=== PATIENT | male | born 1950 | race Caucasian/White ===

== ENCOUNTER → 2016-08-20 | Outpatient (CLI) | payer MEDICARE, OTHER ==
--- NOTE | 2016-08-20 14:57 | MRI ---
EXAM DESCRIPTION: MR LUMBAR SPINE WITHOUT IV CONTRAST CLINICAL HISTORY: 66 y/o M, LUMBAR RADICULITIS COMPARISON: April 09, 2016. TECHNIQUE: Multi planar, multi sequence imaging of the lumbar spine was acquired without IV contrast. FINDINGS: Vertebral body height, alignment and marrow signal are unremarkable. Intervertebral disc spaces are maintained. There has been posterior and interbody fusion of L4 through S1. Endplate edema noted anteriorly at L1-L2 and L2-3. The conus is unremarkable in once again terminates at L1. T12-L1: Unremarkable. L1-L2: Anterior disc osteophyte complex. No posterior disk pathology. No spinal canal or neural foraminal narrowing. No facet degeneration. L2-L3: Mild facet degeneration. Anterior disc osteophyte complex noted. There is no posterior disk pathology. No spinal canal or neural foraminal narrowing. L3-L4: Mild circumferential disk bulge with large bulky anterior osteophytes. Thecal sac is widely patent. Severe facet degeneration noted along with ligamentum flavum thickening. The bilateral neural foramina are likely adequate. L4-5: Laminectomy noted. Thecal sac is widely patent. Bilateral neural foramina are also likely adequate. L5-S1: Laminectomy noted. Thecal sac is widely patent. Bilateral neural foramina are likely adequate. IMPRESSION: There is been no change on today's MRI of lumbar spine when compared to the prior from April 09, 2016. There is no spinal canal narrowing at any level. There continues to be mild endplate edema noted anteriorly at L1-2 and L2-3. Electronically signed by: Robin Wu MD 08/20/2016 14:55
== END ==
LOC: RAD 12:10
PROVIDERS: ATTEND Nurse Practitioner Family
DX: M54.16 Radiculopathy, lumbar region (principal); R41.82 Altered mental status, unspecified; R60.9 Edema, unspecified; N39.0 Urinary tract infection, site not specified

== ENCOUNTER 2016-08-23 11:17 | Inpatient (IN) | payer MEDICARE, OTHER ==
--- NOTE | 2016-08-23 11:37 | CT ---
EXAM DESCRIPTION: CT HEAD WITHOUT INTRAVENOUS CONTRAST CLINICAL HISTORY: Right facial numbness and tingling. COMPARISON: 05/05/2016. TECHNIQUE: CT of the head was performed without intravenous contrast. FINDINGS: There is no intra or extra-axial hemorrhage,fluid collection, midline shift, mass effect or acute focal infarct. Note is again made of old lacunar infarcts in the right basal ganglia in the bilateral centrum semiovale region There is prominence of the sylvian fissures and the cortical sulci reflecting age related volume loss. There is periventricular and deep white matter low attenuation, most likely related to small vessel white matter ischemic disease. Acute on chronic ischemic changes are better assessed on an MRI, if such a suspicion exists clinically. The ventricular system is normal for patient's age, position and configuration. Benign intracranial vascular calcifications are seen. Visualized mastoid air cells are unremarkable. The paranasal sinuses show underlying changes of mild chronic sinusitis. There is no visualization of calvarial or skull base fractures. IMPRESSION: There are no acute intracranial findings. Chronic and age related involutional changes are seen. Electronically signed by: Norris Underwood MD 08/23/2016 11:36
--- NOTE | 2016-08-23 12:05 | ED.PDOC ---
History of Present Illness - General Chief Complaint: Neuro Symptoms/Deficits Stated Complaint: right facial numbness/tingling Time Seen by Provider: 08/23/16 11:39 Source: patient, RN notes reviewed, Vital Signs reviewed, family, EMS Exam Limitations: no limitations - History of Present Illness Initial Comments: This 66 y/o male with a history of CVA was brought in by EMS with symptoms of stroke. [place] the [place], and they reported that he was unable to get up and he had urinary and bowel incontinence. His speech was "different." He reports that he is unable to "move his tongue," however his mouth is very dry. He denies any symptoms other than his neck hurts when he lifts his head. Timing/Duration: 1-3 hours - 1.5 hours--last seen normal Severity: moderate Improving Factors: nothing Worsening Factors: nothing Associated Symptoms: slurred speech, trouble walking Allergies/Adverse Reactions: Allergies Iodine Allergy (Severe, Verified 08/23/16 11:21) Other makes him feel like he is having "a heart attack" Home Medications: Ambulatory Orders Omeprazole [Prilosec] 40 mg PO DAILY 07/05/14 Amitriptyline HCl 150 mg PO BEDTIME 10/24/15 Amlodipine Besylate 5 mg PO DAILY 08/23/16 Divalproex Sodium ER [Depakote ER] 500 mg PO BID 08/23/16 Donepezil HCl [Aricept] 5 mg PO BEDTIME 08/23/16 HYDROcodone 10MG/APAP 325MG [[place] 10/325] 1 tab PO Q4HR PRN 08/23/16 Lisinopril 20 mg PO DAILY 08/23/16 Tamsulosin [Flomax] 0.4 mg PO DAILY 08/23/16 Review of Systems - Review of Systems Constitutional: States: weakness. Denies: see HPI, fever EENTM: States: blurred vision - chronic. Denies: ear pain, throat pain Respiratory: States: no symptoms reported Cardiology: States: no symptoms reported Gastrointestinal/Abdominal: States: no symptoms reported Genitourinary: States: no symptoms reported Musculoskeletal: States: no symptoms reported Skin: States: no symptoms reported Neurological: States: weakness Endocrine: States: no symptoms reported Hematologic/Lymphatic: States: no symptoms reported All other Systems: Reviewed and Negative Past Medical History (General) - Patient Medical History Hx Seizures: No Hx Stroke: Yes - TIA and CVA Hx Dementia: Yes Hx Asthma: No Hx of COPD: Yes Hx Cardiac Disorders: Yes Hx Congestive Heart Failure: No Hx Pacemaker: No Hx Hypertension: Yes Hx Thyroid Disease: No Hx Diabetes: No Hx Gastroesophageal Reflux: Yes Hx Renal Disease: No Hx Cancer: No Hx of HIV: No Hx Hepatitis C: No Hx MRSA: No - Vaccination History Hx Tetanus, Diphtheria Vaccination: No Hx Influenza Vaccination: Yes - 2016 Hx Pneumococcal Vaccination: No - Social History Hx Tobacco Use: Yes Hx Chewing Tobacco Use: No Hx Alcohol Use: Yes Hx Substance Use: No Hx Substance Use Treatment: No Hx Depression: Yes Hx Physical Abuse: No Hx Emotional Abuse: No Hx Suspected Abuse: No - Female History Patient : No Family Medical History - Family History Mother Living Status: Hx Cardiac Disease: Yes Physical Exam - Physical Exam General Appearance: Alert, Comfortable, No apparent distress, Unkempt Eye Exam: right abnormal pupil - pinpoint ENT Exam: hearing grossly normal, TMs normal, other - dry mucous membranes Neck: non-tender, normal inspection Respiratory: no respiratory distress, no accessory muscle use, rales - left lower lobe Cardiovascular/Chest: regular rate, rhythm, no edema, no gallop, no murmur Peripheral Pulses: radial,right: 2+, radial,left: 2+, dorsalis pedis,right: 1+, dorsalis pedis,left: 1+ Gastrointestinal/Abdominal: normal bowel sounds, non tender, soft, no organomegaly, no pulsatile mass Extremities Exam: non-tender, no evidence of injury Mental Status: alert, oriented x 3 registered 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 Exam: normal hearing, tongue deviation to R - initially--improved after Patient got some water Coordination/Gait: ABN nose to finger (R), ABN nose to finger (L) Motor/Sensory: no motor deficit, no sensory deficit Skin Exam: normal color, warm/dry Progress - Results/Orders Results/Orders: 08/23/16 08/23/16 08/23/16 11:31 12:05 13:00 Temperature 98.3 F Pulse Rate [ 80 78 86 Right Radial] Respiratory 20 20 20 Rate Blood Pressure 94/64 92/57 107/46 [Right Arm] O2 Sat by Pulse 96 95 97 Oximetry 08/23/16 13:54 Temperature Pulse Rate [ 84 Right Radial] Respiratory 20 Rate Blood Pressure 98/62 [Right Arm] O2 Sat by Pulse 96 Oximetry 08/23/16 12:15 Head [CT] Stat 08/23/16 12:30 EKG STAT 08/23/16 13:00 Sodium Chloride 0.9% 1000ML [Ns 1000 ml] 1,000 ml IVS ONCE 08/23/16 14:58 VALPROIC ACID (DEPAKENE) Stat Laboratory Results WBC 13.4 K/mm3 (4.8-10.8) H D 08/23/16 12:16 RBC 3.78 M/mm3 (4.70-6.10) L 08/23/16 12:16 Hgb 10.9 gm/dL (14.0-18.0) L 08/23/16 12:16 Hct 33.4 % (42.0-52.0) L 08/23/16 12:16 MCV 88.4 fl (80.0-94.0) 08/23/16 12:16 MCH 28.8 pg (27.0-31.0) 08/23/16 12:16 MCHC 32.7 g/dL (33.0-37.0) L 08/23/16 12:16 RDW 15.0 % (11.5-14.5) H 08/23/16 12:16 Plt Count 266 K/mm3 (130-400) 08/23/16 12:16 MPV 7.4 fl (7.40-10.4) 08/23/16 12:16 Absolute Neuts (auto) 11.40 K/uL (1.8-6.8) H 08/23/16 12:16 Absolute Lymphs (auto) 1.00 K/uL (1.0-3.4) 08/23/16 12:16 Absolute Monos (auto) 0.90 K/uL (0.2-0.8) H 08/23/16 12:16 Absolute Eos (auto) 0.00 K/uL (0.0-0.4) 08/23/16 12:16 Absolute Basos (auto) 0.00 K/uL (0.0-0.1) 08/23/16 12:16 Neutrophils % 85.2 % (42.0-78.0) H 08/23/16 12:16 Lymphocytes % 7.6 % (20.0-50.0) L 08/23/16 12:16 Monocytes % 6.9 % (2.0-9.0) 08/23/16 12:16 Eosinophils % 0.1 % (1.0-5.0) L 08/23/16 12:16 Basophils % 0.2 % (0.0-2.0) 08/23/16 12:16 PT 11.3 SECONDS (9.4-12.5) 08/23/16 12:16 INR 1.000 08/23/16 12:16 PTT (SP) 30.6 SECONDS (25.1-36.5) 08/23/16 12:16 Sodium 132 mmol/L (135-145) L 08/23/16 12:16 Potassium 4.1 mmol/L (3.6-5.0) 08/23/16 12:16 Chloride 100 mmol/L (101-111) L 08/23/16 12:16 Carbon Dioxide 23 mmol/L (21-31) 08/23/16 12:16 Anion Gap 13.1 (12-18) 08/23/16 12:16 BUN 34 mg/dL (7-18) H D 08/23/16 12:16 Creatinine 1.16 mg/dL (0.6-1.3) 08/23/16 12:16 BUN/Creatinine Ratio 29.3 (10-20) H 08/23/16 12:16 Random Glucose 91 mg/dL (70-105) 08/23/16 12:16 Serum Osmolality 271.7 mOsm/L (275-295) L 08/23/16 12:16 Calcium 9.3 mg/dL (8.4-10.2) 08/23/16 12:16 Total Bilirubin 0.6 mg/dL (0.2-1.0) 08/23/16 12:16 AST 22 IU/L (10-42) 08/23/16 12:16 ALT < 8 IU/L (10-60) L 08/23/16 12:16 Alkaline Phosphatase 49 IU/L (42-121) 08/23/16 12:16 Creatine Kinase 914 IU/L (38-174) H* 08/23/16 12:16 CK-MB (CK-2) 39.1 ng/mL (0.0-4.4) H* 08/23/16 12:16 CK-MB (CK-2) % 4.28 % (0.0-3.5) H 08/23/16 12:16 Troponin I < 0.02 ng/mL (0.01-0.05) 08/23/16 12:16 B-Natriuretic Peptide 39.3 pg/ml (0-100) 08/23/16 12:16 Serum Total Protein 7.1 gm/dL (6.4-8.2) 08/23/16 12:16 Albumin 3.5 g/dl (3.2-5.5) 08/23/16 12:16 Globulin 3.6 gm/dL (2.3-3.5) H 08/23/16 12:16 Albumin/Globulin Ratio 1.0 (1.1-1.9) L 08/23/16 12:16 Urine Color Yellow (Yellow) 08/23/16 13:49 Urine Appearance Clear (Clear) 08/23/16 13:49 Urine pH 6.0 (4.5-7.8) 08/23/16 13:49 Ur Specific [place] 1.015 (1.005-1.030) 08/23/16 13:49 Urine Protein Negative mg/dL 08/23/16 13:49 Urine Glucose (UA) Negative mg/dL (Negative) 08/23/16 13:49 Urine Ketones Negative mg/dL (NEGATIVE) 08/23/16 13:49 Urine Blood Negative (Negative) 08/23/16 13:49 Urine Nitrite Negative 08/23/16 13:49 Urine Bilirubin Negative (NEGATIVE) 08/23/16 13:49 Urine Urobilinogen 0.2 mg/dL (0.2-1.0) 08/23/16 13:49 Ur Leukocyte Esterase Negative (Negative) 08/23/16 13:49 Urine RBC 0-1 /hpf 08/23/16 13:49 Urine WBC 1-3 /hpf 08/23/16 13:49 Ur Epithelial Cells 0-1 /hpf 08/23/16 13:49 Urine Bacteria 0 08/23/16 13:49 - EKG/XRAY/CT EKG: Sinus, no ST T wave changes Comments: Nonspecific A/V block, LAD, 78bpm, NML Int., No comp, ABN EGK XRAY: chest Xray Comments: Diffuse interstitial infiltrates CT: Head-old infarcts, no acute process CT Ordered: Yes CT Interpretation Call Back: No - Report sent CT Interpretation Call Back Date: 08/23/16 CT Interpretation Call Back Time: 11:40 Stroke Information - Onset of Symptoms Symptoms of Stroke: Aphasia, Difficulty balancing Stroke Onset of Symptoms Date: 08/23/16 Stroke Onset of Symptoms Time: 10:00 - Contraindications Antithrombotic Contraindication: Treatment not indicated - Patient's symptoms are mild and he is back to baseline at this time per his son Departure - Departure Clinical Impression: Seizure disorder, Hyponatremia TIA (transient ischemic attack) Qualifiers: Transient cerebral ischemia type: unspecified Qualifier Code: (G45.9) Transient cerebral ischemic attack, unspecified Time of Disposition: 15:03 Disposition: Admit Patient Condition: Poor Home Medications: Ambulatory Orders Omeprazole [Prilosec] 40 mg PO DAILY 07/05/14 Amitriptyline HCl 150 mg PO BEDTIME 10/24/15 Amlodipine Besylate 5 mg PO DAILY 08/23/16 Divalproex Sodium ER [Depakote ER] 500 mg PO BID 08/23/16 Donepezil HCl [Aricept] 5 mg PO BEDTIME 08/23/16 HYDROcodone 10MG/APAP 325MG [[place] 10/325] 1 tab PO Q4HR PRN 08/23/16 Lisinopril 20 mg PO DAILY 08/23/16 Tamsulosin [Flomax] 0.4 mg PO DAILY 08/23/16 Decision To Admit - Decistion To Admit Decision to Admit Reason: Admit from ER Decision to Admit Date: 08/23/16 Decision to Admit Time: 14:50
[2016-08-23] MEDS ORDERED: SODIUM CHLORIDE 0.9% 1000ML 1,000 ML IVS ONE (13:00)
[2016-08-23] MEDS ORDERED: SODIUM CHLORIDE 0.9% 1000ML 1,000 ML ONE (13:04)
--- NOTE | 2016-08-23 14:04 | RAD ---
EXAM DESCRIPTION: X-RAY CHEST- ONE VIEW CLINICAL HISTORY: Stroke symptoms. COMPARISON: 01/22/2016 TECHNIQUE: Single view of the chest. FINDINGS: There are diffuse interstitial infiltrates in the right hemithorax There are no pneumothoraces or pleural effusions. The cardiomediastinal silhouette is stable and unremarkable. IMPRESSION: There are diffuse interstitial infiltrates in the right hemithorax Electronically signed by: Norris Underwood MD 08/23/2016 14:02
--- NOTE | 2016-08-23 15:36 | HP ---
SUPERVISING PHYSICIAN: Nathan Rey M.D. HISTORY OF PRESENT ILLNESS: Mr. Hammonds is a 66 year-old male patient , a resident of [facility]. He was brought to the Emergency Room with what they described as possible stroke-like symptoms. He does have a significant history of previous cerebrovascular accidents, one in 2014 and again October of last year. He was reported as being unable to get up and had become incontinent of urine and bowel with a speech that was different and he was unable to move his tongue. On admission to the Emergency Department, he was found to be without any neurological deficits other than slurred speech which is normal for him with the previous CVAs. The patient has just been recently admitted to the care facility at [facility] on 08/19 from [place]. He was started on Depakote on admission to the care facility by Dr. Gomez as the patient has a history of epilepsy without mention of status epilepticus. Per longterm staff, the patient was admitted on 08/19/15, however left due to insurance difficulty and returned home. He was found at home on 08/21/15 on the floor by his family and had been on the floor for an unknown amount of time and unknown reason as to why he had fallen or was on the floor. Again he was found to be incontinent of urine and stool. He was then readmitted after insurance issues were cleared back to [facility] on 08/21 and had apparently not been taking his Depakote. A Depakote level today in the Emergency Room showed to be subtherapeutic at 34.0. He does take Depakote 500 mg twice daily. Laboratory studies showed that he also had an elevated white count but was afebrile, and also of note was a low sodium at 132 as well as elevated CK of 914. Radiographic studies included a single chest view x-ray that was interpreted per radiology as having diffuse interstitial infiltrates in the right hemithorax. Dr. Sarah, E. R. physician, requested the patient be admitted for continued treatment and evaluation for possibly either having an additional stroke or transient ischemic attack versus a seizure given that his Depakote level was subtherapeutic. The patient was admitted to the Medical/Surgical floor in stable condition. PAST MEDICAL HISTORY: 1. Hypertension. 2. Major depressive disorder. 3. Epilepsy without status epilepticus. 4. Sciatica. 5. Dementia. 6. History of alcohol abuse. 7. History of multiple falls. 8. Benign prostatic hypertrophy. 9. History of cerebrovascular disease with cerebrovascular accidents in the last 2 years. 10. Gout. 11. Osteoarthritis. PAST SURGICAL HISTORY: 1. Arthroscopic procedures in the past. No other major surgeries listed. CURRENT MEDICATIONS: 1. Flomax 0.4 mg daily. 2. Amlodipine 5 mg daily. 3. Lisinopril 20 mg daily. 4. [place] 10/325 one tablet every 4 hours p.r.n. for pain. 5. Aricept 5 mg at bedtime. 6. Depakote Extended Release 500 mg twice daily. 7. Prilosec 40 mg daily. 8. Amitriptyline 150 mg at bedtime. HEALTHCARE PROVIDERS: Primary care physician - Dr. Justin Gomez ALLERGIES: IODINE AND CEPHALOSPORINS. FAMILY HISTORY: Positive for cancer. 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 He currently lives at [facility] having recently moved there on 08/20/15. He still smokes about a pack of cigarette a day and prior to admission to [facility] he was drinking about 1/2 pint of whiskey a day. Unsure as to when he stopped drinking. He has done so since a teenager. REVIEW OF SYSTEMS: CONSTITUTIONAL: Denies any fever or chills. HEENT: Denies any visual disturbances, ear pain or throat pain. RESPIRATORY: Notes a cough with some mild shortness of breath at times. CARDIOVASCULAR: Denies any chest pains palpitations or syncopal episodes other than noted in the History of Present Illness with possible syncopal episode felt likely secondary to a seizure. ABDOMEN: Denies any nausea or vomiting, diarrhea or constipation. GENITOURINARY: Denies any dysuria or gross hematuria. NEUROLOGIC: He notes generalized weakness as per history of present illness with the patient being incontinent of stool and urine with some difficulty speaking initially prior to admission. Denies any headaches but has had multiple falls in the last week. He does have a history of difficulty speaking which according to his family members is now back to his normal baseline secondary to previous strokes. PHYSICAL EXAMINATION: VITAL SIGNS: Temperature 98.3, pulse 87, blood pressure 134/89, respirations 20 , O2 sat 96% on room air. Admission weight is 77.8 kg. GENERAL: The patient is resting in bed. Appears to be in no acute distress. He does speak, however it is very difficult to understand his speech secondary to dysarthric speech pattern. He notes that is his normal speech pattern and at times is understandable. His son also notes that that is his baseline. HEENT: Tympanic membranes are clear bilaterally. Oropharynx is pink. Mucosal membranes are dry with cracked lips. There are no lesions. NECK: There is no jugular venous distention. CHEST: Lungs are notable for decreased breath sounds towards the bases with some notable crackles to the posterior right lung gee. No wheezing or rhonchi heard. CARDIOVASCULAR: Regular rate and rhythm without appreciable murmurs, gallops, or rubs. ABDOMEN: Obese but soft, non-tender. Positive bowel sounds. EXTREMITIES: No clubbing, cyanosis or edema. NEUROLOGIC: Cranial nerves II-XII are grossly intact. Facial features are symmetrical. Extraocular movements show to be within normal limits. There is no nystagmus. He does have some ataxia noted on the left. Nose to finger and heel to miller, but no obvious lateralizing or localizing weaknesses. He is alert and oriented times three. LABORATORY: White count is elevated at 13.4, hemoglobin 10.9, hematocrit 33.4, platelet count 266,000. Differential does show a left shift. Coagulation studies show to be within normal limits. Chemistries show a low sodium at 132 with a normal potassium at 4.1, BUN 34, creatinine 1.16, anion gap was normal, carbon dioxide 23, glucose 91, calcium 9.3, magnesium 1.9. TSH is pending. Liver functions show to be within normal limits with CPK elevated at 914 and troponin less than 0.02 with BNP of 39.3. Urine showed to be within normal limits. Valproic acid level was non-therapeutic at 34. MICROBIOLOGY: Blood cultures are pending. Sputum culture is pending. RADIOLOGY: Head CT performed in the Emergency Department prior to admission per radiology interpretation showed no acute intracranial findings, chronic and age-related involutional changes noted. Single view chest x-ray per radiology interpretation showed diffuse interstitial infiltrates in the right hemithorax. ASSESSMENT: 1. History of epilepsy with the patient having a non-therapeutic Depakote level and the patient being noncompliant with medications with concerns for a possible seizure that was unwitnessed with the patient presenting with postictal symptoms having resolved at time of admission in a patient with multiple cerebrovascular accidents within the last 2 years versus transient ischemic attack. 2. Electrolyte imbalance with hyponatremia. 3. Leukocytosis with radiographic studies showing an infiltrative process in the right lung with concerns for early pneumonia possibly secondary to aspiration given the patient has a history of seizures and multiple falls within the last week. 4. Elevated creatinine phosphokinase likely secondary to seizure activity and multiple falls within the last week. 5. Major depressive disorder. 6. Dementia. 7. History of alcohol abuse. 8. Benign prostatic hyperplasia. 9. History of gout. 10. Hypertension. 11. Mild renal insufficiency likely secondary to prerenal azotemia and moderate dehydration. 12. Anemia with a normocytic normochromic presentation. PLAN: The patient will be admitted to the Medical/Surgical floor for concerns for possible seizure activity secondary to failure to comply with medication regimen and having a non-therapeutic Depakote level. I will plan to increase his Depakote regimen with a loading dose of 1,000 mg on admission and to continue with 500 twice daily with a repeat valproic level in the morning. He will be on DVT prophylaxis as per protocol. Given the concerns for the infiltrative process in the right lung and the possibility of community acquired pneumonia with concerns for possible aspiration with leukocytosis, he will be started on Levaquin after blood cultures are drawn and closely monitored. Should he show any worsening of symptoms, certainly will treat him with some Clindamycin for again possible aspiration pneumonia. Will await sputum cultures to further target antibiotic therapy. Will provide him with IV fluids to assist in rehydration. He had a liter of normal saline in the Emergency Department. This will be followed-up with normal saline with 40 of potassium to run at 80 mL per hour. Will start him on aggressive pulmonary hygiene with q.i.d. DuoNeb treatments, Mucinex and bronchial hygiene. He will be in seizure precautions as well as have every 4 hours neuro checks, and closely observed and placed on telemetry. Will anticipate length of stay to be 2 to 3 days with plans to reevaluate in the morning with repeat laboratory studies and again a chest x-ray. Until discharge, will continue to follow the patient closely and treat appropriately. Once ultimately discharged, the patient will need to followup closely with his primary care physician, Dr. Gomez at [facility]. #[id number] [facility] HOSPITALMelchor
[2016-08-23] MEDS ORDERED: SODIUM CHLORIDE 0.9% (FLUSH) 10 ML SYG IV PRN (15:42)
[2016-08-23] MEDS ORDERED: IV SET AND CAP CHANGE INJ INJ SCH (16:00)
[2016-08-23] MEDS: KCL 40MEQ/NS 1,000 ML IVS PRN (16:09)
[2016-08-23] MEDS ORDERED: DIVALPROEX SODIUM 250 MG TAB PO ONE (17:12)
[2016-08-23] MEDS ORDERED: ALBUTEROL SULFATE 2.5 MG/3 ML VIAL NEB PRN (17:35)
[2016-08-23] MEDS ORDERED: levoFLOXacin 500MG IV 100 ML IVPB ONE (17:50)
[2016-08-23] MEDS: levoFLOXacin 500MG IV 500 MG in PREMIX BAG 1 BAG IVPB SCH (17:52)
[2016-08-23] MEDS: NICOTINE PATCH 21 MG TD SCH (18:44)
[2016-08-23] MEDS ORDERED: AMITRIPTYLINE HCL 25 MG TAB ONE (19:24)
[2016-08-23] MEDS: IPRATROPIUM/ALBUTEROL 3 ML VIAL NEB SCH (20:01)
[2016-08-23] MEDS: HYDROcodone 10MG/APAP 325MG 1 EA TAB PO PRN (20:08)
[2016-08-23] MEDS: guaiFENesin ER TAB 600 MG TAB PO SCH (20:32)
[2016-08-23] MEDS: LORazepam 0.5 MG TAB PO SCH (20:32)
[2016-08-23] MEDS: DONEPEZIL HCL 5 MG TAB PO SCH (20:32)
[2016-08-23] MEDS ORDERED: DIVALPROEX SODIUM ER 500 MG TAB PO SCH (21:00)
[2016-08-23] MEDS ORDERED: NON-FORMULARY MEDICATION 1 EA MIS (Amitriptyline Hcl [Amitriptyline Hcl] 150 MG) PO SCH (21:00)
[2016-08-24] MEDS: KCL 40MEQ/NS 1,000 ML IVS PRN (05:50)
[2016-08-24] MEDS ORDERED: LISINOPRIL 10 MG TAB ONE (07:29)
[2016-08-24] MEDS ORDERED: OMEPRAZOLE CAP 20 MG CAP ONE (07:29)
[2016-08-24] MEDS: IPRATROPIUM/ALBUTEROL 3 ML VIAL NEB SCH ×5 (08:01→20:22)
[2016-08-24] MEDS: guaiFENesin ER TAB 600 MG TAB PO SCH ×2 (08:38→20:40)
[2016-08-24] MEDS: amLODIPine BESYLATE 5 MG TAB PO SCH (08:38)
[2016-08-24] MEDS: LISINOPRIL 10 MG TAB PO SCH (08:38)
[2016-08-24] MEDS: TAMSULOSIN 0.4 MG CAP PO SCH (08:38)
[2016-08-24] MEDS: OMEPRAZOLE CAP 20 MG CAP PO SCH (08:38)
[2016-08-24] MEDS: DIVALPROEX SODIUM 250 MG TAB PO SCH ×2 (08:40→20:40)
--- NOTE | 2016-08-24 08:42 | RAD ---
EXAM DESCRIPTION: X-RAY CHEST- ONE VIEW CLINICAL HISTORY: Followup of pneumonia COMPARISON: 08/23/2016 TECHNIQUE: Single view of the chest. FINDINGS: There are improving, still diffuse right-sided infiltrates. There is no pleural effusion There are no pneumothoraces. The cardiomediastinal silhouette is stable. IMPRESSION: There are improving, still diffuse right-sided infiltrates. Electronically signed by: Norris Underwood MD 08/24/2016 08:39
[2016-08-24] MEDS: SODIUM CHLORIDE 0.9% (FLUSH) 10 ML SYG IV SCH ×2 (10:33→20:41)
[2016-08-24] MEDS: HYDROcodone 10MG/APAP 325MG 1 EA TAB PO PRN ×2 (11:37→17:41)
--- NOTE | 2016-08-24 11:53 | PN ---
DATE: 08/24/16 SUPERVISING PHYSICIAN: Alexander Harris M.D. SUBJECTIVE: The patient this morning has much clearer speech. He did not have any seizure activity through the night. He remains afebrile. He is tolerating his diet well. OBJECTIVE: VITAL SIGNS: T max 98.7, pulse 74, blood pressure 115/77, respirations 18, O2 sat showing 97% on room air. I's and O's show a negative balance of 49 with 1751 in, 1800 out. Weight is 78.6 kg. GENERAL: The patient is resting in bed in no distress. Speech is much clearer today. HEENT: Mucosal membranes appear pink and moist now. There are no notable lesions. CHEST: Lungs have diminished breath sounds in the right with some faint rhonchi in the posterior aspect. No wheezing or rales are heard. Lungs sound to the left are clear but diminished towards the bases. HEART: Regular rate and rhythm. ABDOMEN: Obese but soft, non-tender. Positive bowel sounds. EXTREMITIES: There is no clubbing, cyanosis or edema. NEUROLOGIC: He is alert and oriented times three. No significant changes in his neurologic status from admission other than speech is much clearer. LABORATORY: White count is now normalized to 9.0, hemoglobin 9.8, hematocrit 29.3, platelet count 212,000. Differential shows to be without a left shift. Chemistries show normal electrolytes today with potassium 4.9. Sodium has improved to 135, BUN 18, creatinine 0.76, glucose 71, CPK is down to 365. All other liver functions are within normal limits. A repeat valproic acid is therapeutic at 69.8. MICROBIOLOGY: Sputum culture shows normal talya at 24 hours. Blood cultures remain negative. RADIOLOGY: Single view chest x-ray this morning per radiology interpretation shows improving but still diffuse right sided infiltrates. ASSESSMENT: 1. History of epilepsy with the patient presenting with possible seizure activity as he was nontherapeutic on his Depakote level, however seizure unwitnessed with the patient presenting in a postictal state on admission and showing improvement in his valproic levels now being therapeutic after additional loading dose administered. No additional seizure activity reported. 2. Electrolyte imbalance with hyponatremia, improved after IV fluids. 3. Leukocytosis showing improvement after IV fluids likely secondary to developing pneumonia on the right side as noted on radiographic studies with the patient being started on parenteral antibiotics to include Levaquin. 4. Elevated CPK likely secondary to seizure activity previously prior to admission and multiple falls in the last week showing improvement after IV fluids. 5. Moderate dehydration showing improvement after IV fluids. 6. Renal insufficiency secondary to prerenal azotemia and moderate dehydration improving after IV fluid therapy. 7. Major depressive disorder. 8. Dementia. 9. History of alcohol abuse with the patient having stopped 3 months previously. 10. Benign prostatic hyperplasia without mention of complications. 11. History of gout. 12. Hypertension. 13. Anemia with a normocytic normochromic presentation likely chronic. PLAN: The patient will continue with antibiotic therapy for an additional 24 hours as his radiographic studies continue to show infiltrate on the right side , although stable and showing some improvement after starting antibiotics. He will remain in seizure precautions. As his Depakote has been therapeutic today , will continue with his previous dosing prior to admission. He is now showing good improvements in regards to his volume status, therefore will saline-lock him as he is taking adequate p.o. fluids. He will continue with aggressive pulmonary hygiene including DuoNeb treatments, Mucinex and bronchial hygiene. Anticipate possible discharge tomorrow or Thursday. Plan to reevaluate with laboratory studies in the morning. Until then, will continue to monitor the patient closely and treat appropriately. #[id number] [facility]
[2016-08-24] MEDS ORDERED: levoFLOXacin 500MG IV 100 ML IVPB ONE (16:50)
[2016-08-24] MEDS: levoFLOXacin 500MG IV 500 MG in PREMIX BAG 1 BAG IVPB SCH (17:40)
[2016-08-24] MEDS: NICOTINE PATCH 21 MG TD SCH (17:40)
[2016-08-24] MEDS: AMITRIPTYLINE HCL 25 MG TAB PO SCH (20:39)
[2016-08-24] MEDS: LORazepam 0.5 MG TAB PO SCH (20:40)
[2016-08-24] MEDS: DONEPEZIL HCL 5 MG TAB PO SCH (20:40)
[2016-08-25] MEDS: HYDROcodone 10MG/APAP 325MG 1 EA TAB PO PRN (05:04)
--- NOTE | 2016-08-25 06:00 | RAD ---
EXAM DESCRIPTION: XR CHEST 1 VIEW 08/25/2016 5:44 AM CLINICAL HISTORY: 66 y/o , M, chest pain COMPARISON: Portable AP view of the chest August 24, 2016 FINDINGS: There is stable patchy confluent airspace opacity in the right hilum and right upper lobe. The left lung remains largely clear. The heart is stable in size. The mediastinal contours are normal in appearance. There are degenerative changes throughout the thoracic spine. The ribs and shoulders are normal in appearance. Limited evaluation of the upper abdomen demonstrates no gross abnormalities. IMPRESSION: Stable patchy confluent right perihilar and upper lobe airspace disease. Electronically signed by: Kayla Mccormick MD 08/25/2016 05:58
[2016-08-25] MEDS: OMEPRAZOLE CAP 20 MG CAP PO SCH (06:20)
[2016-08-25] MEDS ORDERED: levoFLOXacin 500MG IV 100 ML IVPB ONE (07:14)
[2016-08-25] MEDS: DIVALPROEX SODIUM 250 MG TAB PO SCH ×2 (08:29→21:07)
[2016-08-25] MEDS: LISINOPRIL 10 MG TAB PO SCH (08:29)
[2016-08-25] MEDS: guaiFENesin ER TAB 600 MG TAB PO SCH ×2 (08:29→21:07)
[2016-08-25] MEDS: SODIUM CHLORIDE 0.9% (FLUSH) 10 ML SYG IV SCH ×2 (08:30→21:07)
[2016-08-25] MEDS: TAMSULOSIN 0.4 MG CAP PO SCH (08:30)
[2016-08-25] MEDS: amLODIPine BESYLATE 5 MG TAB PO SCH (08:30)
[2016-08-25] MEDS: IPRATROPIUM/ALBUTEROL 3 ML VIAL NEB SCH ×4 (08:51→20:04)
[2016-08-25] MEDS: levoFLOXacin 500MG IV 500 MG in PREMIX BAG 1 BAG IVPB SCH (17:35)
[2016-08-25] MEDS: NICOTINE PATCH 21 MG TD SCH (18:09)
--- NOTE | 2016-08-25 19:28 | PN ---
DATE: 08/25/16 SUPERVISING PHYSICIAN: Alexander Harris M.D. SUBJECTIVE: The patient is sitting in the bedside chair eating breakfast. Says he feels good. He had a good night's sleep. He did have some chest pains on the right side this morning with deep inspiration which is reproducible. He says he has had no further chest pains since this morning. He remains afebrile. OBJECTIVE: VITAL SIGNS: T max 98.7, pulse 75, blood pressure 122/83, respirations 18, satting 96% on room air at rest. I's and O's show a negative balance of 1220 with 2480 in, 3700 out. Weight 76.7 kg. GENERAL: The patient is in no distress. Speech is still fairly clear today. CHEST: Lung sounds still diminished towards the right base but no rhonchi today or wheezing. Lung sounds on the left side remain clear but continue to also be towards the bases diminished. HEART: Regular rate and rhythm. ABDOMEN: Obese but soft. Positive bowel sounds. EXTREMITIES: No clubbing, cyanosis or edema NEUROLOGIC : He is alert and oriented times three. LABORATORY: White count 9.4, hemoglobin 9, hematocrit 26.4, platelet count 218, 000. Differential shows to be within normal limits. Chemistries show a mildly low sodium of 132 with potassium 4.2, BUN 13, creatinine 0.8, glucose 72, troponin was less than 0.02. Valproic acid is 63.3. MICROBIOLOGY: Sputum culture preliminary shows gram-negative rods with final identification and sensitivity report pending. Blood cultures remain negative after 24 hours. RADIOLOGY: Chest x-ray single view today per radiology interpretation shows stable patchy confluent right perihilar and upper lobe airspace disease. ASSESSMENT: 1. History of epilepsy with possible seizure activity prior to admission secondary to a non-therapeutic Depakote level with the seizure being unwitnessed and the patient presenting in a postictal state on admission now showing improvement with no seizure activity with valproic levels being therapeutic now for 2 days. 2. Electrolyte imbalance with persistent hyponatremia. 3. Leukocytosis, improved after IV fluids felt to be secondary to developing pneumonia on the right side but showing improvement after starting on antibiotics parenterally and radiographic studies showing to be stable. 4. Elevated CPK with now normalized likely secondary to fall and seizure activity. 5. Moderate dehydration on admission improved after IV fluids. 6. Renal insufficiency secondary to prerenal azotemia and dehydration showing improvement after IV fluids. 7. Major depressive disorder. 8. Dementia. 9. History of alcohol abuse with the patient having stopped 3 months previously. 10. Benign prostatic hyperplasia without mention of complications. 11. History of gout. 12. Hypertension. 13. Anemia normochromic normocytic presentation likely chronic needing further workup. 14. Chest pains with cardiac enzymes being negative likely secondary to right sided pneumonia and being a pleuritic type pain with pain being reproducible on palpation. PLAN: The patient will continue antibiotics to include Levaquin as he does show a positive sputum culture with gram-negative rods with final identification pending. Will continue to monitor this closely and target antibiotic therapy accordingly as results are available. The patient does continue to show improvement. His Depakote levels remain therapeutic. Will continue with aggressive pulmonary hygiene and antibiotics, and plan to reevaluate in the morning with laboratory studies. Anticipate possible discharge tomorrow or Thursday pending final culture results and need for targeting antibiotic therapy accordingly based off final results. Until then, will continue to monitor the patient closely and treat appropriately. #[id number] [facility]
[2016-08-25] MEDS: DONEPEZIL HCL 5 MG TAB PO SCH (21:07)
[2016-08-25] MEDS: LORazepam 0.5 MG TAB PO SCH (21:07)
[2016-08-25] MEDS: AMITRIPTYLINE HCL 25 MG TAB PO SCH (21:07)
--- NOTE | 2016-08-26 01:27 | PCM.CORE ---
Physician DVT/VTE - Nurse DVT Assessment & Total Each Risk Factor Represents 2 Points: Age 60-74 Each Risk Factor Represents 1 Point: Hx of smoking past year Each Risk Factor is 1 Point: Obesity (BMI >25) DVT Assessment Score: 4 - 5 or more Very High Risk Treatments: Early Ambulation *, Sequential Compression Device Pharmacological: Enoxaparin 40mg SQ Daily
[2016-08-26] MEDS: OMEPRAZOLE CAP 20 MG CAP PO SCH (06:12)
--- NOTE | 2016-08-26 06:51 | RAD ---
EXAM DESCRIPTION: XR CHEST 1 VIEW CLINICAL HISTORY: 66 y/o M, pneumonia COMPARISON: 08/25/2016. TECHNIQUE: Frontal radiograph of the chest. FINDINGS: There are interstitial and airspace opacities within the right lung. The left lung is clear. The heart size is stable. There is a small right pleural effusion. There is no pneumothorax. IMPRESSION: Grossly stable diffuse interstitial and airspace opacities within the right lung, likely representing pneumonia Electronically signed by: Richmond Kaiser MD 08/26/2016 06:49
[2016-08-26] MEDS: IPRATROPIUM/ALBUTEROL 3 ML VIAL NEB SCH ×2 (08:22→13:10)
[2016-08-26] MEDS ORDERED: ENOXAPARIN SODIUM 40 MG/0.4 ML SYG SUBCU SCH (09:00)
--- NOTE | 2016-08-26 09:19 | CT ---
EXAM DESCRIPTION: Chest CT. CLINICAL HISTORY: Right-sided pneumonia, hyponatremia, SIADH COMPARISON: None. TECHNIQUE: A volumetric CT without IV contrast was acquired and displayed in multiplanar reconstructions. FINDINGS: Mediastinum: Coronary artery disease noted. No pericardial thickening or effusion. No lymphadenopathy noted. The trachea is midline and unremarkable. The thoracic esophagus is unremarkable. Mild atherosclerotic disease seen within the aortic arch and origins of the great vessels. Upper Abdomen: Visualized segments of the abdominal organs are unremarkable. Lungs: Emphysema noted. Interlobular septal thickening seen within the base of the right upper lobe, right middle lobe and right lower lobe. Nodular opacities intermixed between the areas of interlobular septal thickening and ground-glass. Minimal ground-glass seen lateral to the left hilum and within the left upper lobe. Minimal ground-glass seen within the superior segment of left lower lobe. Bones: Several areas of sclerosis seen on today's exam within the thoracic vertebral bodies. . These may be secondary to degenerative endplate changes and the large bulky anterior osteophytes. These will be followed on patient subsequently ordered CT of chest. IMPRESSION: The findings within bilateral lungs likely represent pneumonia superimposed on emphysema. After treatment I would recommend a repeat CT of chest to document resolution as there are nodular opacities seen throughout the areas of ground-glass and interlobular septal thickening. At this time a malignancy cannot be excluded. No lymphadenopathy noted on today's exam. Coronary artery disease is noted. Electronically signed by: Robin Wu MD 08/26/2016 09:17
[2016-08-26] MEDS: amLODIPine BESYLATE 5 MG TAB PO SCH (09:28)
[2016-08-26] MEDS: TAMSULOSIN 0.4 MG CAP PO SCH (09:28)
[2016-08-26] MEDS: DIVALPROEX SODIUM 250 MG TAB PO SCH (09:28)
[2016-08-26] MEDS: guaiFENesin ER TAB 600 MG TAB PO SCH (09:28)
[2016-08-26] MEDS: SODIUM CHLORIDE 0.9% (FLUSH) 10 ML SYG IV SCH (09:28)
[2016-08-26] MEDS: LISINOPRIL 10 MG TAB PO SCH (09:28)
[2016-08-26 10:20] VITALS: BP 128/87; TEMP 98.5
[2016-08-26 14:01] VITALS: O2SAT 96
--- NOTE | 2016-09-01 11:09 | DS ---
SUPERVISING PHYSICIAN: Nathan Rey MD DISCHARGE DIAGNOSIS: 1. History of epilepsy with possible seizure prior to admission secondary to a non-therapeutic Depakote level with seizure being unwitnessed and the patient presenting in a post ictal state on admission, showing improvement with no seizure activity with Depakote levels now therapeutic for two days prior to discharge. 2. Electrolyte imbalance with persistent hyponatremia. 3. Leukocytosis, improved after IV fluids, felt to be secondary to developing pneumonia on the right side with sputum culture showing Klebsiella pneumoniae, pansensitive, likely community acquired, showing improvement after staring on parenteral antibiotics and radiographic studies being stable. 4. Elevated creatinine phosphokinase, normalized, likely secondary to falls and seizure activity. 5. Moderate dehydration on admission, improved after intravenous fluids. 6. Renal insufficiency, secondary to prerenal azotemia and dehydration, showing improvement after intravenous fluids. 7. Major depressive disorder. 8. Dementia. 9. History of alcohol abuse with the patient having stopped three months previously. 10. Benign prostatic hyperplasia without mention of complications. 11. History of gout. 12. Hypertension. 13. Anemia with a normocytic normochromic presentation, likely chronic, needing further workup. 14. Chest pains with cardiac enzymes being negative, likely secondary to right sided pneumonia and being a pleuritic type pain with the pain being reproducible on palpation. HISTORY OF PRESENT ILLNESS: Mr. Hammonds is a 66 year-old male patient , a resident of [facility]. He was brought to the Emergency Room with what they described as possible stroke-like symptoms. He does have a significant history of previous cerebrovascular accidents, one in 2014 and again October of last year. He was reported as being unable to get up and had become incontinent of urine and bowel with a speech that was different and he was unable to move his tongue. On admission to the Emergency Department, he was found to be without any neurological deficits other than slurred speech which is normal for him with the previous CVAs. The patient has just been recently admitted to the care facility at [facility] on 08/19 from [place]. He was started on Depakote on admission to the care facility by Dr. Gomez as the patient has a history of epilepsy without mention of status epilepticus. Per intermediate staff, the patient was admitted on 08/19/16, however left due to insurance difficulty and returned home. He was found at home on 08/21/16 on the floor by his family and had been on the floor for an unknown amount of time and unknown reason as to why he had fallen or was on the floor. Again he was found to be incontinent of urine and stool. He was then readmitted after insurance issues were cleared back to [facility] on 08/21 and had apparently not been taking his Depakote. A Depakote level today in the Emergency Room showed to be subtherapeutic at 34.0. He does take Depakote 500 mg twice daily. Laboratory studies showed that he also had an elevated white count, but was afebrile, and also of note was a low sodium at 132 as well as elevated CK of 914. Radiographic studies included a single view chest x-ray that was interpreted per radiology as having diffuse interstitial infiltrates in the right hemithorax. Dr. Sarah, Emergency Room physician, requested the patient be admitted for continued treatment and evaluation for possibly either having an additional stroke or transient ischemic attack versus a seizure given that his Depakote level was subtherapeutic. The patient was admitted to the Medical/Surgical floor in stable condition. LABORATORY: White count on admission was 13.4. After treatment and through hospitalization, it normalized to 6.2. Hemoglobin and hematocrit remained stable at time of discharge were 10 and 29.8. Platelet count was within normal limits at 239,000. Differential did significantly show a left shift, however, this resolved after treatment and was within normal limits at time of discharge. Retic count was 1.2. Coagulation studies were within normal limits. Chemistries showed low sodium initially of 132 which did remain persistent and at time of discharge was 129, however, this is felt to be chronic for the patient. Potassium was normal at 4.2. Other electrolytes were all within normal limits. Initial BUN on admission was 34. At time of discharge, it had normalized at 15 as well as creatinine was normal at 1.16, but at discharge had decreased to 0.82. Glucoses remained stable at was 98 at discharge. Calcium 9.4. Magnesium on admission was 1.9. CPK was elevated on admission at 914, however, after repeating decreased to 265, then decreased to 172 at discharge. Iron levels were normal at 52. TIBC was 257, iron saturation low normal at 20%, ferritin level elevated at 339. Urine on admission was within normal limits. Toxicology showed valproic acid initially of 34 at time of admission. After reloading on valproic acid, the morning after admission it was normalized to 69 and at time of discharge was stable at 63.3. MICROBIOLOGY: Final sputum culture result showed of Klebsiella pneumoniae sensitive to all but ampicillin. Two blood cultures remained negative. RADIOLOGY: Head CT performed prior to admission per radiology interpretation showed no acute intracranial findings. Chest x-ray on admission showed diffuse interstitial infiltrates in the right hemithorax. EKG showed first degree AV block and no significant ST changes. Repeat chest x-rays were completed throughout his hospitalization and at time of discharge final chest x-ray per radiology interpretation showed grossly stable diffuse interstitial air space opacity within the right lung, likely representing right sided pneumonia. He also had a chest CT prior to discharge with findings per radiology interpretation with findings in the lung base lungs likely representing pneumonia superimposed on emphysema. Recommendation for repeat CT of chest to document resolution of small nodules seen throughout the areas with ground- glass interlobular structural thickening to rule out further malignancy. No lymphadenopathy noted on current exam. HOSPITAL COURSE: Mr. Hammonds is a 66-year-old, male patient that was admitted to the hospital from the Emergency Department for concerns initially of a stroke. However, it was found that his Depakote levels were subtherapeutic and was felt he most likely had had a seizure. Upon admission to the Medical/Surgical Floor, there was no neurologic deficits noted. He did have a little bit of garbled speech, however, this was apparently his baseline. He was re-started on Depakote and loaded with an additional 500 mg on admission and repeat Depakote level was therapeutic. He was started on parenteral antibiotics for right sided pneumonia on admission that included Levaquin as well as treat aggressively with pulmonary hygiene to include breathing treatments with DuoNeb. He did show good improvement. He remained stable. No further seizure activity was noted through admission. His vital signs remained stable and at time of discharge blood pressure was 128/87, saturation 95% on room air. He remained afebrile through his entire hospitalization. On date of discharge, it was felt he had shown clinical improvement and could be discharged to continue with antibiotic therapy as well as continued Depakote management at the intermediate. PLAN: The patient was discharged on 08/26/16 to have close clinical followup with Dr. Gomez as scheduled. The intermediate was instructed to call Dr. Gomez at time of discharge to update the patient's status and to schedule a followup appointment. It was noted that Mr. Hammonds did need followup with Dr. Gomez to have a repeat CT scan of the chest once the pneumonia cleared to further rule out any possible malignancy on the right side. He was to resume all his medications as previous to admission and to start antibiotics at time of discharge to include 10 day course of Levaquin and return to the hospital should he not have any improvement in his x-ray. At time of discharge, new medications included: 1. Align 4 mg daily, #10. 2. Levaquin 500 mg, #10. 3. Guaifenesin 600 mg twice daily, #28. The patient was discharged in stable condition. Once again, the intermediate staff was notified to call Dr. Gomez in regards to his current hospitalization and CT findings as well as followup on his Depakote levels. #[id number] [facility]
== END 2016-08-26 13:30 | DRG 100 ==
LOC: ER 11:17 → OBSVTOIN 15:34 → MS 15:34
PROVIDERS: ADMIT Nurse Practitioner Family; ATTEND Nurse Practitioner Family
DX: G40.909 Epilepsy, unspecified, not intractable, without status epilepticus (principal); J15.0 Pneumonia due to Klebsiella pneumoniae; E87.0 Hyperosmolality and hypernatremia; J44.0 Chronic obstructive pulmonary disease with (acute) lower respiratory infection; R29.6 Repeated falls; K21.9 Gastro-esophageal reflux disease without esophagitis; F32.9 Major depressive disorder, single episode, unspecified; F03.90 Unspecified dementia, unspecified severity, without behavioral disturbance, psychotic disturbance, mood disturbance, and anxiety; N40.0 Benign prostatic hyperplasia without lower urinary tract symptoms; M10.9 Gout, unspecified; I10 Essential (primary) hypertension; E86.0 Dehydration; N28.9 Disorder of kidney and ureter, unspecified; D64.9 Anemia, unspecified; T42.6X6A Underdosing of other antiepileptic and sedative-hypnotic drugs, initial encounter; M19.90 Unspecified osteoarthritis, unspecified site; F17.210 Nicotine dependence, cigarettes, uncomplicated; Y92.129 Unspecified place in nursing home as the place of occurrence of the external cause; Z79.899 Other long term (current) drug therapy; Z88.3 Allergy status to other anti-infective agents; Z91.041 Radiographic dye allergy status; Z86.73 Personal history of transient ischemic attack (TIA), and cerebral infarction without residual deficits

== ENCOUNTER 2016-11-04 18:03 | Inpatient (IN) | payer MEDICARE, OTHER ==
--- NOTE | 2016-11-04 19:24 | ED.PDOC ---
History of Present Illness - General Chief Complaint: General Stated Complaint: Low Sodium Level/Home Health Time Seen by Provider: 11/04/16 18:56 Source: patient, family Exam Limitations: other - H/O DEMENTIA, H/O STROKE. - History of Present Illness Initial Comments: HYPONATREMIA OF 119 FROM LABS PER NH OR HH TODAY. POS FATIGUE. NO NVD. BASELINE NA PER CHART REVIEW IS 129 - LOW 130'S. TAKES DEPAKOTE (POSSIBLE HYPONA) Severity: moderate Allergies/Adverse Reactions: Allergies Iodine Allergy (Severe, Verified 08/23/16 11:21) Other makes him feel like he is having "a heart attack" Cephalexin [From Keflex] Allergy (Verified 08/23/16 17:06) Home Medications: Ambulatory Orders Omeprazole [Prilosec] 40 mg PO DAILY 07/05/14 Amitriptyline HCl 150 mg PO BEDTIME 10/24/15 Amlodipine Besylate 5 mg PO DAILY 08/23/16 Donepezil HCl [Aricept] 5 mg PO BEDTIME 08/23/16 HYDROcodone 10MG/APAP 325MG [Blue Eye 10/325] 1 tab PO Q4HR PRN 08/23/16 Lisinopril 20 mg PO DAILY 08/23/16 Tamsulosin [Flomax] 0.4 mg PO DAILY 08/23/16 Divalproex Sodium [Divalproex Sodium Dr] 500 mg PO BID 08/24/16 Bifidobacterium Infantis [Align] 4 mg PO DAILY #10 cap 08/26/16 Guaifenesin [Mucinex] 600 mg PO BID #28 tab 08/26/16 Levofloxacin [Levaquin] 500 mg PO DAILY #10 tab 08/26/16 Review of Systems - Review of Systems Constitutional: Denies: chills, fever, weakness EENTM: States: no symptoms reported Respiratory: States: no symptoms reported Cardiology: States: no symptoms reported Gastrointestinal/Abdominal: States: no symptoms reported Genitourinary: States: no symptoms reported Musculoskeletal: States: no symptoms reported Skin: States: no symptoms reported Neurological: States: weakness. Denies: numbness, paresthesia Endocrine: States: no symptoms reported Hematologic/Lymphatic: States: no symptoms reported All other Systems: Reviewed and Negative Past Medical History (General) - Patient Medical History Hx Seizures: Yes Hx Stroke: Yes Hx Dementia: Yes Hx Asthma: No Hx of COPD: Yes Hx Cardiac Disorders: Yes Hx Congestive Heart Failure: No Hx Pacemaker: No Hx Hypertension: Yes Hx Thyroid Disease: No Hx Diabetes: No Hx Gastroesophageal Reflux: Yes Hx Renal Disease: No Hx Cancer: No Hx of HIV: No Hx Hepatitis C: No Hx MRSA: No - Vaccination History Hx Tetanus, Diphtheria Vaccination: No Hx Influenza Vaccination: Yes Hx Pneumococcal Vaccination: Yes Immunizations Up to Date: No - Social History Hx Tobacco Use: Yes Hx Chewing Tobacco Use: No Hx Alcohol Use: No Hx Substance Use: No Hx Substance Use Treatment: No Hx Depression: No Feels Threatened In Home Enviroment: No Feels Threatened In a Relationship: No Hx Physical Abuse: No Hx Emotional Abuse: No Hx Suspected Abuse: No - Female History Patient : No Family Medical History - Family History Mother Living Status: Hx Cardiac Disease: Yes Physical Exam - Physical Exam General Appearance: Alert, Comfortable Ears, Nose, Throat: hearing grossly normal, normal ENT inspection Neck: non-tender, full range of motion, normal inspection Respiratory: chest non-tender, no respiratory distress, no accessory muscle use , respiratory distress Cardiovascular/Chest: normal peripheral pulses, regular rate, rhythm, no JVD Peripheral Pulses: radial,right: 2+, radial,left: 2+ Gastrointestinal/Abdominal: normal bowel sounds, non tender Back Exam: normal inspection, no CVA tenderness Extremity: normal range of motion, non-tender Neurologic: hydraulic spinner II-XII nml as tested, no motor/sensory deficits, alert, normal mood/affect, oriented x 3 Skin Exam: normal color, warm/dry Lymphatic: no adenopathy Progress - Results/Orders Results/Orders: HYPO-OSMOLAR HYPONATREMIA (REPEAT NA 119). I SPOKE WITH DR. ALFONSO, WHO IS ACCEPTING ADMISSION FOR FURTHER CARE. Departure - Departure Clinical Impression: Acute hyponatremia, Hyposmolality, Anemia Disposition: Admit Patient Condition: Fair Departure Forms: Patient Portal Self Enrollment Home Medications: Ambulatory Orders Omeprazole [Prilosec] 40 mg PO DAILY 07/05/14 Amitriptyline HCl 150 mg PO BEDTIME 10/24/15 Amlodipine Besylate 5 mg PO DAILY 08/23/16 Donepezil HCl [Aricept] 5 mg PO BEDTIME 08/23/16 HYDROcodone 10MG/APAP 325MG [Blue Eye 10/325] 1 tab PO Q4HR PRN 08/23/16 Lisinopril 20 mg PO DAILY 08/23/16 Tamsulosin [Flomax] 0.4 mg PO DAILY 08/23/16 Divalproex Sodium [Divalproex Sodium Dr] 500 mg PO BID 08/24/16 Bifidobacterium Infantis [Align] 4 mg PO DAILY #10 cap 08/26/16 Guaifenesin [Mucinex] 600 mg PO BID #28 tab 08/26/16 Levofloxacin [Levaquin] 500 mg PO DAILY #10 tab 08/26/16 Decision To Admit - Decistion To Admit Decision to Admit Reason: Admit from ER Decision to Admit Date: 11/04/16 Decision to Admit Time: 20:11
--- NOTE | 2016-11-04 20:00 | RAD ---
EXAM DESCRIPTION: Chest,1 View CLINICAL HISTORY: 66 years, Male, HYPONATREMIA, RECENT PNEUMONIA COMPARISON: Chest x-ray dated 08/26/2016. FINDINGS: A single frontal chest radiograph was performed. The lungs are well expanded and clear with splaying of the pulmonary vasculature. The costophrenic sulci are sharp. The cardiac silhouette, hilar regions, trachea, soft tissues and bony structures are unremarkable aside from osteopenia and degenerative changes. In the interval since the prior study, the airspace opacity in the RIGHT lung has resolved. IMPRESSION: No acute cardiopulmonary disease. Emphysema. Resolved pneumonia. Electronically signed by: Ewa Huertas MD 11/04/2016 7:59 PM CDT
--- NOTE | 2016-11-04 20:15 | HP ---
HISTORY OF PRESENT ILLNESS: This 66 year-old white male is admitted to the hospital from the Emergency Room after being told to go to the Emergency Room because of severely abnormal electrolyte results from a home health blood study earlier today. The patient is followed by Anjum Ch in a local clinic and his sodium was noted to be 119 from this morning. He has been a little weaker than usual, no nausea or vomiting, mild shortness of breath continues. He has been out of the long term for the last 2 weeks and very much wants to stay out. His son apparently is a chemical research technician and lives with him at his house. The last time he fell was 2 to 3 months ago according to the patient. Yesterday, he admitted to almost tripping on his walker but did not fall. There has been some concern by home health and his clinic that cares for him that he is losing his ability to care for himself where he lives at home by himself most of the time. For this reason, he is also placed in the hospital to assist with eventual discharge planning. Specific treatment for the low sodium is necessary to prevent further worsening of some of his neuro symptoms. PAST MEDICAL HISTORY: 1. Hypertension. 2. Major depressive disorder. 3. Seizures on Depakene. . 4. Sciatica pain. 5. Dementia. 6. History of chronic alcohol abuse, now stopped. 7. History of falls in the past. 8. Benign prostatic hypertrophy. 9. History of cerebrovascular accidents on several occasions in the last 2 years. 10. Gout. 11. Osteoarthritis. 12. History of back pain with spinal stenosis. PAST SURGICAL HISTORY: 1. Arthroscopic procedures to the knees.. CURRENT MEDICATIONS: Please refer to nurses notes for a list of verified medications taken by the patient. ALLERGIES: IODINE AND CEPHALOSPORINS. FAMILY HISTORY: Positive for cancer. SOCIAL HISTORY: The patient has worked in the [employer] field most of his adult life. He still smokes about a pack a day and has done so for over 45 to 50 years. Encouraged to stop. He is currently cared for by [facility]. REVIEW OF SYSTEMS: GENERAL: The patient describes no significant weight change, fever or chills. HEENT: Hearing and vision appears to be fairly good. LUNGS: Diminished breath sounds and occasional shortness of breath upon exertion. CARDIOVASCULAR : No dysrhythmias or significant chest pains recently. ABDOMEN: No nausea or vomiting or diarrhea. NEUROLOGICAL: The patient is weak and having some instability in his walking. He has not fallen but he has come close. No pedal edema. PHYSICAL EXAMINATION: VITAL SIGNS: Afebrile. Pulse 70, blood pressure 115/74, pulse ox 99% on room air. Weight is 79.4 kilos. GENERAL: The patient is quite awake, alert and oriented and communicative. He admits to drinking 2 or 3 quarts of ice plus fluids per day. He especially spends most of his day chewing on ice. HEENT: Unremarkable. NECK: Supple, no carotid bruits. CHEST: Diminished breath sounds with a few rhonchi laterally. CARDIOVASCULAR: Heart tones are somewhat distant but otherwise regular. ABDOMEN: Soft, no organomegaly, masses or tenderness. Bowel tones are present. EXTREMITIES: No significant pedal edema. Muscle tones are fairly good. NEUROLOGIC: No focal neurological deficits. The patient is awake, alert, and oriented and communicative. He states that he does not wish to go back to the long term. Further discussion to be had. LABORATORY: White count is 5,900 with hemoglobin 10.3 with a normocytic normochromic presentation. Chemistries showed sodium very low at 119, chloride 89, potassium 4, BUN 11, creatinine 0.97, osmolality very low at 238. [id number]. TSH 1.09, normal. Urine is generally pretty clean. No cultures obtained yet. Chest x-ray shows clearing of the previously noted infiltrates in the right lung field with emphysema present. ASSESSMENT: 1. Significant hyponatremia, borderline symptomatic requiring specialized treatment to slowly revert towards a more normal level. 2. Chronic ethanol abuse, now stopped. 3. Chronic pain state with spinal stenosis, on chronic opioids. 4. History of falls in the past and mild dystaxia presently. 5. History of recent pneumonia 2 months ago, now showing resolution. 6. History of seizure disorder on Depakote, question verification of the seizures. 7. Chronic renal insufficiency, now showing improvement. 8. Chronic dementia. 9. Chronic depression state. 10. History of benign prostatic hypertrophy. 11. History of hypertension. 12. Chronic anemia with a normocytic normochromic presentation. 13. History of recurring cerebrovascular accidents with some dysarthria and speech defects. 14. Significant polydipsia with ice and water no doubt contributing to the hyposmolar state and significant hyponatremia. PLAN: The patient is admitted to the hospital for initiation of therapy to include significant fluid restrictions, normal saline infusion with hypertonic bolus 300 mL, to be reevaluated in the morning. Loop diuretic to assist with helping to mobilize and get rid of some extra free water. Continue with pain relief. Continue with increased sale in the diet. Social Service evaluation and support in decisions. #[id number] [facility]
[2016-11-04] MEDS ORDERED: SODIUM CHLORIDE 0.9% (FLUSH) 10 ML SYG IV PRN (21:15)
[2016-11-04] MEDS ORDERED: LEVALBUTEROL NEBS 1.25 MG/3 ML VIAL INH PRN (21:15)
[2016-11-04] MEDS ORDERED: ACETAMINOPHEN 325 MG TAB PO PRN (21:15)
[2016-11-04] MEDS ORDERED: ONDANSETRON INJ 4 MG/2 ML VIAL IV PRN (21:15)
[2016-11-04] MEDS ORDERED: MAGNESIUM HYDROXIDE 30 ML UD PO PRN (21:15)
[2016-11-04] MEDS ORDERED: SOD CHL 3% *HYPERTONIC* 500ML 300 ML IVS ONE (21:25)
[2016-11-04] MEDS ORDERED: IV SET AND CAP CHANGE INJ INJ SCH (21:30)
[2016-11-04] MEDS: IPRATROPIUM/ALBUTEROL 3 ML VIAL INH SCH (21:50)
[2016-11-04] MEDS ORDERED: TEMAZEPAM 15 MG CAP PO PRN (22:05)
[2016-11-04] MEDS: FUROSEMIDE INJ 20 MG/2 ML VIAL IV SCH (22:39)
[2016-11-05] MEDS: KCL 20 MEQ/NS 1,000 ML IVS PRN ×2 (04:29→20:40)
[2016-11-05] MEDS: OMEPRAZOLE CAP 20 MG CAP PO SCH (06:11)
[2016-11-05] MEDS ORDERED: LISINOPRIL 10 MG TAB ONE (07:27)
[2016-11-05] MEDS ORDERED: DIVALPROEX SODIUM 250 MG TAB ONE (07:27)
[2016-11-05] MEDS: IPRATROPIUM/ALBUTEROL 3 ML VIAL INH SCH ×4 (08:17→19:45)
[2016-11-05] MEDS: HYDROcodone 10MG/APAP 325MG 1 EA TAB PO PRN ×2 (08:25→16:43)
[2016-11-05] MEDS: TAMSULOSIN 0.4 MG CAP PO SCH (08:31)
[2016-11-05] MEDS: BIFIDOBACTERIUM INFANTIS 4 MG CAP PO SCH (08:31)
[2016-11-05] MEDS: LISINOPRIL 10 MG TAB PO SCH (08:31)
[2016-11-05] MEDS: FUROSEMIDE INJ 20 MG/2 ML VIAL IV SCH ×3 (08:31→17:45)
[2016-11-05] MEDS: amLODIPine BESYLATE 5 MG TAB PO SCH (08:31)
[2016-11-05] MEDS ORDERED: SODIUM CHLORIDE 0.9% 10 ML VIAL IV PRN (08:39)
[2016-11-05] MEDS ORDERED: DIVALPROEX SODIUM 250 MG TAB PO SCH (09:00)
[2016-11-05] MEDS ORDERED: AMITRIPTYLINE HCL 25 MG TAB PO SCH (21:00)
[2016-11-05] MEDS ORDERED: DONEPEZIL HCL 5 MG TAB PO SCH (21:00)
--- NOTE | 2016-11-05 21:29 | PN ---
DATE: 11/05/16 SUPERVISING PHYSICIAN: Alexander Harris M.D. SUBJECTIVE: The patient is resting in bed. He is in no acute distress. He does note that he still continues to feel weak, but has had no dizziness or any reported other seizure type activities. He is denying any anxiety. OBJECTIVE: VITAL SIGNS: Temperature 98.2, pulse 90, blood pressure 99/58, respirations 18, O2 sat 96% on room air. I's and O's show a negative balance of 710 with 640 in, 1350 out with 2 bowel movements. Weight 75.8 kg. GENERAL: The patient is resting in bed, appears to be in no acute distress. CHEST: Lungs are clear to auscultation, just slightly diminished towards the bases. HEART: Regular rate and rhythm. ABDOMEN: Soft, non-tender. Positive bowel sounds. EXTREMITIES: No clubbing, cyanosis or edema. NEUROLOGIC: He is alert and oriented times three. LABORATORY: White count today is 5.7, hemoglobin 11.6, hematocrit 34.9, platelet count 275,000. Differential does show a left shift. Chemistries today show an improving sodium of 128 compared to admission of 119, BUN was 12, creatinine 0.86. Serum osmolality has improved to 255 compared to 238 at admission. Liver function shows to be within normal limits. TSH was 1.09. Valproic acid was 46.4. RADIOLOGY: There are no additional radiographic studies. ASSESSMENT: 1. Significant hyponatremia borderline symptomatic requiring specialized treatment to include hypertonic saline and aggressive fluid restrictions along with mild diuresis. 2. Chronic ethanol abuse having stopped previously. 3. Chronic pain state with spinal stenosis on chronic opioids. 4. History of falls in the past with mild dystaxia on admission. 5. History of recent pneumonia within the last 2 months showing resolution radiographically. 6. History of seizure disorder on Depakote with question of any seizure activity having been started on admission to the long term, possibly related to depressive state. 7. Chronic renal insufficiency showing improvement after therapy. 8. Chronic dementia. 9. Chronic depression state on Depakote. 10. History of benign prostatic hypertrophy. 11. History of hypertension. 12. Chronic anemia, normocytic normochromic presentation. 13. History of recurring cerebrovascular accidents with some dysarthria and speech defects although showing improvement from previous admissions. 14. Significant polydipsia with ice water and no doubt contributing to his hyperosmolar state with significant hyponatremia. PLAN: The patient will continue with current therapy with Lasix diuresis as well as fluid restrictions. Will continue to monitor closely and anticipate possibly discharge tomorrow. Discussed with the patient on discharge planning. He has no desire to go back to the long term and refuses to do so. Until discharge, continue to monitor the patient closely and treat appropriately. #[id number] [facility]
[2016-11-06] MEDS: OMEPRAZOLE CAP 20 MG CAP PO SCH (06:04)
[2016-11-06] MEDS: IPRATROPIUM/ALBUTEROL 3 ML VIAL INH SCH (08:20)
[2016-11-06] MEDS: BIFIDOBACTERIUM INFANTIS 4 MG CAP PO SCH (09:30)
[2016-11-06] MEDS: TAMSULOSIN 0.4 MG CAP PO SCH (09:30)
[2016-11-06] MEDS: amLODIPine BESYLATE 5 MG TAB PO SCH ×2 (09:30→10:26)
[2016-11-06] MEDS: LISINOPRIL 10 MG TAB PO SCH ×2 (09:30→10:26)
[2016-11-06] MEDS: FUROSEMIDE INJ 20 MG/2 ML VIAL IV SCH ×2 (09:30→10:27)
[2016-11-06] MEDS: HYDROcodone 10MG/APAP 325MG 1 EA TAB PO PRN (09:44)
[2016-11-06 10:10] VITALS: BP 98/66; TEMP 97.5
[2016-11-06 14:35] VITALS: O2SAT 97
[2016-11-06] MEDS ORDERED: SODIUM CHLORIDE 0.9% (FLUSH) 10 ML SYG IV SCH (21:00)
--- NOTE | 2016-11-07 10:27 | DS ---
SUPERVISING PHYSICIAN: Ranjith Harris MD DISCHARGE DIAGNOSIS: 1. Significant hyponatremia, borderline symptomatic, requiring specialized treatment that included hypotonic saline and aggressive fluid restrictions along with some mild diuresis, showing good improvement and resolution of symptoms prior to discharge. 2. Chronic ethanol abuse, previous stopped. 3. Chronic pain state with spinal stenosis, on chronic opioids. 4. History of falls in the past with mild dystaxia on admission. 5. History of recent pneumonia within the 2 months,showing resolution radiographically. 6. History of possible seizure disorder on Depakote with questionable seizure activity, having been started on admission to the [facility], possibly related to depressive state. 7. Chronic renal insufficiency, showing improvement after therapy. 8. Chronic dementia. 9. Chronic depression state on Depakote. 10. History of benign prostatic hypertrophy. 11. History of hypertension. 12. Chronic anemia with a normocytic/normochromic presentation, requiring close clinical followup. 13. History of recurring cerebrovascular accidents with some dysarthria and speech defects, although showing improvement from previous admissions. 14. Significant polydipsia with ice water no doubt contributing to the hyposmolar state with significant hyponatremia. HISTORY OF PRESENT ILLNESS: Mr. Hammonds is a 66-year-old, male patient who was admitted to the hospital from the Emergency Room after being told to go to the Emergency Room because of severely abnormal electrolyte results from a home health blood study earlier the date of admission. The patient is followed by Anjum Ch in a local clinic and his sodium was noted to be 119. He had been a little weaker than usual, no nausea or vomiting, mild shortness of breath continues chronically. He has been out of the [facility] for the last 2 weeks and very much wants to stay out. His son apparently is a ditch inspector and lives with him at his house. The last time he fell was 2 to 3 months previously. On the day prior to admission, he admitted to almost tripping on his walker, but did not fall. There has been some concern by home health and his clinic that cares for him that he is losing his ability to care for himself where he lives at home by himself most of the time. For this reason , he is also placed in the hospital to assist with eventual discharge planning. Specific treatment for the low sodium is necessary to prevent further worsening of some of his neurological symptoms. LABORATORY: White count on admission was normal as well as discharge was 9.8. Hemoglobin and hematocrit were fairly stable and at time of discharge were 9.3 and 28.0, which was down from initial admission of 10.3 and 30.2. Platelet count 211,000 and did show a left shift. Chemistries showed initial sodium on admission of 119. After initiation of treatment and prior to discharge, his sodium was 130. Other electrolytes were within normal limits. BUN 12, creatinine 0.56. Serum osmolality was 260 compared to admission of 238. Liver functions were all within normal limits. Urine on admission showed urine sodium 34, urinalysis was within normal limits. Valproic acid 46.4. MICROBIOLOGY: No specimens submitted. RADIOLOGY: Chest x-ray in the Emergency Department prior to admission per radiology interpretation showed resolved pneumonia and no acute cardiopulmonary processes noted. HOSPITAL COURSE: Mr. Hammonds was admitted to the Medical/Surgical Floor as noted in history of present illness due to significant symptoms secondary to hyponatremia. He was placed on fluid restrictions, given gentle diuresis as well as a 300 mL bolus of 3% normal saline and additional normal saline infusion. He did show clinical improvement and had physical therapy evaluation who recommended the patient would benefit from outpatient therapy and wheelchair to assist with the patient's safety as the patient is unable to control a rolling walker adequately. On the morning of discharge, it was felt the patient had clinically improved and was ready to be discharged to have close clinical followup. PLAN: The patient was discharged on 11/06/16 to have close clinical followup with his primary care provider, Anjum Ch in one to two weeks. Appointment was scheduled on 11/12/16 at 1400. He was to resume all his home medications and use wheelchair as instructed for safety and to prevent falls. He was encouraged to limit his fluids in 24 hours to less than 1900 mL. He was also encouraged to continue stop smoking and drinking and to return to the hospital should he have no improvement of his symptoms or any change in condition. He will need an outpatient followup and workup in regards to the underlying anemia which could be contributing to his weakness as well. No workup was initiated on his current admission. No new medications were added to his medication regimen. He was discharged in good and stable condition. He was to resume his usual diet with limitation of fluid intake of 1800 mL per day and to increase his activity as tolerated and continue on outpatient care through home health with [facility]. #[id number] [facility]
== END 2016-11-06 14:20 | disposition home health service (06) | DRG 641 ==
LOC: ER 18:03 → OBSVTOIN 20:14 → MS 20:14
PROVIDERS: ADMIT Emergency Medicine; ATTEND Nurse Practitioner Family
DX: E87.1 Hypo-osmolality and hyponatremia (principal); F32.9 Major depressive disorder, single episode, unspecified; J44.9 Chronic obstructive pulmonary disease, unspecified; F03.90 Unspecified dementia, unspecified severity, without behavioral disturbance, psychotic disturbance, mood disturbance, and anxiety; N40.0 Benign prostatic hyperplasia without lower urinary tract symptoms; M10.9 Gout, unspecified; M19.90 Unspecified osteoarthritis, unspecified site; M54.30 Sciatica, unspecified side; K21.9 Gastro-esophageal reflux disease without esophagitis; I69.322 Dysarthria following cerebral infarction; I69.321 Dysphasia following cerebral infarction; G89.29 Other chronic pain; R27.0 Ataxia, unspecified; G40.909 Epilepsy, unspecified, not intractable, without status epilepticus; I12.9 Hypertensive chronic kidney disease with stage 1 through stage 4 chronic kidney disease, or unspecified chronic kidney disease; D64.9 Anemia, unspecified; R63.1 Polydipsia; M48.00 Spinal stenosis, site unspecified; F17.210 Nicotine dependence, cigarettes, uncomplicated; Z66 Do not resuscitate; Z91.81 History of falling; Z88.1 Allergy status to other antibiotic agents; Z91.048 Other nonmedicinal substance allergy status; Z79.899 Other long term (current) drug therapy; Z79.891 Long term (current) use of opiate analgesic

== ENCOUNTER 2016-11-22 18:31 | Emergency (ER) | payer MEDICARE, OTHER ==
[2016-11-22] MEDS ORDERED: SODIUM CHLORIDE 0.9% 1000ML 1,000 ML ONE ×2 (18:38→18:40)
[2016-11-22] MEDS ORDERED: OCTREOTIDE ACETATE 50 MCG in SODIUM CHLORIDE 0.9% 100ML 100 ML IVPB ONE (18:39)
[2016-11-22] MEDS ORDERED: SODIUM CHLORIDE 0.9% 100ML 0 ML IVPB ONE (18:42)
[2016-11-22] MEDS ORDERED: OCTREOTIDE ACETATE 100 MCG/ML VIAL ONE ×2 (18:43→18:50)
[2016-11-22] MEDS ORDERED: SODIUM CHLORIDE 0.9% 250ML 250 ML ONE (18:44)
[2016-11-22] MEDS ORDERED: NOREPINEPHRINE BITARTRATE 4 MG/4 ML VIAL IVPB ONE (18:44)
[2016-11-22] MEDS ORDERED: SODIUM CHLORIDE 0.9% 100ML 100 ML IVPB ONE ×2 (18:50→19:19)
[2016-11-22] MEDS ORDERED: OCTREOTIDE ACETATE 50 MCG in SODIUM CHLORIDE 0.9% 100ML 100 ML IVPB SCH (19:00)
[2016-11-22] MEDS ORDERED: NOREPINEPHRINE BITARTRATE 4 MG in DEXTROSE 5% 250ML 250 ML IVPB SCH (19:00)
[2016-11-22] MEDS ORDERED: SODIUM CHLORIDE 0.9% 1000ML 2,000 ML IVS ONE ×2 (19:13→20:29)
[2016-11-22] MEDS ORDERED: levoFLOXacin 500 MG TAB PO ONE (19:14)
[2016-11-22 19:15] VITALS: O2SAT 98
[2016-11-22] MEDS ORDERED: DEXTROSE 5% 250ML 250 ML IVPB ONE (19:20)
[2016-11-22] MEDS ORDERED: levoFLOXacin 750MG IV 750 MG in PREMIX BAG 1 BAG IVPB ONE (19:31)
[2016-11-22] MEDS ORDERED: VANCOMYCIN HCL INJ 1,000 MG VIAL IVPB ONE (19:31)
[2016-11-22] MEDS: VANCOMYCIN HCL INJ 1,000 MG in SODIUM CHLORIDE 0.9% 250ML 250 ML IVPB ONE ×2 (19:35→20:35)
--- NOTE | 2016-11-22 19:38 | ED.PDOC ---
History of Present Illness - General Chief Complaint: GI Problem Stated Complaint: AMS Time Seen by Provider: 11/22/16 18:36 Source: family, EMS Exam Limitations: clinical condition - History of Present Illness Initial Comments: Patient presents by EMS after he was found face down on the floor at his home by one of his sons. It is unclear how long he has been down but one of the sons said that they checked on him this morning and that he was laying in a chair. No other history is available. Timing/Duration: 4-6 hours Severity: severe Improving Factors: nothing Worsening Factors: nothing Associated Symptoms: nausea/vomiting Allergies/Adverse Reactions: Allergies Iodine Allergy (Severe, Verified 08/23/16 11:21) Other makes him feel like he is having "a heart attack" Cephalexin [From Keflex] Allergy (Verified 08/23/16 17:06) Home Medications: Ambulatory Orders Omeprazole [Prilosec] 40 mg PO ACBK 07/05/14 Amitriptyline HCl 150 mg PO BEDTIME 10/24/15 Amlodipine Besylate 5 mg PO DAILY 08/23/16 Donepezil HCl [Aricept] 5 mg PO BEDTIME 08/23/16 HYDROcodone 10MG/APAP 325MG [[place] 10/325] 1 tab PO Q4HR PRN 08/23/16 Lisinopril 20 mg PO DAILY 08/23/16 Tamsulosin [Flomax] 0.4 mg PO BEDTIME 08/23/16 Divalproex Sodium [Divalproex Sodium Dr] 500 mg PO BID 08/24/16 HYDROcodone 5MG/APAP 325MG [[place] 5/325] 1 - 2 ea PO Q4HR 11/05/16 Naproxen [Naprosyn] 500 mg PO BID 11/05/16 Review of Systems - Review of Systems Unable to Obtain Due To: condition, clinical condition - The patient was able to briefly report vomiting. Past Medical History (General) - Patient Medical History Hx Seizures: Yes Hx Stroke: Yes Hx Dementia: Yes Hx Asthma: No Hx of COPD: Yes Hx Cardiac Disorders: Yes Hx Congestive Heart Failure: No Hx Pacemaker: No Hx Hypertension: Yes Hx Thyroid Disease: No Hx Diabetes: No Hx Gastroesophageal Reflux: Yes Hx Renal Disease: No Hx Cancer: No Hx of HIV: No Hx Hepatitis C: No Hx MRSA: No - Vaccination History Hx Tetanus, Diphtheria Vaccination: No Hx Influenza Vaccination: Yes Hx Pneumococcal Vaccination: Yes - Social History Hx Tobacco Use: No Hx Chewing Tobacco Use: No Hx Alcohol Use: Yes Hx Substance Use: No Hx Substance Use Treatment: No Hx Depression: No Hx Physical Abuse: No Hx Emotional Abuse: No Hx Suspected Abuse: No - Female History Patient is a Female of Child Bearing Age (10 -59 yrs old): No Patient : No Family Medical History - Family History Mother Living Status: Hx Cardiac Disease: Yes Physical Exam - Physical Exam General Appearance: Lethargic, Ill Appearing Eye Exam: bilateral normal Ears, Nose, Throat: other - blood in nose and around mouth Neck: non-tender, full range of motion, supple, other - no crepitus Respiratory: lungs clear Cardiovascular/Chest: tachycardia Gastrointestinal/Abdominal: normal bowel sounds, non tender, soft Extremity: no pedal edema Neurologic: other - lethargic, periodic lucidness, withdraws from pain, responds intermittently to questions then becomes unresponsive again, opens eyes spontaneously, GCS 12 Skin Exam: pallor Lymphatic: no adenopathy Progress - Progress Progress: 11/22/16 19:43 Pt had SBP of 65/40. Was started on two liters of NS bolus. His sons presented a DNR so he was not intubated. Levaphed started and titrated up to 20 mcg/min. SBP went to the 110s. Patient became lucid. His wbc was 16.7 and lactic acid 7.4. Blood cultures taken. He was given vancomycin 1 gram IV and Levaquin 1 gram IV ( patient is allergic to cephalosporins). Was started on non- rebreather shortly after presentation. Due to hx of alcohol abuse and the blood around his mouth and nose, patient was started on octreotide 50 mcg IV x one then 50 mcg per hour. It was unclear if the patient had upper GI bleed or sepsis, possible both. Cannot rule out meningitis as well. Patient accepted to [facility] and transferred by helicopter. GCS varied between 10-12 upon presentation but was at 14 upon leaving. Laboratory Tests 11/22/16 11/22/16 11/22/16 18:46 18:50 19:26 WBC 16.7 H RBC 3.26 L Hgb 9.4 L Hct 28.4 L MCV 87.1 MCH 28.8 MCHC 33.0 RDW 14.3 Plt Count 356 MPV 7.4 Absolute Neuts (auto) 15.00 H Absolute Lymphs (auto) 0.60 L Absolute Monos (auto) 1.00 H Absolute Eos (auto) 0.00 Absolute Basos (auto) 0.10 Neutrophils % 90.0 H Lymphocytes % 3.4 L Monocytes % 6.2 Eosinophils % 0.0 L Basophils % 0.4 PT 14.0 H INR 1.240 Sodium 122 L Potassium 4.4 Chloride 92 L Carbon Dioxide 12 L* Anion Gap 22.4 H BUN 36 H Creatinine 2.12 H BUN/Creatinine Ratio 17.0 Random Glucose 78 Serum Osmolality 253.1 L* Lactic Acid 7.5 H* Calcium 8.7 Total Bilirubin 0.4 AST 32 ALT 11 Alkaline Phosphatase 46 Creatine Kinase 276 H* CK-MB (CK-2) 3.7 CK-MB (CK-2) % Not Reportable Troponin I < 0.02 B-Natriuretic Peptide 130.0 H Serum Total Protein 6.4 Albumin 3.1 L Globulin 3.3 Albumin/Globulin Ratio 0.9 L Thyroxine (T4) 6.73 Salicylates Cancelled Urine Opiates Screen Positive H Acetaminophen < 10.0 L Urine Barbiturates Negative Ur Phencyclidine Scrn Negative U Amphetamin/Meth Scrn Negative U Benzodiazepines Scrn Negative U Cocaine Metab Screen Negative U Cannabinoids Screen Negative Ethyl Alcohol < 5.40 11/22/16 19:50 Departure - Departure Clinical Impression: Septic shock, Hematemesis Disposition: Transfer to Hospital Condition: Serious Departure Forms: ED Discharge - Pt. 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
--- NOTE | 2016-11-22 19:56 | RAD ---
EXAM DESCRIPTION: Chest,1 View CLINICAL HISTORY: 66 years Male AMS COMPARISON: 11/04/2016. FINDINGS: The cardiomediastinal silhouette appears unremarkable. Atherosclerotic changes in the thoracic aorta. There are patchy airspace and interstitial opacities in the right mid and lower lung concerning for pneumonia. Mild atelectatic changes at the left lung base. No large pleural effusion.. No pneumothorax. Degenerative changes in the spine. IMPRESSION: Patchy airspace and interstitial opacities in the right mid and lower lung concerning for pneumonia. Electronically signed by: Huber Moses MD 11/22/2016 7:55 PM CDT
[2016-11-22 20:46] VITALS: TEMP 98.2
[2016-11-22 20:47] VITALS: BP 99/51
== END 2016-11-22 20:15 | disposition short-term general hospital (02) ==
LOC: ER 18:31
DX: A41.9 Sepsis, unspecified organism (principal); R65.21 Severe sepsis with septic shock; K92.0 Hematemesis; R91.8 Other nonspecific abnormal finding of lung field; J44.9 Chronic obstructive pulmonary disease, unspecified; F03.90 Unspecified dementia, unspecified severity, without behavioral disturbance, psychotic disturbance, mood disturbance, and anxiety; I10 Essential (primary) hypertension; K21.9 Gastro-esophageal reflux disease without esophagitis; Z86.73 Personal history of transient ischemic attack (TIA), and cerebral infarction without residual deficits; Z88.8 Allergy status to other drugs, medicaments and biological substances; Z79.899 Other long term (current) drug therapy; Z66 Do not resuscitate
CPT/HCPCS: 36415; 71010; 80053; 80301; 80320; 80329; 82550; 82553; 83605; 83880; 84436; 84443; 84484; 85025; 85610; 87040; 93005; J1956; J2354; J7030; J7050; J7060

== ENCOUNTER 2016-12-09 07:41 | Inpatient (IN) | payer MEDICARE, OTHER ==
[2016-12-09] MEDS ORDERED: PANTOPRAZOLE INJECTION 80 MG in SODIUM CHLORIDE 0.9% 100ML 80 ML IVPB ONE (08:11)
--- NOTE | 2016-12-09 08:13 | ED.PDOC ---
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 Timing/Duration: unsure Severity: moderate Improving Factors: nothing Worsening Factors: nothing Associated Symptoms: denies symptoms Allergies/Adverse Reactions: Allergies Iodine Allergy (Severe, Verified 08/23/16 11:21) Other makes him feel like he is having "a heart attack" Cephalexin [From Keflex] Allergy (Verified 08/23/16 17:06) Home Medications: Ambulatory Orders Omeprazole [Prilosec] 40 mg PO ACBK 07/05/14 Amitriptyline HCl 150 mg PO BEDTIME 10/24/15 Amlodipine Besylate 5 mg PO DAILY 08/23/16 Donepezil HCl [Aricept] 5 mg PO BEDTIME 08/23/16 HYDROcodone 10MG/APAP 325MG [[place] 10/325] 1 tab PO Q4HR PRN 08/23/16 Lisinopril 20 mg PO DAILY 08/23/16 Tamsulosin [Flomax] 0.4 mg PO BEDTIME 08/23/16 Divalproex Sodium [Divalproex Sodium Dr] 500 mg PO BID 08/24/16 HYDROcodone 5MG/APAP 325MG [[place] 5/325] 1 - 2 ea PO Q4HR 11/05/16 Naproxen [Naprosyn] 500 mg PO BID 11/05/16 Review of Systems - Review of Systems Constitutional: States: no symptoms reported EENTM: States: no symptoms reported Respiratory: States: no symptoms reported Cardiology: States: see HPI Gastrointestinal/Abdominal: States: no symptoms reported Genitourinary: States: no symptoms reported Musculoskeletal: States: no symptoms reported Skin: States: no symptoms reported Neurological: States: no symptoms reported Endocrine: States: no symptoms reported Hematologic/Lymphatic: States: no symptoms reported Past Medical History (General) - Patient Medical History Hx Seizures: Yes Hx Stroke: Yes Hx Dementia: Yes Hx Asthma: No Hx of COPD: Yes Hx Cardiac Disorders: Yes Hx Congestive Heart Failure: No Hx Pacemaker: No Hx Hypertension: Yes Hx Thyroid Disease: No Hx Diabetes: No Hx Gastroesophageal Reflux: Yes Hx Renal Disease: No Hx Cancer: No Hx of HIV: No Hx Hepatitis C: No Hx MRSA: No Hx Other PMH: Yes - hiatal hernia,esophagitis Hx Other - free text: colonoscopy-colonic polyp,diverticulosis Surgical History: other - egd - Vaccination History Hx Tetanus, Diphtheria Vaccination: No Hx Influenza Vaccination: Yes Hx Pneumococcal Vaccination: Yes - Social History Hx Tobacco Use: No Hx Chewing Tobacco Use: No Hx Alcohol Use: Yes Hx Substance Use: No Hx Substance Use Treatment: No Hx Depression: No Hx Physical Abuse: No Hx Emotional Abuse: No Hx Suspected Abuse: No - Activities of Daily Living Patient Lives Alone: No - lives with son Grooming Ability: Minimum Assistance Eating (Feeding) Ability: Minimum Assistance Toileting Ability: Minimum Assistance - Female History Patient : No Family Medical History - Family History Mother Living Status: Hx Cardiac Disease: Yes - mom Physical Exam - Physical Exam General Appearance: No apparent distress, Other - somnolent Ears, Nose, Throat: hearing grossly normal, normal ENT inspection, normal pharynx, other - dried coofee ground material inside mouth Neck: non-tender, full range of motion, supple Respiratory: chest non-tender, lungs clear, normal breath sounds, no respiratory distress, no accessory muscle use Cardiovascular/Chest: normal peripheral pulses, regular rate, rhythm, no edema, no gallop, no JVD, no murmur Peripheral Pulses: radial,right: 2+, radial,left: 2+ Gastrointestinal/Abdominal: normal bowel sounds, non tender, soft, no organomegaly, no pulsatile mass Back Exam: normal inspection, no CVA tenderness, no vertebral tenderness Extremity: normal range of motion, non-tender, normal inspection, no pedal edema , no calf tenderness Skin Exam: normal color, warm/dry Lymphatic: no adenopathy Progress - Results/Orders Results/Orders: 12/09/16 08:11 URINALYSIS Stat 12/09/16 09:33 Chest,1 View [RAD] Stat 12/09/16 09:46 EKG Assessment DAILY Laboratory Results WBC 11.0 K/mm3 (4.8-10.8) H 12/09/16 08:11 RBC 3.23 M/mm3 (4.70-6.10) L 12/09/16 08:11 Hgb 9.2 gm/dL (14.0-18.0) L 12/09/16 08:11 Hct 27.3 % (42.0-52.0) L 12/09/16 08:11 MCV 84.7 fl (80.0-94.0) 12/09/16 08:11 MCH 28.4 pg (27.0-31.0) 12/09/16 08:11 MCHC 33.5 g/dL (33.0-37.0) 12/09/16 08:11 RDW 14.5 % (11.5-14.5) 12/09/16 08:11 Plt Count 297 K/mm3 (130-400) 12/09/16 08:11 MPV 6.9 fl (7.40-10.4) L 12/09/16 08:11 Absolute Neuts (auto) 9.90 K/uL (1.8-6.8) H 12/09/16 08:11 Absolute Lymphs (auto) 0.30 K/uL (1.0-3.4) L 12/09/16 08:11 Absolute Monos (auto) 0.70 K/uL (0.2-0.8) 12/09/16 08:11 Absolute Eos (auto) 0.00 K/uL (0.0-0.4) 12/09/16 08:11 Absolute Basos (auto) 0.00 K/uL (0.0-0.1) 12/09/16 08:11 Neutrophils % 90.3 % (42.0-78.0) H 12/09/16 08:11 Lymphocytes % 2.9 % (20.0-50.0) L 12/09/16 08:11 Monocytes % 6.7 % (2.0-9.0) 12/09/16 08:11 Eosinophils % 0.1 % (1.0-5.0) L 12/09/16 08:11 Basophils % 0.0 % (0.0-2.0) 12/09/16 08:11 PT 11.8 SECONDS (9.4-12.5) 12/09/16 08:12 INR 1.040 12/09/16 08:12 Sodium 134 mmol/L (135-145) L 12/09/16 08:56 Potassium 3.5 mmol/L (3.6-5.0) L 12/09/16 08:56 Chloride 101 mmol/L (101-111) 12/09/16 08:56 Carbon Dioxide 23 mmol/L (21-31) 12/09/16 08:56 Anion Gap 13.5 (12-18) 12/09/16 08:56 BUN 30 mg/dL (7-18) H 12/09/16 08:56 Creatinine 1.26 mg/dL (0.6-1.3) 12/09/16 08:56 BUN/Creatinine Ratio 23.8 (10-20) H 12/09/16 08:56 Random Glucose 99 mg/dL (70-105) 12/09/16 08:56 Serum Osmolality 274.5 mOsm/L (275-295) L 12/09/16 08:56 Calcium 8.8 mg/dL (8.4-10.2) 12/09/16 08:56 Total Bilirubin 0.5 mg/dL (0.2-1.0) 12/09/16 08:56 AST 20 IU/L (10-42) 12/09/16 08:56 ALT 13 IU/L (10-60) 12/09/16 08:56 Alkaline Phosphatase 59 IU/L (42-121) 12/09/16 08:56 Creatine Kinase 318 IU/L (38-174) H* 12/09/16 08:56 CK-MB (CK-2) 5.7 ng/mL (0.0-4.4) H* 12/09/16 08:56 CK-MB (CK-2) % 1.79 % (0.0-3.5) 12/09/16 08:56 Troponin I < 0.02 ng/mL (0.01-0.05) 12/09/16 08:56 Serum Total Protein 6.7 gm/dL (6.4-8.2) 12/09/16 08:56 Albumin 3.2 g/dl (3.2-5.5) 12/09/16 08:56 Globulin 3.5 gm/dL (2.3-3.5) 12/09/16 08:56 Albumin/Globulin Ratio 0.9 (1.1-1.9) L 12/09/16 08:56 Stool Occult Blood Negative 12/09/16 08:45 - EKG/XRAY/CT EKG: Sinus, Tachy Comments: heart rate 101,,LAD ,non specific ivcd Departure - Departure Clinical Impression: Altered awareness, transient, Dehydration, mild, History of CVA with residual deficit Hematemesis Qualifiers: Nausea presence: unspecified Qualified Code(s): K92.0 - Hematemesis Pneumonia, organism unspecified Qualifiers: Laterality: right Lung location: upper lobe of lung Qualified Code(s): J18.9 - Pneumonia, unspecified organism Time of Disposition: 13:43 - D/W Zbigniew Landon-ANP Hospitalist for admit Disposition: Admit Patient Departure Forms: Patient Portal Self Enrollment Referrals: [facility], TRAVEL MED SURG RN [Primary Care Provider] - 1-2 Weeks Home Medications: Ambulatory Orders Omeprazole [Prilosec] 40 mg PO ACBK 07/05/14 Amitriptyline HCl 150 mg PO BEDTIME 10/24/15 Amlodipine Besylate 5 mg PO DAILY 08/23/16 Donepezil HCl [Aricept] 5 mg PO BEDTIME 08/23/16 HYDROcodone 10MG/APAP 325MG [[place]ee 10/325] 1 tab PO Q4HR PRN 08/23/16 Lisinopril 20 mg PO DAILY 08/23/16 Tamsulosin [Flomax] 0.4 mg PO BEDTIME 08/23/16 Divalproex Sodium [Divalproex Sodium Dr] 500 mg PO BID 08/24/16 HYDROcodone 5MG/APAP 325MG [[place] 5/325] 1 - 2 ea PO Q4HR 11/05/16 Naproxen [Naprosyn] 500 mg PO BID 11/05/16
[2016-12-09] MEDS ORDERED: SODIUM CHLORIDE 0.9% 100ML 100 ML IVPB ONE (08:18)
[2016-12-09] MEDS ORDERED: PANTOPRAZOLE SODIUM IV 40 MG VIAL ONE (08:18)
--- NOTE | 2016-12-09 08:32 | RAD ---
EXAM DESCRIPTION: Chest,1 View CLINICAL HISTORY: 66 years Male, cough COMPARISON: 11/22/2016 IMPRESSION: The heart remains at the upper limits of normal in size. The thoracic aorta is tortuous. Patchy airspace consolidation in the right lung base has improved compared to the prior exam, with minimal residual consolidation. Follow-up to confirm resolution recommended. The left lung is essentially clear. No pleural effusion or pneumothorax. No acute osseous abnormality. Electronically signed by: Steve Fritz MD 12/09/2016 8:31 AM CDT
--- NOTE | 2016-12-09 09:31 | CT ---
EXAM DESCRIPTION: Head CLINICAL HISTORY: ams COMPARISON: August 23, 2015 TECHNIQUE: Multiple axial images of the head without contrast FINDINGS: Involutional changes noted within the brain resulting in prominence of the sulci and ventricles. Periventricular white matter disease noted. Right caudate head lacunar infarct. Left insular cortex lacunar infarct. Right insular cortex lacunar infarct. Vascular calcifications noted on today's study. No abnormal extra-axial fluid. No intracranial hemorrhage at this time. The orbits and globes are unremarkable. Paranasal sinuses demonstrate minimal left maxillary sinus mucosal thickening. IMPRESSION: 1. Extensive periventricular white matter disease and multiple bilateral lacunar infarcts. No acute intracranial hemorrhage. Electronically signed by: Robin Wu MD 12/09/2016 9:30 AM CDT
[2016-12-09] MEDS ORDERED: SODIUM CHLORIDE 0.9% 1000ML 1,000 ML IVS ONE (13:09)
--- NOTE | 2016-12-09 14:41 | HP ---
SUPERVISING PHYSICIAN: Alexander Harris M.D. CHIEF COMPLAINT: Vomiting blood. Acute mental status change. HISTORY OF PRESENT ILLNESS: Mr. Hammonds is a 66 year-old male patient with a longstanding history of previous cerebrovascular accidents and multiple hospitalizations. He was brought to the Emergency Department by EMS after his son called the EMS and it was noted upon arrival that the patient was lying face down in his bed with some coffee-ground emesis and was somewhat lethargic. He does have a significant history of recently being at [facility] for concerns for gastrointestinal bleed and discharged on 12/09/16. He had a gastrointestinal workup, including esophagogastroduodenoscopy and colonoscopy without any findings of significant GI bleed. Only noted were severe esophagitis and a hiatal hernia. The patient was started on a proton pump inhibitor and discharged from GI services. He was discharged from [facility] also with a diagnosis of altered mental status with pneumonia showing improvement. Today in the Emergency Room, the patient had laboratory studies completed that showed he had an H&H of 9.2 and 27.3 with a platelet count 297,000. Differential did show a left shift with mild leukocytosis. Coagulation studies showed a normal PT. Chemistries show low sodium at 135 and low potassium at 3.8, BUN 30, creatinine 1.26, lactic acid 1.6. Liver functions all showed to be within normal limits. He had a slightly elevated CPK of 318 with CK-MB of 5.7. Troponin was less than 0.02. He also had an occult blood that was negative. Also of note was a urine drug screen that was positive for opiates, however the patient does take chronic pain medication to include [place]. Radiographic studies in the Emergency Department included a CT of the head and chest x-ray. Noted on his x-ray single view chest was patchy airspace consolidation in the right lung but compared to previous images on 11/22/[address] of the head per radiology interpretation showed extensive periventricular white matter disease with multiple bilateral lacunar infarcts but no acute intracranial hemorrhage. Vital signs: The patient showed to be mildly hypotensive with blood pressure of 103/60 and tachycardic at 111. He was given IV fluids in the Emergency Department and Dr. Whiteside requested the patient be admitted for close observation for concerns for a GI bleed and his acute mental status change. On admission, he was shown to be hemodynamically stable with blood pressure 116/76 and he was showing a heart rate of 88. PAST MEDICAL HISTORY: 1. Hypertension. 2. Major depressive disorder. 3. Seizures on Depakene. 4. Sciatica pain. 5. Dementia. 6. History of chronic alcohol abuse but stopped with recent GI consultation and esophagogastroduodenoscopy and colonoscopy only significant for severe esophagitis. 7. History of falls in the past. 8. Benign prostatic hypertrophy. 9. History of cerebral accidents on several occasions within the last 2 years. 10. Gout. 11. Osteoarthritis. 12. History of back pain with spinal stenosis. PAST SURGICAL HISTORY: 1. Arthroscopic procedures to the knees. CURRENT MEDICATIONS: Please refer to the nurses' notes for an updated list of medications. Those medications listed at time of admission included: 1. Flomax 0.4 mg at bedtime. 2. Prilosec 40 mg at breakfast. 3. Naprosyn 500 mg b.i.d. 4. Lisinopril 20 mg daily. 5. Hydrocodone 10/325 one tablet every 4 hours p.r.n. 6. Hydrocodone 5/325 one to two p.r.n. every 4 hours. 7. Aricept 5 mg at bedtime. 8. Divalproex 500 mg twice daily. 9. Amlodipine 5 mg daily. 10. Amitriptyline 150 mg at bedtime. ALLERGIES: IODINE AND CEPHALOSPORINS. FAMILY HISTORY: Positive for cancer. SOCIAL HISTORY: The patient has worked in the [employer] most of his adult life. He still smokes about a pack a day and has done so well over 45 to 50 years. He is again encouraged to stop smoking, but he denies any recent alcohol or drug abuse. REVIEW OF SYSTEMS: CONSTITUTIONAL: Denies any malaise or generalized weakness. HEENT: Denies any nasal congestion or sore throat. RESPIRATORY: Denies any shortness of breath or cough. CARDIOVASCULAR: Denies any chest pain, palpitations or syncopal episodes. GASTROINTESTINAL: As noted in the History of Present Illness, questionable GI bleed. Denies any vomiting, diarrhea or change in bowel habits. GENITOURINARY: Denies any dysuria but does have history of benign prostatic hypertrophy. NEUROLOGIC: As noted in the history of present illness, concerns for mental status change but the patient denies any changes in his mental status as far as dizziness, syncopal episodes or focal weaknesses, or any seizures. PHYSICAL EXAMINATION: VITAL SIGNS: In the Emergency Department, temperature 99, pulse 111, blood pressure 103/60, respirations 20, O2 sat 98% on room air. Admission weight was 72.1 kg. GENERAL: The patient on exam in the Emergency Department showed to be alert, somewhat disheveled but not in any acute distress. He appeared very comfortable. HEENT: Tympanic membranes are clear bilaterally. Oropharynx was pink with some notable dried blood inside of his mouth. Poor dentition but no lesions. NECK: Supple, non-tender without any notable jugular venous distention. CHEST: Clear to auscultation bilaterally without any rhonchi, wheezing or rales. CARDIOVASCULAR: Regular rate and rhythm without appreciable murmurs, gallops, or rubs. ABDOMEN: Soft, non-tender. Positive bowel sounds. EXTREMITIES: No clubbing, cyanosis or edema. NEUROLOGIC: He was alert and oriented times three. Facial features were symmetrical. Extraocular movements are within normal limits. Cranial nerves II -XII are grossly intact. There was no notable sensory or focalizing neuromotor deficits. LABORATORY: CBC showed slight leukocytosis at 11.0 with hemoglobin 9.2, hematocrit 27.3, platelet count 297,000. Differential showed a left shift. Coagulation studies showed a normal PT. Chemistries showed slightly low sodium at 134 with low potassium 3.5, BUN 30, creatinine 1.26, lactic acid 1.6. Liver functions showed to be within normal limits. He had a slightly elevated CPK at 318, troponin was less than 0.02. Urinalysis showed just 15 ketones, but otherwise within normal limits. Stool occult blood in the E. R. that was negative. Toxicology screen was positive for opioids, otherwise negative for other substances tested. RADIOLOGY: Chest x-ray in the Emergency Department per radiology interpretation shows patchy airspace consolidation in the right lung that has improved compared to previous exams on 11/22/16. Head CT without contrast per radiology interpretation showed extensive periventricular white matter disease with multiple bilateral lacunar infarcts but no acute intracranial hemorrhage. ASSESSMENT: 1. Normocytic normochromic anemia with concerns for upper gastrointestinal bleed with the patient having a recent esophagogastroduodenoscopy showing severe esophagitis but with a colonoscopy showing no acute gastrointestinal bleeds, just some polyps with the patient being mildly hypotensive on admission felt to be probably related to underlying dehydration. 2. Leukocytosis with the patient having been recently treated for underlying pneumonia showing radiographically to be improved from previous exams. 3. Acute mental status change as noted per EMS report and E. R. physician with the patient having a history of taking pain medication to include [place] with a positive drug screen for opioids with the patient showing to be near baseline mental status at time of exam in the Emergency Department. Unknown etiology as far as relation to reported acute mental status change , probably related to previous cerebrovascular accidents and some residual side effects from [place]. 4. Prerenal azotemia felt to be secondary to underlying dehydration. 5. Mild electrolyte imbalance to include hypokalemia and hyponatremia likely secondary to poor nutritional intake and underlying dehydration. 6. History of previous right upper lobe pneumonia having been treated at [facility] showing radiographic studies to be improving from previous exams with the patient having mild leukocytosis but remaining afebrile. 7. Mild hyponatremia, borderline symptomatic possibly resulting in acute mental status change requiring initiation of IV fluids to help normalize levels. 8. History of chronic ethanol abuse with the patient having stopped in the past year. 9. History of chronic back pain with spinal stenosis with the patient on chronic opioids possibly resulting in his acute mental status change. 10. History of seizure disorders with the patient being on Depakote. 11. Chronic renal insufficiency with some prerenal azotemia secondary to dehydration. 12. Chronic dementia. 13. Chronic depressive state. 14. History of benign prostatic hypertrophy. 15. History of hypertension, although hypotensive on admission possibly secondary to underlying dehydration. 16. Chronic anemia as noted with normocytic normochromic presentation although review of records show he is a little more anemic than previous admissions. 17. 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 18. History of chronic esophagitis as noted on previous EGD in November at previous admission at [facility]. PLAN: The patient will be placed in Observation tonight for close observation. He will be started on some IV fluids to help with his dehydration and correction of his potassium, this to include normal saline with 20 of potassium at 80 an hour. Will have every 4 hour neurologic checks and plan to reevaluate the CBC and CMP in the morning to further monitor his H&H. At this point, he remains stable and again was just recently seen and cleared by GI Specialty in regards to possible underlying GI bleeds. Will plan to make sure he is not on any NSAIDs and provide him with continued Protonix that was started in the Emergency Department along with Carafate for gastric protection. Will anticipate length of stay to be 1 to 2 days, possible discharge tomorrow as the patient has shown to be back to his baseline mental status and as long as he remains hemodynamically stable and his H&H remains stable and he does not require any further interventions or transfusions or show any signs of GI bleeding, the patient can be followed-up in the outpatient setting with his primary care provider, Anjum Ch. Until then, will continue to monitor the patient closely and treat appropriately. #[id number] MTDD
[2016-12-09] MEDS ORDERED: SODIUM CHLORIDE 0.9% (FLUSH) 10 ML SYG IV PRN ×3 (15:17→15:25)
[2016-12-09] MEDS ORDERED: IV SET AND CAP CHANGE INJ INJ SCH ×3 (15:30)
[2016-12-09] MEDS ORDERED: KCL 20 MEQ/NS 1,000 ML IVS PRN (21:04)
[2016-12-09] MEDS: PANTOPRAZOLE SODIUM IV 40 MG VIAL IV SCH (21:36)
[2016-12-09] MEDS: SODIUM CHLORIDE 0.9% (FLUSH) 10 ML SYG IV SCH (21:37)
--- NOTE | 2016-12-09 22:08 | PCM.CORE ---
Physician DVT/VTE - Contraindications Medication Contraindication: Medical Contraindication - questionable GI bleed - Nurse DVT Assessment & Total Each Risk Factor Represents 3 Points: Hx of DVT/PE Each Risk Factor Represents 2 Points: Age 60-74 Each Risk Factor Represents 1 Point: Medical PT at Bed Rest, Hx of smoking past year Each Risk Factor is 1 Point: Serious Lung disease (pnemonia <1month, COPD, emphysema,etc) DVT Assessment Score: 8 - 5 or more Very High Risk Treatments: Early Ambulation *, Sequential Compression Device
[2016-12-10] MEDS: SUCRALFATE 1 GM TAB PO SCH ×4 (06:47→20:54)
[2016-12-10] MEDS: SODIUM CHLORIDE 0.9% (FLUSH) 10 ML SYG IV SCH ×2 (08:43→21:22)
--- NOTE | 2016-12-10 11:54 | CT ---
EXAM DESCRIPTION: Abdomen/Pelvis w/Contrast CLINICAL HISTORY: 66 years,Male,abdominal pain COMPARISON: None TECHNIQUE: Multiple axial tomographic images were obtained of the abdomen and pelvis with IV contrast without oral contrast. Then reconstructed in sagittal and coronal planes. FINDINGS: The kidneys are unremarkable The adrenal glands are unremarkable . The spleen is unremarkable. The liver is unremarkable. The pancreas is unremarkable. The gallbladder is unremarkable. The included bowel is demonstrates some mild gaseous small bowel but otherwise unremarkable. The appendix is unremarkable. There is no free air, free fluid, masses, or significant adenopathy. Surrounding soft tissues and bony elements unremarkable. Except for posterior lumbar instrumentation and fusion of L4-S1 with disc spacers. Lung bases demonstrate some mild interstitial changes in the posterior right base. IMPRESSION: Probable infiltrate versus scarring in the posterior right lung base Electronically signed by: Miller Israel MD 12/10/2016 11:54 AM CDT
[2016-12-10] MEDS ORDERED: SODIUM CHLORIDE 0.9% 500ML 500 ML ONE (13:22)
--- NOTE | 2016-12-10 18:59 | PN ---
DATE: 12/10/16 SUPERVISING PHYSICIAN: Nathan Rey M.D. SUBJECTIVE: The patient has a little epigastric discomfort but has had no diarrhea. He has been afebrile. He has had no emesis since admission. He remains hemodynamically stable. OBJECTIVE: VITAL SIGNS: Temperature 97.6, pulse 133, respirations 19, O2 sat 97 % on room air. Weight 69.2 kg. CHEST: Lungs are clear to auscultation, just slightly diminished towards the bases. HEART: Regular rate and rhythm. ABDOMEN : Soft with some mild tenderness in the epigastric region but no rebound tenderness. Bowel sounds are present. EXTREMITIES: No clubbing, cyanosis or edema. NEUROLOGIC: He is alert and oriented times three. LABORATORY: This morning his hemoglobin showed to be 8.0 and 23.9. His leukocytosis did resolve and is 8.0. Differential shows left shift continues. Repeat H&H at 1:30 showed he had dropped to 7.5 and 22.3. Chemistries showed normal electrolytes with potassium 3.6, BUN 29, creatinine 0.67, calcium 8.8. RADIOLOGY: CT of the abdomen is pending. ASSESSMENT: 1. History of recent fall and acute mental status change felt to be secondary to ongoing anemia with the patient having a recent esophagogastroduodenoscopy that showed severe esophagitis but with a colonoscopy showing no acute gastrointestinal bleeds. 2. Leukocytosis, resolved after IV fluids felt to be probably secondary to some underlying dehydration. 3. History of acute severe esophagitis with H&H showing normocytic normochromic anemia that continues to decrease within the last 12 hours since admission with no obvious signs of bleeding. Last occult blood was negative. The patient has had no emesis. 4. Acute mental status change as noted per EMS and the E. R. physician probably secondary to some underlying pain medication to include [place] and ongoing anemia as well as previous cerebrovascular event with some residual effects now showing improvement after IV fluids. 5. Prerenal azotemia likely secondary to underlying dehydration. 6. Mild electrolyte imbalance to include hypokalemia and hyponatremia, resolved after initiation of IV therapy. 7. History of previous right upper lobe pneumonia having been treated at [facility] showing radiographic studies improved from previous exam with the patient having mild leukocytosis but now showing normalization and remaining afebrile. 8. Mild hyponatremia, borderline symptomatic possibly resulting in acute mental status change requiring initiation of IV fluids to help normalize levels showing to be normal with the patient returning to baseline status 9. History of chronic ethanol abuse with the patient having stopped in the past year. 10. History of chronic back pain with spinal stenosis with the patient on chronic opioids possibly resulting in his acute mental status change. 11. History of seizure disorders with the patient being on Depakote previously. 12. Chronic renal insufficiency with some prerenal azotemia felt to be secondary to dehydration. 13. Chronic dementia. 14. Chronic depressive state. 15. History of benign prostatic hypertrophy. 16. History of hypertension, although the patient was hypotensive on admission possibly secondary to underlying dehydration and anemia. 17. Chronic anemia as noted with normocytic normochromic presentation with a review of past medical records showing the patient to be a little more anemic than previous admissions. 18. 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 19. History of chronic esophagitis as noted on previous EGD in November at previous admission at [facility]. PLAN: The patient will receive 2 units of packed red blood cells today. He has been made NPO. Will plan to repeat an H&H 2 hours post transfusion of second unit and repeat laboratory studies in the morning. He will continue on Protonix and Carafate for gastric protection. Given that he has shown a decrease in H&H now requiring initiation of transfusions, will make him a full admission. Anticipate length of stay to be 2 to 3 days until he shows to be stable in regards to his H&H. Will continue to monitor the patient closely and treat appropriately. Once discharged, he will need close followup with his primary care provider, Anjum Ch, Nurse Practitioner. #[id number] [facility]
[2016-12-10] MEDS: ACETAMINOPHEN 325 MG TAB PO PRN (20:54)
[2016-12-10] MEDS: PANTOPRAZOLE SODIUM IV 40 MG VIAL IV SCH (20:54)
[2016-12-11] MEDS: SUCRALFATE 1 GM TAB PO SCH ×4 (06:38→20:48)
[2016-12-11] MEDS: SODIUM CHLORIDE 0.9% (FLUSH) 10 ML SYG IV SCH ×2 (08:43→21:19)
[2016-12-11] MEDS ORDERED: POTASSIUM CHLORIDE 20 MEQ TAB PO ONE (17:33)
--- NOTE | 2016-12-11 17:50 | PN ---
DATE: 12/11/16 SUPERVISING PHYSICIAN: Nathan Rey M.D. SUBJECTIVE: The patient is sitting up in his bed. He has no complaints of chest pain, shortness of breath or nausea or vomiting. His only complaint is that he is extremely hungry. I explained to him that we were trying to rule out any bleeding from his esophagitis and that I would be in touch with his GI doctor, Dr. Gonzalez. OBJECTIVE: Temperature 99.1, heart rate 82, blood pressure 141/82, respiratory rate 18, O2 sat is 96%. RESPIRATORY: Clear to auscultation bilaterally. CARDIAC: Regular rate and rhythm. ABDOMEN: Soft, nondistended, non-tender. Bowel sounds are positive. EXTREMITIES: No cyanosis, clubbing or edema. NEUROLOGIC: He is awake, alert and oriented times three. LABORATORY: Hemoglobin 9.1, hematocrit 26.7. Sodium 132, potassium 3.2. He has had 1 negative stool occult blood and 1 positive stool occult blood. All other labs and films have been reviewed via the EMR. ASSESSMENT: 1. History of recent fall and acute mental status change felt to be secondary to ongoing anemia with the patient having a recent esophagogastroduodenoscopy that showed severe esophagitis but with a colonoscopy showing no acute gastrointestinal bleeds. 2. Leukocytosis, resolved after IV fluids felt to be probably secondary to some underlying dehydration. 3. History of acute severe esophagitis with H&H. He received 2 units of PRBCs and his H and H is now 9.1 and 26.7. 4. Acute mental status change as noted per EMS and the E. R. physician probably secondary to some underlying pain medication to include [place]. 5. Prerenal azotemia likely secondary to underlying dehydration. 6. Mild electrolyte imbalance to include hypokalemia and hyponatremia, resolved after initiation of IV therapy. 7. History of previous right upper lobe pneumonia having been treated at [facility] showing radiographic studies improved from previous exam. 8. Mild hyponatremia, borderline symptomatic possibly resulting in acute mental status change requiring initiation of IV fluids to help normalize levels showing to be normal with the patient returning to baseline status 9. History of chronic ethanol abuse with the patient having stopped in the past year. 10. History of chronic back pain with spinal stenosis with the patient on chronic opioids possibly resulting in his acute mental status change. 11. History of seizure disorders with the patient being on Depakote previously. 12. Chronic renal insufficiency with some prerenal azotemia felt to be secondary to dehydration. 13. Chronic dementia. 14. Chronic depressive state. 15. History of benign prostatic hypertrophy. 16. History of hypertension, although the patient was hypotensive on admission possibly secondary to underlying dehydration and anemia. 17. Chronic anemia. 18. 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 19. History of chronic esophagitis as noted on previous EGD in November at previous admission at [facility]. PLAN: We will monitor the patient's H&H closely. At this point, Holley Tong, our Sql Server Developer, is trying to get him placed in a jail due to his multiple falls as well as his inability to care for himself. I will advance the patient's diet slowly due to the esophagitis. I also have a call in to Dr. Gonzalez. His nurse said that he would return my call because we have minimal information on his EGD and colonoscopy from earlier this month. I would like to discuss with him possible sources of the bleeding and to get a followup with GI services. I have ordered some K-Dur to replace his potassium. We will continue to monitor the patient closely and followup as needed. Dr. Rey is the collaborating physician and available for consultation. #[id number] [facility]
[2016-12-11] MEDS: PANTOPRAZOLE SODIUM IV 40 MG VIAL IV SCH (21:18)
[2016-12-11] MEDS ORDERED: NON-FORMULARY MEDICATION 1 EA MIS (Amitriptyline Hcl [Amitriptyline Hcl] 150 MG) PO SCH (22:55)
[2016-12-11] MEDS ORDERED: NON-FORMULARY MEDICATION 1 EA MIS (Divalproex Sodium [Divalproex Sodium Dr] 500 MG) PO SCH (23:00)
[2016-12-11] MEDS ORDERED: AMITRIPTYLINE HCL 25 MG TAB ONE (23:20)
[2016-12-11] MEDS ORDERED: OMEPRAZOLE CAP 20 MG CAP ONE (23:20)
[2016-12-11] MEDS ORDERED: DIVALPROEX SODIUM 250 MG TAB ONE (23:20)
[2016-12-12] MEDS: SUCRALFATE 1 GM TAB PO SCH ×2 (06:09→12:54)
[2016-12-12] MEDS: ACETAMINOPHEN 325 MG TAB PO PRN ×2 (06:09→13:40)
[2016-12-12] MEDS ORDERED: OMEPRAZOLE 40 MG PO SCH (07:00)
[2016-12-12] MEDS: SODIUM CHLORIDE 0.9% (FLUSH) 10 ML SYG IV SCH (08:33)
[2016-12-12] MEDS ORDERED: DIVALPROEX SODIUM 250 MG TAB PO SCH (09:00)
[2016-12-12] MEDS ORDERED: LISINOPRIL 10 MG TAB PO SCH (09:00)
[2016-12-12] MEDS ORDERED: amLODIPine BESYLATE 5 MG TAB PO SCH (09:00)
[2016-12-12 14:47] VITALS: BP 131/88; TEMP 97.9; O2SAT 100
[2016-12-12] MEDS ORDERED: TAMSULOSIN 0.4 MG CAP PO SCH (21:00)
[2016-12-12] MEDS ORDERED: DONEPEZIL HCL 5 MG TAB PO SCH (21:00)
[2016-12-12] MEDS ORDERED: AMITRIPTYLINE HCL 25 MG TAB PO SCH (21:00)
[2016-12-13] MEDS ORDERED: OMEPRAZOLE CAP 20 MG CAP PO SCH (06:30)
--- NOTE | 2016-12-18 08:32 | DS ---
SUPERVISING PHYSICIAN: Nathan Rey MD DISCHARGE DIAGNOSIS: 1. History of recent fall and acute mental status change felt to be secondary to ongoing anemia with the patient having a recent esophagogastroduodenoscopy that showed severe esophagitis but with a colonoscopy showing no acute gastrointestinal bleeds. 2. Leukocytosis, resolved after IV fluids felt to be probably secondary to some underlying dehydration. 3. History of acute severe esophagitis with hemoglobin that had decreased during hospital stay. He received 2 units of packed red blood cells. Today, his hemoglobin is 9.5 and hematocrit 28.0. 4. Acute mental status change as noted per EMS and the E. R. physician probably secondary to some underlying pain medication to include [place]. 5. Prerenal azotemia likely secondary to underlying dehydration. 6. Mild electrolyte imbalance to include hypokalemia and hyponatremia, resolved after initiation of IV therapy. 7. History of previous right upper lobe pneumonia having been treated at [facility] showing radiographic studies improved from previous exam. 8. Mild hyponatremia, borderline symptomatic possibly resulting in acute mental status change requiring initiation of IV fluids to help normalize levels showing to be normal with the patient returning to baseline status 9. History of chronic ethanol abuse with the patient having stopped in the past year. 10. History of chronic back pain with spinal stenosis with the patient on chronic opioids possibly resulting in his acute mental status change. 11. History of seizure disorders with the patient being on Depakote previously. 12. Chronic renal insufficiency with some prerenal azotemia felt to be secondary to dehydration. 13. Chronic dementia. 14. Chronic depressive state. 15. History of benign prostatic hypertrophy. 16. History of hypertension, although the patient was hypotensive on admission possibly secondary to underlying dehydration and anemia. 17. Chronic anemia. 18. 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 19. History of chronic esophagitis as noted on previous EGD in November at previous admission at [facility]. HISTORY OF PRESENT ILLNESS: This is a 66-year-old male patient with a longstanding history of previous cerebrovascular accidents and multiple hospitalizations as well as poor compliance. He was brought to the Emergency Room by EMS after his son called EMS and it was noted on arrival that the patient was lying face down in bed with some coffee ground emesis and was lethargic. He has a history of recently being at [facility] for concerns for gastrointestinal bleed and was discharged on 12/09/16. He had a GI workup including EGD and colonoscopy without any findings of significant GI bleed. Only noted was severe esophagitis and a hiatal hernia. The patient was started on proton pump inhibitors and discharged from GI services. He also showed altered mental status with pneumonia that showed improvement. On the date of admission in the Emergency Room, lab studies showed he had hemoglobin 9.2 and hematocrit 27.3 with platelet count 297,000. Differential showed a left shift with a mild leukocytosis. Chemistries had a sodium 135, potassium 3.8, BUN 30, creatinine 1.26, lactic acid 1.6. He had a slightly elevated CPK of 318, CK-MB 5.7, troponin within normal limits. Occult blood was negative. Radiographic studies in the Emergency Room included CT of the head and single view chest x-ray. Chest x-ray showed patchy airspace consolidation in the right lung, but was improved from the previous image of 04/02. CT of the head per radiology interpretation showed extensive periventricular white matter disease with multiple bilateral lacunar infarcts, but no acute intracranial hemorrhage. The patient was mildly hypotensive at 103 /60 and tachycardic at 111. He was given IV fluids in the Emergency Room and was admitted for close observation for concerns of a GI bleed and acute mental status change. HOSPITAL COURSE: The patient's mental status improved over the next several days , but his hemoglobin dropped to 7.5 and hematocrit dropped to 22.3. He was given 2 units of packed red blood cells. He was also made NPO and in addition to his proton pump inhibitor, he was given Carafate. He was changed from observation to full inpatient. During this time, his family requested that [employer] initiate possible admission to a intermediate due to previous multiple falls as well as poor compliance and declining health. Hemoglobin improved to 9.1 and 26.7 after his blood infusion. I also spoke with his GI physician, Dr. Gonzalez, who reviewed his EGD and colonoscopy with me and they found that there was no evidence of any acute bleed on either scope. He recommended that his diet be advanced and to have followup with his office after discharge. He was accepted at [facility]. PLAN: The patient will be discharged to [facility] in stable condition. He will be discharged on his previous medications as well as his Protonix and his Carafate. He is to have activity per physical therapy. He is to followup with his primary care provider, Anjum Ch, within the next 1 to weeks. He is also to have a followup with his GI doctor, Dr. Gonzalez, at Anjum Ch's discretion. DISCHARGE MEDICATIONS: 1. Omeprazole. 2. Amitriptyline. 3. Amlodipine. 4. Lisinopril. 5. Hydrocodone. 6. Benazepril. 7. Tamsulosin. 8. Divalproex. 9. Naprosyn. 10. Acetaminophen. 11. Carafate. 12. Acetaminophen with codeine. Dr. Rey is the collaborating physician and available for consultation. #[id number] [facility]
== END 2016-12-12 16:10 | DRG 378 ==
LOC: ER 07:41 → INTOOBSV 14:25 → MS 14:25 → OBSVTOIN 12-10 10:54
PROVIDERS: ADMIT Nurse Practitioner Family; ATTEND Nurse Practitioner Acute Care
PROC: BW21YZZ Computerized Tomography (CT Scan) of Abdomen and Pelvis using Other Contrast (ICD-10-PCS; principal; 2016-12-10)
PROC: 30233N1 Transfusion of Nonautologous Red Blood Cells into Peripheral Vein, Percutaneous Approach (ICD-10-PCS; 2016-12-10)
DX: K92.0 Hematemesis (principal); E87.1 Hypo-osmolality and hyponatremia; D64.9 Anemia, unspecified; E86.0 Dehydration; E87.6 Hypokalemia; G89.29 Other chronic pain; F32.9 Major depressive disorder, single episode, unspecified; G40.909 Epilepsy, unspecified, not intractable, without status epilepticus; M54.30 Sciatica, unspecified side; F03.90 Unspecified dementia, unspecified severity, without behavioral disturbance, psychotic disturbance, mood disturbance, and anxiety; N40.0 Benign prostatic hyperplasia without lower urinary tract symptoms; M10.9 Gout, unspecified; M19.90 Unspecified osteoarthritis, unspecified site; N28.9 Disorder of kidney and ureter, unspecified; I12.9 Hypertensive chronic kidney disease with stage 1 through stage 4 chronic kidney disease, or unspecified chronic kidney disease; R29.6 Repeated falls; K20.9 Esophagitis, unspecified; I69.322 Dysarthria following cerebral infarction; J44.9 Chronic obstructive pulmonary disease, unspecified; F17.210 Nicotine dependence, cigarettes, uncomplicated; M48.00 Spinal stenosis, site unspecified; Z79.1 Long term (current) use of non-steroidal anti-inflammatories (NSAID); Z79.899 Other long term (current) drug therapy; Z87.01 Personal history of pneumonia (recurrent); Z88.1 Allergy status to other antibiotic agents; Z91.048 Other nonmedicinal substance allergy status; Z79.891 Long term (current) use of opiate analgesic; Z66 Do not resuscitate

== ENCOUNTER → 2017-02-04 | Outpatient (CLI) | payer MEDICARE, OTHER | END | disposition home or self-care (01) | LOC: BFHH 14:53 | PROVIDERS: ATTEND Nurse Practitioner Family | DX: I10 Essential (primary) hypertension (principal); I95.1 Orthostatic hypotension; N40.0 Benign prostatic hyperplasia without lower urinary tract symptoms ==

== ENCOUNTER 2017-02-09 17:52 | Observation (INO) | payer MEDICARE, OTHER ==
[2017-02-09] MEDS ORDERED: LIDOCAINE VIS-MYLANTA 30 ML UD PO ONE (18:13)
--- NOTE | 2017-02-09 18:35 | RAD ---
EXAM: Acute abdominal series. INDICATION: Abdominal pain, acute. COMPARISON: None. FINDINGS: Cardiac silhouette: Unremarkable. Hedy: Unremarkable. Lobar consolidation: None. Pleural effusion: None. Pneumothorax: None. Other: None. Intraperitoneal free air: Negative. Bowel: There is mild, nonspecific gaseous distention of the intestines. Bones: There are postsurgical changes along the lower lumbar spine Other: None. IMPRESSION: Nonspecific bowel gas pattern. Electronically signed by: Richmond Kaiser MD 02/09/2017 6:34 PM CDT Workstation: [id number]
[2017-02-09] MEDS ORDERED: MAGNESIUM SULFATE PREMIX 2GM 2 GM in PREMIX BAG 1 BAG IVPB ONE (19:03)
[2017-02-09] MEDS ORDERED: HYDROcodone 10MG/APAP 325MG 1 EA TAB PO ONE (19:07)
[2017-02-09] MEDS ORDERED: MAGNESIUM SULFATE PREMIX 2GM 50 ML IVPB ONE (19:08)
--- NOTE | 2017-02-09 19:44 | CT ---
EXAM: CT abdomen and pelvis without contrast. INDICATION: Abdominal pain, acute. TECHNIQUE: Contiguous axial CT images of the abdomen and pelvis. Intravenous contrast: Absent. Oral contrast: Absent. DLP 687 mGy-cm. This exam was performed according to our departmental dose-optimization program, which includes automated exposure control, adjustment of the mA and/or kV according to patient size and/or use of iterative reconstruction technique. COMPARISON: 12/10/2016. FINDINGS: Lower chest: Partially imaged. Lung bases: There is a tiny left pleural effusion Cardiac apex: There is a pericardial effusion measuring up to 8 mm Solid abdominal viscera: Limited by lack of intravenous contrast. Liver: Unremarkable. Gallbladder: Unremarkable. Pancreas: Unremarkable. Spleen: Unremarkable. Adrenal glands: Unremarkable. Right kidney: No urolithiasis or hydronephrosis. Left kidney: No urolithiasis or hydronephrosis. Urinary bladder: Unremarkable. Abdominal aorta: Unremarkable. Peritoneal: Free fluid: None. Free air: None. Other: No pathologic sized lymph nodes in the upper abdomen. Bowel: Stomach: Unremarkable. Small bowel: There is mild distention of the fluid-filled small bowel. Appendix: Unremarkable. Colon: Unremarkable. Rectum: Unremarkable. Prostate: Unremarkable. Bones: There are postsurgical changes at L4-S1 IMPRESSION: Small pericardial effusion. Tiny left pleural effusion Mild distention of the fluid-filled small bowel, which is nonspecific but likely related to an enteritis. Normal appendix. No evidence of diverticulitis. Electronically signed by: Richmond Kaiser MD 02/09/2017 7:43 PM CDT Workstation: [id number]
[2017-02-09] MEDS ORDERED: IBUPROFEN 200 MG TAB PO ONE (20:13)
[2017-02-09] MEDS ORDERED: SUCRALFATE 1 GM/10 ML 1 GM UD PO ONE (20:13)
[2017-02-09] MEDS ORDERED: ALUMINUM & MAGNESIUM HYDROXIDE 30 ML UD PO ONE (20:13)
--- NOTE | 2017-02-09 20:54 | ED.PDOC ---
History of Present Illness - General Chief Complaint: Chest Pain/TX Time Seen by Provider: 02/09/17 18:11 Source: patient Exam Limitations: no limitations - History of Present Illness Initial Comments: the patient is a 66-year-old male presenting from a long-term care facility due to a confusing constellation of symptoms. The patient was taken off of his hydrocodone 10 days ago and has since had a progression of symptoms culminating in chest pain today. pain restarted with a flare of his back pain Several days later he started having abdominal pain. He has had some mild nausea. He does have a history of significant esophagitis. Today he started having some substernal pain with taking a deep breath and with twisting and turning. No cough. No fever. No palpitations. No shortness of breath. No rash. No other changes in medications according to him. Chest pain sharp. It is intermittent. He has been having a worsening of his reflux is well. He does take naproxen twice daily. Timing/Duration: unsure Severity: moderate Improving Factors: nothing Worsening Factors: movement Associated Symptoms: chest pain, loss of appetite, malaise Allergies/Adverse Reactions: Allergies Iodine Allergy (Severe, Verified 08/23/16 11:21) Other makes him feel like he is having "a heart attack" Cephalexin [From Keflex] Allergy (Verified 08/23/16 17:06) Home Medications: Ambulatory Orders Omeprazole [Prilosec] 40 mg PO ACBK 07/05/14 Amitriptyline HCl 150 mg PO BEDTIME 10/24/15 Amlodipine Besylate 5 mg PO DAILY 08/23/16 Donepezil HCl [Aricept] 5 mg PO BEDTIME 08/23/16 HYDROcodone 10MG/APAP 325MG [[place] 10/325] 1 tab PO Q4HR PRN 08/23/16 Lisinopril 20 mg PO DAILY 08/23/16 Tamsulosin [Flomax] 0.4 mg PO BEDTIME 08/23/16 Divalproex Sodium [Divalproex Sodium Dr] 500 mg PO BID 08/24/16 HYDROcodone 5MG/APAP 325MG [[place] 5/325] 1 - 2 ea PO Q4HR 11/05/16 Naproxen [Naprosyn] 500 mg PO BID 11/05/16 Acetaminophen W/ Codeine [Tylenol W/ CODEINE #3] 1 - 2 ea PO Q6H PRN #30 Acetaminophen [Tylenol] 650 mg PO Q6H PRN 12/12/16 Sucralfate Tab [Carafate Tab] 1 gm PO ACHS #0 12/12/16 Review of Systems - Review of Systems Constitutional: States: malaise EENTM: States: no symptoms reported Respiratory: States: no symptoms reported Cardiology: States: chest pain Gastrointestinal/Abdominal: States: abdominal pain - diffuse, nausea - mild Musculoskeletal: States: back pain - iffuse and chronic Skin: States: no symptoms reported Neurological: States: no symptoms reported Endocrine: States: increased thirst Hematologic/Lymphatic: States: no symptoms reported All other Systems: No Change from Baseline Past Medical History (General) - Patient Medical History Hx Seizures: Yes Hx Stroke: Yes Hx Dementia: Yes Hx Asthma: No Hx of COPD: No Hx Cardiac Disorders: Yes Hx Congestive Heart Failure: No Hx Pacemaker: No Hx Hypertension: Yes Hx Thyroid Disease: No Hx Diabetes: No Hx Gastroesophageal Reflux: Yes Hx Renal Disease: No Hx Cancer: No Hx of HIV: No Hx Hepatitis C: No Hx MRSA: No - Vaccination History Hx Tetanus, Diphtheria Vaccination: No Hx Influenza Vaccination: Yes Hx Pneumococcal Vaccination: Yes - Social History Hx Tobacco Use: No Hx Chewing Tobacco Use: No Hx Alcohol Use: No Hx Substance Use: No Hx Substance Use Treatment: No Hx Depression: No Hx Physical Abuse: No Hx Emotional Abuse: No Hx Suspected Abuse: No - Activities of Daily Living Jail/Assisted Living (if applicable):: [facility] - Female History Patient : No Family Medical History - Family History Mother Living Status: Hx Cardiac Disease: Yes - mom Physical Exam - Physical Exam General Appearance: Alert, Comfortable, No apparent distress Eye Exam: bilateral normal Ears, Nose, Throat: hearing grossly normal, normal ENT inspection, normal pharynx - chronic speech changes from his previous strokes Neck: full range of motion, supple Respiratory: chest non-tender, lungs clear, normal breath sounds, no respiratory distress, no accessory muscle use Cardiovascular/Chest: normal peripheral pulses, regular rate, rhythm, no edema Peripheral Pulses: radial,right: 2+, radial,left: 2+, dorsalis pedis,right: 2+, dorsalis pedis,left: 2+, posterior tibialis,right: 2+, posterior tibialis,left: 2+ Gastrointestinal/Abdominal: soft, other - diffuse discomfort to palpation throughout the abdomen. No definite rebound or peritoneal signs. No definite palpable masses. Rectal Exam: deferred Back Exam: other - iffuse discomfort to palpation with some muscle spasm Extremity: normal range of motion, non-tender, normal inspection, no pedal edema Neurologic: alert, normal mood/affect, oriented x 3 Skin Exam: normal color Comments: Vital Signs - 24 hr 02/09/17 02/09/17 17:55 19:25 Pulse Rate [ 72 70 apical] Respiratory 16 20 Rate Blood Pressure 132/76 143/81 [left brachial] O2 Sat by Pulse 100 100 Oximetry Progress - Progress Progress: 02/09/17 20:58 the patient is a 66-year-old male presenting to the emergency room due to progressive back and abdominal pain that progressed into substernal chest pain today. Cardiac enzymes are negative. ESR and CRP are pending. He does appear to have at least a small pericardial effusion. Cardiology is present tomorrow and can hopefully give their opinion. No evidence of myocardial infarction. No evidence of cardiac tamponade. Vital signs have remained stable. Hydrocodone has helped all pain significantly. He has received a dose of ibuprofen along with GI protective medications. The patient will be admitted for monitoring overnight. No significant new arrhythmia noted. no evidence of pneumonia. - Results/Orders Results/Orders: 02/09/17 20:20 C-REACTIVE PROTEIN Stat ERYTHROCYTE SEDIMENTATION RATE Stat BLOOD CULTURE Stat Laboratory Results - last 24 hr 02/09/17 02/09/17 02/09/17 18:30 18:30 18:30 WBC 11.4 H RBC 3.24 L Hgb 9.1 L Hct 27.7 L MCV 85.6 MCH 28.0 MCHC 32.8 L RDW 15.2 H Plt Count 337 MPV 7.4 Absolute Neuts (auto) 8.70 H Absolute Lymphs (auto) 1.30 Absolute Monos (auto) 1.20 H Absolute Eos (auto) 0.10 Absolute Basos (auto) 0.00 Neutrophils % 76.6 Lymphocytes % 11.8 L Monocytes % 10.7 H Eosinophils % 0.5 L Basophils % 0.4 PT 12.3 INR 1.090 PTT (SP) 35.3 D-Dimer, Quantitative Sodium 135 Potassium 3.9 Chloride 98 L Carbon Dioxide 24 Anion Gap 16.9 BUN 10 Creatinine 0.65 BUN/Creatinine Ratio 15.4 Random Glucose 89 Serum Osmolality 268.6 L Calcium 9.1 Magnesium 1.5 L Total Bilirubin 0.2 AST 13 ALT < 8 L Alkaline Phosphatase 62 Creatine Kinase 52 CK-MB (CK-2) 1.3 CK-MB (CK-2) % Not Reportable Troponin I < 0.02 Serum Total Protein 7.4 Albumin 3.3 Globulin 4.1 H Albumin/Globulin Ratio 0.8 L Amylase 43 Lipase 27 Urine Color Urine Appearance Urine pH Ur Specific Moodus Urine Protein Urine Glucose (UA) Urine Ketones Urine Blood Urine Nitrite Urine Bilirubin Urine Urobilinogen Ur Leukocyte Esterase Urine RBC Urine WBC Ur Epithelial Cells Urine Bacteria Valproic Acid 46.6 L 02/09/17 02/09/17 18:30 19:10 WBC RBC Hgb Hct MCV MCH MCHC RDW Plt Count MPV Absolute Neuts (auto) Absolute Lymphs (auto) Absolute Monos (auto) Absolute Eos (auto) Absolute Basos (auto) Neutrophils % Lymphocytes % Monocytes % Eosinophils % Basophils % PT INR PTT (SP) D-Dimer, Quantitative 924 H* Sodium Potassium Chloride Carbon Dioxide Anion Gap BUN Creatinine BUN/Creatinine Ratio Random Glucose Serum Osmolality Calcium Magnesium Total Bilirubin AST ALT Alkaline Phosphatase Creatine Kinase CK-MB (CK-2) CK-MB (CK-2) % Troponin I Serum Total Protein Albumin Globulin Albumin/Globulin Ratio Amylase Lipase Urine Color Yellow Urine Appearance Clear Urine pH 7.0 Ur Specific Moodus 1.015 Urine Protein Negative Urine Glucose (UA) Negative Urine Ketones Negative Urine Blood Negative Urine Nitrite Negative Urine Bilirubin Negative Urine Urobilinogen 1.0 Ur Leukocyte Esterase Negative Urine RBC 0-1 Urine WBC 0-1 Ur Epithelial Cells 0-1 Urine Bacteria 0 Valproic Acid ESR and CRP are pending at this time. Abdominal series appears largely benign. CT scan of the abdomen shows an 8 mm pericardial effusion. No definitive acute abdominal pathology. Possible changes consistent with a very mild viral gastroenteritis. eKG shows normal voltage. Normal sinus rhythm. No diffuse ST segment changes consistent with classic pericarditis/myocarditis. No QT prolongation. Departure - Departure Clinical Impression: Pericardial effusion Chest pain Qualifiers: Chest pain type: unspecified Qualified Code(s): R07.9 - Chest pain, unspecified Opiate dependence Qualifiers: Substance use status: with unspecified opioid-induced disorder Qualified Code(s ): F11.29 - Opioid dependence with unspecified opioid-induced disorder Disposition: Admit Patient Referrals: [facility] [Primary Care Provider] - 1-2 Weeks Home Medications: Ambulatory Orders Omeprazole [Prilosec] 40 mg PO ACBK 07/05/14 Amitriptyline HCl 150 mg PO BEDTIME 10/24/15 Amlodipine Besylate 5 mg PO DAILY 08/23/16 Donepezil HCl [Aricept] 5 mg PO BEDTIME 08/23/16 HYDROcodone 10MG/APAP 325MG [[place] 10/325] 1 tab PO Q4HR PRN 08/23/16 Lisinopril 20 mg PO DAILY 08/23/16 Tamsulosin [Flomax] 0.4 mg PO BEDTIME 08/23/16 Divalproex Sodium [Divalproex Sodium Dr] 500 mg PO BID 08/24/16 HYDROcodone 5MG/APAP 325MG [[place] 5/325] 1 - 2 ea PO Q4HR 11/05/16 Naproxen [Naprosyn] 500 mg PO BID 11/05/16 Acetaminophen W/ Codeine [Tylenol W/ CODEINE #3] 1 - 2 ea PO Q6H PRN #30 Acetaminophen [Tylenol] 650 mg PO Q6H PRN 12/12/16 Sucralfate Tab [Carafate Tab] 1 gm PO ACHS #0 12/12/16 Decision To Admit - Decistion To Admit Decision to Admit Reason: Medical Nature Decision to Admit Date: 02/09/17 Decision to Admit Time: 21:01
[2017-02-09] MEDS ORDERED: NON-FORMULARY MEDICATION 1 EA MIS (Amitriptyline Hcl [Amitriptyline Hcl] 150 MG) PO SCH (21:00)
--- NOTE | 2017-02-09 21:06 | HP ---
SUPERVISING PHYSICIAN: JOVANA MEMBRENO MD CHIEF COMPLAINT: Chest pain. HISTORY OF PRESENT ILLNESS: Mr. Hammonds is a 66 year-old male patient who resides [facility] that presented to the Emergency Department complaining of chest and back pain. He has a significant history of esophagitis and a hiatal hernia. Today, he noted that he was having some substernal chest pain with deep inspiratory effort exacerbated by any twisting or turning. He denies any cough, fevers, palpitations, but does have some exertional dyspnea. He also notes that he has had some flare-ups of chronic back pain and several days prior to admission started having some abdominal pain with some mild nausea. He also has a history of gastroesophageal reflux disease which he says has been worsening as he does take naproxen twice daily. In the Emergency Department, initial laboratory studies indicate a leukocytosis with a white count of 11.4 without any left shift. His hemoglobin was 9.1 and hematocrit 27.7 with a normal platelet count at 337,000. Coagulation studies showed a normal PTT but elevated D dimer of 924. Chemistries showed normal electrolytes with intact renal function. It was also noted that he had a significant hypomagnesemia with a magnesium of 1.5. His initial cardiac enzymes showed a troponin of less than 0.02 with a normal CPK. Radiographic studies initially completed included a abdominal x-ray and per radiology interpretation there was note of nonspecific bowel gas pattern. Given that he had some mild abdominal pain on examination, a CT of the abdomen was completed without contrast as the patient is allergic to iodine. Per radiology interpretation, the CT of the abdomen had note of a small pericardial infusion measuring upto 8 mm as well as a tiny left pleural effusion. There was also note of mild distention of fluid filled small bowel which was nonspecific but felt likely related to enteritis. Appendix was seen as normal and there was no evidence of diverticulitis. Given the findings of small pericardial effusion and reported chest pain, inflammatory markers were obtained - C-reactive protein that was elevated at 10.8 and ESR that was also elevated at 122. He was given multiple treatments in the ED that included a GI slider along with some [place] and ibuprofen which all resulted in some decrease in his chest pain level. An EKG was also completed that showed normal sinus rhythm with no significant ST or T-wave changes. Hemodynamically, the patient was showing stable vital signs with a blood pressure of 143/88. saturation on room air 100% with respirations at 20 and pulse rate of 70 and afebrile at 96.8. Given the clinical findings of chest pain that was reproducible with elevated inflammatory markers and a small pericardial effusion noted on CT, Dr. Harris requested the patient be placed in observation for further treatment and evaluation for concerns of developing acute pericarditis along with possible viral enteritis as noted with the CT findings of the abdomen. Blood cultures were completed and the patient was placed in observation on the medical/ surgical floor for further continuation of treatment and evaluation of chest pain with concerns for acute pericarditis and and to rule out myocardial infarction with anticipation of cardiology consultation in the morning. The patient was placed in observation in stable condition. PAST MEDICAL HISTORY: 1. Hypertension. 2. Major depressive disorder. 3. Seizure disorder on Depakene. 4. Chronic sciatica pain with chronic back pain. 5. Dementia. 6. History of past alcohol abuse with recent GI consultation with an esophagogastroduodenoscopy and colonoscopy with findings of severe esophagitis. 7. Benign prostatic hypertrophy on Flomax. 8. Past history of cerebral accidents on multiple occasions within the last 2- 1/2 years. 9. Gout. 10. Osteoarthritis. 11. History of back pain with spinal stenosis. PAST SURGICAL HISTORY: 1. Arthroscopic procedures to the knees. CURRENT MEDICATIONS: 1. Amlodipine 5 mg daily. 2. Amitriptyline 150 mg at bedtime. 3. Tylenol No. 3, 1 or 2 every 6 hours for pain. 4. Tylenol 650 every 6 hours p.r.n. as needed.: 5. Flomax 0.4 mg at bedtime. 6. Carafate 1 gram tablet a.c. and h.s. 7. Prilosec 40 mg at breakfast. 8. Naprosyn 500 mg b.i.d. 9. Lisinopril 20 mg daily. 10. Scotia 10/325 and 5/325 as needed based on pain every 4 hours p.r.n. 11. Aricept 5 mg at bedtime. 12. Divalproex sodium 500 mg twice daily. ALLERGIES: IODINE AND CEPHALOSPORINS. FAMILY HISTORY: Positive for cancer. SOCIAL HISTORY: The patient currently lives at [facility]. He previously worked in the [employer] most of his adult live. He does known to to smoke approximately a pack a day and has done so for 40 to 50 years. He denies any recent alcohol or drug abuse, although he does have a remote history of alcohol abuse. REVIEW OF SYSTEMS: CONSTITUTIONAL: Denies any malaise or generalized weakness, fevers or chills. He does note that he has had a recent weight loss of around 10 pounds within the last 2 to 3 months, although he says his weight Is returning, he felt was secondary to a decreased appetite. HEENT: Denies any nasal congestion or sore throat. RESPIRATORY: Denies any shortness of breath or cough at rest. He does have some mild dyspnea on exertion. CARDIOVASCULAR: As per history of present illness. Chest pains that seem to be positional exacerbated y deep inspiratory efforts and coughing. He denies any palpitations or syncopal episodes. GASTROINTESTINAL: Previous history of GI bleed requiring transfusion with a recent EGD and colonoscopy within the last year with findings of esophagitis. He denies any constipation or diarrhea but has had some nausea in the last week with some mild abdominal pains on and off. GENITOURINARY: Denies any dysuria but does have history of benign prostatic hypertrophy, currently on Flomax. NEUROLOGIC: Denies any headaches, dizziness, syncopal episodes or focal weaknesses or any seizures activity, although he does have a remote history of seizures and is on Depakote. PHYSICAL EXAMINATION: VITAL SIGNS: Initially i the Emergency Department, blood pressure was 143/81. On admission to the medical/surgical floor, blood pressure was 112/72. Respirations 18, saturation 100% on room air. Temperature 96.8, heart rate 69. Weight 71.2 kg which is about 1 kg below his last admission on 12/10/16 GENERAL: The patient appears to be in no acute distress. He is very comfortable and alert and very communicative. . HEENT: Tympanic membranes are clear bilaterally. Oropharynx was pink and moist with no notable lesions. . NECK: Full range of motion, supple, non-tender with no jugular venous distention noted. CHEST: Clear wall is non-tender with lungs clear bilaterally. Breath sounds clear and equal with no obvious rhonchi, wheezing or rales. CARDIOVASCULAR: Regular rate and rhythm without appreciable murmurs, gallops, or rubs. ABDOMEN: Soft with some mild diffuse difficulty on palpitations. No rebound tenderness. Bowel sounds are present. EXTREMITIES: No clubbing, cyanosis or edema. NEUROLOGIC: He was alert and oriented times three. Speech pattern is notable, incomprehensible at times but is chronic as from previous strokes with no notable changes. Cranial nerves II-XII are grossly intact as noted with facial features symmetrical,. Extraocular movements within normal limits. There was no notable nystagmus. He is alert and oriented x 3. LABORATORY: CBC shows a leukocytosis of 11.4 with hemoglobin 9.1 and hematocrit 27.7. Platelet count 337,000. Differential does show the start of an early left shift. Coagulation studies show a normal PT/PTT with a D-dimer of 924. Chemistries show normal electrolytes with a potassium of 3.9, BUN 10, creatinine 0.65. Glucose 89, calcium 9.1, magnesium low at 1.5, liver functions all sowed to be within normal limits as well as CPK at 52. Troponin initially was less than 0.02. C-reactive protein was elevated at 10.8. ESR was elevated as well at 122. Lipase and amylase were both within normal limits. Urinalysis showed to be within normal limits.. Valproic acid level showed to be low at 46.6, just below low therapeutic levels. MICROBIOLOGY: Two sets of blood cultures are pending. RADIOLOGY: Initially in the Emergency Department he had an abdominal x-ray and per radiology interpretation 2-view abdominal series, there was a noncontributory bowel gas pattern noted. This was followed up with a abdominal and pelvis CT without contrast and per radiology interpretation there was noted a small pericardial effusion that measured up to 8 mm with a tiny left pleural effusion. There was also mention of mild distention of fluid filled small bowel which is nonspecific but likely related to enteritis. Appendix was noted to be normal. There was no evidence of diverticulitis. ASSESSMENT: 1. Acute chest pain with concerns for developing acute pericarditis as noted on initial cardiac enzymes being negative but elevated ESR and C-reactive protein with the patient's chest pains being reproducible with deep inspiratory effort and position changes. Patient is being admitted to rule out acute myocardial infarction and awaiting cardiology consultation for further evaluation of pleural effusion and concerns of acute pericarditis. 2. Elevated D-dimer with elevated inflammatory markers to include a sed rate and C-reactive protein with patient having low probability of a DVT or pulmonary embolism with concerns for developing acute pericarditis with a mild leukocytosis. 3. Hypertension. 4. Acute abdominal pain with CT findings concerning for enteritis in the presence of inflammatory markers with patient denying any significant nausea or vomiting or diarrhea. 5. Normocytic normochromic anemia likely secondary to chronic illness with patient having recently having esophagogastroduodenoscopy and colonoscopy with findings of esophagitis. 6. Gastroesophageal reflux disease with patient being on chronic NSAIDS possibly resulting in an exacerbation of symptoms with patient having a history of esophagitis and remote history of alcohol abuse possibly contributing to some of his symptomatology relating to the abdominal pain. 7. Major depressive disorder. 8. History of seizures on Depakote. 9. History of past cerebral accident on multiple occasions within the last 2 years. 10. Gout without mention of acute flare-up. 11. Osteoarthritis on long-term NSAIDS. 12. Longstanding history of back pain with spinal stenosis with past opioid dependency. 13. Benign prostatic hypertrophy on Flomax without any mention of complications. PLAN: The patient will be placed in observation tonight for initiation of treatment with concerns of developing acute pericarditis and to rule out underlying acute myocardial infarction. We will plan to continue with ibuprofen 800 mg 3 times a day along with Colchicine 0.6 mg twice a day. Given his past history of esophagitis and alcoholism, we will start patient on continued GI prophylaxis with Carafate and Protonix. Will plan to repeat cardiac enzymes every 6 hours times along with repeat EKGs. I have ordered a consultation with Dr. Gallego in the morning to assist with further evaluation of possible development of acute pericarditis and concerns for acute myocardial infarction. The patient will be on telemetry as per chest pain protocol. He will be started on Lovenox for DVT prophylaxis. Once his home medications have been updated and verified, those will be resumed. Will anticipate length of stay to be 1 to 2 days pending reevaluation in the morning and cardiology consultation. Once the patient is discharged, he will need close clinical followup with his primary care physician, Deb Ch, nurse practitioner. Until clinically stable enough to be discharge, we will continue to monitor the patient closely and treat appropriately. #[id number] [facility]
[2017-02-09] MEDS ORDERED: SODIUM CHLORIDE 0.9% (FLUSH) 10 ML SYG IV PRN (22:35)
[2017-02-09] MEDS ORDERED: ASPIRIN (CHEWABLE) 81 MG TAB PO ONE (22:35)
[2017-02-09] MEDS ORDERED: NITROGLYCERIN 0.4 MG 25 EA TAB SL PRN (22:35)
[2017-02-09] MEDS ORDERED: ACETAMINOPHEN 325 MG TAB PO PRN (22:35)
[2017-02-09] MEDS ORDERED: MORPHINE SULFATE INJ 10 MG/ML VIAL IV PRN (22:35)
[2017-02-09] MEDS ORDERED: IV SET AND CAP CHANGE INJ INJ SCH (23:00)
[2017-02-09] MEDS ORDERED: ENOXAPARIN SODIUM 40 MG/0.4 ML SYG SUBCU SCH (23:00)
[2017-02-09] MEDS ORDERED: PANTOPRAZOLE SODIUM IV 40 MG VIAL IV SCH (23:00)
[2017-02-09] MEDS ORDERED: NON-FORMULARY MEDICATION 1 EA MIS (Divalproex Sodium [Divalproex Sodium Dr] 500 MG) PO SCH (23:00)
[2017-02-09] MEDS ORDERED: AMITRIPTYLINE HCL 25 MG TAB ONE (23:01)
[2017-02-09] MEDS ORDERED: DIVALPROEX SODIUM ER 500 MG TAB PO ONE (23:02)
[2017-02-09] MEDS: DONEPEZIL HCL 5 MG TAB PO SCH (23:08)
[2017-02-09] MEDS: COLCHICINE 0.6 MG TAB PO SCH (23:08)
[2017-02-09] MEDS: TAMSULOSIN 0.4 MG CAP PO SCH (23:08)
[2017-02-09] MEDS ORDERED: DIVALPROEX SODIUM 250 MG TAB ONE (23:12)
[2017-02-10] MEDS: HYDROcodone 5MG/APAP 325MG 1 EA TAB PO SCH ×3 (01:10→08:40)
[2017-02-10] MEDS: SUCRALFATE 1 GM TAB PO SCH ×4 (06:49→20:49)
[2017-02-10] MEDS ORDERED: COLCHICINE 0.6 MG TAB ONE (08:38)
[2017-02-10] MEDS ORDERED: DIVALPROEX SODIUM ER 500 MG TAB PO ONE (08:39)
[2017-02-10] MEDS: ASPIRIN TABLET 325 MG TAB PO SCH (09:44)
[2017-02-10] MEDS: amLODIPine BESYLATE 5 MG TAB PO SCH (09:44)
[2017-02-10] MEDS: LISINOPRIL 10 MG TAB PO SCH (09:44)
[2017-02-10] MEDS: COLCHICINE 0.6 MG TAB PO SCH (09:44)
[2017-02-10] MEDS: DIVALPROEX SODIUM 250 MG TAB PO SCH ×2 (09:50→20:49)
--- NOTE | 2017-02-10 10:08 | US ---
EXAM DESCRIPTION: Venous Doppler sonogram left lower extremity CLINICAL HISTORY: elevated D-Dimer Chest pain COMPARISON: [None Available.] TECHNIQUE: Venous Doppler left lower extremity deep venous system from the common femoral vein to the calf veins FINDINGS: Normal venous flow with color Doppler. Normal compressibility. Normal augmentation of flow with compression maneuvers IMPRESSION: No deep vein thrombosis left lower extremity Electronically signed by: Alexander Fraga MD 02/10/2017 10:07 AM CDT
--- NOTE | 2017-02-10 10:36 | US ---
EXAM DESCRIPTION: Bilateral venous Doppler sonogram CLINICAL HISTORY: elevated D-Dimer Chest pain concern for DVT COMPARISON: None Available. TECHNIQUE: Jade scale color flow and spectral Doppler venous sonography bilateral legs FINDINGS: Deep veins of the bilateral legs are patent and compressible. No intraluminal thrombus. Normal spontaneous and augmented flow. IMPRESSION: No evidence of deep venous thrombosis bilateral legs Electronically signed by: Dannie Miller MD 02/10/2017 10:35 AM CDT
--- NOTE | 2017-02-10 12:58 | RAD ---
EXAM DESCRIPTION: Abdomen Flat Upright CLINICAL HISTORY: 66 years, Male, abdomen pain RUQ and LUq COMPARISON: Yesterday FINDINGS: No free air in the right hemidiaphragm. Nonspecific bowel gas again noted without definite distention. A mildly prominent loop over the lower central abdomen is probably sigmoid colon, borderline distended. This may be mild ileus. Lower lumbar spine surgery. IMPRESSION: Nonspecific bowel gas pattern suggesting mild ileus. A minimally prominent bowel loop over the lower central abdomen is probably minimally distended sigmoid colon, perhaps representing an ileus. This can be evaluate follow-up studies if indicated Electronically signed by: Bradford Brandt MD 02/10/2017 12:57 PM CDT
--- NOTE | 2017-02-10 13:00 | RAD ---
EXAM DESCRIPTION: Chest,2 Views CLINICAL HISTORY: 66 years, Male, chest pain COMPARISON: Yesterday FINDINGS: Adequate inspiration. Borderline vascularity and cardiomegaly. Small right effusion. IMPRESSION: Mild volume overload suspected with borderline vascularity, cardiomegaly and small right effusion Electronically signed by: Bradford Brandt MD 02/10/2017 12:59 PM CDT
[2017-02-10] MEDS: HYDROcodone 5MG/APAP 325MG 1 EA TAB PO PRN (14:50)
[2017-02-10] MEDS: PANTOPRAZOLE SODIUM TAB 40 MG PO SCH (18:21)
[2017-02-10] MEDS ORDERED: AMITRIPTYLINE HCL 25 MG TAB ONE (19:37)
[2017-02-10] MEDS ORDERED: ENOXAPARIN SODIUM 40 MG/0.4 ML SYG SUBCU ONE (19:38)
[2017-02-10] MEDS: SODIUM CHLORIDE 0.9% (FLUSH) 10 ML SYG IV SCH ×2 (20:48→20:57)
[2017-02-10] MEDS: DONEPEZIL HCL 5 MG TAB PO SCH (20:49)
[2017-02-10] MEDS: TAMSULOSIN 0.4 MG CAP PO SCH (20:49)
[2017-02-10] MEDS ORDERED: ENOXAPARIN SODIUM 40 MG/0.4 ML SYG SUBCU SCH (21:00)
[2017-02-10] MEDS ORDERED: AMITRIPTYLINE HCL 25 MG TAB PO SCH (21:00)
[2017-02-10] MEDS ORDERED: IBUPROFEN 400 MG TAB PO SCH (23:55)
[2017-02-11] MEDS: HYDROcodone 5MG/APAP 325MG 1 EA TAB PO PRN ×2 (01:05→11:35)
[2017-02-11] MEDS: SUCRALFATE 1 GM TAB PO SCH ×2 (06:02→11:35)
[2017-02-11] MEDS: PANTOPRAZOLE SODIUM TAB 40 MG PO SCH (06:02)
[2017-02-11 06:37] VITALS: O2SAT 99
--- NOTE | 2017-02-11 07:00 | RAD ---
Procedure: XR ABDOMEN 2 VIEWS SUPINE ERECT Exam Date: 02/11/2017 Ordering Provider: Zbigniew Landon NP Clinical Indication: RUG and LUQ pain Comparison: 02/10/2017 Findings: Postsurgical changes in the lumbar spine. Gaseous prominence of the small bowel and colon without definitive evidence of bowel obstruction. There is no pneumoperitoneum. There are no suspicious calcifications. There is no acute skeletal abnormality. Impression: 1. Gaseous prominence of the small bowel and colon, possibly ileus. No pneumoperitoneum. Electronically signed by: Jarad Huang MD 02/11/2017 6:59 AM CDT
[2017-02-11] MEDS: ASPIRIN TABLET 325 MG TAB PO SCH (09:06)
[2017-02-11] MEDS: DIVALPROEX SODIUM 250 MG TAB PO SCH (09:06)
[2017-02-11] MEDS: LISINOPRIL 10 MG TAB PO SCH (09:06)
[2017-02-11] MEDS: amLODIPine BESYLATE 5 MG TAB PO SCH (09:07)
--- NOTE | 2017-02-11 09:34 | PN ---
SUPERVISING PHYSICIAN: Nathan Rey MD DATE: 02/10/17 SUBJECTIVE: The patient has been without any significant chest pains through the night. He says he is feeling much better since he has been on some [place] pain medicine. He saw Dr. Gallego this morning who felt that his chest pain was not cardiac in nature and there was no significant evidence of pericarditis or myocardial ischemia. The patient remains afebrile. He has had no nausea or vomiting. He has not yet had a bowel movement, but he is passing gas. OBJECTIVE: VITAL SIGNS: Temperature 95.6. Pulse 64. Blood pressure 108/78. Respirations 16. Saturation 98% on room air. I&Os show positive balance of 420 with 1020 in, 600 out. Weight 71.2 kg. CHEST: Lungs clear to auscultation, just slightly diminished towards the bases. HEART: Regular rate and rhythm without appreciable rub. ABDOMEN: Soft, with some mild tenderness to the right and left upper quadrants , but no rebound tenderness. Positive bowel sounds. EXTREMITIES: No cyanosis, clubbing or edema. NEUROLOGIC: Alert and oriented times three. LABORATORY: White count is now normalized to 9.2, hemoglobin dropped to 8.3 as well as hematocrit dropped to 24.8. Platelet count 375,000. Differential without left shift. Chemistries show low sodium this morning of 131, potassium 4.2, BUN 13, creatinine 0.6. Calcium 8.4, magnesium normalized to 1.8. Three sets of troponins were all less than 0.02. MICROBIOLOGY: Two sets of blood cultures remain negative after 24 hours. RADIOLOGY: Chest x-ray this morning, two view, per radiologic interpretation showed just mild volume overload suspected with borderline vascularity as well as abdominal x-ray, two view, per radiologic interpretation showing nonspecific bowel gas pattern suggesting a mild ileus with minimally prominent bowel loop over the lower central abdomen, probably minimally distended sigmoid colon, perhaps representing ileus. He also had bilateral lower extremity Dopplers completed and per radiologic interpretation there was no evidence of deep venous thrombosis either in right or left leg. ASSESSMENT: 1. Acute chest pain, atypical in nature, having been seen by Dr. Gallego, cardiology, ruling out acute pericarditis with his current cardiac enzymes having remained negative as well as EKG unchanged with continued pleuritic type chest pains , probably related to possible viral infection with the patient now showing normalized white count. 2. Elevated D-dimer on admission inflammatory markers including a sed rate and C-reactive protein elevated with cardiology noting low likelihood of probable deep venous thrombosis and pulmonary embolism, now any evidence of acute pericarditis, felt to be likely secondary to underlying enteritis of small bowel. 3. Hypertension. 4. Acute abdominal pain with CT findings concerning for enteritis with elevated inflammatory markers with patient having no significant nausea or vomiting now since admission with radiographic studies concerning for possible early ileus. 5. Normocytic/normochromic anemia, likely secondary to chronic illness with patient having recently having esophagogastroduodenoscopy and colonoscopy with findings of esophagitis. 6. Gastroesophageal reflux disease with patient being on chronic NSAIDs in the form of Naprosyn, probably resulting in an exacerbation of symptoms with patient having a history of esophagitis and remote history of alcohol abuse. 7. Major depressive disorder. 8. History of seizures on Depakote. 9. History of past cerebral accident on multiple occasions within the last 2 years. 10. Gout without mention of acute flare-up. 11. Osteoarthritis on long-term NSAIDs, possibly resulting in exacerbation of gastritis and current right and left upper quadrant abdominal pain. 12. Longstanding history of back pain with spinal stenosis with past opioid dependency. 13. Benign prostatic hypertrophy on Flomax without any mention of complications. PLAN: After the patient was seen on consultation by Dr. Gallego, we will stop his colchicine and ibuprofen as Dr. Gallego felt there was no good evidence to support pericarditis. Given that he does have continued abdominal pain, we will continue with prophylaxis for GI coverage that he has been on multiple NSAIDs in the past and a history of esophagitis as well as gastroesophageal reflux disease along with past alcohol abuse. We will advance his diet today as tolerated as he is showing some improvement clinically. We will plan to repeat laboratory studies in the morning with anticipation of possible discharge back to [facility]. Until then, we will continue to monitor the patient closely and treat appropriately. #[id number] [facility]
[2017-02-11 10:06] VITALS: BP 96/67; TEMP 97.5
--- NOTE | 2017-02-17 11:45 | DS ---
SUPERVISING PHYSICIAN: Nathan Rey MD DISCHARGE DIAGNOSIS: 1. Chest pain, atypical in nature, having been seen by Dr. Gallego, cardiology, ruling out acute pericarditis with his current cardiac enzymes having remained negative as well as EKG unchanged with patient with continued pleuritic type chest pains, probably related to possible viral infection with the patient showing normalization of white count prior to discharge and stabilization. 2. Elevated D-dimer on admission inflammatory markers including a sed rate and C-reactive protein elevated with cardiology noting low likelihood of probable deep venous thrombosis and pulmonary embolism, with no evidence of pericarditis, felt to be secondary to underlying viral enteritis of small bowel. 3. Hypertension. 4. Acute abdominal pain with CT findings concerning for enteritis with elevated inflammatory markers with patient having no significant nausea or vomiting since admission with radiographic studies showing concern for possible early ileus with patient having good bowel movements and no complications. 5. Normocytic/normochromic anemia secondary to chronic illness with patient having recent esophagogastroduodenoscopy and colonoscopy with findings of esophagitis. 6. Gastroesophageal reflux disease with patient being on chronic NSAIDs in the form of Naprosyn resulting in an exacerbation of symptoms with patient having a history of esophagitis and remote history of alcohol abuse. 7. Major depressive disorder. 8. History of seizures on Depakote. 9. History of past cerebral accident on multiple occasions within the last 2 years. 10. Gout without mention of acute flare-up. 11. Osteoarthritis on long-term NSAIDs, possibly resulting in exacerbation of gastritis and right and left upper quadrant abdominal pain resolved prior to discharge. 12. Longstanding history of back pain with spinal stenosis with past opioid dependency. 13. Benign prostatic hypertrophy on Flomax without any mention of complications. 14. Hypomagnesemia with a magnesium of 1.5, normalized after IV replacement prior to discharge. 15. Mild hyponatremia likely secondary to excessive free water intake with the patient likely having a mild hyponatremia chronically, was somewhat dehydrated on admission. HISTORY OF PRESENT ILLNESS: Mr. Hammonds is a 66 year-old male patient who resides [facility] who presented to the Emergency Department complaining of chest and back pain. He does have a significant history of esophagitis and hiatal hernia. On date of admission, 01/30/17, he noted that he was having some substernal chest pain with deep inspiratory effort that was exacerbated by any twisting or turning or deep breathing. He denies any significant cough, fevers, palpitations, but does have some exertional dyspnea which is chronic. He also notes that he has had some flare-ups of chronic back pain and several days prior to admission started having some abdominal pain with some mild nausea. He also has a history of gastroesophageal reflux disease which he says has been worsening as he does take naproxen twice daily. In the Emergency Department, initial laboratory studies indicated a leukocytosis with a white count of 11.4 without any left shift. His hemoglobin was 9.1 and hematocrit 27.7 with a platelet count at 337,000. Coagulation studies showed a normal PTT with elevated D dimer of 924. Chemistries showed normal electrolytes with intact renal function. It was also noted that he had a significant hypomagnesemia with a magnesium of 1.5. His initial cardiac enzymes showed a troponin of less than 0.02 with a normal CPK. Radiographic studies initially completed included a abdominal x-ray and per radiology interpretation there was note of nonspecific bowel gas pattern. Given that he had some mild abdominal pain on examination, a CT of the abdomen was completed without contrast as the patient is allergic to iodine. Per radiology interpretation, the CT of the abdomen had note of a small pericardial infusion measuring up to 8 mm as well as a tiny left pleural effusion. There was also note of mild distention of fluid filled small bowel which was nonspecific but felt likely related to enteritis. Appendix was seen as normal and there was no evidence of diverticulitis. Given the findings of small pericardial effusion and reported chest pain, inflammatory markers were obtained - C-reactive protein that was elevated at 10.8 and ESR that was also elevated at 122. He was given multiple treatments in the Emergency Department that included a GI slider along with some [place] and ibuprofen which all resulted in some decrease in his chest pain level. An EKG was also completed that showed normal sinus rhythm with no significant ST or T-wave changes. Hemodynamically, the patient was showing stable vital signs with a blood pressure of 143/88. saturation on room air 100% with respirations at 20 and pulse rate of 70 and afebrile at 96.8. Given the clinical findings of chest pain that was reproducible with elevated inflammatory markers and a small pericardial effusion noted on CT, Dr. Harris requested the patient be placed in observation for further treatment and evaluation for concerns of developing acute pericarditis along with possible viral enteritis as noted with the CT findings of the abdomen. Blood cultures were completed and the patient was placed in observation on the medical/surgical floor for further continuation of treatment and evaluation of chest pain with concerns for acute pericarditis and and to rule out myocardial infarction with anticipation of cardiology consultation on the morning after admission. The patient was placed in observation in stable condition. LABORATORY STUDIES: Initial white count on admission showed a leukocytosis of 11.4, hemoglobin 9.1, hematocrit 27.7, platelet count 337,000, differential was without a left shift. After initiation of treatment and prior to discharge, his hemoglobin and hematocrit stabilized at 9.1 and 27.3 hematocrit. White count now normalized at 9.4. Platelet count remained within normal limits as well as differential never showed a left shift. Coagulation studies showed a normal PT/ PTT with elevated D-dimer of 924 which was felt to be possibly related to inflammatory process of viral enteritis. Chemistries on admission showed normal electrolytes with potassium of 3.9. Glucose was 89, calcium 9.1, magnesium was low at 1.5, after replacement it normalized at 1.8 prior to discharge. Liver functions all showed to be within normal limits and remained through admission, troponin was less than 0.2 and at two separate times every 6 hours apart again remained in the normal limits of less than 0.2. He had a C-reactive protein that was elevated at 10.8 as well as amylase and lipase which was shown to be normal on admission. Liver panel showed triglycerides were 54, cholesterol 97, LDL 32, HDL 39. Prior to discharge and after treatment with fluids, it was noted that he had shown some mild hyponatremia with a sodium of 127, potassium 4.7. Serum osmolality had dropped to 254. Discharge potassium was 4.7, BUN 14, creatinine 0.73, calcium 8.5. Urinalysis showed to be within normal limits. He had a valproic acid level of 46.6. MICROBIOLOGY: Two sets of blood cultures no growth after 5 days. RADIOLOGY: Initial abdominal x-ray in the Emergency Department prior to admission per radiology interpretation showed a nonspecific bowel gas pattern. This was followed up with an abdominal pelvic CT without contrast and per radiology interpretation was noted a small pericardial effusion and tiny left pleural effusion, mild distention of fluid-filled small bowel which was nonspecific and likely related to enteritis with normal appendix and no evidence of diverticulitis. Chest x-ray after admission per radiology interpretation showed a mild volume overload suspected to be borderline vascularity, cardiomegaly and small right effusion. The bilateral lower extremity Doppler study was completed and per radiology interpretation there was no evidence of deep venous thrombosis bilateral legs. He had an additional abdominal x-ray on 02/10 and at discharge per radiology interpretation showed nonspecific bowel gas pattern suggestive of mild ileus with prominent bowel loop over the lower central abdomen is probably minimally distended sigmoid colon perhaps representing ileus. Last x-ray, abdominal series prior to discharge the morning of per radiology interpretation indicated gaseous prominence of the small bowel and colon possibly an ileus, no pneumoperitoneum. HOSPITAL COURSE: Mr. Hammonds was admitted as noted in the history of present illness for right upper and lower abdominal pain in conjunction with pleuritic reproducible chest pain. He did have a CT of the abdomen that initially showed possibly a developing pleural effusion and a possible pericardial effusion in the presence of inflammatory markers and chest pain possibly could be related to developing acute pericarditis. He started treatment with ibuprofen, colchicine and steroids initially. He then had a consultation the morning after admission with cardiology, Dr. Gallego. It was felt that the ongoing chest pain was pleuritic in nature and was not related to any pericarditis or any cardiac issues. Mr. Hammonds clinically showed good improvement. He was having several bowel movements daily, having no nausea with his abdominal pains resolving prior to discharge on the morning of it was felt at that point, clinically he could be discharged and continue with treatment back to [facility]. It was noted that he had significant resolution of his pain and he was given hydrocodone as well as started on Carafate and Protonix. He was also started on DVT prophylaxis per protocol with no complications. He stayed stable with his vital signs on discharge showing he was afebrile with 97.5 temperature, blood pressure 96/67, respirations 22 with saturation 99%, heart rate 80. PLAN: Mr. Hammonds was discharged on 02/11/17 to have close followup with his primary care physician, nurse practitioner, Anjum Ch as scheduled. He was to resume his home medications as instructed. He was to advance his diet as tolerated and increase activity as tolerated. He was told to return to the hospital should he have any concerning symptoms or failure to improve in his symptoms. He was also encouraged to monitor his total oral intake and keep it below 1800 cc to prevent further hyponatremia. He has a followup appointment with Anjum Ch on 02/20/17 at 10:00 o'clock in the morning. No new prescriptions were provided at discharge. He was to continue with all his previous medications to include: 1. Prilosec 40 mg daily at breakfast. 2. Amitriptyline 150 mg at bedtime. 3. Amlodipine daily. 4. Lisinopril 20 mg daily. 5. Aricept 5 mg daily at bedtime. 6. Flomax 0.4 mg daily. 7. Divalproex sodium 500 mg twice a day. 8. Hydrocodone 1 to 2 every 4 hours as needed for pain. 9. Carafate 1 gram with meals and at bedtime. 10. Tylenol 650 mg every 6 hours p.r.n. Stop taking Hydrocodone 10/325, Naprosyn and Tylenol No. 3. DISCHARGE DIET: As tolerated. ACTIVITY: Increase as tolerated. CONDITION AT DISCHARGE: Stable and improved. #[id number] MTDD
== END 2017-02-11 15:15 ==
LOC: ER 17:52 → MS 21:05
PROVIDERS: ADMIT Nurse Practitioner Family; ATTEND Nurse Practitioner Family
DX: R07.89 Other chest pain (principal); R79.89 Other specified abnormal findings of blood chemistry; I10 Essential (primary) hypertension; R10.11 Right upper quadrant pain; R10.12 Left upper quadrant pain; D63.8 Anemia in other chronic diseases classified elsewhere; E83.42 Hypomagnesemia; E87.1 Hypo-osmolality and hyponatremia; E86.0 Dehydration; K21.9 Gastro-esophageal reflux disease without esophagitis; F32.9 Major depressive disorder, single episode, unspecified; G40.909 Epilepsy, unspecified, not intractable, without status epilepticus; M10.9 Gout, unspecified; M19.90 Unspecified osteoarthritis, unspecified site; K29.70 Gastritis, unspecified, without bleeding; G89.29 Other chronic pain; M48.00 Spinal stenosis, site unspecified; N40.0 Benign prostatic hyperplasia without lower urinary tract symptoms; I31.3 Pericardial effusion (noninflammatory); J90 Pleural effusion, not elsewhere classified; F10.21 Alcohol dependence, in remission; Z66 Do not resuscitate; Z79.1 Long term (current) use of non-steroidal anti-inflammatories (NSAID); Z79.899 Other long term (current) drug therapy; Z88.3 Allergy status to other anti-infective agents; Z91.048 Other nonmedicinal substance allergy status; Z86.73 Personal history of transient ischemic attack (TIA), and cerebral infarction without residual deficits
CPT/HCPCS: 36415 ×8; 71020; 74010 ×2; 74020; 74176; 80048; 80053 ×2; 80061; 80164; 81001; 82150; 82550 ×3; 82553 ×3; 83690; 83735 ×2; 84484 ×3; 85025 ×3; 85379; 85610; 85651; 85730; 86140; 87040 ×2; 93005 ×3; 93971 ×2; 94760 ×4; 96365; 96372 ×2; 96375; 99284; G0378; J1650 ×2; J3475

== ENCOUNTER 2017-08-01 14:50 | Emergency (ER) | payer MEDICARE, OTHER ==
[2017-08-01 15:18] VITALS: BP 125/90; TEMP 98.2; O2SAT 96
--- NOTE | 2017-08-01 15:25 | ED.PDOC ---
History of Present Illness - General Chief Complaint: Skin/Abrasion/Tear Stated Complaint: RASH Time Seen by Provider: 08/01/17 15:24 Source: patient, RN notes reviewed, Vital Signs reviewed, EMS notes reviewed Exam Limitations: no limitations Additional Information: Pt reports rash on dorsal aspect of hands and lower extremities for the past 4 to 5 months that itch. The rash appears to be hyperkeratotic and dry with some cracks. There is no current evidence of infection on exam. Pt lives in [place]. He has an appointment coming up with Dermatology according to nursing and EMS report. - History of Present Illness Timing/Duration: getting worse - per report Severity: moderate Location: hands, extremities Improving Factors: nothing Worsening Factors: nothing Associated Symptoms: change in skin texture, itching Allergies/Adverse Reactions: Allergies Iodine Allergy (Severe, Verified 08/23/16 11:21) Other makes him feel like he is having "a heart attack" Cephalexin [From Keflex] Allergy (Verified 08/23/16 17:06) Home Medications: Ambulatory Orders Omeprazole [Prilosec] 40 mg PO ACBK 07/05/14 Amitriptyline HCl 150 mg PO BEDTIME 10/24/15 Amlodipine Besylate 5 mg PO DAILY 08/23/16 Donepezil HCl [Aricept] 5 mg PO BEDTIME 08/23/16 Lisinopril 20 mg PO DAILY 08/23/16 Tamsulosin [Flomax] 0.4 mg PO BEDTIME 08/23/16 Divalproex Sodium [Divalproex Sodium Dr] 500 mg PO BID 08/24/16 Acetaminophen [Tylenol] 650 mg PO Q6H PRN 12/12/16 Furosemide [Lasix] 20 mg PO DAILY 08/01/17 Gabapentin 300 mg PO TID 08/01/17 HYDROcodone 10MG/APAP 325MG [[place] 10/325] 1 tab PO BID 08/01/17 Hydrocortisone 20 mg PO DAILY 08/01/17 Lactobacillus [Acidophilus] 1 cap PO TID 08/01/17 Loratadine [Claritin] 10 mg PO DAILY 08/01/17 Loratadine [Claritin] 10 mg PO DAILY #30 tab 08/01/17 Melatonin 5 mg PO BEDTIME 08/01/17 Nystatin (Topical) [Nystatin] 100,000 unit EX DAILY 08/01/17 Urea 1 applic TOP BID #1 bottle 08/01/17 hydrOXYzine HCl [Atarax] 25 mg PO Q6HR PRN #20 tab 08/01/17 predniSONE 40 mg PO DAILY 5 Days #10 tab 08/01/17 Review of Systems - Review of Systems Constitutional: States: no symptoms reported EENTM: States: no symptoms reported Respiratory: States: no symptoms reported Cardiology: States: no symptoms reported Gastrointestinal/Abdominal: States: no symptoms reported Genitourinary: States: no symptoms reported Musculoskeletal: States: no symptoms reported Skin: States: see HPI, dryness Neurological: States: no symptoms reported Endocrine: States: no symptoms reported Hematologic/Lymphatic: States: no symptoms reported Past Medical History (General) - Patient Medical History Hx Seizures: Yes Hx Stroke: Yes Hx Dementia: Yes Hx Asthma: No Hx of COPD: Yes Hx Cardiac Disorders: Yes Hx Congestive Heart Failure: No Hx Pacemaker: No Hx Hypertension: Yes Hx Thyroid Disease: No Hx Diabetes: No Hx Gastroesophageal Reflux: Yes Hx Renal Disease: No Hx Cancer: No Hx of HIV: No Hx Hepatitis C: No Hx MRSA: No - Vaccination History Hx Tetanus, Diphtheria Vaccination: No Hx Influenza Vaccination: Yes Hx Pneumococcal Vaccination: Yes - Social History Hx Tobacco Use: Yes Hx Chewing Tobacco Use: No Hx Alcohol Use: No Hx Substance Use: No Hx Substance Use Treatment: No Hx Depression: No Hx Physical Abuse: No Hx Emotional Abuse: No Hx Suspected Abuse: No - Activities of Daily Living [place] Living (if applicable):: [facility] - Female History Patient : No Family Medical History - Family History Mother Living Status: Hx Cardiac Disease: Yes - mom Physical Exam - Physical Exam General Appearance: Alert, Frail, No apparent distress Eyes, Ears, Nose, Throat Exam: PERRL/EOMI, normal ENT inspection, pharynx normal Neck: non-tender, full range of motion, supple, normal inspection Cardiovascular/Chest: regular rate, rhythm Respiratory: no respiratory distress, no accessory muscle use Extremity: normal range of motion Neurologic: cut off [employer] II-XII nml as tested, no motor/sensory deficits, alert Skin Problem Location: upper extremities, lower extremities Skin Character: scales - with occasional fissuring, thickening Lymphatic: no adenopathy Progress - Progress Progress: 08/01/17 16:37 Hyperkeratotic dermatitis on dorsal aspect of hands and bilateral lower extremities. Unclear etiology at this time. Will treat pruritic symptoms and inflammatory appearing rash with Prednisone 40 mg daily for 5 days, Claritin daily, Atarax as needed, and topical Urea as a keratolytic. Patient advised to see Instructor Of Nursing given chronic nature of rash. Departure - Departure Clinical Impression: Dermatitis Time of Disposition: 15:58 Disposition: Discharge to Home or Self Care Condition: Fair Departure Forms: ED Discharge - Pt. Copy, Patient Portal Self Enrollment Referrals: [facility] CHILDRESS IV, RN CARDIAC [Primary Care Provider] - 1-5 Days Prescriptions: hydrOXYzine HCl [Atarax] 25 mg PO Q6HR PRN #20 tab PRN Reason: For Itching Loratadine [Claritin] 10 mg PO DAILY #30 tab predniSONE 40 mg PO DAILY 5 Days #10 tab Urea 1 applic TOP BID #1 bottle Home Medications: Ambulatory Orders Omeprazole [Prilosec] 40 mg PO ACBK 07/05/14 Amitriptyline HCl 150 mg PO BEDTIME 10/24/15 Amlodipine Besylate 5 mg PO DAILY 08/23/16 Donepezil HCl [Aricept] 5 mg PO BEDTIME 08/23/16 Lisinopril 20 mg PO DAILY 08/23/16 Tamsulosin [Flomax] 0.4 mg PO BEDTIME 08/23/16 Divalproex Sodium [Divalproex Sodium Dr] 500 mg PO BID 08/24/16 Acetaminophen [Tylenol] 650 mg PO Q6H PRN 12/12/16 Furosemide [Lasix] 20 mg PO DAILY 08/01/17 Gabapentin 300 mg PO TID 08/01/17 HYDROcodone 10MG/APAP 325MG [[place] 10/325] 1 tab PO BID 08/01/17 Hydrocortisone 20 mg PO DAILY 08/01/17 Lactobacillus [Acidophilus] 1 cap PO TID 08/01/17 Loratadine [Claritin] 10 mg PO DAILY 08/01/17 Loratadine [Claritin] 10 mg PO DAILY #30 tab 08/01/17 Melatonin 5 mg PO BEDTIME 08/01/17 Nystatin (Topical) [Nystatin] 100,000 unit EX DAILY 08/01/17 Urea 1 applic TOP BID #1 bottle 08/01/17 hydrOXYzine HCl [Atarax] 25 mg PO Q6HR PRN #20 tab 08/01/17 predniSONE 40 mg PO DAILY 5 Days #10 tab 08/01/17 Additional Instructions: Use medicine as prescribed. Keep appointment with Instructor Of Nursing.
[2017-08-01] MEDS ORDERED: hydrOXYzine HCl 25 MG TAB PO ONE (15:41)
== END 2017-08-01 16:09 | disposition home or self-care (01) ==
LOC: ER 14:50
DX: L30.9 Dermatitis, unspecified (principal); J44.9 Chronic obstructive pulmonary disease, unspecified; I10 Essential (primary) hypertension; K21.9 Gastro-esophageal reflux disease without esophagitis

== ENCOUNTER 2017-08-18 16:26 | Emergency (ER) | payer MEDICARE, OTHER ==
[2017-08-18 17:12] VITALS: TEMP 98
--- NOTE | 2017-08-18 18:12 | ED.PDOC ---
History of Present Illness - General Chief Complaint: Skin/Abrasion/Tear Stated Complaint: rash x 4 months Time Seen by Provider: 08/18/17 17:51 Source: RN notes reviewed Exam Limitations: no limitations - History of Present Illness Initial Comments: Jaspal Hammonds 67 y/o male brought by nurse from [facility] with generalized skin rash for 4 months had seen cereal miller in the past and was prescribed clobetasol ointment for the rash but he is being given clobetasol cream instead which cause his rash to sting after using it. Timing/Duration: other - see hpi Severity: moderate Location: generalized Improving Factors: nothing Worsening Factors: nothing Associated Symptoms: other - itching Allergies/Adverse Reactions: Allergies Iodine Allergy (Severe, Verified 08/18/17 17:12) Other makes him feel like he is having "a heart attack" Cephalexin [From Keflex] Allergy (Verified 08/18/17 17:12) Home Medications: Ambulatory Orders Omeprazole [Prilosec] 40 mg PO ACBK 07/05/14 Amitriptyline HCl 150 mg PO BEDTIME 10/24/15 Amlodipine Besylate 5 mg PO DAILY 08/23/16 Donepezil HCl [Aricept] 5 mg PO BEDTIME 08/23/16 Lisinopril 20 mg PO DAILY 08/23/16 Tamsulosin [Flomax] 0.4 mg PO BEDTIME 08/23/16 Divalproex Sodium [Divalproex Sodium Dr] 500 mg PO BID 08/24/16 Acetaminophen [Tylenol] 650 mg PO Q6H PRN 12/12/16 Furosemide [Lasix] 20 mg PO DAILY 08/01/17 Gabapentin 300 mg PO TID 08/01/17 HYDROcodone 10MG/APAP 325MG [[place] 10/325] 1 tab PO BID 08/01/17 Hydrocortisone 20 mg PO DAILY 08/01/17 Lactobacillus [Acidophilus] 1 cap PO TID 08/01/17 Loratadine [Claritin] 10 mg PO DAILY 08/01/17 Loratadine [Claritin] 10 mg PO DAILY #30 tab 08/01/17 Melatonin 5 mg PO BEDTIME 08/01/17 Nystatin (Topical) [Nystatin] 100,000 unit EX DAILY 08/01/17 Urea 1 applic TOP BID #1 bottle 08/01/17 hydrOXYzine HCl [Atarax] 25 mg PO Q6HR PRN #20 tab 08/01/17 predniSONE 40 mg PO DAILY 5 Days #10 tab 08/01/17 Doxepin HCl 25 mg PO BEDTIME #30 cap 08/18/17 predniSONE 20 mg PO DAILY #10 tab 08/18/17 Review of Systems - Review of Systems Constitutional: States: no symptoms reported EENTM: States: no symptoms reported Respiratory: States: no symptoms reported Cardiology: States: no symptoms reported Gastrointestinal/Abdominal: States: no symptoms reported Skin: States: see HPI All other Systems: Reviewed and Negative, No Change from Baseline Past Medical History (General) - Patient Medical History Hx Seizures: Yes Hx Stroke: Yes Hx Dementia: Yes Hx Asthma: No Hx of COPD: Yes Hx Cardiac Disorders: Yes Hx Congestive Heart Failure: No Hx Pacemaker: No Hx Hypertension: Yes Hx Thyroid Disease: No Hx Diabetes: No Hx Gastroesophageal Reflux: Yes Hx Renal Disease: No Hx Cancer: No Hx of HIV: No Hx Hepatitis C: No Hx MRSA: No Surgical History: other - Vaccination History Hx Tetanus, Diphtheria Vaccination: No Hx Influenza Vaccination: Yes Hx Pneumococcal Vaccination: Yes - Social History Hx Tobacco Use: Yes Hx Chewing Tobacco Use: No Hx Alcohol Use: No Hx Substance Use: No Hx Substance Use Treatment: No Hx Depression: No Hx Physical Abuse: No Hx Emotional Abuse: No Hx Suspected Abuse: No - Activities of Daily Living Longterm/Assisted Living (if applicable):: [facility] Grooming Ability: Standby Assistance Eating (Feeding) Ability: Standby Assistance Toileting Ability: Standby Assistance - Female History Patient : No Family Medical History - Family History Mother Family History: Unknown Living Status: Hx Cardiac Disease: Yes - mom Physical Exam - Physical Exam General Appearance: Alert, No apparent distress Eyes, Ears, Nose, Throat Exam: PERRL/EOMI, normal ENT inspection, pharynx normal Neck: non-tender, full range of motion, supple Cardiovascular/Chest: regular rate, rhythm, no murmur Respiratory: lungs clear, normal breath sounds Gastrointestinal/Abdominal: non tender, soft, no organomegaly Back Exam: no CVA tenderness Extremity: no pedal edema, no calf tenderness Neurologic: alert, oriented x 3 Skin Exam: warm/dry, normal color Skin Problem Location: generalized Skin Character: scales, thickening Lymphatic: no adenopathy Progress - Progress Progress: 08/18/17 18:14 Last Vital Signs Temp 98.0 F 08/18/17 17:00 Pulse 93 H 08/18/17 17:00 Resp 20 08/18/17 17:00 BP 138/80 08/18/17 17:00 Pulse Ox 98 08/18/17 17:00 Departure - Departure Clinical Impression: Dermatitis, unspecified Time of Disposition: 18:17 Disposition: Discharge to Home or Self Care Departure Forms: ED Discharge - Pt. Copy, Patient Portal Self Enrollment Referrals: PINKY TERRY [Primary Care Provider] - 1-2 Weeks Prescriptions: Doxepin HCl 25 mg PO BEDTIME #30 cap predniSONE 20 mg PO DAILY #10 tab Home Medications: Ambulatory Orders Omeprazole [Prilosec] 40 mg PO ACBK 07/05/14 Amitriptyline HCl 150 mg PO BEDTIME 10/24/15 Amlodipine Besylate 5 mg PO DAILY 08/23/16 Donepezil HCl [Aricept] 5 mg PO BEDTIME 08/23/16 Lisinopril 20 mg PO DAILY 08/23/16 Tamsulosin [Flomax] 0.4 mg PO BEDTIME 08/23/16 Divalproex Sodium [Divalproex Sodium Dr] 500 mg PO BID 08/24/16 Acetaminophen [Tylenol] 650 mg PO Q6H PRN 12/12/16 Furosemide [Lasix] 20 mg PO DAILY 08/01/17 Gabapentin 300 mg PO TID 08/01/17 HYDROcodone 10MG/APAP 325MG [[place] 10/325] 1 tab PO BID 08/01/17 Hydrocortisone 20 mg PO DAILY 08/01/17 Lactobacillus [Acidophilus] 1 cap PO TID 08/01/17 Loratadine [Claritin] 10 mg PO DAILY 08/01/17 Loratadine [Claritin] 10 mg PO DAILY #30 tab 08/01/17 Melatonin 5 mg PO BEDTIME 08/01/17 Nystatin (Topical) [Nystatin] 100,000 unit EX DAILY 08/01/17 Urea 1 applic TOP BID #1 bottle 08/01/17 hydrOXYzine HCl [Atarax] 25 mg PO Q6HR PRN #20 tab 08/01/17 predniSONE 40 mg PO DAILY 5 Days #10 tab 08/01/17 Doxepin HCl 25 mg PO BEDTIME #30 cap 08/18/17 predniSONE 20 mg PO DAILY #10 tab 08/18/17 Additional Instructions: NEED TO DISCONTINUE CLOBETASOL CREAM;CHANGE TO Clobetasol OINTMENT instead as directed by cereal miller NEED TO FOLLOW UP WITH MECHANICAL INSULATOR Dr. Funes
[2017-08-18] MEDS ORDERED: methylPREDNISolone SODIUM SUC 125 MG/2 ML VIAL IM ONE (18:15)
[2017-08-18] MEDS ORDERED: DOXEPIN HCL 25 MG CAP PO ONE (18:25)
[2017-08-18] MEDS ORDERED: HYDROcodone 7.5MG/APAP 325MG 1 EA TAB PO ONE (18:26)
[2017-08-18 18:36] VITALS: BP 142/73; O2SAT 99
[2017-08-18] MEDS ORDERED: DOXEPIN HCL 25 MG CAP PO SCH (21:00)
== END 2017-08-18 18:36 | disposition home or self-care (01) ==
LOC: ER 16:26
DX: L30.9 Dermatitis, unspecified (principal); J44.9 Chronic obstructive pulmonary disease, unspecified; I10 Essential (primary) hypertension; F03.90 Unspecified dementia, unspecified severity, without behavioral disturbance, psychotic disturbance, mood disturbance, and anxiety; Z86.73 Personal history of transient ischemic attack (TIA), and cerebral infarction without residual deficits; Z87.891 Personal history of nicotine dependence; Z79.899 Other long term (current) drug therapy

== ENCOUNTER 2017-09-26 13:51 | Emergency (ER) | payer MEDICARE, OTHER ==
--- NOTE | 2017-09-26 14:10 | ED.PDOC ---
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 Timing/Duration: 1-3 hours Severity: mild Improving Factors: nothing Worsening Factors: nothing Associated Symptoms: denies symptoms, other - see hpi Allergies/Adverse Reactions: Allergies Iodine Allergy (Severe, Verified 08/18/17 17:12) Other makes him feel like he is having "a heart attack" Cephalexin [From Keflex] Allergy (Verified 08/18/17 17:12) Home Medications: Ambulatory Orders Omeprazole [Prilosec] 40 mg PO ACBK 07/05/14 Amitriptyline HCl 150 mg PO BEDTIME 10/24/15 Amlodipine Besylate 5 mg PO DAILY 08/23/16 Donepezil HCl [Aricept] 5 mg PO BEDTIME 08/23/16 Lisinopril 20 mg PO DAILY 08/23/16 Tamsulosin [Flomax] 0.4 mg PO BEDTIME 08/23/16 Divalproex Sodium [Divalproex Sodium Dr] 500 mg PO BID 08/24/16 Acetaminophen [Tylenol] 650 mg PO Q6H PRN 12/12/16 Furosemide [Lasix] 20 mg PO DAILY 08/01/17 Gabapentin 300 mg PO TID 08/01/17 HYDROcodone 10MG/APAP 325MG [[place] 10/325] 1 tab PO BID 08/01/17 Hydrocortisone 20 mg PO DAILY 08/01/17 Lactobacillus [Acidophilus] 1 cap PO TID 08/01/17 Loratadine [Claritin] 10 mg PO DAILY 08/01/17 Loratadine [Claritin] 10 mg PO DAILY #30 tab 08/01/17 Melatonin 5 mg PO BEDTIME 08/01/17 Nystatin (Topical) [Nystatin] 100,000 unit EX DAILY 08/01/17 Urea 1 applic TOP BID #1 bottle 08/01/17 hydrOXYzine HCl [Atarax] 25 mg PO Q6HR PRN #20 tab 08/01/17 predniSONE 40 mg PO DAILY 5 Days #10 tab 08/01/17 Doxepin HCl 25 mg PO BEDTIME #30 cap 08/18/17 predniSONE 20 mg PO DAILY #10 tab 08/18/17 Review of Systems - Review of Systems Constitutional: States: no symptoms reported EENTM: States: other - lip swelling Respiratory: States: no symptoms reported Cardiology: States: no symptoms reported Gastrointestinal/Abdominal: States: no symptoms reported Genitourinary: States: no symptoms reported Musculoskeletal: States: no symptoms reported Skin: States: see HPI All other Systems: Reviewed and Negative, No Change from Baseline Past Medical History (General) - Patient Medical History Hx Seizures: Yes Hx Stroke: Yes Hx Dementia: Yes Hx Asthma: No Hx of COPD: Yes Hx Cardiac Disorders: Yes Hx Congestive Heart Failure: No Hx Pacemaker: No Hx Hypertension: Yes Hx Thyroid Disease: No Hx Diabetes: No Hx Gastroesophageal Reflux: Yes Hx Renal Disease: No Hx Cancer: No Hx of HIV: No Hx Hepatitis C: No Hx MRSA: No Hx Other PMH: Yes - dermatitis chronic - Vaccination History Hx Tetanus, Diphtheria Vaccination: No Hx Influenza Vaccination: Yes Hx Pneumococcal Vaccination: Yes - Social History Hx Tobacco Use: Yes Hx Chewing Tobacco Use: No Hx Alcohol Use: No Hx Substance Use: No Hx Substance Use Treatment: No Hx Depression: No Hx Physical Abuse: No Hx Emotional Abuse: No Hx Suspected Abuse: No - Activities of Daily Living Grooming Ability: Independent Eating (Feeding) Ability: Independent Toileting Ability: Independent - Female History Patient : No Family Medical History - Family History Mother Family History: Unknown Living Status: Hx Cardiac Disease: Yes - mom Physical Exam - Physical Exam General Appearance: Alert, Comfortable, No apparent distress Eye Exam: bilateral normal Ears, Nose, Throat: hearing grossly normal, normal ENT inspection, normal pharynx, other - upper lip moderately swollen ,tongue no swelling noted Neck: non-tender, supple Respiratory: chest non-tender, lungs clear, normal breath sounds Cardiovascular/Chest: normal peripheral pulses, regular rate, rhythm, no murmur Peripheral Pulses: radial,right: 2+, radial,left: 2+ Gastrointestinal/Abdominal: non tender, soft, no organomegaly Back Exam: no CVA tenderness, no vertebral tenderness Extremity: non-tender, no pedal edema 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 nml as tested, alert Skin Exam: normal color, rash - dry scaly rash generalized from chronic dermatitis Progress - Progress Progress: 09/26/17 15:09 Last Vital Signs Temp 98.2 F 09/26/17 13:55 Pulse 80 09/26/17 13:55 Resp 20 09/26/17 14:00 BP 150/94 09/26/17 13:55 Pulse Ox 97 09/26/17 13:55 - Results/Orders Results/Orders: feels better;less upper lip swelling no tongue swelling noted Departure - Departure Clinical Impression: Allergic reaction Qualifiers: Encounter type: initial encounter Qualified Code(s): T78.40XA - Allergy, unspecified, initial encounter Time of Disposition: 15:11 Disposition: Discharge to SNF Condition: Good Departure Forms: ED Discharge - Pt. Copy, Patient Portal Self Enrollment Instructions: DI for General Allergic Reactions Referrals: PINKY TERRY [Primary Care Provider] - 1-2 Weeks Home Medications: Ambulatory Orders Omeprazole [Prilosec] 40 mg PO ACBK 07/05/14 Amitriptyline HCl 150 mg PO BEDTIME 10/24/15 Amlodipine Besylate 5 mg PO DAILY 08/23/16 Donepezil HCl [Aricept] 5 mg PO BEDTIME 08/23/16 Lisinopril 20 mg PO DAILY 08/23/16 Tamsulosin [Flomax] 0.4 mg PO BEDTIME 08/23/16 Divalproex Sodium [Divalproex Sodium Dr] 500 mg PO BID 08/24/16 Acetaminophen [Tylenol] 650 mg PO Q6H PRN 12/12/16 Furosemide [Lasix] 20 mg PO DAILY 08/01/17 Gabapentin 300 mg PO TID 08/01/17 HYDROcodone 10MG/APAP 325MG [[place] 10/325] 1 tab PO BID 08/01/17 Hydrocortisone 20 mg PO DAILY 08/01/17 Lactobacillus [Acidophilus] 1 cap PO TID 08/01/17 Loratadine [Claritin] 10 mg PO DAILY 08/01/17 Loratadine [Claritin] 10 mg PO DAILY #30 tab 08/01/17 Melatonin 5 mg PO BEDTIME 08/01/17 Nystatin (Topical) [Nystatin] 100,000 unit EX DAILY 08/01/17 Urea 1 applic TOP BID #1 bottle 08/01/17 hydrOXYzine HCl [Atarax] 25 mg PO Q6HR PRN #20 tab 08/01/17 predniSONE 40 mg PO DAILY 5 Days #10 tab 08/01/17 Doxepin HCl 25 mg PO BEDTIME #30 cap 08/18/17 predniSONE 20 mg PO DAILY #10 tab 08/18/17 Additional Instructions: RETURN TO EMERGENCY ROOM NEEDED
[2017-09-26] MEDS ORDERED: diphenhydrAMINE HCL 50 MG/ML VIAL IM ONE (14:15)
[2017-09-26] MEDS ORDERED: DEXAMETHASONE INJ 4 MG/ML VIAL IM ONE (14:15)
[2017-09-26 14:40] VITALS: BP 150/94; TEMP 98.2; O2SAT 97
== END 2017-09-26 15:20 ==
LOC: ER 13:51
DX: T78.40XA Allergy, unspecified, initial encounter (principal); I10 Essential (primary) hypertension; L30.8 Other specified dermatitis; J44.9 Chronic obstructive pulmonary disease, unspecified; F03.90 Unspecified dementia, unspecified severity, without behavioral disturbance, psychotic disturbance, mood disturbance, and anxiety; Z86.73 Personal history of transient ischemic attack (TIA), and cerebral infarction without residual deficits; Z79.899 Other long term (current) drug therapy; X58.XXXA Exposure to other specified factors, initial encounter
CPT/HCPCS: J1100; J1200

== ENCOUNTER 2017-11-12 09:17 | Emergency (ER) | payer MEDICARE, OTHER ==
--- NOTE | 2017-11-12 09:42 | ED.PDOC ---
History of Present Illness - General Chief Complaint: ENT Problem Stated Complaint: swelling in throat,cannot talk Time Seen by Provider: 11/12/17 09:29 Source: patient Exam Limitations: no limitations - History of Present Illness Initial Comments: Jaspal Hammonds 67 y/o male stated that feels like throat had swelled up since yesterday but which he felt this morning got worse.No fever ,no chills denies difficulty breathig ,no drooling.Had previous symptoms in the past. Timing/Duration: this morning Severity: moderate EENT Location: other - tongue Prearrival Treatment: no prearrival treatment Presenting Symptoms: difficulty talking Improving Factors: nothing Worsening Factors: nothing Associated Symptoms: other - see hpi Allergies/Adverse Reactions: Allergies Iodine Allergy (Severe, Verified 08/18/17 17:12) Other makes him feel like he is having "a heart attack" Cephalexin [From Keflex] Allergy (Verified 08/18/17 17:12) Home Medications: Ambulatory Orders Omeprazole [Prilosec] 40 mg PO ACBK 07/05/14 Amitriptyline HCl 150 mg PO BEDTIME 10/24/15 Amlodipine Besylate 5 mg PO DAILY 08/23/16 Donepezil HCl [Aricept] 5 mg PO BEDTIME 08/23/16 Lisinopril 20 mg PO DAILY 08/23/16 Tamsulosin [Flomax] 0.4 mg PO BEDTIME 08/23/16 Divalproex Sodium [Divalproex Sodium Dr] 500 mg PO BID 08/24/16 Acetaminophen [Tylenol] 650 mg PO Q6H PRN 12/12/16 Furosemide [Lasix] 20 mg PO DAILY 08/01/17 Gabapentin 300 mg PO TID 08/01/17 HYDROcodone 10MG/APAP 325MG [[place] 10/325] 1 tab PO BID 08/01/17 Hydrocortisone 20 mg PO DAILY 08/01/17 Lactobacillus [Acidophilus] 1 cap PO TID 08/01/17 Loratadine [Claritin] 10 mg PO DAILY 08/01/17 Loratadine [Claritin] 10 mg PO DAILY #30 tab 08/01/17 Melatonin 5 mg PO BEDTIME 08/01/17 Nystatin (Topical) [Nystatin] 100,000 unit EX DAILY 08/01/17 Urea 1 applic TOP BID #1 bottle 08/01/17 hydrOXYzine HCl [Atarax] 25 mg PO Q6HR PRN #20 tab 08/01/17 predniSONE 40 mg PO DAILY 5 Days #10 tab 08/01/17 Doxepin HCl 25 mg PO BEDTIME #30 cap 08/18/17 predniSONE 20 mg PO DAILY #10 tab 08/18/17 Review of Systems - Review of Systems Constitutional: States: no symptoms reported EENTM: States: see HPI Respiratory: States: no symptoms reported Cardiology: States: no symptoms reported Gastrointestinal/Abdominal: States: no symptoms reported Genitourinary: States: no symptoms reported Musculoskeletal: States: no symptoms reported Neurological: States: no symptoms reported Past Medical History (General) - Patient Medical History Hx Seizures: Yes Hx Stroke: Yes Hx Dementia: Yes Hx Asthma: No Hx of COPD: Yes Hx Cardiac Disorders: Yes Hx Congestive Heart Failure: No Hx Pacemaker: No Hx Hypertension: Yes Hx Thyroid Disease: No Hx Diabetes: No Hx Gastroesophageal Reflux: Yes Hx Renal Disease: No Hx Cancer: No Hx of HIV: No Hx Hepatitis C: No Hx MRSA: No Hx Other PMH: Yes - dermatitis chronic-getting better with medication Hx Other - free text: hospitalized for leg cellulitis recently Surgical History: other - low back,knee - Vaccination History Hx Tetanus, Diphtheria Vaccination: No Hx Influenza Vaccination: Yes Hx Pneumococcal Vaccination: Yes - Social History Hx Tobacco Use: Yes Hx Chewing Tobacco Use: No Hx Alcohol Use: No Hx Substance Use: No Hx Substance Use Treatment: No Hx Depression: No Hx Physical Abuse: No Hx Emotional Abuse: No Hx Suspected Abuse: No - Activities of Daily Living Alf/Assisted Living (if applicable):: Tio Carter - Female History Patient : No Family Medical History - Family History Mother Family History: Unknown Living Status: Hx Cardiac Disease: Yes - mom Physical Exam - Physical Exam General Appearance: Alert, Comfortable, No apparent distress Eye Exam: bilateral normal Ear Exam: bilateral ear: auricle normal Nasal Exam: normal inspection Throat Exam: pharynx normal, excessive drooling, tongue swollen Neck: supple, trachea midline Cardiovascular/Respiratory: regular rate, rhythm, normal peripheral pulses, normal breath sounds Abdominal Exam: non-tender, no organomegaly Neurologic: no motor/sensory deficits, alert, oriented x 3 Skin Exam: normal color, warm/dry, rash - lwer leg Progress - Progress Progress: 11/12/17 10:40 Vital Signs - 24 hr 11/12/17 11/12/17 09:27 10:10 Temperature 95.9 F L Pulse Rate [ 95 H 107 H Right Brachial] Respiratory 20 20 Rate Blood Pressure 130/78 141/89 [Right Arm] O2 Sat by Pulse 99 99 Oximetry - Results/Orders Results/Orders: 11/12/17 12:19 STREP A SCREEN CULTURE Urgent 11/12/17 14:31 Arterial Blood Gas Stat Capnography .ONCE Mechanical Ventilation DAILY Laboratory Results - last 24 hr 11/12/17 11/12/17 11/12/17 11:47 11:47 12:19 WBC 12.3 H RBC 3.86 L Hgb 10.0 L Hct 31.1 L MCV 80.5 MCH 25.9 L MCHC 32.2 L RDW 17.2 H Plt Count 380 MPV 7.4 Absolute Neuts (auto) 10.60 H Absolute Lymphs (auto) 1.20 Absolute Monos (auto) 0.30 Absolute Eos (auto) 0.00 Absolute Basos (auto) 0.10 Neutrophils % 86.3 H Lymphocytes % 9.9 L Monocytes % 2.8 Eosinophils % 0.4 L Basophils % 0.6 Sodium 127 L Potassium 3.9 Chloride 99 L Carbon Dioxide 16 L Anion Gap 15.9 BUN 10 Creatinine 0.65 BUN/Creatinine Ratio 15.4 Random Glucose 129 H Serum Osmolality 256.0 L Calcium 9.8 Total Bilirubin 0.4 AST 21 ALT 12 Alkaline Phosphatase 86 Serum Total Protein 8.8 H Albumin 4.2 Globulin 4.6 H Albumin/Globulin Ratio 0.9 L Group A Strep DNA Negative Procedures - Intubation Time of Intubation: 14:19 - Done by nurse dairy inspector;noted glottic edema Intubation Method: orotracheal Tube Size (cm): 7.5 Medications: Succinylcholine Breath Sounds after Intubation: equal Intubation Complications: no complications Post Intubation Xray: Yes Departure - Departure Clinical Impression: Angioneurotic edema of larynx Time of Disposition: 14:54 Disposition: Transfer to Hospital Condition: Fair Departure Forms: Patient Portal Self Enrollment Referrals: PINKY TERRY [Primary Care Provider] - 1-2 Weeks Home Medications: Ambulatory Orders Omeprazole [Prilosec] 40 mg PO ACBK 07/05/14 Amitriptyline HCl 150 mg PO BEDTIME 10/24/15 Amlodipine Besylate 5 mg PO DAILY 08/23/16 Donepezil HCl [Aricept] 5 mg PO BEDTIME 08/23/16 Lisinopril 20 mg PO DAILY 08/23/16 Tamsulosin [Flomax] 0.4 mg PO BEDTIME 08/23/16 Divalproex Sodium [Divalproex Sodium Dr] 500 mg PO BID 08/24/16 Acetaminophen [Tylenol] 650 mg PO Q6H PRN 12/12/16 Furosemide [Lasix] 20 mg PO DAILY 08/01/17 Gabapentin 300 mg PO TID 08/01/17 HYDROcodone 10MG/APAP 325MG [[place] 10/325] 1 tab PO BID 08/01/17 Hydrocortisone 20 mg PO DAILY 08/01/17 Lactobacillus [Acidophilus] 1 cap PO TID 08/01/17 Loratadine [Claritin] 10 mg PO DAILY 08/01/17 Loratadine [Claritin] 10 mg PO DAILY #30 tab 08/01/17 Melatonin 5 mg PO BEDTIME 08/01/17 Nystatin (Topical) [Nystatin] 100,000 unit EX DAILY 08/01/17 Urea 1 applic TOP BID #1 bottle 08/01/17 hydrOXYzine HCl [Atarax] 25 mg PO Q6HR PRN #20 tab 08/01/17 predniSONE 40 mg PO DAILY 5 Days #10 tab 08/01/17 Doxepin HCl 25 mg PO BEDTIME #30 cap 08/18/17 predniSONE 20 mg PO DAILY #10 tab 08/18/17 Transfer to Outside Facility - Transfer Information Accepting Provider:: D/W Dr. ashwini Liao for transfer Accepting Facility: [facility] Reason for Transfer: specialized care not available
[2017-11-12] MEDS ORDERED: methylPREDNISolone SODIUM SUC 125 MG/2 ML VIAL IM ONE (09:46)
[2017-11-12] MEDS ORDERED: EPINEPHrine INJ 0.1 MG/ML 10 ML SYG INJ ONE (09:46)
[2017-11-12] MEDS ORDERED: diphenhydrAMINE HCL 50 MG/ML VIAL IM ONE (09:46)
[2017-11-12] MEDS ORDERED: EPINEPHrine HCL AMP 1 MG/ML AMP SUBCU ONE (09:52)
[2017-11-12] MEDS ORDERED: DEXAMETHASONE INJ 10 MG/ML VIAL IM ONE (10:50)
[2017-11-12] MEDS ORDERED: EPINEPHrine HCL AMP 1 MG/ML AMP IM ONE (10:51)
[2017-11-12 13:51] VITALS: TEMP 97.9; O2SAT 100
[2017-11-12] MEDS ORDERED: MIDAZOLAM INJ 5 MG/5 ML VIAL ONE ×3 (14:00→15:27)
[2017-11-12] MEDS ORDERED: LIDOCAINE 1% 10 ML VIAL INJ ONE (14:00)
[2017-11-12] MEDS ORDERED: WATER FOR INJ 10 ML VIAL INJ ONE (14:00)
[2017-11-12] MEDS ORDERED: fentaNYL CITRATE INJ 50 MCG/ML AMP ONE (14:00)
[2017-11-12] MEDS ORDERED: PROPOFOL 200 MG/20 ML VIAL IV ONE (14:00)
[2017-11-12] MEDS ORDERED: VECURONIUM BROMIDE 10 MG VIAL IV ONE (14:00)
--- NOTE | 2017-11-12 14:49 | RAD ---
EXAM DESCRIPTION: Chest,1 View CLINICAL HISTORY: 67 years Male, post intubation COMPARISON: Previous study February 10, 2017 TECHNIQUE: AP portable chest. FINDINGS: Heart size is normal with normal pulmonary vascularity. No consolidating infiltrate. Linear scarring in the upper lingula. No pulmonary mass or worrisome nodule. Slight blunting of left costophrenic angle suggests small left pleural effusion. No pneumothorax or large pleural effusion. Bones are unremarkable except for T-spine spurring at multiple levels. IMPRESSION: No acute process is identified in the chest. Electronically signed by: Henri Royal MD 11/12/2017 2:46 PM CDT
[2017-11-12] MEDS ORDERED: MIDAZOLAM INJ 5 MG/5 ML VIAL IV ONE ×2 (15:20→15:53)
[2017-11-12 16:55] VITALS: BP 153/100
[2017-11-12] MEDS ORDERED: SODIUM CHLORIDE 0.9% 1000ML 1,000 ML ONE (18:40)
== END 2017-11-12 16:00 | disposition short-term general hospital (02) ==
LOC: ER 09:17
DX: R22.1 Localized swelling, mass and lump, neck (principal); T78.3XXA Angioneurotic edema, initial encounter; J44.9 Chronic obstructive pulmonary disease, unspecified; F03.90 Unspecified dementia, unspecified severity, without behavioral disturbance, psychotic disturbance, mood disturbance, and anxiety; I10 Essential (primary) hypertension; Z86.73 Personal history of transient ischemic attack (TIA), and cerebral infarction without residual deficits; Z79.899 Other long term (current) drug therapy; Z88.8 Allergy status to other drugs, medicaments and biological substances; Z87.891 Personal history of nicotine dependence
CPT/HCPCS: 31500; 36415; 36600; 71045; 80053; 82803; 82805; 85025; 87070; 87651; 94002; 94770; A4216; J1100; J1200; J2250; J2930; J3010; J7030

== ENCOUNTER 2018-05-18 13:13 | Inpatient (IN) | payer MEDICARE, OTHER ==
--- NOTE | 2018-05-18 13:17 | ED.PDOC ---
History of Present Illness - General Chief Complaint: Chest Pain/AK Stated Complaint: CHEST PAIN Time Seen by Provider: 05/18/18 13:17 Source: patient, family Exam Limitations: no limitations - History of Present Illness Initial Comments: PT C/O CONSTANT R SIDED CP SINCE LAST PM. NO AGGRAVATING OR RELIEVING FACTORS. SHARP, NON RADIATING. Severity/Quality: mild Location: other - R SIDED CP Chest Pain Radiation: no radiation Activities at Onset: none Improving Factors: nothing Worsening Factors: nothing Associated Symptoms: diaphoresis Allergies/Adverse Reactions: Allergies Iodine Allergy (Severe, Verified 08/18/17 17:12) Other makes him feel like he is having "a heart attack" Cephalexin [From Keflex] Allergy (Verified 08/18/17 17:12) Home Medications: Ambulatory Orders Omeprazole [Prilosec] 40 mg PO ACBK 07/05/14 Amitriptyline HCl 150 mg PO BEDTIME 10/24/15 Amlodipine Besylate 5 mg PO DAILY 08/23/16 Donepezil HCl [Aricept] 5 mg PO BEDTIME 08/23/16 Lisinopril 20 mg PO DAILY 08/23/16 Tamsulosin [Flomax] 0.4 mg PO BEDTIME 08/23/16 Divalproex Sodium [Divalproex Sodium Dr] 500 mg PO BID 08/24/16 Acetaminophen [Tylenol] 650 mg PO Q6H PRN 12/12/16 Furosemide [Lasix] 20 mg PO DAILY 08/01/17 Gabapentin 300 mg PO TID 08/01/17 HYDROcodone 10MG/APAP 325MG [[place] 10/325] 1 tab PO BID 08/01/17 Hydrocortisone 20 mg PO DAILY 08/01/17 Lactobacillus [Acidophilus] 1 cap PO TID 08/01/17 Loratadine [Claritin] 10 mg PO DAILY 08/01/17 Loratadine [Claritin] 10 mg PO DAILY #30 tab 08/01/17 Melatonin 5 mg PO BEDTIME 08/01/17 Nystatin (Topical) [Nystatin] 100,000 unit EX DAILY 08/01/17 Urea 1 applic TOP BID #1 bottle 08/01/17 hydrOXYzine HCl [Atarax] 25 mg PO Q6HR PRN #20 tab 08/01/17 predniSONE 40 mg PO DAILY 5 Days #10 tab 08/01/17 Doxepin HCl 25 mg PO BEDTIME #30 cap 08/18/17 predniSONE 20 mg PO DAILY #10 tab 08/18/17 Review of Systems - Review of Systems Constitutional: Denies: chills, fever EENTM: States: no symptoms reported Respiratory: States: cough. Denies: short of breath, wheezing Cardiology: States: chest pain. Denies: palpitations, syncope Gastrointestinal/Abdominal: Denies: abdominal pain, nausea, vomiting Genitourinary: States: no symptoms reported Musculoskeletal: States: no symptoms reported Skin: States: other - C/O DIAPHORESIS Neurological: States: no symptoms reported Endocrine: States: no symptoms reported Hematologic/Lymphatic: States: no symptoms reported Past Medical History (General) - Patient Medical History Hx Seizures: Yes Hx Stroke: Yes Hx Dementia: Yes Hx Asthma: No Hx of COPD: Yes Hx Cardiac Disorders: Yes Hx Congestive Heart Failure: No Hx Pacemaker: No Hx Hypertension: Yes Hx Thyroid Disease: No Hx Diabetes: No Hx Gastroesophageal Reflux: Yes Hx Renal Disease: No Hx Cancer: No Hx of HIV: No Hx Hepatitis C: No Hx MRSA: No - Vaccination History Hx Tetanus, Diphtheria Vaccination: No Hx Influenza Vaccination: Yes Hx Pneumococcal Vaccination: Yes - Social History Hx Tobacco Use: Yes Hx Chewing Tobacco Use: No Hx Alcohol Use: No Hx Substance Use: No Hx Substance Use Treatment: No Hx Depression: No Hx Physical Abuse: No Hx Emotional Abuse: No Hx Suspected Abuse: No - Female History Patient : No Family Medical History - Family History Mother Family History: Unknown Living Status: Hx Cardiac Disease: Yes - mom Physical Exam - Physical Exam General Appearance: No apparent distress Eyes, Ears, Nose, Throat Exam: PERRL/EOMI, normal ENT inspection Neck: non-tender, full range of motion, supple Respiratory: lungs clear, normal breath sounds, no respiratory distress Cardiovascular/Chest: regular rate, rhythm, no murmur Gastrointestinal/Abdominal: non tender, soft, no organomegaly Extremity: normal range of motion, non-tender, normal inspection Neurologic: alert, normal mood/affect Skin Exam: normal color, warm/dry Lymphatic: no adenopathy Progress - Progress Progress: 05/18/18 15:12 STABLE, D/W ASHLEY BETANCUR, WILL ADMIT FOR IV ABX AND PULMONARY TOILET. - EKG/XRAY/CT EKG: Sinus - RATE 82, LAD, , nonspecific ST T wave Chg - NAIP, , Changed from - 02/09/2017, INTERVAL DEVELOPMENT OF NON SPECIFIC T WAVE CHANGES, Departure - Departure Clinical Impression: Pleurisy Pneumonia Qualifiers: Pneumonia type: due to unspecified organism Laterality: right Lung location: upper lobe of lung Qualified Code(s): J18.1 - Lobar pneumonia, unspecified organism Hypertension Qualifiers: Hypertension type: essential hypertension Qualified Code(s): I10 - Essential ( primary) hypertension Time of Disposition: 15:16 Disposition: Admit Patient Condition: Fair Departure Forms: ED Discharge - Pt. Copy, Patient Portal Self Enrollment Instructions: DI for Chest Pain Referrals: PINKY TERRY [Referring] - 1-2 Weeks Home Medications: Ambulatory Orders Omeprazole [Prilosec] 40 mg PO ACBK 07/05/14 Amitriptyline HCl 150 mg PO BEDTIME 10/24/15 Amlodipine Besylate 5 mg PO DAILY 08/23/16 Donepezil HCl [Aricept] 5 mg PO BEDTIME 08/23/16 Lisinopril 20 mg PO DAILY 08/23/16 Tamsulosin [Flomax] 0.4 mg PO BEDTIME 08/23/16 Divalproex Sodium [Divalproex Sodium Dr] 500 mg PO BID 08/24/16 Acetaminophen [Tylenol] 650 mg PO Q6H PRN 12/12/16 Furosemide [Lasix] 20 mg PO DAILY 08/01/17 Gabapentin 300 mg PO TID 08/01/17 HYDROcodone 10MG/APAP 325MG [[place] 10/325] 1 tab PO BID 08/01/17 Hydrocortisone 20 mg PO DAILY 08/01/17 Lactobacillus [Acidophilus] 1 cap PO TID 08/01/17 Loratadine [Claritin] 10 mg PO DAILY 08/01/17 Loratadine [Claritin] 10 mg PO DAILY #30 tab 08/01/17 Melatonin 5 mg PO BEDTIME 08/01/17 Nystatin (Topical) [Nystatin] 100,000 unit EX DAILY 08/01/17 Urea 1 applic TOP BID #1 bottle 08/01/17 hydrOXYzine HCl [Atarax] 25 mg PO Q6HR PRN #20 tab 08/01/17 predniSONE 40 mg PO DAILY 5 Days #10 tab 08/01/17 Doxepin HCl 25 mg PO BEDTIME #30 cap 08/18/17 predniSONE 20 mg PO DAILY #10 tab 08/18/17
[2018-05-18] MEDS ORDERED: KETOROLAC TROMETHAMINE INJ 30 MG/ML VIAL IV ONE (13:27)
--- NOTE | 2018-05-18 14:20 | RAD ---
EXAM DESCRIPTION: Chest,1 View CLINICAL HISTORY: 68 years Male, CP COMPARISON: Previous study November 12, 2017 TECHNIQUE: AP portable chest. FINDINGS: Heart size is prominent with normal pulmonary vascularity. Consolidating infiltrate in the right upper lobe is consistent with pneumonia. This is new compared to previous study. Linear scarring is seen in the lingula. Blunting of left costophrenic angle could be pleural scarring or small effusion. Findings are similar here on the previous study. No pulmonary mass or worrisome nodule. No pneumothorax or right pleural effusion. Bones are unremarkable. IMPRESSION: Findings most consistent with right upper lobe pneumonia. Electronically signed by: Henri Royal MD 05/18/2018 2:19 PM CDT
[2018-05-18] MEDS ORDERED: AZITHROMYCIN IV 500 MG in SODIUM CHLORIDE 0.9% 250ML 250 ML IVPB ONE (15:09)
[2018-05-18] MEDS ORDERED: cefTRIAXone SODIUM 1 GM in SODIUM CHL 0.9% 50ML MIN-BAG+ 50 ML IVPB ONE (15:09)
[2018-05-18] MEDS ORDERED: SODIUM CHL 0.9% 50ML MIN-BAG+ 50 ML IVPB ONE (15:52)
[2018-05-18] MEDS ORDERED: SODIUM CHLORIDE 0.9% 250ML 250 ML ONE (15:52)
[2018-05-18] MEDS ORDERED: AZITHROMYCIN IV 500 MG VIAL IVPB ONE (15:52)
[2018-05-18] MEDS ORDERED: cefTRIAXone SODIUM 1 GM VIAL ONE (15:52)
--- NOTE | 2018-05-18 16:17 | HP ---
SUPERVISING PHYSICIAN: John Henley M.D. CHIEF COMPLAINT: Right sided chest pain. HISTORY OF PRESENT ILLNESS: This is a 68 year-old male patient who came to the Emergency Room with constant right sided chest pain since last night. He states about 10:00 he was doing okay but by 11:00 he woke up with right sided chest pain. The pain was sharp and not radiating. When he came to the Emergency Room his workup included labs and films. He was shown to have a right upper lobe infiltrate. White count was elevated at 15,000. The patient denies any fever or chills at home. He does state that he smokes. He does not move a whole lot. He apparently has a distant history of pulmonary embolism and deep venous thrombosis back around 2012 as well. PAST MEDICAL HISTORY: 1. Hypertension. 2. Depression. 3. Seizure disorder. 4. Chronic sciatica pain. 5. Chronic low back pain. 6. Dementia. 7. Previous ETOH abuse with current cirrhosis. 8. Benign prostatic hypertrophy. 9. Stroke. 10. Pulmonary embolism. 11. Deep venous thrombosis. 12. Gout. 13. Osteoarthritis. PAST SURGICAL HISTORY: 1. Left total knee arthroplasty. CURRENT MEDICATIONS: Please see med. rec. list. They have not been verified in the computer as of yet. ALLERGIES: IODINE AND CEPHALOSPORIN. FAMILY HISTORY: Cancer. SOCIAL HISTORY: Just a history of alcohol but has quit already. He lives at home now. Smokes over a pack per day. REVIEW OF SYSTEMS: CONSTITUTIONAL: No fever or chills. No recent weight loss or weight gain. HEENT: No headaches, vision changes, ear pain, nasal congestion or throat pain. RESPIRATORY: No cough. No hemoptysis. Does have the right sided chest pain. No dyspnea. CARDIOVASCULAR: No anginal chest pain. No palpitations. No peripheral edema. GASTROINTESTINAL: No nausea, vomiting, diarrhea, constipation or abdominal pain. GENITOURINARY: No dysuria, frequency or flank pain. HEMATOLOGIC: Positive for easy bruising but no transfusion reaction. NEUROLOGIC: No confusion, headaches, paresthesias or syncope. ENDOCRINE: No polydipsia or polyuria or polyphagia. No heat or cold intolerance. PHYSICAL EXAMINATION: VITAL SIGNS: Blood pressure is 118/73, heart rate 64, respiratory rate 18, temperature 98.6, oxygen saturation 94%. GENERAL: Mr. Hammonds is a 68 year-old male patient who is in mild respiratory distress at this time. HEENT: Head is normocephalic and atraumatic. Eyes: Pupils are equal and reactive. Nose: No drainage. Throat: Moist mucosa. NECK: Supple. Midline trachea. No jugular venous distention. CHEST: Symmetrical with equal rise and fall of the chest with inspiration and expiration. Lung sounds are diminished right greater than left. No active wheezing. CARDIOVASCULAR: Regular rate and rhythm. Normal S1 and S2. ABDOMEN: Soft. Positive bowel sounds. GENITOURINARY: Exam is deferred. EXTREMITIES: Lower extremities with 2+ pulses. Capillary refill is less than 2 seconds. NEUROLOGIC: The patient is alert. Speech is somewhat unclear but this is chronic for the patient. LABORATORY: Labs and films just reviewed and shows sodium 129, potassium 3.9, chloride 99, CO2 is 22, BUN 24, creatinine 1.32, glucose 77, calcium 8.9. White blood cell count is 15,800, hemoglobin 9.5, hematocrit 29.7, platelet count 316, neutrophils 85.6. Chest x-ray with a right upper lobe infiltrate. ASSESSMENT: 1. Right upper lobe pneumonia. 2. Likely chronic obstructive pulmonary disease which has not been previously diagnosed. 3. Liver cirrhosis secondary to chronic alcohol abuse for which he is currently not utilizing at this time. 4. Hypertension which is currently controlled. 5. Hyponatremia. 6. Anemia. PLAN: At this time the patient will be admitted under pneumonia protocol. Will utilize Levaquin as he has an allergy to cephalosporins. I am putting him on scheduled nebulizer therapies. I am going to hold off on pulmonary hygiene orders at this time until I have a little bit more information. The patient does have a history of pulmonary embolism in the past. His right sided chest pain was sudden onset last night and although he is not tachycardic or hypoxic at this time, I do have concern that he may have an actual pulmonary embolism with infarct given the pain. I am going to go ahead and get a Doppler of the lower extremities as the patient cannot have CT angiogram of the chest due to iodine allergy. I am going to go ahead and put him on therapeutic Lovenox until I have more information. He is currently not taking any anticoagulation at home. I will monitor his anemia and transfuse as necessary, however his hemoglobin is acceptable at this time. I will start him on IV fluids and normal saline with 20 of potassium continuously. Will recheck labs in the morning as well as x-ray. #[id number] [facility]
[2018-05-18] MEDS ORDERED: SODIUM CHLORIDE 0.9% (FLUSH) 10 ML SYG IV PRN (17:14)
[2018-05-18] MEDS ORDERED: IV SET AND CAP CHANGE INJ INJ SCH (17:30)
[2018-05-18] MEDS ORDERED: ENOXAPARIN SODIUM 80 MG/0.8 ML SYG SUBCU ONE ×2 (17:58→21:14)
[2018-05-18] MEDS: PANTOPRAZOLE SODIUM IV 40 MG VIAL IV SCH (18:15)
[2018-05-18] MEDS ORDERED: ENOXAPARIN SODIUM 100 MG/ML SYG SUBCU ONE (18:55)
[2018-05-18] MEDS: KCL 20 MEQ/NS 1,000 ML IVS PRN (18:56)
[2018-05-18] MEDS: levoFLOXacin 750MG IV 750 MG in PREMIX BAG 1 BAG IVPB SCH (18:58)
--- NOTE | 2018-05-18 19:12 | US ---
EXAM DESCRIPTION: Venous,Lower Extremity LT (accession [id number]), Venous,Lower Extremity RT (accession [id number]) CLINICAL HISTORY: rule out DVT COMPARISON: None Available TECHNIQUE: Duplex images of the common femoral, greater saphenous, superficial femoral, popliteal, peroneal, and posterior tibial veins of both lower extremities were submitted. FINDINGS: All of the above-mentioned venous structures demonstrate normal spontaneous flow with respiratory phasicity and were fully compressible. IMPRESSION: No sonographic evidence of acute DVT within the lower extremities. Electronically signed by: Jacob Presley MD 05/18/2018 7:10 PM CDT Workstation: [employer]
--- NOTE | 2018-05-18 19:12 | US ---
EXAM DESCRIPTION: Venous,Lower Extremity LT (accession [id number]), Venous,Lower Extremity RT (accession [id number]) CLINICAL HISTORY: rule out DVT COMPARISON: None Available TECHNIQUE: Duplex images of the common femoral, greater saphenous, superficial femoral, popliteal, peroneal, and posterior tibial veins of both lower extremities were submitted. FINDINGS: All of the above-mentioned venous structures demonstrate normal spontaneous flow with respiratory phasicity and were fully compressible. IMPRESSION: No sonographic evidence of acute DVT within the lower extremities. Electronically signed by: Jacob Presley MD 05/18/2018 7:10 PM CDT Workstation: [employer]
[2018-05-18] MEDS: IPRATROPIUM/ALBUTEROL 3 ML VIAL INH SCH (20:13)
[2018-05-18] MEDS: MORPHINE SULFATE INJ 10 MG/ML VIAL IV PRN (20:23)
[2018-05-19] MEDS: IPRATROPIUM/ALBUTEROL 3 ML VIAL INH SCH ×6 (00:38→20:44)
[2018-05-19] MEDS: MORPHINE SULFATE INJ 10 MG/ML VIAL IV PRN ×2 (03:49→07:39)
[2018-05-19] MEDS: KCL 20 MEQ/NS 1,000 ML IVS PRN ×2 (06:04→15:47)
--- NOTE | 2018-05-19 07:26 | RAD ---
PROCEDURE: XR Chest, 2 Views CLINICAL INDICATION: The patient is 68 years old and is Male; Pneumonia TECHNIQUE: Frontal and lateral views of the chest. COMPARISON: Prior study from 05/18/2018. FINDINGS: LIMITATIONS: The patient is rotated, which can compromise assessment. LUNGS: Persistent stable RIGHT upper lobe infiltrate, more dense peripherally. Findings are compatible with continued pneumonia. Lungs are hyperinflated. Tiny granuloma suspected in the LEFT upper lobe. There is scarring or atelectasis at the LEFT lung base extending to the mid lung. Pulmonary vascularity is normal. PLEURAL SPACE: There is blunting of the LEFT costophrenic sulcus suggestive of a small effusion. There is NO pneumothorax. HEART: The heart size is enlarged. MEDIASTINUM: The mediastinal contour is unremarkable. The aorta is uncoiled. BONES/JOINTS: There is calcification of the anterior longitudinal ligament of the thoracic spine which probably represents diffuse idiopathic skeletal hyperostosis (DISH). OTHER FINDINGS: IMPRESSION: 1. Persistent stable RIGHT upper lobe infiltrate, more dense peripherally. Findings are compatible with continued pneumonia. 2. There is blunting of the LEFT costophrenic sulcus suggestive of a small effusion. Electronically signed by: Luis Carlos Gonzales MD 05/19/2018 7:24 AM CDT
[2018-05-19] MEDS: HYDROcodone 10MG/APAP 325MG 1 EA TAB PO SCH ×2 (10:27→20:34)
[2018-05-19] MEDS: DOXEPIN HCL 25 MG CAP PO SCH (10:27)
[2018-05-19] MEDS ORDERED: ENOXAPARIN SODIUM 80 MG/0.8 ML SYG SUBCU SCH (11:30)
--- NOTE | 2018-05-19 14:01 | PN ---
SUPERVISING PHYSICIAN: Edmond Henley MD DATE: 05/19/18 SUBJECTIVE: The patient is lying in bed. His said he did not sleep very well last night and has a difficult time getting around in his room and has for several years, but he will use the walker. He also has some mild shortness of breath and coughing, but is improved since yesterday. Otherwise, no complaints of chest pain, nausea, vomiting or diarrhea. OBJECTIVE: VITAL SIGNS: T-max 24 hours 99. Pulse 77. Blood pressure 146/81. Respiratory rate 22. O2 saturation 89% on room air. RESPIRATORY: Scattered rhonchi throughout, but no wheezing or crackles noted. CARDIAC: Regular rate and rhythm. GASTROINTESTINAL: Abdomen is soft, nondistended, nontender. Bowel sounds are positive. EXTREMITIES: No cyanosis, clubbing or edema. NEUROLOGIC: Awake, alert. LABORATORY: WBC 12.3, hemoglobin 8.2, hematocrit 26.2. He has a left shift on differential. Sodium slightly low at 133, BUN 25. Serum osmolality 269.9. Preliminary blood cultures are negative to date. Chest x-ray shows persistent stable right upper lobe infiltrate, more dense peripherally. Findings are consistent with continued pneumonia. There is small blunting of the left costophrenic focus suggestive of a small effusion. All other labs and films have been reviewed via the EMR. ASSESSMENT: 1. Right upper lobe pneumonia, most likely, community acquired. 2. Likely chronic obstructive pulmonary disease which has not been previously diagnosed with a mild exacerbation. 3. Liver cirrhosis secondary to chronic alcohol abuse for which he is currently not utilizing at this time. 4. Hypertension which is currently controlled. 5. Hyponatremia. 6. Anemia. PLAN: We will continue present supportive care. On discharge, the patient will most likely need home health or maybe even fpc as he has a difficult time getting around. I have ordered physical therapy to evaluate for safeness to go home. There was some question if he has home O2 as I am not quite certain whether the family is talking about a nebulizer or actual oxygen, so we will need to reevaluate that. I will order oxygen qualification study, but continued his home medications. I have also ordered some routine lab for in the morning. We will continue the Levaquin for right now. We will continue to monitor the patient closely and follow as needed. #[id number] [facility]
[2018-05-19] MEDS ORDERED: HYDROcodone 5MG/APAP 325MG 1 EA TAB PO SCH (15:00)
[2018-05-19] MEDS: MELOXICAM 7.5 MG TAB PO SCH (15:24)
[2018-05-19] MEDS: HYDROcodone 5MG/APAP 325MG 1 EA TAB PO PRN (15:25)
[2018-05-19] MEDS: levoFLOXacin 750MG IV 750 MG in PREMIX BAG 1 BAG IVPB SCH (18:14)
[2018-05-19] MEDS: PANTOPRAZOLE SODIUM IV 40 MG VIAL IV SCH (18:15)
[2018-05-19] MEDS: ENOXAPARIN SODIUM 80 MG/0.8 ML SYG SUBCU SCH (18:17)
[2018-05-19] MEDS: ATORVASTATIN 20 MG TAB PO SCH (20:34)
[2018-05-19] MEDS: AMITRIPTYLINE HCL 25 MG TAB PO SCH (20:34)
[2018-05-19] MEDS: DONEPEZIL HCL 5 MG TAB PO SCH (20:34)
[2018-05-19] MEDS: TAMSULOSIN 0.4 MG CAP PO SCH (20:34)
[2018-05-19] MEDS ORDERED: NON-FORMULARY MEDICATION 1 EA MIS (Amitriptyline Hcl [Amitriptyline Hcl] 150 MG) PO SCH (21:00)
[2018-05-19] MEDS ORDERED: NON-FORMULARY MEDICATION 1 EA MIS (Rosuvastatin Calcium [Rosuvastatin Calcium] 20 MG) PO SCH (21:00)
[2018-05-20] MEDS: KCL 20 MEQ/NS 1,000 ML IVS PRN ×2 (01:28→12:13)
[2018-05-20] MEDS: IPRATROPIUM/ALBUTEROL 3 ML VIAL INH SCH ×6 (04:04→20:19)
[2018-05-20] MEDS: ENOXAPARIN SODIUM 80 MG/0.8 ML SYG SUBCU SCH ×2 (06:16→17:27)
--- NOTE | 2018-05-20 07:43 | RAD ---
Procedure: XR CHEST 2 VIEWS Exam Date: 05/20/2018 Ordering Provider: BACILIO ALEXIS Clinical Indication: pna Comparison: 05/19/2018 Findings: Cardiomediastinal silhouette is within normal limits. Aortic calcification. Right upper lobe infiltrates are not significantly changed from prior. Left basilar subsegmental atelectasis/scarring. No new infiltrates. No pleural effusion. Scarring at the left costophrenic angle. No pneumothorax. No acute osseous abnormality. Impression: 1. Stable right upper lobe pneumonia. Electronically signed by: Jarad Huang MD 05/20/2018 7:41 AM CDT
[2018-05-20] MEDS: MELOXICAM 7.5 MG TAB PO SCH (08:59)
[2018-05-20] MEDS: HYDROcodone 10MG/APAP 325MG 1 EA TAB PO SCH ×2 (09:00→20:49)
[2018-05-20] MEDS: DOXEPIN HCL 25 MG CAP PO SCH (09:00)
[2018-05-20] MEDS ORDERED: NON-FORMULARY MEDICATION 1 EA MIS (Meloxicam [Meloxicam] 15 MG) PO SCH (09:00)
[2018-05-20] MEDS ORDERED: MAGNESIUM SULFATE PREMIX 2GM 2 GM in PREMIX BAG 1 BAG IVPB ONE (09:15)
[2018-05-20] MEDS ORDERED: MAGNESIUM SULFATE PREMIX 2GM 50 ML IVPB ONE (09:21)
[2018-05-20] MEDS: guaiFENesin ER TAB 600 MG TAB PO SCH ×2 (13:11→20:49)
[2018-05-20] MEDS: PANTOPRAZOLE SODIUM TAB 40 MG PO SCH (13:11)
--- NOTE | 2018-05-20 13:40 | PN ---
SUPERVISING PHYSICIAN: Edmond Henley MD DATE: 05/20/18 SUBJECTIVE: The patient is sitting up in his hospital bed watching television. He continues to improve daily, but he is having a difficult time coughing up phlegm. He does have some shortness of breath when he is assisted up with walking, but other than that, he is improving daily. He has no complaints of chest pain, nausea, vomiting, constipation or diarrhea. OBJECTIVE: VITAL SIGNS: Afebrile. Pulse 70. Blood pressure 119/72. Respiratory rate 20. O2 saturation 93% on room air. RESPIRATORY: A few scattered rhonchi in the upper lung gee, slightly diminished at the bases. CARDIAC: Regular rate and rhythm. GASTROINTESTINAL: Abdomen is soft, nondistended, nontender. Bowel sounds are positive. EXTREMITIES: No cyanosis, clubbing or edema. NEUROLOGIC: Awake, alert and oriented x3. LABORATORY: WBC improved to 10.6, hemoglobin 9.5, hematocrit 29.4. He continues to have a left shift on differential. Electrolytes are basically within normal limits with the exception of his magnesium is low at 1.5. Preliminary blood cultures show no growth after 24 hours. Chest x-ray shows stable right upper lobe pneumonia. All other labs and films have been reviewed via the EMR. ASSESSMENT: 1. Right upper lobe pneumonia, most likely, community acquired. 2. Likely chronic obstructive pulmonary disease which has not been previously diagnosed with a mild exacerbation. 3. Liver cirrhosis secondary to chronic alcohol abuse for which he is currently not utilizing at this time. 4. Hypertension which is currently controlled. 5. Hyponatremia. 6. Anemia. PLAN: We will continue present supportive care. I have given him some supplemental magnesium and we will recheck his lab in the morning. We will need to evaluate him in regards to his oxygen demand. He may need home O2. At rest, he does not need it, but it was reported he had some shortness of breath with any exertion, so I will order that for in the morning. I have also ordered some guaifenesin to help as an expectorant. I encouraged good pulmonary hygiene. We will continue to monitor the patient closely and follow as needed and hope for discharge tomorrow or the next day. #[id number] [facility]
[2018-05-20] MEDS: levoFLOXacin 750MG IV 750 MG in PREMIX BAG 1 BAG IVPB SCH (17:23)
[2018-05-20] MEDS: HYDROcodone 5MG/APAP 325MG 1 EA TAB PO PRN (20:03)
[2018-05-20] MEDS: ATORVASTATIN 20 MG TAB PO SCH (20:49)
[2018-05-20] MEDS: DONEPEZIL HCL 5 MG TAB PO SCH (20:49)
[2018-05-20] MEDS: TAMSULOSIN 0.4 MG CAP PO SCH (20:49)
[2018-05-20] MEDS: AMITRIPTYLINE HCL 25 MG TAB PO SCH (20:50)
[2018-05-21] MEDS: IPRATROPIUM/ALBUTEROL 3 ML VIAL INH SCH ×4 (00:38→13:20)
[2018-05-21] MEDS: ENOXAPARIN SODIUM 80 MG/0.8 ML SYG SUBCU SCH (05:52)
[2018-05-21] MEDS: PANTOPRAZOLE SODIUM TAB 40 MG PO SCH (06:06)
[2018-05-21 07:55] VITALS: O2SAT 97
[2018-05-21] MEDS: HYDROcodone 10MG/APAP 325MG 1 EA TAB PO SCH (08:39)
[2018-05-21] MEDS: guaiFENesin ER TAB 600 MG TAB PO SCH (08:39)
[2018-05-21] MEDS: DOXEPIN HCL 25 MG CAP PO SCH (08:39)
[2018-05-21] MEDS: MELOXICAM 7.5 MG TAB PO SCH (08:39)
[2018-05-21 11:16] VITALS: BP 138/83; TEMP 97.6
[2018-05-21] MEDS ORDERED: MAGNESIUM SULFATE PREMIX 2GM 2 GM in PREMIX BAG 1 BAG IVPB ONE (12:05)
[2018-05-21] MEDS ORDERED: MAGNESIUM SULFATE PREMIX 2GM 50 ML IVPB ONE (12:11)
--- NOTE | 2018-05-29 20:42 | DS ---
SUPERVISING PHYSICIAN: John Henley M.D. DISCHARGE DIAGNOSIS: 1. Right upper lobe pneumonia, most likely, community acquired. 2. Likely chronic obstructive pulmonary disease which has not been previously diagnosed with a mild exacerbation. 3. Liver cirrhosis secondary to chronic alcohol abuse for which he is currently not utilizing at this time. 4. Hypertension which is currently controlled. 5. Hyponatremia. 6. Anemia. HISTORY OF PRESENT ILLNESS: This is a 68 year-old male patient who came to the Emergency Room with constant right sided chest pain since the prior night before admission. He woke up during the night with right sided chest pain. His pain was sharp and not radiating. When he came to the Emergency Room his workup included labs and films. He was shown to have a right upper lobe infiltrate. White count was elevated at 15,000. He denied any fever or chills at home but he does smoke and he also has very little exercise. He does have a distant history of a pulmonary embolism and a deep venous thrombosis. HOSPITAL COURSE: His initial lab showed a white count 15,800 with hemoglobin 9.5 and hematocrit 29.7. He had a left shift on differential. Initial sodium was low at 129 with chloride 99, BUN 27 and creatinine 1.32. His normal creatinine is about 0.9. Magnesium was also low at 1.5. Chest x-ray showed a right upper lobe pneumonia. He had an ultrasound of his lower extremities that showed no sonographic evidence of acute DVT of the lower extremities. He was given IV fluids and started on Levaquin. He was given aggressive pulmonary hygiene including nebulizers. Over the course of the next few days his condition stabilized. His chest x-ray showed stable right upper lobe pneumonia. Vital signs were stable. He was afebrile and his O2 sats were in the upper 90s on room air. Electrolytes basically stabilized, although he did have a low magnesium this morning and it was replaced prior to his discharge. White count stabilized to 8.2 and he will be discharged home today in stable condition. DISCHARGE PLAN: The patient will be discharged home in stable condition. He received an additional dose of magnesium today and he is to have his followup with Dr. Chauhan within 1 to 2 weeks. I have also sent him home on some Levaquin and some Guaifenesin. He has home health through [facility] and he will continue with that. He is to resume his previous exercise as well as diet and his home medications. He is to followup with Dr. Chauhan's office or to return to the hospital for any problems or complications. DISCHARGE MEDICATIONS: 1. Omeprazole. 2. Amitriptyline. 3. Aricept. 4. Flomax. 5. Hydrocodone. 6. Triamcinolone cream. 7. Clotrimazole Betamethasone cream. 8. Milk of Magnesia. 9. Crestor. 10. Meloxicam. 11. Albuterol. 12. Doxepin. 13. Guaifenesin. 14. Levaquin. [facility][id number] [facility]
== END 2018-05-21 13:40 | disposition home health service (06) | DRG 194 ==
LOC: ER 13:13 → MS 16:16
PROVIDERS: ADMIT Nurse Practitioner; ATTEND Nurse Practitioner Acute Care
DX: J18.9 Pneumonia, unspecified organism (principal); J44.1 Chronic obstructive pulmonary disease with (acute) exacerbation; J44.0 Chronic obstructive pulmonary disease with (acute) lower respiratory infection; E87.1 Hypo-osmolality and hyponatremia; I10 Essential (primary) hypertension; D64.9 Anemia, unspecified; K70.30 Alcoholic cirrhosis of liver without ascites; E83.42 Hypomagnesemia; F32.9 Major depressive disorder, single episode, unspecified; G40.909 Epilepsy, unspecified, not intractable, without status epilepticus; G89.29 Other chronic pain; F03.90 Unspecified dementia, unspecified severity, without behavioral disturbance, psychotic disturbance, mood disturbance, and anxiety; N40.0 Benign prostatic hyperplasia without lower urinary tract symptoms; M10.9 Gout, unspecified; M19.90 Unspecified osteoarthritis, unspecified site; M54.40 Lumbago with sciatica, unspecified side; F17.210 Nicotine dependence, cigarettes, uncomplicated; Z96.642 Presence of left artificial hip joint; Z88.1 Allergy status to other antibiotic agents; Z86.73 Personal history of transient ischemic attack (TIA), and cerebral infarction without residual deficits; Z91.048 Other nonmedicinal substance allergy status; Z86.711 Personal history of pulmonary embolism; Z86.718 Personal history of other venous thrombosis and embolism; Z79.891 Long term (current) use of opiate analgesic; Z79.52 Long term (current) use of systemic steroids; Z79.899 Other long term (current) drug therapy

== ENCOUNTER 2018-12-12 12:31 | Inpatient (IN) | payer MEDICARE, OTHER ==
[2018-12-12] MEDS ORDERED: SODIUM CHLORIDE 0.9% (FLUSH) 10 ML SYG IV PRN ×2 (12:51→17:01)
[2018-12-12] MEDS ORDERED: ASPIRIN TABLET 325 MG TAB PO ONE (12:51)
[2018-12-12] MEDS ORDERED: IPRATROPIUM/ALBUTEROL 3 ML VIAL NEB ONE (12:52)
--- NOTE | 2018-12-12 12:54 | ED.PDOC ---
History of Present Illness - General Chief Complaint: Respiratory Problem Stated Complaint: States he cannot breathe Time Seen by Provider: 12/12/18 12:50 Source: patient Exam Limitations: other - PT IS A POOR HISTORIAN AND DIFFICULT TO UNDERSTAND - History of Present Illness Initial Comments: PT PRESENTS TO THE ED WITH COMPLAINT OF SOB X 1 WK. PT ALSO REPORTS NON PRODUCTIVE COUGH AND SHARP PLEURITIC CHEST PAIN. PT REPORTS HISTORY OF COPD BUT DENIES OXYGEN DEPENDENCE. PT SMOKES 1/2PPD. Severity: moderate Improving Factors: immobilization, rest Worsening Factors: movement Associated Symptoms: chest pain, cough Allergies/Adverse Reactions: Allergies Iodine Allergy (Severe, Verified 12/12/18 12:41) Other makes him feel like he is having "a heart attack" Cephalexin [From Keflex] Allergy (Verified 12/12/18 12:41) Home Medications: Ambulatory Orders Omeprazole [Prilosec] 40 mg PO ACBK 07/05/14 Amitriptyline HCl 150 mg PO BEDTIME 10/24/15 Donepezil HCl [Aricept] 5 mg PO BEDTIME 08/23/16 Tamsulosin [Flomax] 0.4 mg PO BEDTIME 08/23/16 HYDROcodone 10MG/APAP 325MG [[place] 10/325] 1 tab PO BID 08/01/17 Albuterol Sulfate [Ventolin Hfa] 108 mcg IN Q4H PRN 05/18/18 Clotrimazole W/ Betamethasone [Clotrimazole/Betamethason 1-0.05 %] 1 cre EX DAILY 05/18/18 Doxepin HCl 25 mg PO DAILY 05/18/18 Magnesium Hydroxide [Milk Of Magnesia] 30 ml PO DAILY PRN 05/18/18 Meloxicam 15 mg PO DAILY 05/18/18 Rosuvastatin Calcium 20 mg PO BEDTIME 05/18/18 Triamcinolone Acetonide (Topic [Triamcinolone Acetonide] 0.1 % EX DAILY 05/18/18 Levofloxacin [Levaquin] 750 mg PO DAILY #5 tablet 05/21/18 guaiFENesin ER TAB [Mucinex Tab] 600 mg PO BID #60 tab 05/21/18 Review of Systems - Review of Systems Constitutional: Denies: chills, fever EENTM: Denies: nose congestion, throat pain Respiratory: States: see HPI, cough, short of breath Cardiology: States: see HPI, chest pain. Denies: palpitations Gastrointestinal/Abdominal: Denies: abdominal pain, nausea, vomiting Genitourinary: Denies: dysuria, frequency Musculoskeletal: Denies: joint pain, joint swelling Skin: Denies: dryness, lesions Neurological: Denies: headache, numbness Endocrine: States: no symptoms reported Hematologic/Lymphatic: States: no symptoms reported Past Medical History (General) - Patient Medical History Hx Seizures: Yes Hx Stroke: Yes Hx Dementia: Yes Hx Asthma: No Hx of COPD: Yes Hx Cardiac Disorders: Yes Hx Congestive Heart Failure: No Hx Pacemaker: No Hx Hypertension: Yes Hx Thyroid Disease: No Hx Diabetes: No Hx Gastroesophageal Reflux: Yes Hx Renal Disease: No Hx Cancer: No Hx of HIV: No Hx Hepatitis C: No Hx MRSA: No - Vaccination History Hx Tetanus, Diphtheria Vaccination: No Hx Influenza Vaccination: Yes - 2018 Hx Pneumococcal Vaccination: Yes - Social History Hx Tobacco Use: Yes Hx Chewing Tobacco Use: No Hx Alcohol Use: No Hx Substance Use: No Hx Substance Use Treatment: No Hx Depression: No Hx Physical Abuse: No Hx Emotional Abuse: No Hx Suspected Abuse: No - Female History Patient : No Family Medical History - Family History Mother Family History: Unknown Living Status: Hx Cardiac Disease: Yes - mom Physical Exam - Physical Exam General Appearance: Alert, Anxious, Ill Appearing, Well Hydrated Eyes, Ears, Nose, Throat Exam: normal ENT inspection Neck: normal inspection Respiratory: no respiratory distress, decreased breath sounds Cardiovascular/Chest: regular rate, rhythm, no murmur Gastrointestinal/Abdominal: non tender, soft Extremity: normal inspection, no pedal edema Neurologic: alert, normal mood/affect, oriented x 3 Skin Exam: warm/dry, pallor Progress - Progress Progress: 12/12/18 15:21 PT RESTING COMFORTABLY, LABS AND DIAGNOSTICS DISCUSSED WITH PT AND FAMILY AT BEDSIDE. - Results/Orders Results/Orders: Laboratory Tests 12/12/18 12/12/18 13:23 13:23 WBC 16.2 H RBC 3.71 L Hgb 7.9 L* Hct 25.5 L MCV 68.6 L MCH 21.3 L MCHC 31.1 L RDW 19.5 H Plt Count 471 H MPV 7.3 L Absolute Neuts (auto) 14.50 H Absolute Lymphs (auto) 1.00 Absolute Monos (auto) 0.70 Absolute Eos (auto) 0.00 Absolute Basos (auto) 0.10 Neutrophils % 89.3 H Lymphocytes % 6.1 L Monocytes % 4.0 Eosinophils % 0.0 L Basophils % 0.6 Normal RBC Morphology 1+microcytosis PT 10.3 INR 1.03 PTT (SP) 25.6 Sodium 127 L Potassium 5.1 H Chloride 98 L Carbon Dioxide 18 L Anion Gap 16.1 BUN 46 H Creatinine 1.31 H BUN/Creatinine Ratio 35.1 H Random Glucose 107 H Serum Osmolality 267.6 L Calcium 9.1 Magnesium 1.5 L Total Bilirubin 0.4 Direct Bilirubin < 0.1 Indirect Bilirubin 0.3 AST 15 ALT 9 L Alkaline Phosphatase 102 Creatine Kinase 62 CK-MB (CK-2) 1.6 CK-MB (CK-2) % Not Reportable Troponin I < 0.02 B-Natriuretic Peptide 64.2 Serum Total Protein 7.8 Albumin 3.4 - EKG/XRAY/CT EKG: Sinus, Tachy - @104BPM, QRS 120MS, LAD, POOR R WAVE PROGRESSION, no ST T wave changes, Unchanged from - 05/18/18 Departure - Departure Clinical Impression: Left upper lobe pneumonia, COPD with acute exacerbation, Anemia, Esophagitis, Chest pain, atypical, Acute kidney injury, Hyperkalemia, Dehydration Time of Disposition: 15:26 Disposition: Admit Patient Condition: Poor Departure Forms: ED Discharge - Pt. Copy, Patient Portal Self Enrollment Referrals: Bryce Chauhan MD [Primary Care Provider] - 1-2 Weeks Home Medications: Ambulatory Orders Omeprazole [Prilosec] 40 mg PO ACBK 07/05/14 Amitriptyline HCl 150 mg PO BEDTIME 10/24/15 Donepezil HCl [Aricept] 5 mg PO BEDTIME 08/23/16 Tamsulosin [Flomax] 0.4 mg PO BEDTIME 08/23/16 HYDROcodone 10MG/APAP 325MG [[place] ] 1 tab PO BID 08/01/17 Albuterol Sulfate [Ventolin Hfa] 108 mcg IN Q4H PRN 05/18/18 Clotrimazole W/ Betamethasone [Clotrimazole/Betamethason 1-0.05 %] 1 cre EX DAILY 05/18/18 Doxepin HCl 25 mg PO DAILY 05/18/18 Magnesium Hydroxide [Milk Of Magnesia] 30 ml PO DAILY PRN 05/18/18 Meloxicam 15 mg PO DAILY 05/18/18 Rosuvastatin Calcium 20 mg PO BEDTIME 05/18/18 Triamcinolone Acetonide (Topic [Triamcinolone Acetonide] 0.1 % EX DAILY 05/18/18 Levofloxacin [Levaquin] 750 mg PO DAILY #5 tablet 05/21/18 guaiFENesin ER TAB [Mucinex Tab] 600 mg PO BID #60 tab 05/21/18 Decision To Admit - Decistion To Admit Decision to Admit Reason: Admit from ER Decision to Admit Date: 12/12/18 Decision to Admit Time: 15:28 - CASE DISCUSSED WITH BACILIO ALEXIS NP WHO AGREES TO ADMIT
[2018-12-12] MEDS ORDERED: ALUM & MAG HYDROX-SIMETHICONE 30 ML, LIDOCAINE VISCOUS 2% 15 ML PO ONE ×2 (13:25)
[2018-12-12] MEDS ORDERED: ALUM & MAG HYDROX-SIMETHICONE 30 ML UD ONE (13:28)
[2018-12-12] MEDS ORDERED: LIDOCAINE HCL 2% (MOUTH-THROAT) 15 ML UD ONE (13:28)
[2018-12-12] MEDS ORDERED: PANTOPRAZOLE SODIUM IV 40 MG VIAL IV ONE (13:53)
[2018-12-12] MEDS ORDERED: SODIUM CHLORIDE 0.9% 1000ML 1,000 ML IVS ONE (13:53)
--- NOTE | 2018-12-12 14:35 | RAD ---
EXAM: XR Chest, 1 View CLINICAL HISTORY: 68 years old and is Male; SOB TECHNIQUE: Frontal view of the chest. COMPARISON: 05/20/2018 FINDINGS: Limitations: None. Lungs: Chronic obstructive changes are present. There is consolidation in the periphery of the left upper lobe. Areas of parenchymal scarring are noted bilaterally. Pleural space: There are small bilateral pleural effusions. No pneumothorax. Heart: Unremarkable. No cardiomegaly. Mediastinum: Unremarkable. Bones/joints: Unremarkable. IMPRESSION: 1. COPD with left upper lobe consolidation concerning for pneumonia. Follow-up until resolution needed. 2. Small pleural effusions. Electronically signed by: Kori Sims MD 12/12/2018 1:14 PM CDT
[2018-12-12] MEDS ORDERED: levoFLOXacin 750MG IV 750 MG in PREMIX BAG 1 BAG IVPB ONE (14:37)
--- NOTE | 2018-12-12 15:01 | CT ---
EXAM: CT Abdomen and Pelvis With Intravenous Contrast CLINICAL HISTORY: 68 years old and is Male; ABD PAIN EPIGASTRIC TECHNIQUE: Axial computed tomography images of the abdomen and pelvis with intravenous contrast. Sagittal and coronal reformatted images were created and reviewed. This CT exam was performed using one or more of the following dose reduction techniques: automated exposure control, adjustment of the mA and/or kV according to patient size, and/or use of iterative reconstruction technique. COMPARISON: 02/09/2017 FINDINGS: Limitations: None. Lung bases: Unremarkable. No mass. No consolidation. Pleural space: There is stable left basilar pleural thickening. There is dependent consolidation in the left base along the pleural thickening. There is minimal atelectasis and/or scarring in the right base. Mediastinum: There is circumferential thickening and dilatation of the distal third of the esophagus. ABDOMEN: Liver: Unremarkable. No mass. Gallbladder and bile ducts: Unremarkable. No calcified stones. No ductal dilation. Pancreas: Unremarkable. No mass. No ductal dilation. Spleen: Unremarkable. No splenomegaly. Adrenals: Unremarkable. No mass. Kidneys and ureters: There is mild scarring of each renal cortex. There is a benign cyst in the lower pole the left kidney measuring 1 cm. No hydronephrosis or stone. Stomach and bowel: There is a mild amount of layering fluid throughout the end small bowel without distention. There is formed stool in the right and transverse colon. There are scattered diverticula. No mucosal thickening. PELVIS: Appendix: No findings to suggest acute appendicitis. Bladder: Unremarkable. No mass. Reproductive: Unremarkable as visualized. ABDOMEN and PELVIS: Intraperitoneal space: Unremarkable. No free air. No significant fluid collection. Bones/joints: Postoperative and degenerative changes of the lower lumbar spine. No acute fracture. No dislocation. Soft tissues: Unremarkable. Vasculature: There is atherosclerosis of the aorta and branches. No aneurysm. Lymph nodes: Unremarkable. No enlarged lymph nodes. IMPRESSION: 1. Distal esophageal thickening. Correlate clinically for esophagitis. 2. While nonspecific small bowel stasis. This can be seen with any diarrhea causing disease. No inflammatory process noted. Electronically signed by: Kori Sims MD 12/12/2018 2:59 PM CDT
--- NOTE | 2018-12-12 16:09 | HP ---
SUPERVISING PHYSICIAN: Antonino Rucker M.D. CHIEF COMPLAINT: Shortness of breath. HISTORY OF PRESENT ILLNESS: This is a 68 year-old male patient who has had a history of shortness of breath over the last week, but it worsened to the point today he felt like he could not get his breath so he came to the Emergency Room. He has a significant history of chronic obstructive pulmonary disease and has been hospitalized several times for pneumonia with COPD exacerbation. He does not use oxygen at home but he smokes 1 to 2 packs of cigarettes daily. In the E. R., his initial vital signs showed a temperature of 97.9 with a heart rate of 100, blood pressure 110/80 with respiratory rate 28 and oxygen saturation of 96% on room air, but due to his tachypnea and diminished breath sounds he received several nebulizer treatments. Blood cultures were drawn and he was started on Levaquin. He also received a GI slider because he also complained of some chronic acid reflux that he has had over the last week along with his shortness of breath symptoms. He lives at home with his son. His lab showed sodium 127, potassium 5.1, chloride 98, carbon dioxide 18, BUN 46, creatinine 1.31. Baseline creatinine is about 1. Glucose 107, magnesium 1.5. CBC showed a white count of 16,200. He had a hemoglobin of 7.9 and hematocrit 25.5. He had a left shift on his differential. Platelets are slightly high at 471. I was called for hospital admission. PAST MEDICAL HISTORY: 1. Hypertension. 2. Depression. 3. Seizure disorder. 4. Chronic sciatica pain. 5. Chronic low back pain. 6. Dementia. 7. Previous ETOH abuse with current cirrhosis. 8. Benign prostatic hypertrophy. 9. CVA in the past. 10. History of pulmonary embolism. 11. History of deep venous thrombosis. 12. Gout. 13. Osteoarthritis. PAST SURGICAL HISTORY: 1. Left total knee arthroplasty. CURRENT MEDICATIONS: Per the EMR and awaiting verification. ALLERGIES: IODINE AND CEPHALOSPORIN. FAMILY HISTORY: Cancer. SOCIAL HISTORY: He smokes 1 to 2 packs of cigarettes daily. Has a history of alcohol abuse but quit several years ago. He lives at home with his son. REVIEW OF SYSTEMS: GENERAL: Negative for chills, fever or weight changes. HEENT: Negative for sinus symptoms, sore throat, vision changes or ear pain. RESPIRATORY: As per the History of Present Illness, positive for coughing, wheezing and shortness of breath. CARDIAC: Negative for chest pain, palpitations or tachycardia. GASTROINTESTINAL: Negative for abdominal pain, nausea, vomiting, diarrhea or constipation. He denies any occult blood in his stools. Positive for frequent acid reflux. GENITOURINARY: Negative for dysuria, polyuria or hematuria. MUSCULOSKELETAL: Negative for arthralgias or myalgias. SKIN: Negative for lesions or rashes. NEUROLOGIC: Positive for history of seizures but negative for headaches or dizziness. HEMATOLOGIC: Negative for any unusual bleeding or bruising. PHYSICAL EXAMINATION: VITAL SIGNS: Temperature 98.1, heart rate 102, blood pressure 127/78, respiratory rate 22, O2 sat 95% on room air. GENERAL: This is a 68 year-old male patient who is disheveled. He is in mild respiratory distress. HEENT: Normocephalic and atraumatic. Pupils are equal and reactive. He is edentulous. Oropharynx is clear. NECK: Supple without mass. RESPIRATORY: Diminished breath sounds throughout with a few scattered rhonchi. There is no expiratory wheezing. He is tachypneic at times and speaks in short phrases. CHEST: There is equal rise and fall of the chest with inspiration and expiration. CARDIOVASCULAR: Regular rate and rhythm. GASTROINTESTINAL: Abdomen is soft but it is distended. It is non-tender. Bowel sounds are positive. EXTREMITIES: No clubbing, cyanosis or edema. NEUROLOGIC: He is awake, alert and oriented times three. Cranial nerves II-XII are grossly intact. SKIN: Warm and dry although he is slightly pale. LABORATORY: Labs are as per the History of Present Illness. RADIOLOGY: Abdominal/pelvis CT shows: 1. Distal esophageal thickening. Correlate clinically for esophagitis. 2. While nonspecific small bowel stasis. This can be seen with diarrhea- causing disease. No inflammatory process is noted. Chest x-ray: 1. Chronic obstructive pulmonary disease with left upper lobe consolidation concerning for pneumonia. 2. Small pleural effusions. All other labs and films have been reviewed via the EMR. ASSESSMENT: 1. Sepsis related to left upper lobe pneumonia most likely community acquired with admission WBCs of 16,200, heart rate 100, respiratory rate 28. 2. Chronic obstructive pulmonary disease with acute exacerbation in a chronic smoker. 3. Symptomatic anemia with hemoglobin of 7.9 and hematocrit 25.5. 4. Acute on chronic renal failure. His baseline creatinine is about 1. His admitting creatinine was 1.31. 5. Electrolyte imbalance, specifically hyponatremia, hyperkalemia, hypochloridemia and hypomagnesemia. 6. Abdominal distention with chronic gastroesophageal reflux disease on Prilosec. 7. Hypertension. 8. Gout. 9. Seizure disorder history. 10. History of deep venous thrombosis and pulmonary embolus presently on no anticoagulant therapy. PLAN: We will admit the patient to the hospital. I have initiated pulmonary guidelines. We will continue on Levaquin and due to his renal issues will dose it every 48 hours. I have ordered sputum cultures. Will follow his cultures as sensitivities become available. I have encouraged him to stop smoking. At this point I am not starting him on any steroids but he may need those, but at this point he is not wheezing and he is on aggressive pulmonary hygiene, including nebulizer treatments. I have also typed and crossed him for 2 units of packed red blood cells and as soon as those are available we will administer those. I have also ordered stool for guaiac and an abdominal x-ray for in the morning. I have started him on Lovenox for DVT prophylaxis, Protonix for ulcer prophylaxis. As soon as his home medications are verified, we will restart those. I have also done a Technical Healthcare Consultant consultation for discharge planning as well as a Physical Therapy to assure safeness for discharge. Will continue to monitor closely and follow as needed. [facility][id number]
[2018-12-12] MEDS ORDERED: MAGNESIUM SULFATE PREMIX 2GM 2 GM in PREMIX BAG 1 BAG IVPB ONE (17:00)
[2018-12-12] MEDS ORDERED: ACETAMINOPHEN 325 MG TAB PO PRN (17:01)
[2018-12-12] MEDS ORDERED: ALBUTEROL SULFATE 2.5 MG/3 ML VIAL NEB PRN (17:01)
[2018-12-12] MEDS ORDERED: ONDANSETRON INJ 4 MG/2 ML VIAL IV PRN (17:01)
[2018-12-12] MEDS ORDERED: MAGNESIUM SULFATE PREMIX 2GM 50 ML IVPB ONE (17:09)
[2018-12-12] MEDS ORDERED: FUROSEMIDE INJ 40 MG/4 ML VIAL IV ONE (17:11)
[2018-12-12] MEDS ORDERED: ACETAMINOPHEN 325 MG TAB PO ONE (17:11)
[2018-12-12] MEDS ORDERED: diphenhydrAMINE HCL 50 MG/ML VIAL IV ONE (17:11)
[2018-12-12] MEDS ORDERED: SODIUM CHLORIDE 0.9% 500ML 500 ML IVS SCH (17:30)
[2018-12-12] MEDS ORDERED: ALUMINUM & MAGNESIUM HYDROXIDE 30 ML UD PO PRN (18:55)
[2018-12-12] MEDS ORDERED: AMITRIPTYLINE HCL 25 MG TAB ONE (20:41)
[2018-12-12] MEDS: HYDROcodone 10MG/APAP 325MG 1 EA TAB PO SCH (20:45)
[2018-12-12] MEDS: IPRATROPIUM/ALBUTEROL 3 ML VIAL INH SCH (20:47)
[2018-12-12] MEDS: TAMSULOSIN 0.4 MG CAP PO SCH (20:47)
[2018-12-12] MEDS: DONEPEZIL HCL 5 MG TAB PO SCH (20:47)
[2018-12-12] MEDS ORDERED: NON-FORMULARY MEDICATION 1 EA MIS (Amitriptyline Hcl [Amitriptyline Hcl] 150 MG) PO SCH (21:00)
[2018-12-12] MEDS ORDERED: NON-FORMULARY MEDICATION 1 EA MIS (Rosuvastatin Calcium [Rosuvastatin Calcium] 20 MG) PO SCH (21:00)
[2018-12-12] MEDS: SODIUM CHLORIDE 0.9% (FLUSH) 10 ML SYG IV SCH (21:34)
[2018-12-13] MEDS: IV SET AND CAP CHANGE INJ INJ SCH (00:49)
[2018-12-13] MEDS: PANTOPRAZOLE SODIUM IV 40 MG VIAL IV SCH (06:04)
--- NOTE | 2018-12-13 07:37 | RAD ---
EXAM DESCRIPTION: Chest,2 Views CLINICAL HISTORY: Pneumonia COMPARISON: December 12, 2018 FINDINGS: Two-view chest x-ray shows cardiomediastinal silhouette and pulmonary vasculature to be within normal limits. The lungs are hyperinflated. Interstitial alveolar wedge-shaped infiltrate in the mid left chest is seen. Chronic increased interstitial changes throughout the lungs are noted. Mild blunting of left costophrenic angle is seen. Moderate multilevel disc degenerative changes of the spine suggest ankylosing spondylitis versus diffuse idiopathic skeletal hyperostosis. IMPRESSION: Persistent infiltrate in the left upper lobe could represent pneumonia. Continued follow-up until resolution is recommended to exclude neoplastic process. Chronic interstitial changes to lungs are noted. Small left pleural effusion or pleural thickening is again seen. Electronically signed by: Abad Franklin MD 12/13/2018 7:35 AM CDT
--- NOTE | 2018-12-13 07:39 | RAD ---
EXAM DESCRIPTION: Abdomen Flat Upright CLINICAL HISTORY: abd pain COMPARISON: February 11, 2017 FINDINGS: AP supine and upright views of the abdomen show a nonspecific, nonobstructive bowel gas pattern with no evidence for free intraperitoneal air. Mildly dilated air-filled loops of small bowel colon throughout the abdomen are again seen less prominent than previous. No air-fluid levels. No obvious organomegaly is seen. No abnormal calcifications are seen in the expected location of the renal collecting systems. The visualized lung bases show no acute findings. Mild blunting of the left costophrenic angle suggest small pleural effusion. Infiltrate in the left mid upper lobe is seen. Postsurgical changes to lower lumbar spine are noted. IMPRESSION: Nonspecific abdominal series. Findings could represent ileus. Mid left upper lobe infiltrate is again seen. Electronically signed by: Abad Franklin MD 12/13/2018 7:36 AM CDT
[2018-12-13] MEDS: IPRATROPIUM/ALBUTEROL 3 ML VIAL INH SCH ×4 (08:27→20:37)
[2018-12-13] MEDS: HYDROcodone 10MG/APAP 325MG 1 EA TAB PO SCH ×2 (08:45→20:28)
[2018-12-13] MEDS: SODIUM CHLORIDE 0.9% (FLUSH) 10 ML SYG IV SCH ×2 (08:46→20:28)
[2018-12-13] MEDS ORDERED: DOXEPIN HCL 25 MG PO SCH (09:00)
[2018-12-13] MEDS: levoFLOXacin 750MG IV 750 MG in PREMIX BAG 1 BAG IVPB SCH (14:55)
[2018-12-13] MEDS ORDERED: MAGNESIUM HYDROXIDE 30 ML UD PO ONE (18:05)
[2018-12-13] MEDS: TAMSULOSIN 0.4 MG CAP PO SCH (20:28)
[2018-12-13] MEDS: ATORVASTATIN 20 MG TAB PO SCH (20:28)
[2018-12-13] MEDS: AMITRIPTYLINE HCL 25 MG TAB PO SCH (20:28)
[2018-12-13] MEDS: DONEPEZIL HCL 5 MG TAB PO SCH (20:28)
--- NOTE | 2018-12-13 21:17 | CONS ---
DATE OF CONSULTATION: 12/13/18 HISTORY OF PRESENT ILLNESS: The patient is a 68 year-old male who was admitted through the Emergency Room yesterday with shortness of breath, tachypnea, abdominal distention and reflux symptoms. He has been found to have distended bowel, leukocytosis and I have been asked to help with his treatment and workup. PAST MEDICAL HISTORY: 1. Hypertension. 2. Depression. 3. Seizure disorder. 4. Chronic low back pain and takes Hydrocodone for that. 5. Dementia. 6. Alcohol abuse with possible cirrhosis. 7. Benign prostatic hypertrophy. 8. Cerebrovascular accident. 9. Deep venous thrombosis. 10. Gout. 11. Osteoarthritis. PAST SURGICAL HISTORY: 1. Left total knee arthroplasty. CURRENT MEDICATIONS: Listed in the chart. ALLERGIES: IODINE AND CEPHALOSPORIN. FAMILY HISTORY: Positive for malignancies. SOCIAL HISTORY: The patient lives at home with his son. He has a greater than 40 pack year history of tobacco abuse and a history of alcohol abuse in the past. Currently does not smoke. REVIEW OF SYSTEMS: Negative for weight loss, fever or chills. He denies upper respiratory symptoms. He was coughing, wheezing and short of breath. Denied chest pain. He denied abdominal pain, nausea or vomiting. He said his last bowel movement was the day prior to his admission. Denies any change in his bowel habits. Denies melenic stools or bright red blood per rectum. Does complain of reflux symptoms on an ongoing basis. He has no history of dysuria or problems voiding. PHYSICAL EXAMINATION: VITAL SIGNS: Currently afebrile and normotensive. GENERAL: He is awake, alert and cooperative, and in no acute distress. He states that he has no abdominal pain but his abdomen is distended and tight. HEENT: Sclera are nonicteric. Mucous membranes are moist. NECK: Without adenopathy. BACK: No CVA tenderness. CHEST: Decreased breath sounds on the left, especially with no wheezing. HEART: Regular rate and rhythm. ABDOMEN: Soft, distended. No tenderness. No masses. Bowel sounds are active. RECTAL: Examination is deferred. EXTREMITIES: Without clubbing, cyanosis or edema. LABORATORY: Clear urine. White count is 12.7 today from 16.2 in the emergency room. Hemoglobin 8.9 down from 7.9, platelet count 421 down from 471. He has 81 segs as opposed to 89 on admission. PT, INR and PTT are all within normal limits. Chemistries: Potassium is down from 5.1 to 4.3, creatinine is up slightly from 1.31 to 1.39, BUN is down from 35 to 30. Liver functions are within normal limits. BNP was normal. CK, CK-MB and troponin were all normal. CT scan of the abdomen reveals possible thickening of the distal esophagus. X- ray today reveals less distention of the bowel but continued air and some distention of the small bowel and solid stool in the right colon. IMPRESSION: 1. Abdominal distention, obstipation secondary to chronic narcotic use versus partial obstruction. 2. Anemia of uncertain etiology, possible blood loss in the gastrointestinal tract either from upper or lower tracts versus a myelodysplastic syndrome associated with his chronic renal failure. 3. Other multiple medical issues. PLAN: Will begin catharsis from above, possibly arrange for endoscopy on Thursday during this hospitalization. [facility][id number]
--- NOTE | 2018-12-13 22:12 | PN ---
DATE: 12/13/18 SUPERVISING PHYSICIAN: Alexander Harris M.D. SUBJECTIVE: The patient notes that he is not hurting as much as it was yesterday. He actually was able to eat lunch. He was given 2 units of packed RBCs last night without any complications. He remains afebrile. No chest pains. OBJECTIVE: VITAL SIGNS: Temperature 98, pulse 77, blood pressure 136/88, respirations 18, satting 99% on room air. I's and O's show a negative balance of 455 with 1095 in, 1550 out. Weight is 80.2 kg. GENERAL: The patient is resting comfortably. Appears to be in no acute distress. CHEST: Lung sounds are diminished throughout with continued rhonchi heard throughout all gee but no obvious inspiratory or expiratory wheezing. He continues to speak in short phrases. HEART: Regular rate and rhythm. ABDOMEN: Continues to be distended but is soft, non-tender with positive bowel sounds. EXTREMITIES: Without any edema. NEUROLOGIC: He is alert and oriented times three. LABORATORY: White count is down to 12,700, hemoglobin is up to 8.9, chronic 28.3, platelet count 421,000. Differential does show a left shift. Chemistries show sodium 130 which is improved from 127. Normalized potassium at 4.3 with carbon dioxide 19, anion gap is normal at 15, BUN is 42, creatinine is up to 1.39. Liver functions are showing to be within normal limits. MICROBIOLOGY: Blood cultures remain negative. Sputum culture is pending. RADIOLOGY: Abdominal series this morning per radiology interpretation showed nonspecific abdominal series. Findings could represent ileus. There was note of a left upper lobe infiltrate that was once again seen. This was followed-up with a chest x-ray per radiology interpretation which shows persistent infiltrate in the left lower lobe which could represent pneumonia. Continue to follow to resolution recommended to exclude neoplastic process. Small left pleural effusion and pleural thickening was again seen. Please see that detailed report. ASSESSMENT: 1. Sepsis related to left upper lobe pneumonia most likely community acquired with admission WBCs of 16,200, heart rate 100, respiratory rate 28. 2. Chronic obstructive pulmonary disease with acute exacerbation in a chronic smoker. 3. Symptomatic anemia with hemoglobin and hematocrit responding to 2 units of packed RBCs, uncertain etiology, with the patient showing some concerning findings on CT scan for possible esophagitis with no acute blood loss noted on admission. 4. Abdominal distention with chronic gastroesophageal reflux disease and some findings on CT suggesting of esophagitis, likely exacerbation of his GERD currently on Prilosec and Protonix. 5. Acute on chronic renal failure. His baseline creatinine is about 1. His admitting creatinine was 1.31. 6. Electrolyte imbalance, specifically hyponatremia, hyperkalemia, hypochloridemia and hypomagnesemia. 7. Hypertension. 8. Gout. 9. Seizure disorder history. 10. History of deep venous thrombosis and pulmonary embolus presently on no anticoagulant therapy. PLAN: He will continue on aggressive pulmonary hygiene, antibiotic coverage with Levaquin that has now been renally dosed as his renal function shows improvement and he is on every 24 hours. Will await sputum cultures and blood cultures to further target antibiotic therapy. Will anticipate at least another 24 hours of hospitalization, possibly discharging later tomorrow. I have also ordered a consultation with Dr. Bach in regards to the findings on x-ray today concerning for the possible ileus and CT findings with consistent probable esophagitis. I have also requested records from GI, specifically Dr. Gonzalez who did an EGD and a colonoscopy on him last year. Will anticipate again hopefully being able to discharge tomorrow. Until then will continue to monitor and treat as needed. [facility][id number] [facility]
[2018-12-14] MEDS: PANTOPRAZOLE SODIUM IV 40 MG VIAL IV SCH (06:01)
[2018-12-14] MEDS: IPRATROPIUM/ALBUTEROL 3 ML VIAL INH SCH ×4 (08:30→20:14)
[2018-12-14] MEDS: SODIUM CHLORIDE 0.9% (FLUSH) 10 ML SYG IV SCH ×2 (09:23→20:35)
[2018-12-14] MEDS: HYDROcodone 10MG/APAP 325MG 1 EA TAB PO SCH ×2 (09:23→20:34)
--- NOTE | 2018-12-14 10:22 | RAD ---
EXAM DESCRIPTION: Abdomen Flat Upright CLINICAL HISTORY: 68 years Male, fu distended small bowel COMPARISON: December 13, 2018 FINDINGS: Supine and upright views of the abdomen. Persistent air and fluid-filled loops of small bowel with moderate dilatation left upper quadrant and central abdomen with relatively decompressed colon not improved. Chronic scarring in the left lung base and left midlung. IMPRESSION: Mid small bowel obstruction-no improvement Electronically signed by: Rolando Monaco MD 12/14/2018 10:20 AM CDT
[2018-12-14] MEDS: levoFLOXacin 750MG IV 750 MG in PREMIX BAG 1 BAG IVPB SCH (15:22)
[2018-12-14] MEDS ORDERED: BISACODYL SUPPOSITORY 10 MG PR ONE ×2 (16:33→19:03)
[2018-12-14] MEDS: KCL 20MEQ/D5 1/2NS 1,000 ML IVS PRN (19:57)
[2018-12-14] MEDS: DONEPEZIL HCL 5 MG TAB PO SCH (20:33)
[2018-12-14] MEDS: ATORVASTATIN 20 MG TAB PO SCH (20:33)
[2018-12-14] MEDS: AMITRIPTYLINE HCL 25 MG TAB PO SCH (20:34)
[2018-12-14] MEDS: TAMSULOSIN 0.4 MG CAP PO SCH (20:34)
[2018-12-15] MEDS: KCL 20MEQ/D5 1/2NS 1,000 ML IVS PRN (04:15)
[2018-12-15] MEDS: PANTOPRAZOLE SODIUM IV 40 MG VIAL IV SCH (05:49)
[2018-12-15] MEDS ORDERED: ACETAMINOPHEN 325 MG TAB PO ONE (06:16)
[2018-12-15] MEDS ORDERED: SODIUM CHLORIDE 0.9% 500ML 500 ML IVS SCH (06:30)
--- NOTE | 2018-12-15 08:20 | RAD ---
EXAM DESCRIPTION: Abdomen Flat Upright CLINICAL HISTORY: 68 years Male, SBO COMPARISON: Abdominal radiographs 12/14/2018. TECHNIQUE: 2 views of the abdomen. IMPRESSION: Visualized portions of the thorax are unremarkable. Mildly improved small bowel obstruction with gaseous filled loops of bowel in the left abdomen measuring up to 3.0 cm in diameter. Mild stool within the proximal colon. There is no pathologic calcification overlying the renal shadows or expected course of the ureters. No free intraperitoneal air, portal venous gas, or pneumatosis is present. Lumbar spondylosis. Fusion of L4-S1. Electronically signed by: King Mckay MD 12/15/2018 8:17 AM CDT
[2018-12-15] MEDS: IPRATROPIUM/ALBUTEROL 3 ML VIAL INH SCH ×4 (08:38→20:12)
--- NOTE | 2018-12-15 09:21 | PN ---
SUPERVISING PHYSICIAN: Alexander Harris M.D. DATE: 12/14/18 SUBJECTIVE: The patient notes that he is having return of some of his abdominal pain and does not feel as well as he did yesterday. We did an x-ray and it show a possible obstruction. Dr. Bach has been consulted and is helping with management of the patient. He has been afebrile. He has had some nausea, but no vomiting at this point. OBJECTIVE: VITAL SIGNS: Temperature 98. Pulse 81. Blood pressure 127/82. Respiratory rate 16. Saturation 97% on room air. Weight is 78.8 kg. GENERAL: The patient is resting comfortably. He does appear to be without any acute distress, but he is obviously in some discomfort with pain. CHEST: Lung sounds are diminished throughout with some continued rhonchi on the left upper lobe compared to the right. HEART: Regular rate and rhythm. ABDOMEN: Distended, diffusely tender. No rebound tenderness. Hypoactive bowel sounds. EXTREMITIES: Without any edema. NEUROLOGIC: He is alert and oriented times three. LABORATORY: White count remains elevated at 12,200. Hemoglobin fairly stable at 9.2, hematocrit 28.8. Platelet count 412,000. Differential does continue with a left shift. Chemistries show sodium improving to 132, potassium 4.3, BUN 42, creatinine 1.19 which is improving from previous days of creatinine 1.39. He had one occult blood stool that was positive. MICROBIOLOGY: Blood cultures remain negative. Sputum culture is pending. RADIOLOGY: Abdominal x-ray this morning per radiologic interpretation showed mid small bowel obstruction with no improvement. ASSESSMENT: 1. Sepsis related to left upper lobe pneumonia most likely community acquired with admission WBCs of 16,200, heart rate 100, respiratory rate 28. 2. Chronic obstructive pulmonary disease with acute exacerbation in a chronic smoker. 3. Symptomatic anemia with hemoglobin and hematocrit responding to 2 units of packed RBCs, uncertain etiology, with the patient showing some concerning findings on CT scan for possible esophagitis with no acute blood loss noted on admission. 4. Abdominal distention with chronic gastroesophageal reflux disease and some findings of esophagitis on x-ray, CT as well as small bowel obstruction, uncertain etiology, but possibly exacerbated by gastroesophageal reflux disease with the patient currently on Prilosec and Protonix. 5. Acute on chronic renal failure, improved, near baseline levels. His baseline creatinine is about 1. His admitting creatinine was 1.31. 6. Electrolyte imbalance, specifically hyponatremia, hyperkalemia, hypochloridemia and hypomagnesemia. 7. Hypertension. 8. Gout. 9. Seizure disorder history. 10. History of deep venous thrombosis and pulmonary embolus presently on no anticoagulant therapy. PLAN: Dr. Bach continues to management the patient in regards to small bowel obstruction. The patient will be NPO. We will give him Dulcolax suppository to assist with resolving some of his constipation and hopefully with medical resolution of small bowel obstruction. We will plan to repeat labs and abdominal x-ray in the morning and follow Dr. Bach's recommendation in regards to the small bowel obstruction. He does continue with treatment for the underlying pneumonia with antibiotic therapy and seems to be doing well with this. Until he can transition to outpatient management, we will continue to monitor and treat as needed. #[id number] [facility]
[2018-12-15] MEDS: HYDROcodone 10MG/APAP 325MG 1 EA TAB PO SCH ×2 (11:45→20:20)
[2018-12-15] MEDS: SODIUM CHLORIDE 0.9% (FLUSH) 10 ML SYG IV SCH ×2 (11:46→20:21)
--- NOTE | 2018-12-15 14:03 | CONS ---
DATE OF CONSULTATION: 12/15/18 HISTORY OF PRESENT ILLNESS: Mr. Hammonds is a 68-year-old gentleman with a history of chronic low back pain on opiate therapy, history of stroke, hypertension who presented to the Emergency Room with dyspnea. He had a CT scan performed that showed a nondistended, fluid-filled small bowel. The patient did report abdominal distention. He had not had a bowel movement the day of admission, but yesterday did have a large bowel movement. He was tolerating a normal diet. There was no nausea or vomiting, no unintentional weight loss. He states he has had a colonoscopy and upper endoscopy about 2 to 3 years ago in [place]. He states they were normal, but he does not know any other details. He currently has no abdominal pain. He takes hydrocodone on a daily basis. PAST MEDICAL HISTORY: 1. Hypertension. 2. Depression. 3. Seizure disorder. 4. Chronic opiate use. 5. Dementia. 6. History of alcohol abuse. 7. Benign prostatic hypertrophy. 8. Cerebrovascular accident. 9. Deep venous thrombosis. 10. Gout. 11. Osteoarthritis. PAST SURGICAL HISTORY: 1. Left total knee arthroplasty. ALLERGIES: IODINE, CEPHALOSPORINS. FAMILY HISTORY: No family history of GI malignancy. SOCIAL HISTORY: Active tobacco user. Remote history of alcohol abuse. Currently, no alcohol use. REVIEW OF SYSTEMS: Ten-point review of systems is negative other than listed in history of present illness. PHYSICAL EXAMINATION: VITAL SIGNS: Atrial fibrillation. Normal blood pressure and heart rate. GENERAL: The patient appears disheveled, but alert and oriented x3. He is comfortable. HEENT: No conjunctival icterus. Mucous membranes moist. CHEST: No increased work of breathing. HEART: S1, S2, regular rate and rhythm. ABDOMEN: Soft, nondistended, nontender. EXTREMITIES: No edema. LABORATORY: White blood cells 7.2, hemoglobin 7.9. MCV on admission was 68.6. He received 2 units of blood and over the next two days, his hemoglobin is the same. Platelet count 328. CT abdomen and pelvis shows impression of distal esophageal thickening and mild amount of layering fluid throughout the small bowel without distension, formed stool in the right and transverse colon, scattered diverticula. ASSESSMENT: This is a 68-year-old gentleman presenting for evaluation of abdominal distention and microcystic anemia, currently abdominal symptoms are improved. PLAN: 1. I suspect that the CT findings and abdominal distention may represent sequelae of chronic narcotic use. The patient should take MiraLAX 17 grams daily on a daily basis, titrating up to twice a day if required in order to have a bowel movement daily. 2. For his microcystic anemia, likely iron deficiency, the patient should have an upper endoscopy and colonoscopy. This does not need to be performed emergently as he has no overt GI bleeding. His lab work seems like he was hemoconcentrated on admission and the administration of IV fluids likely explains the drop in hemoglobin from yesterday to today. He can have a regular diet and followup with the GI office within 2 to 4 weeks of discharge. [facility][id number] [facility]
[2018-12-15] MEDS: levoFLOXacin 750MG IV 750 MG in PREMIX BAG 1 BAG IVPB SCH (17:24)
--- NOTE | 2018-12-15 19:44 | PN ---
DATE: 12/15/18 SUPERVISING PHYSICIAN: Alexander Harris M.D. SUBJECTIVE: The patient states he feels better than he did yesterday. He does not feel like his abdomen is as distended as it was. He did have a large bowel movement as well. OBJECTIVE: Blood pressure 120/76, heart rate 68, respiratory rate 18, temperature 97.7, oxygen saturation 99%. GENERAL: Mr. Hammonds is a 68 year-old male patient in no active distress. NEUROLOGIC: The patient is alert and oriented. LUNGS: Clear to auscultation bilaterally, but a little bit diminished in the bases. CARDIOVASCULAR: Regular rate and rhythm. Normal S1 and S2. ABDOMEN: A little bit distended but it is soft. No tenderness to palpation to speak of. EXTREMITIES: Lower extremities with no significant edema. 2+ pulses. Capillary refill less than 2 seconds. LABORATORY: Normal white count at 7.2, hemoglobin 7.9, hematocrit 24.9, platelet count 328. Sodium 129, potassium 4.7, chloride 102, CO2 is 19, BUN 25, creatinine 0.98, glucose 104, calcium 8.6. He did have a positive stool occult. Abdominal x-ray was interpreted as having improvement of small bowel obstruction. ASSESSMENT: 1. Sepsis secondary to left upper lobe pneumonia. 2. Chronic obstructive pulmonary disease exacerbation. 3. Small bowel obstruction which is improving. 4. Anemia requiring packed red blood cell transfusion. 5. Acute on chronic renal failure which is improving. 6. Electrolyte imbalance. 7. Hypertension. 8. Gout. 9. History of seizure disorder with no active seizures seen at this time. 10. History of deep venous thrombosis and pulmonary embolus, but not on any anticoagulation therapy. PLAN: Dr. Bach has seen the patient and is going to defer to GI consultation today. I did see Dr. Perkins and he evaluated the patient. He states that he feels like this is possibly due to his narcotic use and recommends starting MiraLAX either daily or twice daily. He recommends starting him on a regular diet as the patient is not vomiting. He also states since he has had a bowel movement he is likely improving. He does recommend outpatient EGD and colonoscopy. He would like to do that the next time he is in town. On his discharge planning, we need to probable get that scheduled for the next time Dr. Perkins is in town. I am going to order him a diet and start him on b.i.d. with MiraLAX for now. #[id number] [facility]
[2018-12-15] MEDS: IV SET AND CAP CHANGE INJ INJ SCH (19:53)
[2018-12-15] MEDS: ATORVASTATIN 20 MG TAB PO SCH (20:19)
[2018-12-15] MEDS: TAMSULOSIN 0.4 MG CAP PO SCH (20:19)
[2018-12-15] MEDS: AMITRIPTYLINE HCL 25 MG TAB PO SCH (20:19)
[2018-12-15] MEDS: DONEPEZIL HCL 5 MG TAB PO SCH (20:20)
[2018-12-15] MEDS: POLYETHYLENE GLYCOL 3350 17 GM PCKT PO SCH (20:24)
[2018-12-16] MEDS: PANTOPRAZOLE SODIUM IV 40 MG VIAL IV SCH (06:12)
[2018-12-16] MEDS: IPRATROPIUM/ALBUTEROL 3 ML VIAL INH SCH ×4 (08:24→20:17)
[2018-12-16] MEDS: POLYETHYLENE GLYCOL 3350 17 GM PCKT PO SCH ×2 (09:28→20:35)
[2018-12-16] MEDS: HYDROcodone 10MG/APAP 325MG 1 EA TAB PO SCH ×2 (09:29→20:34)
[2018-12-16] MEDS: SODIUM CHLORIDE 0.9% (FLUSH) 10 ML SYG IV SCH ×2 (09:33→20:35)
[2018-12-16] MEDS ORDERED: MAGNESIUM HYDROXIDE 30 ML UD PO ONE (09:43)
--- NOTE | 2018-12-16 13:48 | PN ---
SUPERVISING PHYSICIAN: Alexander Harris M.D. DATE: 12/16/18 SUBJECTIVE: The patient states he feels pretty good this morning. He does not have any complaints of pain or discomfort. No nausea or vomiting overnight. He did have a bowel movement the day before yesterday, but has not had one since. OBJECTIVE: VITAL SIGNS: Blood pressure 108/70. Heart rate 85. Respiratory rate 16. Temperature 97.8. Oxygen saturation 100%. GENERAL: Mr. Hammonds is a 68 year-old male patient in no active distress. NEUROLOGIC: The patient is alert. LUNGS: Clear to auscultation bilaterally. CARDIOVASCULAR: Regular rate and rhythm. Normal S1 and S2. ABDOMEN: Obese, soft. Positive bowel sounds. Still a little bit distended, but no tenderness to palpation. EXTREMITIES: Lower extremities with no significant edema. LABORATORY: White count 6.8, hemoglobin 9.5, hematocrit 29.3, platelet count 382. Sodium 126, potassium 4.4, chloride 98, CO2 17, BUN 17, creatinine 0.94, glucose 147, calcium 8.8. ASSESSMENT: 1. Sepsis secondary to left upper lobe pneumonia. 2. Chronic obstructive pulmonary disease exacerbation. 3. Small bowel obstruction, continues to improve. 4. Anemia requiring packed red blood cell transfusion, improved with hemoglobin 9.5. 5. Acute on chronic renal disease, resolved. 6. Electrolyte imbalance. 7. Hypertension. 8. Gout. 9. History of seizure disorder with no active seizures noted at this time. 10. History of deep venous thrombosis and pulmonary embolus, but not on any anticoagulation therapy. PLAN: The patient continues to improve clinically. Hemoglobin is stable. He is not having any abdominal pain, no vomiting. As per yesterday, the recommendation by GI was to do outpatient EGD and colonoscopy the next time Dr. Perkins is on town. This will need to be scheduled. I am going to go ahead and give him a dose of Milk of Magnesia once again today to induce a bowel movement. Also, he is on b.i.d. MiraLAX. When he goes home, he is going to need to be on daily MiraLAX, possibly twice a day to have daily bowel movements. We will recheck his labs, chest x-ray and abdominal x-ray tomorrow to ensure he continues to improve. [facility][id number] [facility]
[2018-12-16] MEDS: levoFLOXacin 750MG IV 750 MG in PREMIX BAG 1 BAG IVPB SCH (15:34)
[2018-12-16] MEDS: levoFLOXacin 500 MG TAB PO SCH (17:00)
[2018-12-16] MEDS: AMITRIPTYLINE HCL 25 MG TAB PO SCH (20:34)
[2018-12-16] MEDS: ATORVASTATIN 20 MG TAB PO SCH (20:34)
[2018-12-16] MEDS: DONEPEZIL HCL 5 MG TAB PO SCH (20:35)
[2018-12-16] MEDS: TAMSULOSIN 0.4 MG CAP PO SCH (20:35)
[2018-12-17] MEDS ORDERED: PANTOPRAZOLE SODIUM TAB 40 MG PO SCH (06:30)
[2018-12-17 06:33] VITALS: BP 102/66; TEMP 97.6
[2018-12-17] MEDS: IPRATROPIUM/ALBUTEROL 3 ML VIAL INH SCH (08:32)
[2018-12-17] MEDS ORDERED: levoFLOXacin 500 MG TAB ONE (08:41)
[2018-12-17] MEDS: levoFLOXacin 500 MG TAB PO SCH (09:05)
[2018-12-17] MEDS: HYDROcodone 10MG/APAP 325MG 1 EA TAB PO SCH (09:05)
[2018-12-17] MEDS: POLYETHYLENE GLYCOL 3350 17 GM PCKT PO SCH (09:07)
[2018-12-17] MEDS: SODIUM CHLORIDE 0.9% (FLUSH) 10 ML SYG IV SCH (09:07)
[2018-12-17 11:09] VITALS: O2SAT 95
[2018-12-17] MEDS ORDERED: HYDROcodone 7.5MG/APAP 325MG 1 EA TAB PO ONE (12:28)
--- NOTE | 2018-12-17 14:02 | DS ---
SUPERVISING PHYSICIAN: Antonino Rucker MD DISCHARGE DIAGNOSIS: 1. Sepsis secondary to left upper lobe pneumonia. 2. Chronic obstructive pulmonary disease exacerbation, improved. 3. Small bowel obstruction, continues to improve. 4. Anemia requiring packed red blood cell transfusion, improved with hemoglobin 9.3. 5. Acute on chronic renal disease, resolved. 6. Electrolyte imbalance, improved. 7. Hypertension. 8. Gout. 9. History of seizure disorder with no active seizures noted at this time. 10. History of deep venous thrombosis and pulmonary embolus, but not on any anticoagulation therapy. HISTORY OF PRESENT ILLNESS: This is a 68-year-old male patient who has a history of shortness of breath over one week prior to his admission. It had worsened to the point that he came to the Emergency Room. He has a significant history of chronic obstructive pulmonary disease and has been hospitalized several times for pneumonia with COPD exacerbation. He does not use oxygen at home, but he smokes 1 to 2 packs of cigarettes daily. In the Emergency Room, his initial vital signs showed a temperature of 97.9 with a heart rate of 100, blood pressure 110/80 with respiratory rate 28 and oxygen saturation of 96% on room air, but due to his tachypnea and diminished breath sounds he received several nebulizer treatments. Blood cultures were drawn and he was started on Levaquin. He also received a GI slider because he also complained of some chronic acid reflux that he had worsened over the last week along with his shortness of breath symptoms. He lives at home with his son. His lab showed sodium 127, potassium 5.1, chloride 98, carbon dioxide 18, BUN 46, creatinine 1.31. Baseline creatinine is about 1. Glucose 107, magnesium 1.5. CBC showed a white count of 16,200. He had a hemoglobin of 7.9 and hematocrit 25.5. He had a left shift on his differential. Platelets were slightly high at 471. He was admitted to the hospital. HOSPITAL COURSE: The pneumonia guidelines were initiated. He was continued on renally dosed Levaquin. We discussed smoking cessation as well as starting aggressive pulmonary hygiene including nebulizer treatments. He was also typed and crossed for 2 units of packed red blood cells and those were administered. Abdominal x-ray showed concerns for an ileus versus small bowel obstruction. Dr. Bach was consulted for management of the possible small bowel obstruction. Dr. Perkins, circle cutting saw operator, was also consulted. He felt that the CT findings and abdominal distention was sequelae of chronic narcotic use and he was given MiraLAX daily, titrated up to 2 times daily and was to go home on at least a daily dosing of MiraLAX. Dr. Perkins also felt like his microcytic anemia was due to iron deficiency and recommended he have an EGD and colonoscopy and that could be set up through the GI offices on followup appointment. He slowly but progressively improved. He did have a minor setback in that he felt nauseated and required some Dulcolax suppository, but his diet was slowly advanced, MiraLAX was continued and he did well with the treatment. His labs improved. His chronic renal failure improved. At this point, he can be discharged home in stable condition. LABORATORY: Initial WBCs 16.2 and went up as high as 12.2 and today are 6.6. His initial hemoglobin and hematocrit were 7.9 and 25.5. He received 2 units of packed red blood cells. On 12/15/18, his hemoglobin was 7.9 and hematocrit 24.9. He received 2 additional units of packed red blood cells. His hemoglobin today is 9.3 and 29. His sodium has been slightly low with it being 127 on admission, but as high as 132 and is 128. He has a history of chronic mild hyponatremia. His potassium was 5.1 on admission and today is 4.7. Chloride has remained somewhat low between 98 and 102. BUN was 46 on admission and today is 18. Creatinine was 1.31 and now is 0.95. Baseline is around 1. Blood sugars remained stable between 93 and 147. Magnesium was 1.5 on admission and after supplementation came up to 2.2. Urinalysis was unremarkable. Stool for occult blood was positive. Preliminary blood cultures showed no growth after 4 days. His sputum culture showed oropharyngeal contamination and is not residential sales 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 of lower respiratory tract. RADIOLOGY: Abdominal CT showed 1) Distal esophageal thickening, correlate clinically for esophagitis, and 2) Nonspecific small bowel stasis. No inflammatory process noted. His initial chest x-ray showed chronic obstructive pulmonary disease with left upper lobe consolidation concerning for pneumonia. Followup until resolution needed. Also, small pleural effusion. His final chest x-ray showed persistent infiltrate in the left upper lobe, could represent pneumonia. Continue followup until resolution is recommended to exclude neoplastic process. Chronic interstitial lung changes are noted. Small left pleural effusion or pleural thickening is again seen. His initial abdominal x- ray showed nonspecific abdominal series. Findings could represent ileus. His final abdominal x-ray showed mildly improved small bowel obstruction with gaseous filled loops of bowel in the left abdomen measuring up to 3 cm in diameter. Mild stool within the proximal colon. No free intraperitoneal air, portal venous gas or pneumatosis is present. DISCHARGE PLAN: The patient will be discharged home in stable condition. He is to follow the diet guidelines given to him by Dr. Perkins. He is to continue his MiraLAX daily and increase it to two doses daily if he fails to have a bowel movement. He is to followup with Dr. Chauhan within one to two weeks. It is recommended at that time that the patient have a followup chest x-ray as well as a possible CT of the chest to rule out any neoplastic issues as recommended per his chest x-ray. He is to have a followup appointment with Dr. Perkins for scheduling an EGD and colonoscopy. He is to return to the hospital or followup with Dr. Chauhan or Dr. Perkins with any problems or complications. DISCHARGE MEDICATIONS: 1. Prilosec. 2. Amitriptyline. 3. Aricept. 4. Flomax. 5. Gleason. 6. Milk of Magnesia. 7. Rosuvastatin. 8. Meloxicam. 9. Albuterol sulfate. 10. Doxepin. 11. Acetaminophen. 12. MiraLAX. #[id number] [facility]
== END 2018-12-17 11:30 | disposition home or self-care (01) | DRG 871 ==
LOC: ER 12:31 → MS 16:06
PROVIDERS: ADMIT Nurse Practitioner Acute Care; ATTEND Nurse Practitioner Acute Care
PROC: 30233N1 Transfusion of Nonautologous Red Blood Cells into Peripheral Vein, Percutaneous Approach (ICD-10-PCS; principal; 2018-12-12)
PROC: BW211ZZ Computerized Tomography (CT Scan) of Abdomen and Pelvis using Low Osmolar Contrast (ICD-10-PCS; 2018-12-12)
DX: A41.9 Sepsis, unspecified organism (principal); J18.1 Lobar pneumonia, unspecified organism; K56.600 Partial intestinal obstruction, unspecified as to cause; E87.1 Hypo-osmolality and hyponatremia; N17.9 Acute kidney failure, unspecified; D50.9 Iron deficiency anemia, unspecified; K59.03 Drug induced constipation; T40.605A Adverse effect of unspecified narcotics, initial encounter; N18.9 Chronic kidney disease, unspecified; E87.5 Hyperkalemia; E83.42 Hypomagnesemia; I12.9 Hypertensive chronic kidney disease with stage 1 through stage 4 chronic kidney disease, or unspecified chronic kidney disease; M10.9 Gout, unspecified; G40.909 Epilepsy, unspecified, not intractable, without status epilepticus; F17.210 Nicotine dependence, cigarettes, uncomplicated; K21.9 Gastro-esophageal reflux disease without esophagitis; F32.9 Major depressive disorder, single episode, unspecified; G89.29 Other chronic pain; F03.90 Unspecified dementia, unspecified severity, without behavioral disturbance, psychotic disturbance, mood disturbance, and anxiety; M19.90 Unspecified osteoarthritis, unspecified site; N40.0 Benign prostatic hyperplasia without lower urinary tract symptoms; E66.9 Obesity, unspecified; Z66 Do not resuscitate; Z86.718 Personal history of other venous thrombosis and embolism; Z86.711 Personal history of pulmonary embolism; Z79.891 Long term (current) use of opiate analgesic; Z86.73 Personal history of transient ischemic attack (TIA), and cerebral infarction without residual deficits; Z96.652 Presence of left artificial knee joint; Z88.1 Allergy status to other antibiotic agents; Z91.048 Other nonmedicinal substance allergy status; Y92.009 Unspecified place in unspecified non-institutional (private) residence as the place of occurrence of the external cause; Z79.1 Long term (current) use of non-steroidal anti-inflammatories (NSAID); Z79.899 Other long term (current) drug therapy; Z68.25 Body mass index [BMI] 25.0-25.9, adult

== ENCOUNTER 2019-11-22 17:27 | Emergency (ER) | payer MEDICARE, OTHER ==
[2019-11-22 17:52] VITALS: TEMP 98
[2019-11-22] MEDS ORDERED: HYDROmorphone HCL INJ 2 MG/ML VIAL IV ONE ×2 (17:53→19:40)
[2019-11-22 18:47] VITALS: BP 175/106
--- NOTE | 2019-11-22 19:00 | CT ---
EXAM: NONCONTRAST CERVICAL SPINE CT EXAMINATION. CLINICAL INDICATION: Pain post fall. COMPARISON: No comparison cervical spine CT or MRI examinations are currently available. TECHNIQUE: Using low-dose helical technique, thin section axial images were performed through the cervical spine without the administration of intravenous or subarachnoid contrast material. CT sagittal coronal reconstructions were also obtained. FINDINGS: Moderate to severe degenerative disease in the mid and lower cervical spine as well as in the preodontoid space. Severe bony stenosis of the left C5/C6 neural foramen and the right C6/C7 neural foramen. No fractures, spondylolisthesis or facet joint dislocation. No hemorrhage in the spinal canal. Precervical soft tissue thickness is normal. The odontoid process, preodontoid space and C1 vertebral body are intact. The occipital condyles are intact. Partially visualized bony structures of the skull base appear normal. Mild to moderate atherosclerotic calcification of both carotid bulbs possibly causing hemodynamically significant stenosis at the origin of the left internal carotid artery. Soft tissue structures of the neck are otherwise grossly normal on this noncontrast examination. Biapical pulmonary scar. IMPRESSION: 1. Severe multilevel degenerative disease as described above without fracture or dislocation. 2. Atherosclerotic calcification in the left carotid bulb possibly causing hemodynamically significant stenosis at the origin of the left internal carotid artery. This exam was performed according to our departmental dose-optimization program, which includes automated exposure control, adjustment of the mA and/or kV according to patient size and/or use of iterative reconstruction technique. Electronically signed by: Carlos Alberto Cancino MD 11/22/2019 6:59 PM CDT
--- NOTE | 2019-11-22 19:04 | ED.PDOC ---
History of Present Illness - General Chief Complaint: Trauma Stated Complaint: Fall w/ head lac, neck pain and back pain Time Seen by Provider: 11/22/19 17:43 Source: patient Exam Limitations: no limitations - History of Present Illness Initial Comments: PT WAS WALKING UP STAIRS AT HOME. APPROX 3 STEPS UP, HE LOST FOOTING AND FELL BACKWARD. OCCIPUT COLLIDED WITH FLOOR. PT C/O PAIN IN OCCPUT OF SCALP, NECK PAIN, AND LBP. H/O CHRONIC LBP, BUT ACUTELY WORSE AFTER FALL TODAY. DENIES LOC. DENIES AMS. SON IS PRESENT. PT LIVES WITH SON AT HOME. H/O STROKES X 3 PT AND SON DENY STROKE SX TODAY. Occurred: just prior to arrival Severity: severe Pain Location: head, neck, back Method of Injury: fall Improving Factors: nothing Worsening Factors: movement Loss of Consciousness: no loss of consciousness Associated Symptoms (Fall): headache, neck pain Allergies/Adverse Reactions: Allergies Iodine Allergy (Severe, Verified 11/22/19 17:53) Other makes him feel like he is having "a heart attack" Cephalexin [From Keflex] Allergy (Verified 11/22/19 17:53) Home Medications: Ambulatory Orders Omeprazole [Prilosec] 40 mg PO ACBK 07/05/14 Amitriptyline HCl 150 mg PO BEDTIME 10/24/15 Donepezil HCl [Aricept] 5 mg PO BEDTIME 08/23/16 Tamsulosin [Flomax] 0.4 mg PO BEDTIME 08/23/16 Albuterol Sulfate [Ventolin Hfa] 108 mcg IN Q4H PRN 05/18/18 Doxepin HCl [Doxepin Hydrochloride] 25 mg PO DAILY 05/18/18 Magnesium Hydroxide [Milk Of Magnesia] 30 ml PO DAILY PRN 05/18/18 Meloxicam 15 mg PO DAILY 05/18/18 Rosuvastatin Calcium 20 mg PO BEDTIME 05/18/18 Acetaminophen [Tylenol] 500 mg PO Q8HR PRN 12/12/18 HYDROcodone 10MG/APAP 325MG [Caputa 10325] 1 ea PO BID #60 tab 12/17/18 Polyethylene Glycol 3350 [Miralax] 17 gm PO DAILY #30 pckt 12/17/18 Review of Systems - Review of Systems Constitutional: States: no symptoms reported EENTM: Denies: ear pain, nose pain, throat pain, mouth pain Respiratory: Denies: cough, short of breath Cardiology: Denies: chest pain, palpitations Gastrointestinal/Abdominal: Denies: abdominal pain, nausea Genitourinary: States: no symptoms reported Musculoskeletal: States: back pain, neck pain Skin: States: no symptoms reported Neurological: States: headache - OCCIPUT. Denies: numbness, paresthesia, weakness Endocrine: States: no symptoms reported Hematologic/Lymphatic: States: no symptoms reported All other Systems: Reviewed and Negative Past Medical History (General) - Patient Medical History Hx Seizures: Yes Hx Stroke: Yes - x 3 Hx Dementia: Yes Hx Asthma: No Hx of COPD: Yes Hx Cardiac Disorders: Yes Hx Congestive Heart Failure: No Hx Pacemaker: No Hx Hypertension: Yes Hx Thyroid Disease: No Hx Diabetes: No Hx Gastroesophageal Reflux: Yes Hx Renal Disease: No Hx Cancer: No Hx of HIV: No Hx Hepatitis C: No Hx MRSA: No Surgical History: other - Vaccination History Hx Tetanus, Diphtheria Vaccination: No Hx Influenza Vaccination: Yes Hx Pneumococcal Vaccination: Yes - Social History Hx Tobacco Use: Yes Hx Chewing Tobacco Use: No Hx Alcohol Use: No Hx Substance Use: No Hx Substance Use Treatment: No Hx Depression: No Hx Physical Abuse: No Hx Emotional Abuse: No Hx Suspected Abuse: No - Female History Patient is a Female of Child Bearing Age (10 -59 yrs old): No Patient : No Family Medical History - Family History Mother Family History: Unknown Living Status: Hx Cardiac Disease: Yes - mom Physical Exam - Physical Exam General Appearance: Alert, Unkempt Head Injury: active bleeding - DRIED BLOOD ON SCALP. , tenderness - OCCIPUT. Eye Exam: bilateral normal ENT Exam: hearing grossly normal, no evidence of ENT injury, no dental injury Neck Exam: normal inspection, abnormal alignment Cardiovascular/Respiratory: regular rate, rhythm, no M/R/G Gastrointestinal/Abdominal: normal bowel sounds, non tender, soft Back Exam: normal inspection, vertebral tenderness Extremity Exam: no evidence of injury, normal range of motion, non-tender, no pedal edema Neurologic: no motor/sensory deficits, alert, oriented x 3 Skin Exam: other - 5.5 CM LINEAR LACERATION OCCIPITAL SCALP. - [place] Coma Score Jacky Total: 15 Progress - Progress Progress: 11/22/19 19:40 CT'S NEG FOR FRX. I RE-EXAMINED PT AND REMOVED C-COLLAR. C/O PAIN IN BACK, SO WILL GIVE 2ND DOSE DILAUDID. 11/22/19 20:35 5.5 CM OCCIPITAL SCALP LAC. REPAIRED W/ ALLYSSA X 7. 11/22/19 20:40 SAFE FOR DC TO HOME WITH SON. - EKG/XRAY/CT CT Ordered: Yes Procedures - Laceration/Wound Repair Occipital Wound's Depth, Shape: superficial Wound Explored: clean Wound Debrided: minimal Wound Repaired With: allyssa Number of Sutures: 7 Layer Closure?: No Sterile Dressing Applied?: Yes - APPLIED BACITRACIN Departure - Departure Clinical Impression: Fall (on) (from) other stairs and steps, initial encounter, Occipital pain Contusion of scalp Qualifiers: Encounter type: initial encounter Qualified Code(s): S00.03XA - Contusion of scalp, initial encounter Lumbar strain Qualifiers: Encounter type: initial encounter Qualified Code(s): S39.012A - Strain of muscle, fascia and tendon of lower back, initial encounter Disposition: Discharge to Home or Self Care Departure Forms: ED Discharge - Pt. Copy, Patient Portal Self Enrollment Instructions: Laceration Repair With Allyssa (DC) Diet: resume usual diet Activity: increase activity as tolerated Referrals: Bryce Chauhan MD [Primary Care Provider] - 1-2 Weeks Home Medications: Ambulatory Orders Omeprazole [Prilosec] 40 mg PO ACBK 07/05/14 Amitriptyline HCl 150 mg PO BEDTIME 10/24/15 Donepezil HCl [Aricept] 5 mg PO BEDTIME 08/23/16 Tamsulosin [Flomax] 0.4 mg PO BEDTIME 08/23/16 Albuterol Sulfate [Ventolin Hfa] 108 mcg IN Q4H PRN 05/18/18 Doxepin HCl [Doxepin Hydrochloride] 25 mg PO DAILY 05/18/18 Magnesium Hydroxide [Milk Of Magnesia] 30 ml PO DAILY PRN 05/18/18 Meloxicam 15 mg PO DAILY 05/18/18 Rosuvastatin Calcium 20 mg PO BEDTIME 05/18/18 Acetaminophen [Tylenol] 500 mg PO Q8HR PRN 12/12/18 HYDROcodone 10MG/APAP 325MG [Caputa 10325] 1 ea PO BID #60 tab 12/17/18 Polyethylene Glycol 3350 [Miralax] 17 gm PO DAILY #30 pckt 12/17/18 Additional Instructions: Please see Dr. Chauhan in 10 - 12 days to remove the allyssa from your scalp. Starting tomorrow, cleanse the scalp area twice per day with soap and water, apply bacitracin antibiotic ointment, and cover with a Telfa non-stick pad.
--- NOTE | 2019-11-22 19:09 | CT ---
EXAM: NONCONTRAST BRAIN CT EXAMINATION. CLINICAL INDICATION: Fell down the stairs. Pain. COMPARISON: Compared to brain CT examination of December 09, 2016. TECHNIQUE: Using low dose helical CT technique, thin section axial images were performed through of the brain without the administration of intravenous or subarachnoid contrast material. FINDINGS: Low-dose CT technique causes single slice peripheral hyperdense artifact of the brain which could simulate subdural hematoma on automated review programs. Left occipital parietal scalp hematoma without radiopaque foreign body, underlying fracture or underlying hemorrhagic brain contusion. Brain volume is normal. No diffuse brain swelling or brain herniation. No hydrocephalus. No subdural or epidural hematomas. No large subacute brain infarction. No parenchymal brain hemorrhage or evidence of intracranial mass lesion. The brainstem and cerebellum are normal. Moderate nonspecific cerebral white matter disease. Remote appearing 5 mm punctate lacunar infarction in the left mid thalamus. The caudate heads, lentiform nuclei, thalami and internal capsules are otherwise grossly normal. Bones of the skull and skull base are normal. The middle ears and mastoid air cells are clear. The partially visualized paranasal sinuses are clear. IMPRESSION: 1. Left occipital parietal scalp hematoma without radiopaque foreign body, underlying fracture or underlying hemorrhagic brain contusion. Otherwise, normal noncontrast brain CT examination. This exam was performed according to our departmental dose-optimization program, which includes automated exposure control, adjustment of the mA and/or kV according to patient size and/or use of iterative reconstruction technique. Electronically signed by: Carlos Alberto Cancino MD 11/22/2019 7:08 PM CDT
[2019-11-22 19:13] VITALS: O2SAT 94
--- NOTE | 2019-11-22 19:15 | CT ---
EXAM: CT LUMBAR SPINE WITHOUT IV CONTRAST CLINICAL INDICATION: Pain post fall down the stairs. COMPARISON: No remote comparison examinations are currently available. TECHNIQUE: Using low-dose helical technique, thin section axial images were performed through the lumbosacral spine without the administration of intravenous or subarachnoid contrast material. CT sagittal and coronal reconstructions were obtained. FINDINGS: Moderate to severe multilevel degenerative disease with multilevel anterior degenerative fusion consistent with diffuse idiopathic skeletal hyperostosis (DISH). No fractures or spondylolisthesis. Remote posterior fusion of the L4, L5 and S1 vertebral bodies with intact metallic fixation screws in appropriate position without evidence of loosening or infection. Recurrent bony overgrowth at the left remotely fused L4/L5 level probably causing significant asymmetric left lateral recess stenosis. Moderate atherosclerotic calcification in the abdominal aorta without aneurysm. Greatest AP diameter of the infrarenal abdominal aorta is 2.0 cm. No imaging follow-up recommended. No lytic or blastic bone lesions to suggest metastatic disease or infection. IMPRESSION: 1. Moderate to severe multilevel degenerative disease without fracture or spondylolisthesis. 2. Remote L4, L5 and S1 fusion with intact metallic fusion components appearing in appropriate position. 3. No evidence of retroperitoneal hemorrhage or sacral insufficiency fracture. The sacroiliac joints appear intact. This exam was performed according to our departmental dose-optimization program, which includes automated exposure control, adjustment of the mA and/or kV according to patient size and/or use of iterative reconstruction technique. AAA Size: Follow-up Recommendation (1): 2.6 - 2.9 cm Every 5 years (2) 3.0 - 3.4 cm Every 3 years 3.5 - 3.9 cm Every 12 months 4.0 - 4.4 cm Every 12 months, vasc consult rec 4.5 - 5.4 cm Every 6 months, vasc consult rec >=5.5 cm Referral to vascular surgeon recommended (1)Based upon the Society for Vascular Surgery Guidelines: J Vasc Surg. 2009 May;50(4 Suppl):S2-49 (2)For aortas of max asha of 2.6-2.9 cm that meet criteria for AAA (>= 1.5 x proximal normal segment) Electronically signed by: Carlos Alberto Cancino MD 11/22/2019 7:14 PM CDT
== END 2019-11-22 20:56 | disposition home or self-care (01) ==
LOC: ER 17:27
DX: S01.01XA Laceration without foreign body of scalp, initial encounter (principal); S39.012A Strain of muscle, fascia and tendon of lower back, initial encounter; S00.03XA Contusion of scalp, initial encounter; I10 Essential (primary) hypertension; Z86.73 Personal history of transient ischemic attack (TIA), and cerebral infarction without residual deficits; F17.200 Nicotine dependence, unspecified, uncomplicated; W10.9XXA Fall (on) (from) unspecified stairs and steps, initial encounter; Y92.009 Unspecified place in unspecified non-institutional (private) residence as the place of occurrence of the external cause
CPT/HCPCS: 12002; 70450; 72125; 72131; 96374; 96376; 99284; J1170

== ENCOUNTER 2019-11-24 10:11 | Observation (INO) | payer MEDICARE, OTHER ==
[2019-11-24] MEDS ORDERED: KETOROLAC TROMETHAMINE INJ 30 MG/ML VIAL IV ONE (10:14)
--- NOTE | 2019-11-24 10:58 | RAD ---
Study: Single Frontal Radiograph of the Chest. Indication:recurrent falls, weak Comparison: December 13, 2018 Impression: Cardiomegaly. Progressed patchy opacities in the left lung base and left midlung which could reflect pneumonia but is nonspecific. In addition there is increased opacity at the left lung apex with slight leftward deviation of the trachea. Further catheterization contrast-enhanced CT chest recommended. Interstitial markings prominent throughout the bilateral lungs. Small left pleural effusion suspected. No pneumothorax. Electronically signed by: Manuel Swift MD 11/24/2019 10:57 AM CDT
[2019-11-24] MEDS ORDERED: SODIUM CHLORIDE 0.9% 1000ML 1,000 ML IVS ONE (11:21)
--- NOTE | 2019-11-24 12:03 | CT ---
EXAM DESCRIPTION: Abdoment/Pelvis w/o Contrast: Computed Tomography. CLINICAL HISTORY: 69 years Male fall 2 days ago with increase pain left lbp, abd COMPARISON: CT abdomen and pelvis one year ago. TECHNIQUE: Spiral-axial scans 2.5 x 2.5 mm intervals through the abdomen and pelvis without oral or IV contrast. Coronal and sagittal 2.0 mm reconstructions. Total Exam DLP: 993 mGy-cm. This exam was performed according to our departmental CT dose-optimization program which includes automated exposure control, adjustment of the mA and/or kV according to patient size and/or use of iterative reconstruction technique; to reduce radiation dose to as low as reasonably achievable (ALARA). FINDINGS: Lung bases and pleura: Atelectasis and scarring in the left base with chronic pleural thickening/loculation. Bibasilar peripheral infiltrates. Liver, stomach, spleen, and adrenal glands: Small sliding hiatal hernia stable. Solid organs are negative. Pancreas, Gallbladder, and Ducts: Elongated gallbladder. Duct and pancreas negative. Kidneys and Ureters: para-renal stranding with no stones or hydronephrosis, unchanged since prior study. Mesentery: No soft tissue mass or free fluid. No free air. Aorta: Moderate atherosclerotic changes Small Bowel: Gas and fluid but not distended. Terminal Ileum/Cecum: Normal caliber and appendix not seen. No inflammatory changes. Colon: Diffuse fecal matter in diverticula with no complications. Mild redundancy of the sigmoid colon. Pelvic Organs: The urinary bladder distended. Prostate gland abutting the base of the urinary bladder and seminal vesicles. Calcifications in the central zone and dimensions 4.3 x 3 cm Spine and Bony Pelvis: Bilateral posterior L4 to S1 transpedicular screws. Customary position and near-anatomic alignment. Spondylosis multiple levels of the lumbar and thoracic spine. No compression type vertebral body fractures significant spondylolisthesis. Bilateral hypertrophic changes in the acetabula with narrowing of the superior lateral hip joints. Marginal spurs on the superior lateral and posterior femoral heads. Acetabular and femoral head hypertrophic changes are associated with femoral acetabular impingement. Abdominal Wall/Back Soft Tissues: Negative. IMPRESSION: 1. No free fluid soft tissue mass or hematoma in the abdomen or pelvis. 2. No compression type vertebral body fracture or posttraumatic spondylolisthesis in the included thoracolumbar spine at multiple levels of spondylosis. Fusion hardware in the lumbar spine is intact with custom-made positioning. No other bony fracture. 3. Hypertrophic changes in the femoral heads and acetabula bilaterally can be associated with femoral acetabular impingement and hip pain. 4. Diverticulosis of the colon with no complications. Stable small sliding hiatal hernia. Electronically signed by: Ish Cesar MD 11/24/2019 12:02 PM CDT
--- NOTE | 2019-11-24 14:07 | CT ---
EXAM DESCRIPTION: Chest w/o Contrast : Computed Tomography. CLINICAL HISTORY: 69 years Male ABN CXR, iodine allergy COMPARISON: CT scan of abdomen and pelvis today. CT thorax August 2016. TECHNIQUE: Spiral-axial scans at 5 x 5 mm intervals through the lungs and thorax without IV contrast. 2.5 x 5 mm lung algorithm axial reconstructions. Coronal and sagittal 2.0 Mm reconstructions. Total Exam DLP: 550 mGy-cm. This exam was performed according to our departmental dose-optimization program which includes automated exposure control, adjustment of the mA and/or kV according to patient size and/or use of iterative reconstruction technique; to reduce radiation dose to as low as reasonably achievable (ALARA). Nodule measurements under 10 mm are given as mean value of 3 axes diameters. FINDINGS: Lungs and large airways and pleural spaces: Left lung volume less than the right which has dramatically decreased since the prior study. Increased pleural parenchymal in the left hemithorax especially at the bases. Pleural parenchymal scarring in the base. Band of hypodense pleura posterior right hemithorax, stable since previous abdominal CT scan November 2018. Mediastinum and trachea shifting to the left. Patchy infiltrates in the mid lung, lower lobe, and inferior right upper lobe decreased since the prior study. 1 cm subpleural nodule/infiltrate lateral right upper lobe no longer present. Scarring peripheral right lower lobe stable. Mediastinum and Hedy: Evaluation limited due to lack of IV contrast multiple nodes are not enlarged. No dominant soft tissue masses. Great vessels and Heart: Evaluation limited due to lack of IV contrast. Coronary artery calcifications and atherosclerotic calcifications in several brachiocephalic vessels and the thoracic aorta stable. Soft tissues of neck base, axillae, and chest wall: Evaluation limited due to lack of IV contrast. Small axillary lymph nodes. Upper abdomen: Please see prior report and images CT scan abdomen and pelvis. Osseous structures: Sternomanubrial and sternoclavicular arthrosis. No change from the prior study. No blastic or lytic lesions. IMPRESSION: 1. Significant volume loss, increased septal thickening, and pleural thickening, especially at the bases in the left lung and left hemithorax since prior chest CT scan August 2016. Basilar pleural thickening and hypodense appearance since CT abdomen scan November 2018. Is there history of chronic infection or inflammation or pulmonary fibrosis? No acute infiltrate. 2. Multiple infiltrates in the right lung on the prior study 3 years ago are mostly absent now with no new infiltrates. Stable pleural parenchymal scarring. Stable size of mediastinal and hilar lymph nodes. Evaluation limited due to lack of IV contrast. Electronically signed by: Ish Cesar MD 11/24/2019 2:06 PM CDT
[2019-11-24] MEDS ORDERED: MORPHINE SULFATE INJ 10 MG/ML VIAL IV ONE (14:30)
--- NOTE | 2019-11-24 14:33 | ED.PDOC ---
History of Present Illness - General Chief Complaint: Back Pain or Injury Stated Complaint: Chronic back pain r/t recent fall Time Seen by Provider: 11/24/19 10:11 Source: patient Exam Limitations: no limitations - History of Present Illness Initial Comments: The patient is a 69-year-old male presented to the emergency room secondary to recurrent falling at home and resultant severe left lower back pain. The patient was seen here in the emergency room for a fall a couple of days ago. He had a laceration repaired. Since that time he is fallen several more times. The patient reports that even with his pain medications that he is taking at home, he is unable to function secondary to the pain. No syncope. He does not think that he is reinjured his head. No neck pain. No fever. No new respiratory or urinary symptoms. Pain is localized to the left lower back adjacent to L3-L5. No definite sciatica. There is some superficial bruising. Timing/Duration: other - 2 days Severity: moderate Improving Factors: immobilization Worsening Factors: movement Associated Symptoms: denies symptoms Allergies/Adverse Reactions: Allergies Iodine Allergy (Severe, Verified 11/24/19 10:33) Other makes him feel like he is having "a heart attack" Cephalexin [From Keflex] Allergy (Verified 11/24/19 10:33) Home Medications: Ambulatory Orders Omeprazole [Prilosec] 40 mg PO ACBK 07/05/14 Amitriptyline HCl 150 mg PO BEDTIME 10/24/15 Donepezil HCl [Aricept] 5 mg PO BEDTIME 08/23/16 Tamsulosin [Flomax] 0.4 mg PO BEDTIME 08/23/16 Albuterol Sulfate [Ventolin Hfa] 108 mcg IN Q4H PRN 05/18/18 Doxepin HCl [Doxepin Hydrochloride] 25 mg PO DAILY 05/18/18 Magnesium Hydroxide [Milk Of Magnesia] 30 ml PO DAILY PRN 05/18/18 Meloxicam 15 mg PO DAILY 05/18/18 Rosuvastatin Calcium 20 mg PO BEDTIME 05/18/18 Acetaminophen [Tylenol] 500 mg PO Q8HR PRN 12/12/18 HYDROcodone 10MG/APAP 325MG [Anderson 10325] 1 ea PO BID #60 tab 12/17/18 Polyethylene Glycol 3350 [Miralax] 17 gm PO DAILY #30 pckt 12/17/18 Review of Systems - Review of Systems Constitutional: States: malaise EENTM: States: no symptoms reported Respiratory: States: no symptoms reported Cardiology: States: no symptoms reported Gastrointestinal/Abdominal: States: no symptoms reported Genitourinary: States: no symptoms reported Musculoskeletal: States: back pain Skin: States: see HPI Neurological: States: no symptoms reported - Chronic changes from previous strokes Endocrine: States: no symptoms reported All other Systems: No Change from Baseline Past Medical History (General) - Patient Medical History Hx Seizures: Yes Hx Stroke: Yes - x 3 Hx Dementia: Yes Hx Asthma: No Hx of COPD: Yes Hx Cardiac Disorders: Yes Hx Congestive Heart Failure: No Hx Pacemaker: No Hx Hypertension: Yes Hx Thyroid Disease: No Hx Diabetes: No Hx Gastroesophageal Reflux: Yes Hx Renal Disease: No Hx Cancer: No Hx of HIV: No Hx Hepatitis C: No Hx MRSA: No Surgical History: other - Vaccination History Hx Tetanus, Diphtheria Vaccination: No Hx Influenza Vaccination: Yes Hx Pneumococcal Vaccination: Yes - Social History Hx Tobacco Use: Yes Hx Chewing Tobacco Use: No Hx Alcohol Use: No Hx Substance Use: No Hx Substance Use Treatment: No Hx Depression: No Hx Physical Abuse: No Hx Emotional Abuse: No Hx Suspected Abuse: No - Female History Patient is a Female of Child Bearing Age (10 -59 yrs old): No Patient : No Family Medical History - Family History Mother Family History: Unknown Living Status: Hx Cardiac Disease: Yes - mom Physical Exam - Physical Exam General Appearance: Alert, Other - Obviously painful to move Eye Exam: bilateral normal Ears, Nose, Throat: hearing grossly normal, other - Poor dentition. Speech is chronically slurred. 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 At this point he is unable to perform his activities of daily living. The patient was initially very drowsy secondary to pain medications given by EMS but he is back alert and oriented currently. He is requiring a fair amount of pain medication to control his pain at this point. The patient is unable to function on his own at home. Laboratory work does look reassuring. Imaging of his chest abdomen pelvis shows numerous chronic changes including what appears to be increased scarring primarily in the left lung field. The patient is known to have significant COPD. The patient may yet require longer term work-up as an outpatient to rule out underlying inflammatory processes affecting the lung. For now he does of course need to continue his respiratory treatments. The patient may yet have to go to a rehab or long-term retirement facility. janie bear [phone] - Results/Orders Results/Orders: CT scan of the chest shows chronic left lower lung pleural thickening with chronic loculation. Bibasilar peripheral infiltrates. Increased left lung general scarring with decreased space and slight shift of the mediastinum to that side as a result. Question of underlying chronic inflammation versus infection versus fibrosis. Patient also has chronic postoperative changes of the low back and pelvis and arthritic changes of the hips and pelvis. No acute trauma noted. Laboratory Tests 11/24/19 11/24/19 11/24/19 10:20 10:20 10:20 WBC 9.3 RBC 4.72 Hgb 10.6 L Hct 32.9 L MCV 69.6 L MCH 22.5 L MCHC 32.3 L RDW 20.1 H Plt Count 362 MPV 7.7 Absolute Neuts (auto) 7.70 H Absolute Lymphs (auto) 0.90 L Absolute Monos (auto) 0.60 Absolute Eos (auto) 0.10 Absolute Basos (auto) 0.10 Neutrophils % 82.8 H Lymphocytes % 9.3 L Monocytes % 6.9 Eosinophils % 0.5 L Basophils % 0.5 Normal RBC Morphology Stain quality accept PT 10.3 INR 1.04 PTT (SP) 26.5 Sodium 134 L Potassium 4.5 Chloride 104 Carbon Dioxide 19 L Anion Gap 15.5 BUN 19 H Creatinine 1.26 BUN/Creatinine Ratio 15.1 Random Glucose 87 Serum Osmolality 269.9 L Calcium 9.3 Total Bilirubin 0.5 AST 26 ALT 14 Alkaline Phosphatase 117 Creatine Kinase 330 H* CK-MB (CK-2) 3.0 CK-MB (CK-2) % Not Reportable Troponin I < 0.02 Serum Total Protein 8.8 H Albumin 3.9 Globulin 4.9 H Albumin/Globulin Ratio 0.8 L Amylase 47 Lipase 33 Urine Color Urine Appearance Urine pH Ur Specific [place] Urine Protein Urine Glucose (UA) Urine Ketones Urine Blood Urine Nitrite Urine Bilirubin Urine Urobilinogen Ur Leukocyte Esterase Urine RBC Urine WBC Ur Epithelial Cells Urine Bacteria 11/24/19 13:05 WBC RBC Hgb Hct MCV MCH MCHC RDW Plt Count MPV Absolute Neuts (auto) Absolute Lymphs (auto) Absolute Monos (auto) Absolute Eos (auto) Absolute Basos (auto) Neutrophils % Lymphocytes % Monocytes % Eosinophils % Basophils % Normal RBC Morphology PT INR PTT (SP) Sodium Potassium Chloride Carbon Dioxide Anion Gap BUN Creatinine BUN/Creatinine Ratio Random Glucose Serum Osmolality Calcium Total Bilirubin AST ALT Alkaline Phosphatase Creatine Kinase CK-MB (CK-2) CK-MB (CK-2) % Troponin I Serum Total Protein Albumin Globulin Albumin/Globulin Ratio Amylase Lipase Urine Color Yellow Urine Appearance Clear Urine pH 6.0 Ur Specific [place] 1.015 Urine Protein Negative Urine Glucose (UA) Negative Urine Ketones Negative Urine Blood Negative Urine Nitrite Negative Urine Bilirubin Negative Urine Urobilinogen 0.2 Ur Leukocyte Esterase Negative Urine RBC 0 Urine WBC 0 Ur Epithelial Cells 0 Urine Bacteria 0 - EKG/XRAY/CT CT Ordered: Yes Departure - Departure Clinical Impression: Inability to perform activities of daily living Fall at home Qualifiers: Encounter type: initial encounter Qualified Code(s): W19.XXXA - Unspecified fall, initial encounter; Y92.009 - Unspecified place in unspecified non- institutional (private) residence as the place of occurrence of the external cause Low back pain Qualifiers: Chronicity: acute Back pain laterality: left Sciatica presence: without sciatica Qualified Code(s): M54.5 - Low back pain Disposition: Admit Patient Departure Forms: ED Discharge - Pt. Copy, Patient Portal Self Enrollment Referrals: Bryce Chauhan MD [Primary Care Provider] - 1-2 Weeks Home Medications: Ambulatory Orders Omeprazole [Prilosec] 40 mg PO ACBK 07/05/14 Amitriptyline HCl 150 mg PO BEDTIME 10/24/15 Donepezil HCl [Aricept] 5 mg PO BEDTIME 08/23/16 Tamsulosin [Flomax] 0.4 mg PO BEDTIME 08/23/16 Albuterol Sulfate [Ventolin Hfa] 108 mcg IN Q4H PRN 05/18/18 Doxepin HCl [Doxepin Hydrochloride] 25 mg PO DAILY 05/18/18 Magnesium Hydroxide [Milk Of Magnesia] 30 ml PO DAILY PRN 05/18/18 Meloxicam 15 mg PO DAILY 05/18/18 Rosuvastatin Calcium 20 mg PO BEDTIME 05/18/18 Acetaminophen [Tylenol] 500 mg PO Q8HR PRN 12/12/18 HYDROcodone 10MG/APAP 325MG [Anderson 10/325] 1 ea PO BID #60 tab 12/17/18 Polyethylene Glycol 3350 [Miralax] 17 gm PO DAILY #30 pckt 12/17/18 Decision To Admit - Decistion To Admit Decision to Admit Reason: Accidental Injury Decision to Admit Date: 11/24/19 Decision to Admit Time: 14:37
--- NOTE | 2019-11-24 14:59 | HP ---
SUPERVISING PHYSICIAN: Antonino Rucker MD CHIEF COMPLAINT: Chronic back pain with a fall. HISTORY OF PRESENT ILLNESS: Mr. Hammonds is a 69 year-old male patient who presented to the Emergency Room today secondary to recurrent falls at home with associated lower back pain that is chronic. The patient has been seen in the Emergency Room multiple times in the last several weeks. He had a laceration repaired to his head from his last fall and is taking pain medication due to his chronic back pain but was unable to get a significant amount of control and since has weakened. He normally is taken care of by his son but is unable to function to a degree at home in his place at which point he was brought to the Emergency Room for evaluation. He denied any fever or any other complaints. No shortness of breath, cough, wheezing or chest pains, just associated lower back pain at L3-5 region. Laboratory showed he had a white count of 9,300 with a stable hemoglobin of 10.26 and hematocrit 32.9 with a microcytic hypochromic presentation, RBC indices with a platelet count of greater than 62,000. Coagulation studies showed normal PT/PTT. Chemistries showed a sodium of 134, BUN 19, creatinine 1.26 , creatinine kinase was slightly elevated at 3.30. Troponin less than 0.02. Urinalysis was unremarkable. Radiology: He had a CT of the chest, abdomen and pelvis and a chest x-ray with no acute findings. The patient is requesting to go to [facility] and actually has been accepted.tonight for admission but can't go until tomorrow, awaiting a bed. Given the fact that he is not safe to discharge home and his degenerative deconditioned state, he is going to be placed in observation until he can be transferred [facility]. He was placed in observation in stable condition. PAST MEDICAL HISTORY: 1. Hypertension. 2. Depression. 3. Seizure disorder. 4. Chronic sciatica pain. 5. Chronic low back pain. 6. Dementia. 7. Previous alcohol abuse with current cirrhosis. 8. Benign prostatic hypertrophy. 9. CVA in the past. 10. History of pulmonary embolism. 11. History of deep venous thrombosis. 12. Gout. 13. Osteoarthritis. PAST SURGICAL HISTORY: 1. Left total knee arthroplasty. CURRENT MEDICATIONS: Currently awaiting the electronic medical record update. FAMILY HISTORY: Positive for cancer is unknown. SOCIAL HISTORY: The patient smokes 1 to 2 packs of cigarettes per day. He does have a past history of alcohol abuse but quit many years previously. He lives at home with his son. REVIEW OF SYSTEMS: GENERAL: Negative for chills, fever, general malaise, weight loss. HEENT: Negative for sinus symptoms, sore throat nasal congestion, earache. CHEST: Denies coughing, wheezing or shortness of breath. HEART: Denies chest pain, palpitations, syncopal episodes, tachycardia. ABDOMEN: Negative for abdominal pain, nausea, vomiting, diarrhea or constipation. GENITOURINARY: Denies dysuria, hematuria, polyuria. MUSCULOSKELETAL: Negative for arthralgias, myalgias.. Overall generalized weakness. SKIN: Negative for lesions, rashes or unexplained changes. NEUROLOGICAL: He has a history of seizures but negative for headaches, dizziness, syncopal episodes, ataxia but has significant deconditioning with overall weakness. No focal deficits. HEMATOLOGIC: Negative for unexplained bleeding, bruising or transfusion reactions. PHYSICAL EXAMINATION: VITAL SIGNS: Temperature 97.5, pulse 84, blood pressure 184/96, respirations 18, oxygen saturation 97% on room air. GENERAL: The patient is resting comfortably, does not appear to be in any acute distress. He is alert. HEENT: Tympanic membranes are clear bilaterally. His dentition with poor care. He has chronically slurred speech. On the occipital area there are numerous demi from previous laceration repair showing to be without any signs of infection. NECK: Supple, non-tender, oropharynx pink and moist without lesions. No jugular venous distention noted. CHEST: Lung sounds are clear to auscultation, just slightly diminished towards the bases. Otherwise, no rhonchi, rales, or wheezes. CARDIOVASCULAR: Regular rate and rhythm without appreciable murmurs, rubs, or gallops. ABDOMEN: Soft, non-tender, positive bowel sounds. BACK: He has some mild CVA tenderness on the left, no vertebral tenderness. EXTREMITIES: No cyanosis, clubbing, or edema. NEUROLOGIC: Cranial nerves II through XII are grossly intact. Facial features were symmetrical. Extraocular movements within normal limits. There was no notable nystagmus. He is alert and oriented 3. SKIN: Warm, pink and dry with some scattered bruising on his lower extremities from previous falls. LABORATORY: White count within normal limits at 9,300, hemoglobin 10.6, hematocrit 32.9, platelet count at 362,000, RBC indices are showing microcytic hypochromic presentation. Coagulation studies showed normal PT/PTT. Chemistries showed normal potassium, sodium slightly low at 134, BUN 19, creatinine 1.26, carbon dioxide low at 19 which is chronically low. Total bilirubin was 0.5. CPK slightly elevated at 330, liver functions all other within normal limits. Troponin less than 0.02. Lipase and amylase within normal limits. Urinalysis unremarkable. RADIOLOGY: Abdominal/pelvic CT, chest x-ray and CT of chest with chronic findings. No acute findings. Please see those reports for details as reviewed on admission. ASSESSMENT: 1. History of multiple falls without mention of loss of consciousness secondary to significant deconditioning exacerbated by chronic back pain. 2. Microcytic/hypochromic presentation of likely a chronic illness with multiple transfusions in the past. 3. Mild electrolyte imbalance including a hyponatremia which is chronic. 4. Hypertension poorly controlled. 5. Depression. 6. Seizure disorder with no recent mention of past seizures. 7. Chronic sciatic pain with associated chronic lower back pain. 8. Dementia. 9. Previous alcohol abuse with associated cirrhosis. 10. Benign prostatic hypertrophy. 11. Previous CVAs with residual slurred speech. 12. History of pulmonary embolisms due to deep venous thrombosis. 13. Gout. !4. Osteoarthritis. PLAN: Mr. Hammonds is going to be placed in observation. He has already been accepted to [facility]. We will touch base with Dr. Chauhan to see if he can get his medications straightened out, initially his pain medicine will be transferred to long-term unit. At this point, he was taking adequate oral intake. Will continue with p.o. hydration, hold off on any additional fluids. I anticipate we will discharge tomorrow with length of stay being 1 to 2 days. Will provide pain management with his oral [place] as needed. Will resume his home medications once those are updated and verified. He will be on DVT prophylaxis per protocol. Until we can transition him to a long-term unit as outpatient treatment for significant deconditioning, will continue to treat and monitor as needed. #[id number] [facility]
[2019-11-24] MEDS ORDERED: MAGNESIUM HYDROXIDE 30 ML UD PO PRN (15:51)
[2019-11-24] MEDS ORDERED: ACETAMINOPHEN 325 MG TAB PO PRN (15:51)
[2019-11-24] MEDS ORDERED: ALBUTEROL SULFATE 2.5 MG/3 ML VIAL NEB PRN (15:51)
[2019-11-24] MEDS ORDERED: ONDANSETRON INJ 4 MG/2 ML VIAL IV PRN (15:51)
[2019-11-24] MEDS ORDERED: ALUM & MAG HYDROX-SIMETHICONE 30 ML UD PO PRN (15:51)
[2019-11-24] MEDS ORDERED: SODIUM CHLORIDE 0.9% (FLUSH) 10 ML SYG IV PRN (15:51)
[2019-11-24] MEDS ORDERED: IV SET AND CAP CHANGE INJ INJ SCH (16:00)
[2019-11-24] MEDS: ALBUTEROL SULFATE 2.5 MG/3 ML VIAL NEB SCH ×2 (17:57→20:05)
[2019-11-24] MEDS: MORPHINE SULFATE INJ 10 MG/ML VIAL IV PRN (19:55)
[2019-11-24] MEDS ORDERED: TEMAZEPAM 15 MG CAP PO PRN (20:50)
[2019-11-25] MEDS: MORPHINE SULFATE INJ 10 MG/ML VIAL IV PRN ×2 (00:43→04:40)
[2019-11-25] MEDS ORDERED: OMEPRAZOLE CAP 20 MG CAP ONE ×2 (02:16→05:46)
[2019-11-25] MEDS ORDERED: OMEPRAZOLE CAP 20 MG CAP PO SCH (06:30)
[2019-11-25] MEDS ORDERED: OMEPRAZOLE 40 MG PO SCH (07:00)
[2019-11-25] MEDS ORDERED: HYDROcodone 7.5MG/APAP 325MG 1 EA TAB ONE (08:16)
[2019-11-25] MEDS: ALBUTEROL SULFATE 2.5 MG/3 ML VIAL NEB SCH ×2 (08:20→12:15)
[2019-11-25] MEDS ORDERED: POLYETHYLENE GLYCOL 3350 17 GM PCKT PO SCH (09:00)
[2019-11-25] MEDS ORDERED: DONEPEZIL HCL 5 MG TAB PO SCH (09:00)
[2019-11-25] MEDS ORDERED: MELOXICAM 7.5 MG TAB PO SCH (09:00)
[2019-11-25] MEDS ORDERED: DOXEPIN HCL 25 MG PO SCH (09:00)
[2019-11-25] MEDS ORDERED: HYDROcodone 7.5MG/APAP 325MG 1 EA TAB PO SCH ×2 (09:00→10:30)
[2019-11-25] MEDS ORDERED: ENOXAPARIN SODIUM 40 MG/0.4 ML SYG SUBCU ONE (09:59)
[2019-11-25 10:17] VITALS: BP 106/64; TEMP 97.6
[2019-11-25] MEDS ORDERED: KETOROLAC TROMETHAMINE INJ 30 MG/ML VIAL IV ONE (10:19)
[2019-11-25] MEDS ORDERED: ENOXAPARIN SODIUM 40 MG/0.4 ML SYG SUBCU SCH (12:00)
[2019-11-25 13:20] VITALS: O2SAT 97
[2019-11-25] MEDS ORDERED: AMITRIPTYLINE HCL 25 MG TAB PO SCH (21:00)
[2019-11-25] MEDS ORDERED: TAMSULOSIN 0.4 MG CAP PO SCH (21:00)
[2019-11-26] MEDS ORDERED: OMEPRAZOLE CAP 20 MG CAP PO SCH (07:00)
--- NOTE | 2019-11-27 13:25 | DS ---
SUPERVISING PHYSICIAN: Antonino Rucker MD ADMISSION DIAGNOSES: 1. History of multiple falls without mention of loss of consciousness secondary to significant deconditioning exacerbated by chronic back pain. 2. Microcytic/hypochromic presentation of likely a chronic illness with multiple transfusions in the past. 3. Mild electrolyte imbalance including a hyponatremia which is chronic. 4. Hypertension poorly controlled. 5. Depression. 6. Seizure disorder with no recent mention of past seizures. 7. Chronic sciatic pain with associated chronic lower back pain. 8. Dementia. 9. Previous alcohol abuse with associated cirrhosis. 10. Benign prostatic hypertrophy. 11. Previous CVAs with residual slurred speech. 12. History of pulmonary embolisms due to deep venous thrombosis. 13. Gout. !4. Osteoarthritis. DISCHARGE DIAGNOSIS: 1. Multiple falls secondary to deconditioning and chronic back pain with no mention of loss of consciousness. 2. Stable microcytic/hypochromic anemia likely due to chronic illness with previous transfusion. 3. Stable mild electrolyte imbalance including a hyponatremia, chronic. 4. Hypertension poorly controlled. 5. Depression. 6. Seizure disorder with no recent mention of past seizures. 7. Chronic sciatic pain with associated chronic lower back pain. 8. Dementia. 9. Previous alcohol abuse with associated cirrhosis. 10. Benign prostatic hypertrophy. 11. Previous CVAs with residual slurred speech. 12. History of pulmonary embolisms due to deep venous thrombosis. 13. Gout. !4. Osteoarthritis. BRIEF HOSPITALIZATION: Mr. Hammonds is a 69 year-old male patient who presented to the Emergency Room today secondary to recurrent falls at home with associated lower back pain that is chronic. The patient has been seen in the Emergency Room multiple times in the last several weeks. He had a laceration repaired to his head from his last fall and is taking pain medication due to his chronic back pain but was unable to get a significant amount of control and since has weakened. He normally is taken care of by his son but is unable to function to a degree at home in his place at which point he was brought to the Emergency Room for evaluation. He denied any fever or any other complaints. No shortness of breath, cough, wheezing or chest pains, just associated lower back pain at L3-5 region. Laboratory showed he had a white count of 9,300 with a stable hemoglobin of 10.26 and hematocrit 32.9 with a microcytic hypochromic presentation, RBC indices with a platelet count of greater than 62,000. Coagulation studies showed normal PT/PTT. Chemistries showed a sodium of 134, BUN 19, creatinine 1.26 , creatinine kinase was slightly elevated at 3.30. Troponin less than 0.02. Urinalysis was unremarkable. Radiology: He had a CT of the chest, abdomen and pelvis and a chest x-ray with no acute findings. The patient is requesting to go to [facility] and actually has been accepted.tonight for admission but can't go until tomorrow, awaiting a bed. Given the fact that he is not safe to discharge home and his degenerative deconditioned state, he is going to be placed in observation until he can be transferred [facility]. He was placed in observation in stable condition. LABORATORY STUDIES: CBC on admission showed a white count of 9,300, hemoglobin 10.6, hematocrit 32.9. RBC indices did indicate a microcytic hyperchromic anemia with differential showing just a mild left shift. PT/PTT were normal. Chemistries showed just a mild low sodium of 134, BUN 19, creatinine 1.26. CK was a little elevated at 330, troponin less than 0.02. Liver functions were all within normal limits. Urinalysis was within normal limits. RADIOLOGY: Abdominal/pelvic CT per radiology interpretation, no free fluid, tissue masses or hematoma in the abdomen. No compression type vertebral body fractures or posttraumatic spondylolisthesis in the included thoracolumbar spine at multiple levels of spondylosis. There was noted fusion hardware in the lumbar spine intact with custom made position, no other bony fractures. Diverticulosis of the colon was noted without any complications and a stable small sliding hiatal hernia. Please see that report for details. CT of the chest without contrast per radiology interpretation showed significant volume loss, increased septal thickening and pleural thickening especially at the bases of the left lung and hemithorax since previous CT scan February 2017 with basilar pleural thickening and hypodense appearance since of abdominal scan in November 2018, No acute infiltrate. There was note of multiple infiltrates in the right lung on the prior study 3 years ago, most likely absent now with no new in no new infiltrates. Stable pleural parenchymal scarring, stable size of the mediastinum and hilar lymph nodes. Please see those reports for details. HOSPITAL COURSE: Mr. Hammonds was placed in observation overnight to assist with pain control and arrangements for admission to [facility]. He was accepted in transfer and was found to be clinically stable enough to continue with outpatient management. PLAN: Mr. Hammonds was discharged on November 24 to be admitted to [facility]. ADMISSION DIAGNOSES: 1. Chronic back pain. 2. Multiple ground level falls without loss of consciousness secondary to #1. 3. Deconditioning complicated by #1 and advanced age and decreased mobility. DIET: Regular diet with nutritional consultation and diet plan. ACTIVITIES: Physical therapy to evaluate and treat. MEDICATIONS: As per written prescription and current MAR. Nursing care was as per nutritional protocols. Followup: Call Dr. Chauhan's office and schedule appointment . He is to return to the Emergency Department as needed and call Dr. Chauhan's for any questions or further orders. Prescription was written for Schlater by Dr. Rucker which will be continued by Dr. Mo. All other orders were to be continued through Dr. Chauhan's office. CONDITION ON DISCHARGE: Stable and improved. DISPOSITION: Patient was discharged and admitted to [facility]. #[id number] [facility]
== END 2019-11-25 13:45 ==
LOC: ER 10:11 → MS 14:58
PROVIDERS: ADMIT Nurse Practitioner Family; ATTEND Nurse Practitioner Family
DX: R29.6 Repeated falls (principal); M54.40 Lumbago with sciatica, unspecified side; G89.29 Other chronic pain; D50.9 Iron deficiency anemia, unspecified; E87.1 Hypo-osmolality and hyponatremia; E87.8 Other disorders of electrolyte and fluid balance, not elsewhere classified; I11.9 Hypertensive heart disease without heart failure; F32.9 Major depressive disorder, single episode, unspecified; G40.909 Epilepsy, unspecified, not intractable, without status epilepticus; F03.90 Unspecified dementia, unspecified severity, without behavioral disturbance, psychotic disturbance, mood disturbance, and anxiety; M47.895 Other spondylosis, thoracolumbar region; F17.210 Nicotine dependence, cigarettes, uncomplicated; K70.30 Alcoholic cirrhosis of liver without ascites; F10.21 Alcohol dependence, in remission; N40.0 Benign prostatic hyperplasia without lower urinary tract symptoms; I69.328 Other speech and language deficits following cerebral infarction; M10.9 Gout, unspecified; M19.90 Unspecified osteoarthritis, unspecified site; J44.9 Chronic obstructive pulmonary disease, unspecified; K21.9 Gastro-esophageal reflux disease without esophagitis; K57.30 Diverticulosis of large intestine without perforation or abscess without bleeding; K44.9 Diaphragmatic hernia without obstruction or gangrene; Z91.81 History of falling; Z79.899 Other long term (current) drug therapy; Z88.1 Allergy status to other antibiotic agents; Z88.8 Allergy status to other drugs, medicaments and biological substances; Z86.711 Personal history of pulmonary embolism; Z86.718 Personal history of other venous thrombosis and embolism; Z98.1 Arthrodesis status; Z96.652 Presence of left artificial knee joint; Z82.49 Family history of ischemic heart disease and other diseases of the circulatory system
CPT/HCPCS: 96374; 96375; 96376 ×2; 96372; J7611 ×3; J1885 ×2; J2270 ×4; J7030; J1650; 82553; 80053; 82150; 81001; 85025; 82550; 83690; 85730; 85610; 84484; 71045; 71250; 74176; 94640 ×3; 94760 ×2; 99285

== ENCOUNTER → 2020-01-16 | Outpatient (CLI) | payer MEDICARE, OTHER ==
--- NOTE | 2020-01-17 11:29 | MRI ---
EXAM DESCRIPTION: Lumbar Spine w/o Contrast : Magnetic Resonance Imaging. CLINICAL HISTORY: DEGENERATION OF LUMBAR INTERVERTEBRAL DISC COMPARISON: MRI scan lumbar spine without contrast August 2016. TECHNIQUE: Multiplanar, multiple standard sequences, non contrast MRI, lumbar spine. FINDINGS: Bilateral posterior transpedicular screws at L4, L5, and S1 with unilateral connecting rods. No abnormal marrow signal around the screws and no abnormal fluid collection in the spinal canal or around the posterior connecting rods. Posterior decompression at L4-5 and L5-S1. L5-S1: The disc is well visualized on axial T2 series 501, image 3. Interbody fusion device. Subsidence into the inferior L5 endplate stable with no abnormal marrow edema. Posterior decompression. Borderline right neural foraminal stenosis medially, widening laterally similar findings in the left neural foramen, stable since the prior study L4-L5: Interbody fusion device located posteriorly more right than left. Minimal subsidence inferior L4 endplate. Posterior midline spur on the inferior L4 endplate bulging into the canal. Posterior decompression but canal diameter 11 mm. Bilateral moderate to severe foraminal narrowing medial aspect with more lateral widening, stable since the prior study. L3-L4: Disc desiccation with disc space maintained. Anterior bilateral disc bulge and endplate spurs. Marked degenerative hypertrophy of the posterior flavum ligaments and facet joints, (canal elements). AP canal diameter 13 mm with significant transverse canal narrowing. Bilateral moderate foraminal narrowing, more on the right. Stable since the prior study. L2-L3: Disc desiccation minimal with anterior bilateral bulging and endplate ridging. Mild degenerative hypertrophy of the lateral canal elements. Mild transverse canal narrowing. Bilateral mild foraminal narrowing stable. L1-L2: Disc desiccation with anterior bilateral endplate ridging and disc bulging. Left paramedian Schmorl's nodes in the endplates. Trace posterior bulge. Mild degenerative hypertrophy of the canal elements. Mild to moderate narrowing of the right foramen and mild narrowing of the left foramen. No interval change from the prior study. T12-L1: Normal signal in the disc. Minimal endplate irregularities. Canal patent. Minimal degeneration of the canal elements. Bilateral foramina are patent. Conus terminates at this level. No significant scoliosis. Paravertebral soft tissues showing posterior muscle atrophy.. Distal cord normal signal and caliber. Otherwise normal marrow signal in the remaining vertebral bodies and the posterior elements. Vertebral bodies are not compressed at any level. IMPRESSION: 1. Multiple levels of anterior endplate spondylosis with disc bulge and anterior endplate ridging. 2. Prior posterior transpedicular fusion L4-L5 and L5-S1 and unilateral connecting rods and interbody fusion devices. Minimal subsidence of the interbody devices in the endplates as described; no other hardware complications. No interval change from the prior study. Bilateral moderate to severe foraminal narrowing at L4-L5 is stable since the prior study. Borderline right neural foraminal stenosis in the medial aspect of the foramen at L5-S1 also showing no interval change. 3. Findings at other levels, including no other levels of canal or foraminal stenosis or significant change from the prior study, discussed earlier. Electronically signed by: Ish Cesar MD 01/17/2020 11:27 AM CDT
== END ==
LOC: MRI 13:02
PROVIDERS: ATTEND General Practice
DX: M51.36 Other intervertebral disc degeneration, lumbar region (principal); M47.896 Other spondylosis, lumbar region; M51.86 Other intervertebral disc disorders, lumbar region; M48.062 Spinal stenosis, lumbar region with neurogenic claudication; M48.07 Spinal stenosis, lumbosacral region; M54.12 Radiculopathy, cervical region; Z98.1 Arthrodesis status

== ENCOUNTER 2020-02-06 18:29 | Observation (INO) | payer MEDICARE, OTHER ==
[2020-02-06] MEDS ORDERED: SODIUM CHLORIDE 0.9% (FLUSH) 10 ML SYG IV PRN ×2 (18:51→21:57)
--- NOTE | 2020-02-06 18:54 | ED.PDOC ---
History of Present Illness - General Chief Complaint: General Time Seen by Provider: 02/06/20 18:51 Source: patient, EMS - History of Present Illness Initial Comments: 69 yo male with PMH of HTN, hx of TIA's who is bib EMS from home for cc confusion and "not feeling right". Patient is very poor historian, history is very limited. He reports he has just "not been feeling right" since yesterday. Unable to describe. States he has had poor energy and fatigue and only able to ambulate for short distances around his home due to the symptoms. Reports he has been drinking a lot of root beer in the past couple of days but no water. He also reports he has had intermittent episodes of sweating, but EMS reports that on scene his house was very hot due to the AC unit not functioning appropriately. He also reports feeling slightly confused. In the ED he reports additionally dry mouth and some trouble talking. Reports generalized weakness but no focal deficits otherwise. Denies any numbness, facial droop, chest pain, cough, fevers, chills, dyspnea, palpitations, edema, abdominal pain, nausea/vomiting/diarrhea, urinary symptoms. Allergies/Adverse Reactions: Allergies Iodine Allergy (Severe, Verified 11/24/19 10:33) Other makes him feel like he is having "a heart attack" Cephalexin [From Keflex] Allergy (Verified 11/24/19 10:33) Home Medications: Ambulatory Orders Omeprazole [Prilosec] 40 mg PO ACBK 07/05/14 Amitriptyline HCl 150 mg PO BEDTIME 10/24/15 Donepezil HCl [Aricept] 5 mg PO DAILY 08/23/16 Tamsulosin [Flomax] 0.4 mg PO BEDTIME 08/23/16 Albuterol Sulfate [Ventolin Hfa] 108 mcg IN Q4H PRN 05/18/18 Doxepin HCl [Doxepin Hydrochloride] 25 mg PO DAILY 05/18/18 Magnesium Hydroxide [Milk Of Magnesia] 30 ml PO DAILY PRN 05/18/18 Meloxicam 15 mg PO DAILY 05/18/18 Acetaminophen [Tylenol] 500 mg PO Q8HR PRN 12/12/18 Polyethylene Glycol 3350 [Miralax] 17 gm PO DAILY #30 pckt 12/17/18 HYDROcodone 7.5MG/APAP 325MG [[place] 7.5/325] 1 tab PO BID 11/25/19 Review of Systems - Review of Systems Review of Systems: 02/06/20 19:41 as per HPI All other Systems: Reviewed and Negative Past Medical History (General) - Patient Medical History Hx Seizures: Yes Hx Stroke: Yes - x 3 Hx Dementia: Yes Hx Asthma: No Hx of COPD: Yes Hx Cardiac Disorders: Yes Hx Congestive Heart Failure: No Hx Pacemaker: No Hx Hypertension: Yes Hx Thyroid Disease: No Hx Diabetes: No Hx Gastroesophageal Reflux: Yes Hx Renal Disease: No Hx Cancer: No Hx of HIV: No Hx Hepatitis C: No Hx MRSA: No - Vaccination History Hx Tetanus, Diphtheria Vaccination: No Hx Influenza Vaccination: Yes Hx Pneumococcal Vaccination: Yes - Social History Hx Tobacco Use: Yes Hx Chewing Tobacco Use: No Hx Alcohol Use: No Hx Substance Use: No Hx Substance Use Treatment: No Hx Depression: No Hx Physical Abuse: No Hx Emotional Abuse: No Hx Suspected Abuse: No - Female History Patient : No Family Medical History - Family History Mother Family History: Unknown Living Status: Hx Cardiac Disease: Yes - mom Physical Exam - Physical Exam General Appearance: Alert, Comfortable, No apparent distress Eye Exam: bilateral normal Ears, Nose, Throat: hearing grossly normal, normal pharynx, other - Dry oral mucosa Neck: non-tender, full range of motion, supple, normal inspection Respiratory: chest non-tender, no respiratory distress, no accessory muscle use, other - Bibasilar crackles noted, no wheezes Cardiovascular/Chest: normal peripheral pulses, regular rate, rhythm, no edema, no gallop, no JVD, no murmur Peripheral Pulses: radial,right: 2+, radial,left: 2+ Gastrointestinal/Abdominal: non tender, soft, no organomegaly Back Exam: normal inspection, no CVA tenderness, no vertebral tenderness Extremity: normal range of motion, non-tender, normal inspection, no pedal edema, no calf tenderness Neurologic: no motor/sensory deficits, alert, normal mood/affect, 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 States he does not know the month or the date Skin Exam: normal color, warm/dry Progress - Progress Progress: 02/06/20 19:43 Altered mental status, generalized weakness -Consider CVA, TIA, ACS, CHF, pneumonia, dehydration, metabolic derangement, Rhabdo, infectious etiology, other -Patient stable in the ED -Obtain acute stroke and cardiac work-up, blood work, UA 02/06/20 20:21 -CT head reveals microvascular chronic ischemic changes but no acute processes. Patient has remained stable in the ED. His labs reveal creatinine level of 1.7, which appears to be up from his baseline of 0.91.2, consistent with acute kidney injury likely secondary to hypovolemia/dehydration. His CPK level is normal. Labs otherwise largely unremarkable from chronic. Troponin level is 0.02. -I discussed the patient with Triny Rouse who accepts the patient to her service for further observation for acute kidney injury and altered mental status and moderate dehydration. We will begin the treatment in the ED with a 1 L normal saline IV fluid bolus Jairo Olvera MD Billing #[id number] 02/06/20 18:51 IV Care:Saline Lock per Protoc QSHIFT Telemetry .ONCE Sodium Chloride 0.9% (Flush) [Saline Flush Syringe] 10 ml IV PRN PRN 02/06/20 18:52 URINALYSIS Stat 02/06/20 19:00 EKG STAT EKG STAT 02/06/20 20:15 Sodium Chloride 0.9% 1000ML [Ns 1000 ml] 1,000 ml IVS ONCE 02/07/20 09:00 Pulse Ox Daily Laboratory Results - last 24 hr 02/06/20 02/06/20 02/06/20 18:20 18:20 18:20 WBC 7.9 RBC 4.55 L Hgb 10.3 L Hct 31.8 L MCV 69.9 L MCH 22.6 L MCHC 32.4 L RDW 20.5 H Plt Count 348 MPV 7.3 L Absolute Neuts (auto) 5.40 Absolute Lymphs (auto) 1.70 Absolute Monos (auto) 0.60 Absolute Eos (auto) 0.10 Absolute Basos (auto) 0.10 Neutrophils % 68.6 Lymphocytes % 21.7 Monocytes % 8.1 Eosinophils % 1.0 Basophils % 0.6 Sodium 134 L Potassium 4.2 Chloride 103 Carbon Dioxide 21 Anion Gap 14.2 BUN 17 Creatinine 1.72 H BUN/Creatinine Ratio 9.9 L Random Glucose 89 Serum Osmolality 269.3 L Lactic Acid Calcium 8.8 Total Bilirubin 0.3 AST 13 ALT < 8 L Alkaline Phosphatase 136 H Creatine Kinase Troponin I 0.02 B-Natriuretic Peptide 191.0 H Serum Total Protein 8.5 H Albumin 3.7 Globulin 4.8 H Albumin/Globulin Ratio 0.8 L TSH 02/06/20 02/06/20 02/06/20 18:20 19:00 19:00 WBC RBC Hgb Hct MCV MCH MCHC RDW Plt Count MPV Absolute Neuts (auto) Absolute Lymphs (auto) Absolute Monos (auto) Absolute Eos (auto) Absolute Basos (auto) Neutrophils % Lymphocytes % Monocytes % Eosinophils % Basophils % Sodium Potassium Chloride Carbon Dioxide Anion Gap BUN Creatinine BUN/Creatinine Ratio Random Glucose Serum Osmolality Lactic Acid 0.8 Calcium Total Bilirubin AST ALT Alkaline Phosphatase Creatine Kinase 57 Troponin I B-Natriuretic Peptide Serum Total Protein Albumin Globulin Albumin/Globulin Ratio TSH 2.29 - EKG/XRAY/CT EKG: Sinus - Heart rate 75, no ST elevations or Q waves noted, axis and intervals normal, compared to 12/12/2018 EKG appears largely unchanged. XRAY: chest - Per my read, chronic interstitial infiltrative changes stable, likely scarring, possible left lung base atelectasis versus small infiltrate. Otherwise no acute processes Departure - Departure Clinical Impression: Acute kidney injury, Dehydration, Weakness AMS (altered mental status) Qualifiers: Altered mental status type: disorientation Qualified Code(s): R41.0 - Disorientation, unspecified Time of Disposition: 20:26 Disposition: Admit Patient Condition: Fair Departure Forms: ED Discharge - Pt. Copy, Patient Portal Self Enrollment Referrals: Bryce Chauhan MD [Primary Care Provider] - 1-2 Weeks Home Medications: Ambulatory Orders Omeprazole [Prilosec] 40 mg PO ACBK 07/05/14 Amitriptyline HCl 150 mg PO BEDTIME 10/24/15 Donepezil HCl [Aricept] 5 mg PO DAILY 08/23/16 Tamsulosin [Flomax] 0.4 mg PO BEDTIME 08/23/16 Albuterol Sulfate [Ventolin Hfa] 108 mcg IN Q4H PRN 05/18/18 Doxepin HCl [Doxepin Hydrochloride] 25 mg PO DAILY 05/18/18 Magnesium Hydroxide [Milk Of Magnesia] 30 ml PO DAILY PRN 05/18/18 Meloxicam 15 mg PO DAILY 05/18/18 Acetaminophen [Tylenol] 500 mg PO Q8HR PRN 12/12/18 Polyethylene Glycol 3350 [Miralax] 17 gm PO DAILY #30 pckt 12/17/18 HYDROcodone 7.5MG/APAP 325MG [[place] 7.5/325] 1 tab PO BID 11/25/19 Decision To Admit - Decistion To Admit Decision to Admit Reason: Admit from ER Decision to Admit Date: 02/06/20 Decision to Admit Time: 20:26
--- NOTE | 2020-02-06 20:03 | RAD ---
EXAM DESCRIPTION: Chest,1 View CLINICAL HISTORY: 69 years Male diaphoresis COMPARISON: 11/24/2019. FINDINGS: The cardiomediastinal silhouette appears stable. Atherosclerotic calcifications and tortuosity in the thoracic aorta. Interstitial changes in the lungs which appear similar. There is blunting of the left costophrenic angle with mild associated atelectasis or infiltrate. The appearance appears slightly improved compared to the prior study. No pneumothorax. Degenerative changes in the spine. IMPRESSION: There is blunting of the left costophrenic angle is mild associated atelectasis or infiltrate. The appearance appears slightly improved compared to the prior study. Interstitial changes in the lungs which appears similar. Electronically signed by: Hbuer Moses MD 02/06/2020 8:02 PM CDT
--- NOTE | 2020-02-06 20:08 | CT ---
PROCEDURE: Head CLINICAL HISTORY: 69 years Male altered mental status, hx of CVA COMPARISON: None. TECHNIQUE: Contiguous axial CT images obtained through the brain without IV contrast. This exam was performed according to our department optimization program which includes automated exposure control, adjustment of the mA and/or kv according to patient size and/or use of iterative reconstruction technique. FINDINGS: The ventricles and sulci are mildly prominent. Microvascular ischemic changes. Old infarct in the left thalamus. Old infarct in the right funez radiata. Atherosclerotic calcifications. No mass lesions. No acute hemorrhage. No fluid or significant mucosal thickening in the visualized paranasal sinuses. No depressed calvarial fractures. IMPRESSION: No acute intracranial abnormality is identified. Mild atrophy. Microvascular ischemic changes and old infarcts. If there is clinical concern for the possibility of acute ischemic change, MRI could be obtained to better evaluate. Electronically signed by: Huber Moses MD 02/06/2020 8:06 PM CDT
[2020-02-06] MEDS ORDERED: SODIUM CHLORIDE 0.9% 1000ML 1,000 ML IVS ONE (20:15)
[2020-02-06] MEDS ORDERED: ACETAMINOPHEN 325 MG TAB PO PRN (21:57)
[2020-02-06] MEDS ORDERED: ONDANSETRON INJ 4 MG/2 ML VIAL IV PRN (21:57)
[2020-02-06] MEDS ORDERED: ENOXAPARIN SODIUM 40 MG/0.4 ML SYG SUBCU SCH (22:00)
[2020-02-06] MEDS ORDERED: IV SET AND CAP CHANGE INJ INJ SCH (22:00)
[2020-02-06] MEDS ORDERED: AMITRIPTYLINE HCL 25 MG TAB PO SCH (22:03)
[2020-02-06] MEDS ORDERED: AMITRIPTYLINE HCL 10 MG TAB ONE (22:09)
[2020-02-06] MEDS ORDERED: TAMSULOSIN 0.4 MG CAP ONE (22:09)
[2020-02-06] MEDS ORDERED: GABAPENTIN 300 MG CAP ONE (22:10)
[2020-02-06] MEDS: SODIUM CHLORIDE 0.45% 1000ML 1,000 ML IVS PRN (22:11)
[2020-02-06] MEDS: HYDROcodone 7.5MG/APAP 325MG 1 EA TAB PO SCH (22:13)
[2020-02-07] MEDS: SODIUM CHLORIDE 0.45% 1000ML 1,000 ML IVS PRN (05:33)
[2020-02-07 05:41] VITALS: O2SAT 94
[2020-02-07] MEDS ORDERED: OMEPRAZOLE CAP 20 MG CAP PO SCH (06:30)
[2020-02-07] MEDS: HYDROcodone 7.5MG/APAP 325MG 1 EA TAB PO SCH (08:31)
[2020-02-07] MEDS ORDERED: SODIUM CHLORIDE 0.9% (FLUSH) 10 ML SYG IV SCH (09:00)
[2020-02-07] MEDS ORDERED: DOXEPIN HCL 25 MG PO SCH (09:00)
--- NOTE | 2020-02-07 11:54 | SSS ---
SUPERVISING PHYSICIAN: Alexander Harris MD DATE OF ADMISSION: 02/06/20 DATE OF DISCHARGE: 02/07/20 DISCHARGE DIAGNOSIS: 1. Heat intolerance with mild electrolyte imbalance and dehydration due to poor oral intake, poor living conditions and poor compliance. 2. Dizziness and confusion with altered mental status, most likely secondary to #1. 3. History of transient ischemic attacks and cerebrovascular accidents. 4. Hypertension, poorly controlled. 5. Seizure disorder without any complaints of seizure activity at this time. 6. Dementia. 7. Previous alcohol abuse. 8. Benign prostatic hypertrophy. 9. History of pulmonary embolism. 10. Gout. 11. Osteoarthritis. CHIEF COMPLAINT: Confusion, dizziness and fatigue with diaphoresis. HISTORY OF PRESENT ILLNESS: This is a 69-year-old male patient who has a past medical history of poor compliance. He has had transient ischemic attacks and cerebrovascular accidents in the past. He was brought in by EMS for confusion and just feeling poorly. He lives alone and has "not been feeling right" for the past 24 hours. He has had sweating and diaphoresis. He also said he has no working air conditioner in his house and has been drinking only root beer without any water and minimal food intake. EMS reported that his home was very hot when they picked him up. He was complaining of confusion, dry mouth, difficulty talking. He also felt generally weak, but there were no focal deficits noted. There was no numbness, no facial droop. He denied chest pain, cough, fevers, chills, dyspnea, palpitations, edema, abdominal pain, nausea, vomiting, diarrhea or adverse urinary symptoms. In the Emergency Room, his initial vital signs were temperature 97.5, heart rate 78, blood pressure 134/88, respiratory rate 20, O2 saturation 94%. Lab studies were done. His WBCs were 7.9, hemoglobin 10.3, hematocrit 31.8. Sodium 134, creatinine 1.72, baseline creatinine is about 1. Serum osmolality 269.3, alkaline phosphatase 136, BNP 191, TSH 2.29. Urinalysis was unremarkable. Head CT showed no acute intracranial abnormality with mild atrophy and microvascular ischemic changes and old infarct. Chest x-ray shows blunting of the left costophrenic angle with mild associated atelectasis or infiltrate, appears slightly improved compared to prior study. The patient was given fluids in the Emergency Room. I was called for admission. HOSPITAL COURSE: The patient was placed in observation in the hospital. He was gently hydrated overnight. Neuro checks were ordered as well as an echocardiogram and carotid ultrasound this morning. Those were completed this morning. His neuro status resolved. He was given fluids overnight. He will be discharged home in stable condition at this time. PAST MEDICAL HISTORY: 1. Hypertension. 2. Depression. 3. Seizure disorder. 4. Chronic sciatic pain. 5. Chronic low back pain. 6. Dementia. 7. Previous alcohol abuse with current cirrhosis. 8. Benign prostatic hypertrophy. 9. Cerebrovascular accident in the past. 10. History of pulmonary embolism. 11. History of deep venous thrombosis. 12. Gout. 13. Osteoarthritis. PAST SURGICAL HISTORY: 1. Left total knee arthroplasty. OUTPATIENT MEDICATIONS: Per the EMR. FAMILY HISTORY: Positive for cancer. SOCIAL HISTORY: He smokes one to two packs of cigarettes daily. He has a past history of alcohol abuse, but quit many years ago. He lives at home. REVIEW OF SYSTEMS: Negative except as per history of present illness. PHYSICAL EXAMINATION: VITAL SIGNS: Temperature 97.2, heart rate 76, blood pressure 137/84, respiratory rate 18, O2 saturation 94% on room air. GENERAL: This is a 69-year-old male patient lying in his bed. He is somewhat disheveled. He is in no acute distress. HEENT: Normocephalic, atraumatic. Pupils are equal and reactive. Oropharynx is clear, but he has poor dentition. NECK: Supple without mass. RESPIRATORY: Diminished at the bases, but otherwise clear to auscultation. CARDIOVASCULAR: Regular rate and rhythm. GASTROINTESTINAL: Abdomen is soft, nondistended, nontender. Bowel sounds are positive. NEUROLOGIC: Awake and alert. He does have chronic slurred speech. Facial features are symmetrical. He is oriented times three. SKIN: Warm and dry. LABORATORY: Followup lab shows an unremarkable CBC with CMP that is unremarkable with the exception of his creatinine has improved to 1.29. Alkaline phosphatase 103. DISCHARGE PLAN: The patient will be discharged home in stable condition. He is to followup with Dr. Chauhan within the next one to two weeks. He is to resume his previous diet and increase his activity as tolerated. He is to return to the hospital or followup with Dr. Chauhan for any problems or complications. DISCHARGE MEDICATIONS: 1. Omeprazole. 2. Donepezil. 3. Tamsulosin. 4. Magnesium hydroxide. 5. Meloxicam. 6. Albuterol. 7. Doxepin. 8. Acetaminophen. 9. MiraLAX. 10. Hydrocodone. 11. Amitriptyline. 12. Gabapentin. 13. Tramadol. 14. Ibuprofen. #[id number] [facility]
[2020-02-07 12:26] VITALS: BP 132/68; TEMP 97.5
[2020-02-07] MEDS ORDERED: GABAPENTIN 300 MG CAP PO SCH (21:00)
[2020-02-07] MEDS ORDERED: TAMSULOSIN 0.4 MG CAP PO SCH (21:00)
[2020-02-07] MEDS ORDERED: NON-FORMULARY MEDICATION 1 EA MIS (Gabapentin [Gabapentin] 600 MG) PO SCH (21:00)
--- NOTE | 2020-02-08 08:21 | US ---
EXAM DESCRIPTION: Carotid Duplex: ULTRASOUND. CLINICAL HISTORY: 69 years Male AMS COMPARISON: CT scan of the head February 05. TECHNIQUE: Transcutaneous scanning utilizing kim-scale and Doppler modes to evaluate the bilateral carotid systems and vertebral arteries. Percentage of diameter of stenosis or no stenosis recorded will be based upon NASCET criteria. FINDINGS: Peak systolic/end diastolic (CM-Sec) CCA Right 83/12 Left 116/15. ICA Right proximal 75/12, mid 64/16. Left proximal 88/21, mid 89/25. Vertebral Right 56/11 Left 40/10. ECA (PS Only) Right 61 left 78. ICA/CCA peak systolic ratio: Right 0.9 Left 0.8 ICA/CCA end diastolic ratio: Right 0.9 Left 1.6 Vertebral arteries: antegrade flow. Comments: Atherosclerotic calcification of the bilateral carotid bifurcations and proximal ICAs. Area stenosis and diameter stenosis in the right common carotid and right ICA is less than 45 %. Area stenosis and diameter stenosis in the left common carotid and left ICA is less than 40%. IMPRESSION: 1. Doppler evaluation of the bilateral carotid systems and vertebral arteries shows no hemodynamically significant stenoses (less than 70%). 2. No significant amount of plaque in the carotid arteries bilaterally. Bilateral vertebral arteries showed antegrade-cephalad flow. Electronically signed by: Ish Cesar MD 02/08/2020 8:19 AM CDT
== END 2020-02-07 10:55 | disposition home or self-care (01) ==
LOC: ER 18:29 → MS 21:01
PROVIDERS: ADMIT Nurse Practitioner Acute Care; ATTEND Nurse Practitioner Acute Care
DX: T67.5XXA Heat exhaustion, unspecified, initial encounter (principal); E87.8 Other disorders of electrolyte and fluid balance, not elsewhere classified; E86.0 Dehydration; N17.9 Acute kidney failure, unspecified; R42 Dizziness and giddiness; R41.82 Altered mental status, unspecified; I10 Essential (primary) hypertension; G40.909 Epilepsy, unspecified, not intractable, without status epilepticus; F03.90 Unspecified dementia, unspecified severity, without behavioral disturbance, psychotic disturbance, mood disturbance, and anxiety; I65.23 Occlusion and stenosis of bilateral carotid arteries; N40.0 Benign prostatic hyperplasia without lower urinary tract symptoms; M10.9 Gout, unspecified; M19.90 Unspecified osteoarthritis, unspecified site; F17.210 Nicotine dependence, cigarettes, uncomplicated; K70.30 Alcoholic cirrhosis of liver without ascites; F10.21 Alcohol dependence, in remission; G89.29 Other chronic pain; J44.9 Chronic obstructive pulmonary disease, unspecified; K21.9 Gastro-esophageal reflux disease without esophagitis; X30.XXXA Exposure to excessive natural heat, initial encounter; Y92.009 Unspecified place in unspecified non-institutional (private) residence as the place of occurrence of the external cause; Z59.1 Inadequate housing; Z79.1 Long term (current) use of non-steroidal anti-inflammatories (NSAID); Z79.891 Long term (current) use of opiate analgesic; Z79.899 Other long term (current) drug therapy; Z86.73 Personal history of transient ischemic attack (TIA), and cerebral infarction without residual deficits; Z86.711 Personal history of pulmonary embolism; Z86.718 Personal history of other venous thrombosis and embolism; Z96.652 Presence of left artificial knee joint
CPT/HCPCS: 96360; 96361 ×2; 96372; J7799 ×2; J7030; J1650; A4216; 80053 ×2; 80061; 36415 ×3; 81001; 85025 ×2; 82550; 83735; 84443; 84484; 83880; 83605; 71045; 70450; 93880; 94760; 99285; 93306; 93005; G0378

== ENCOUNTER 2020-06-07 21:42 | Emergency (ER) | payer MEDICARE, OTHER ==
[2020-06-07] MEDS ORDERED: KETOROLAC TROMETHAMINE INJ 30 MG/ML VIAL IM ONE (21:47)
[2020-06-07] MEDS ORDERED: AMITRIPTYLINE HCL 25 MG TAB PO ONE (22:00)
[2020-06-07] MEDS ORDERED: DONEPEZIL HCL 5 MG TAB PO ONE (22:01)
[2020-06-07 22:06] VITALS: TEMP 97.8
--- NOTE | 2020-06-07 22:49 | RAD ---
EXAM: XR Chest, 2 Views CLINICAL HISTORY: The patient is 70 years old and is Male; pain at site of left rib cage from fall 1 week ago TECHNIQUE: Frontal and lateral views of the chest. COMPARISON: Chest radiograph April 18, 2020 FINDINGS: LUNGS: The lungs are hyperinflated with chronic coarse interstitial markings. Somewhat spiculated opacity within the left midlung is present. PLEURAL SPACE: Pleural thickening and fluid along the left chest wall is present. No pneumothorax. HEART: Unremarkable. No cardiomegaly. MEDIASTINUM: Unremarkable. BONES/JOINTS: Unremarkable. IMPRESSION: 1. Findings suggest chronic coarse interstitial markings with somewhat spiculated appearance of the left midlung. Further evaluation with a contrasted CT of the chest should be considered. 2. Pleural thickening with associated fluid along the left lung, increased from prior exam. Electronically signed by: Juana Andrews MD 06/07/2020 10:47 PM CDT
--- NOTE | 2020-06-07 22:56 | RAD ---
CLINICAL HISTORY: nv COMPARISON: 12/15/2018. TECHNIQUE: XR ABDOMEN 2 VIEWS SUPINE ERECT 06/07/2020 9:49 PM CDT FINDINGS: There is moderate amount of stool in the proximal colon. Lower lumbar fusion was performed. There are no abnormal radiopaque foreign bodies or abnormal calcifications. Osseous structures are grossly unremarkable. IMPRESSION: No bowel obstruction. Electronically signed by: Peter Martinez MD 06/07/2020 10:55 PM CDT
--- NOTE | 2020-06-08 00:24 | CT ---
EXAM DESCRIPTION: Chest w/o Contrast CLINICAL HISTORY: 70 years Male eval spiculated area seen on cxr COMPARISON: Prior study dated November 24, 2019. The study is also correlated with the radiograph the chest performed on the same day. TECHNIQUE: Images were obtained in axial, sagittal, and coronal planes. No intravenous contrast was administered. This exam was performed according to our departmental dose-optimization program which includes use of Automated Exposure Control, adjustment of the mA and/or kV according to patient size and/or use of iterative reconstruction technique. FINDINGS: No dilatation aortic root. No pericardial effusion. No adenopathy. No right pleural effusion. Irregular somewhat circumferential pleural thickening left hemithorax spiculated components again identified. Retraction left hilum laterally with loss of volume left hemithorax. The appearance is overall unchanged when correlated with the prior study. Marked centrilobular emphysema with thickening of the interlobular septa unchanged. Peripheral reticulation bilaterally. No acute osseous abnormality. No abnormality upper abdomen. IMPRESSION: Abnormal irregular circumferential pleural thickening left hemithorax with associated spiculated appearance and retraction left hilum laterally. These findings may be related to inflammatory process and chronic change however mesothelioma should be considered. Marked COPD. No new infiltrates seen. Electronically signed by: Verona Stoddard MD 06/08/2020 12:22 AM CDT
--- NOTE | 2020-06-08 00:25 | CT ---
EXAM: CT Abdomen and Pelvis Without Intravenous Contrast CLINICAL HISTORY: The patient is 70 years old and is Male; eval n/v , Fe def TECHNIQUE: Axial computed tomography images of the abdomen and pelvis without intravenous contrast. Sagittal and coronal reformatted images were created and reviewed. This CT exam was performed using one or more of the following dose reduction techniques: automated exposure control, adjustment of the mA and/or kV according to patient size, and/or use of iterative reconstruction technique. COMPARISON: CT abdomen pelvis from 11/24/2019 FINDINGS: ARTIFACTS: There is streak artifact related to the patient's arms. LUNG BASES: There is a trace pleural effusion at the left lung base, which is chronic and unchanged. There are mild peripheral opacities in the lung bases which are not significantly changed and likely represent a combination of fibrotic change and atelectasis. ABDOMEN: LIVER: Unremarkable. No obvious liver masses appreciated on this non-contrast exam. GALLBLADDER AND BILE DUCTS: Unremarkable. No calcified stones. No significant biliary ductal dilatation. PANCREAS: Unremarkable. No ductal dilation. SPLEEN: Unremarkable. No splenomegaly. ADRENALS: Unremarkable. No adrenal nodules or masses identified. KIDNEYS AND URETERS: There is mild bilateral perinephric stranding, which is similar to the prior study and is likely chronic. No hydronephrosis. No renal or ureteral stones. No obvious solid renal mass. Small cyst at the inferior pole of the left kidney. STOMACH AND BOWEL: Scattered colonic diverticuli without evidence of diverticulitis. No bowel obstruction. No significant bowel wall thickening. PELVIS: APPENDIX: The appendix is unremarkable. BLADDER: Unremarkable. No stones. REPRODUCTIVE: The prostate is mildly enlarged. ABDOMEN and PELVIS: INTRAPERITONEAL SPACE: Unremarkable. No free air. No significant fluid collection. BONES/JOINTS: There are postsurgical changes of interbody fusion at L4-5 and L5-S1, with bilateral pedicle screws and spinal rods in place at these levels. Degenerative changes also noted in the spine. No acute fracture visualized. No dislocation. SOFT TISSUES: No significant abnormalities in the superficial soft tissues. VASCULATURE: Unremarkable. No abdominal aortic aneurysm. LYMPH NODES: No significant lymph node enlargement. IMPRESSION: No acute findings in the abdomen or pelvis. Electronically signed by: Cynthia Cristina MD 06/08/2020 12:23 AM CDT
[2020-06-08 00:31] VITALS: O2SAT 97
--- NOTE | 2020-06-08 00:37 | ED.PDOC ---
History of Present Illness - General Chief Complaint: General Stated Complaint: "feels bad, can't eat, can't sleep" Time Seen by Provider: 06/07/20 21:47 Source: patient Exam Limitations: no limitations - History of Present Illness Initial Comments: The patient is a 70-year-old male presented emergency room secondary to complaints of not being able to sleep for the last 3 days along with some mild stomach upset the last couple of days with at least 2 episodes of nausea and vomiting. No fever. No abdominal pain. Mild queasiness. Decreased appetite. No significant weight loss. The patient did not realize it but upon review of his medications he had apparently not gotten his amitriptyline and donepezil refilled within the last week. He has been on these medications for quite some time. No blood or bile in the vomitus. Normal stool output according to him. The patient has apparently has had a history of iron deficiency anemia in the past. Timing/Duration: other - 3 days Severity: moderate Improving Factors: nothing Worsening Factors: nothing Associated Symptoms: loss of appetite, malaise, nausea/vomiting Allergies/Adverse Reactions: Allergies Iodine Allergy (Severe, Verified 06/07/20 23:39) Other makes him feel like he is having "a heart attack" Cephalexin [From Keflex] Allergy (Verified 06/07/20 23:39) Home Medications: Ambulatory Orders Omeprazole [Prilosec] 40 mg PO ACBK 07/05/14 Donepezil HCl [Aricept] 5 mg PO BEDTIME 08/23/16 Tamsulosin [Flomax] 0.4 mg PO BEDTIME 08/23/16 Albuterol Sulfate [Ventolin Hfa] 108 mcg IN Q4H PRN 05/18/18 Doxepin HCl [Doxepin Hydrochloride] 25 mg PO DAILY 05/18/18 Magnesium Hydroxide [Milk Of Magnesia] 30 ml PO DAILY PRN 05/18/18 Meloxicam 15 mg PO DAILY 05/18/18 Acetaminophen [Tylenol] 500 mg PO Q8HR PRN 12/12/18 Polyethylene Glycol 3350 [Miralax] 17 gm PO DAILY #30 pckt 12/17/18 HYDROcodone 7.5MG/APAP 325MG [[place] 7.5/325] 1 tab PO BID 11/25/19 Amitriptyline HCl 150 mg PO BEDTIME 02/06/20 Amitriptyline HCl [Elavil] 25 mg PO QAM 02/06/20 Gabapentin 600 mg PO BEDTIME 02/06/20 Ibuprofen 600 mg PO Q8H PRN 02/06/20 Tramadol HCl 50 mg PO Q6H PRN 02/06/20 Sulfamethoxazole-Trimethoprim [Bactrim Ds 800-160 mg] 1 tab PO BID 10 Days #20 tab 04/18/20 Amitriptyline HCl [Amitriptyline Hydrochlori] 25 mg PO QPM #14 tab 06/08/20 Donepezil HCl [Aricept] 5 mg PO BEDTIME #14 tab 06/08/20 Ondansetron Odt [Zofran ODT] 4 mg PO Q8HR PRN #5 tab 06/08/20 Sucralfate Tab [Carafate Tab] 1 gm PO QID #60 tab 06/08/20 Review of Systems - Review of Systems Constitutional: States: no symptoms reported EENTM: States: no symptoms reported Respiratory: States: no symptoms reported Cardiology: States: no symptoms reported Gastrointestinal/Abdominal: States: nausea Genitourinary: States: no symptoms reported Musculoskeletal: States: no symptoms reported Skin: States: no symptoms reported Neurological: States: anxiety Endocrine: States: no symptoms reported All other Systems: No Change from Baseline Past Medical History (General) - Patient Medical History Hx Seizures: Yes Hx Stroke: Yes - and TIAs Hx Dementia: Yes Hx Asthma: No Hx of COPD: Yes Hx Cardiac Disorders: Yes Hx Congestive Heart Failure: No Hx Pacemaker: No Hx Hypertension: Yes Hx Thyroid Disease: No Hx Diabetes: No Hx Gastroesophageal Reflux: Yes Hx Renal Disease: No Hx Cancer: No Hx of HIV: No Hx Hepatitis C: No Hx MRSA: No - Vaccination History Hx Tetanus, Diphtheria Vaccination: No Hx Influenza Vaccination: Yes Hx Pneumococcal Vaccination: Yes - Social History Hx Tobacco Use: Yes Hx Chewing Tobacco Use: No Hx Alcohol Use: No Hx Substance Use: No Hx Substance Use Treatment: No Hx Depression: No Hx Physical Abuse: No Hx Emotional Abuse: No Hx Suspected Abuse: No - Female History Patient : No Family Medical History - Family History Mother Family History: Unknown Living Status: Hx Cardiac Disease: Yes - mom Physical Exam - Physical Exam General Appearance: Alert, Anxious, No apparent distress Eye Exam: bilateral normal Ears, Nose, Throat: hearing grossly normal, normal ENT inspection Neck: full range of motion, supple Respiratory: lungs clear, normal breath sounds, no respiratory distress, no accessory muscle use Cardiovascular/Chest: normal peripheral pulses, regular rate, rhythm, no edema Peripheral Pulses: radial,right: 2+, radial,left: 2+ Gastrointestinal/Abdominal: non tender, soft Rectal Exam: deferred Back Exam: no CVA tenderness, no vertebral tenderness Extremity: normal range of motion, normal inspection, no pedal edema, normal capillary refill 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 He does have mild dementia. Skin Exam: normal color Comments: Vital Signs - 24 hr 06/07/20 06/07/20 06/07/20 21:46 22:42 23:00 Temperature 97.8 F Pulse Rate [ 86 74 68 left] Respiratory 18 16 16 Rate Blood Pressure 176/110 167/94 159/70 [Left Arm] O2 Sat by Pulse 96 98 98 Oximetry 06/08/20 00:30 Temperature Pulse Rate [ 77 left] Respiratory 14 Rate Blood Pressure 164/73 [Left Arm] O2 Sat by Pulse 97 Oximetry Progress - Progress Progress: 06/08/20 00:38 The patient is a 70-year-old male presented emergency room secondary to several complaints. The patient has been having insomnia for the last 3 days likely due to running out of his donepezil and amitriptyline. I will write him for 2 weeks of both. He does need to follow-up with his primary care doctor to get these filled long-term. Additionally the patient has been queasy for the last couple of days. It is possible this may be due to mild withdrawal from the Elavil since he has been on it for some time. Looking back to the patient's history, however he has had issues with upper GI upset and iron deficiency anemia in the past. I am going to place the patient on Carafate for the next 2 weeks. He needs to follow back up with his primary care doctor in a week or 2 to discuss iron supplementation as he does appear to be significantly iron deficient. Does have some mild anemia though not much more pronounced than it has been in the past. Additionally the patient does have some chronic hyponatremia. Again it is not significantly worse than it has been in the past and I do not believe that it is causing the symptoms today. 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 Again he needs to follow back up with his primary care doctor and have another blood draw in about a week. ER warnings are given. The patient is sleeping nicely after a dose of Elavil and donepezil here. Imaging of the patient's chest shows thickening of the pleural lung base. This is likely a chronic inflammatory process however radiology was unable to rule out mesothelioma definitively. I do want the patient to discuss this with his primary care doctor when he sees him in a week. janie marianela [phone] - Results/Orders Results/Orders: Laboratory Tests 06/07/20 06/07/20 22:26 22:26 WBC 8.4 RBC 3.94 L Hgb 8.8 L Hct 27.3 L MCV 69.2 L MCH 22.4 L MCHC 32.4 L RDW 19.9 H Plt Count 436 H MPV 7.5 Absolute Neuts (auto) 5.70 Absolute Lymphs (auto) 1.80 Absolute Monos (auto) 0.70 Absolute Eos (auto) 0.20 Absolute Basos (auto) 0.00 Neutrophils % 68.4 Lymphocytes % 21.4 Monocytes % 8.0 Eosinophils % 2.0 Basophils % 0.2 Sodium 129 L Potassium 4.0 Chloride 98 L Carbon Dioxide 20 L Anion Gap 15.0 BUN 14 Creatinine 0.75 BUN/Creatinine Ratio 18.7 Random Glucose 106 H Serum Osmolality 259.8 L Calcium 9.8 Magnesium 1.7 L Total Bilirubin 0.4 AST 16 ALT 9 L Alkaline Phosphatase 95 Creatine Kinase 41 CK-MB (CK-2) 1.9 CK-MB (CK-2) % Not Reportable Troponin I < 0.02 Serum Total Protein 8.7 H Albumin 3.8 Globulin 4.9 H Albumin/Globulin Ratio 0.8 L Amylase 55 Lipase 29 Imaging of the chest including CT scan and chest x-ray show chronic changes when compared to previous imaging. There does appear to be significant scarring in the form of centrilobular emphysema as well as trace lung base pleural effusion versus thickening with also some mild adjacent chronic fibrosis and atelectasis. Abdominal imaging shows mild constipation but also mild chronic bilateral perinephric stranding. Diverticuli but no diverticulitis. DJD of the lumbar spine and chronic surgical changes. Departure - Departure Clinical Impression: Chronic hyponatremia, Iron deficiency anemia Insomnia Qualifiers: Insomnia type: drug-induced Qualified Code(s): F19.982 - Other psychoactive substance use, unspecified with psychoactive substance-induced sleep disorder Gastritis Qualifiers: Gastritis type: unspecified gastritis Chronicity: chronic Gastritis bleeding: without bleeding Qualified Code(s): K29.50 - Unspecified chronic gastritis without bleeding Disposition: Discharge to Home or Self Care Condition: Fair Departure Forms: ED Discharge - Pt. Copy, Patient Portal Self Enrollment Instructions: Anemia Caused by Low Iron, Adult (DC), Hyponatremia (DC), Prescription Drug Withdrawal (DC) Diet: bland diet Activity: increase activity as tolerated Referrals: Bryce Chauhan MD [Primary Care Provider] - 1-2 Weeks Prescriptions: Ondansetron Odt [Zofran ODT] 4 mg PO Q8HR PRN #5 tab PRN Reason: Nausea--Moderate Amitriptyline HCl [Amitriptyline Hydrochlori] 25 mg PO QPM #14 tab Donepezil HCl [Aricept] 5 mg PO BEDTIME #14 tab Sucralfate Tab [Carafate Tab] 1 gm PO QID #60 tab Home Medications: Ambulatory Orders Omeprazole [Prilosec] 40 mg PO ACBK 07/05/14 Donepezil HCl [Aricept] 5 mg PO BEDTIME 08/23/16 Tamsulosin [Flomax] 0.4 mg PO BEDTIME 08/23/16 Albuterol Sulfate [Ventolin Hfa] 108 mcg IN Q4H PRN 05/18/18 Doxepin HCl [Doxepin Hydrochloride] 25 mg PO DAILY 05/18/18 Magnesium Hydroxide [Milk Of Magnesia] 30 ml PO DAILY PRN 05/18/18 Meloxicam 15 mg PO DAILY 05/18/18 Acetaminophen [Tylenol] 500 mg PO Q8HR PRN 12/12/18 Polyethylene Glycol 3350 [Miralax] 17 gm PO DAILY #30 pckt 12/17/18 HYDROcodone 7.5MG/APAP 325MG [[place] 7.5/325] 1 tab PO BID 11/25/19 Amitriptyline HCl 150 mg PO BEDTIME 02/06/20 Amitriptyline HCl [Elavil] 25 mg PO QAM 02/06/20 Gabapentin 600 mg PO BEDTIME 02/06/20 Ibuprofen 600 mg PO Q8H PRN 02/06/20 Tramadol HCl 50 mg PO Q6H PRN 02/06/20 Sulfamethoxazole-Trimethoprim [Bactrim Ds 800-160 mg] 1 tab PO BID 10 Days #20 tab 04/18/20 Amitriptyline HCl [Amitriptyline Hydrochlori] 25 mg PO QPM #14 tab 06/08/20 Donepezil HCl [Aricept] 5 mg PO BEDTIME #14 tab 06/08/20 Ondansetron Odt [Zofran ODT] 4 mg PO Q8HR PRN #5 tab 06/08/20 Sucralfate Tab [Carafate Tab] 1 gm PO QID #60 tab 06/08/20 Additional Instructions: The patient is a 70-year-old male presented emergency room secondary to several complaints. The patient has been having insomnia for the last 3 days likely due to running out of his donepezil and amitriptyline. I will write him for 2 weeks of both. He does need to follow-up with his primary care doctor to get these filled long-term. Additionally the patient has been queasy for the last couple of days. It is possible this may be due to mild withdrawal from the Elavil since he has been on it for some time. Looking back to the patient's history, however he has had issues with upper GI upset and iron deficiency anemia in the past. I am going to place the patient on Carafate for the next 2 weeks. He needs to follow back up with his primary care doctor in a week or 2 to discuss iron supplementation as he does appear to be significantly iron deficient. Does have some mild anemia though not much more pronounced than it has been in the past. Additionally the patient does have some chronic hyponatremia. Again it is not significantly worse than it has been in the past and I do not believe that it is causing the symptoms today. 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 Again he needs to follow back up with his primary care doctor and have another blood draw in about a week. ER warnings are given. The patient is sleeping nicely after a dose of Elavil and donepezil here. Imaging of the patient's chest shows thickening of the pleural lung base. This is likely a chronic inflammatory process however radiology was unable to rule out mesothelioma definitively. I do want the patient to discuss this with his primary care doctor when he sees him in a week
[2020-06-08 01:02] VITALS: BP 174/88
== END 2020-06-08 01:03 | disposition home or self-care (01) ==
LOC: ER 21:42
DX: F19.982 Other psychoactive substance use, unspecified with psychoactive substance-induced sleep disorder (principal); K29.50 Unspecified chronic gastritis without bleeding; E87.1 Hypo-osmolality and hyponatremia; D50.9 Iron deficiency anemia, unspecified; R11.2 Nausea with vomiting, unspecified; R10.9 Unspecified abdominal pain; J44.9 Chronic obstructive pulmonary disease, unspecified; I10 Essential (primary) hypertension; K21.9 Gastro-esophageal reflux disease without esophagitis; F03.90 Unspecified dementia, unspecified severity, without behavioral disturbance, psychotic disturbance, mood disturbance, and anxiety; K59.00 Constipation, unspecified; Z86.73 Personal history of transient ischemic attack (TIA), and cerebral infarction without residual deficits; Z87.891 Personal history of nicotine dependence; Z79.899 Other long term (current) drug therapy

== ENCOUNTER 2020-06-27 13:16 | Emergency (ER) | payer MEDICARE, OTHER ==
--- NOTE | 2020-06-27 13:27 | ED.PDOC ---
History of Present Illness - General Chief Complaint: Respiratory Problem Time Seen by Provider: 06/27/20 13:17 Source: RN notes reviewed, Vital Signs reviewed, EMS notes reviewed, family, EMS, old records Exam Limitations: other - dementia - History of Present Illness Initial Comments: 70 yo M brought in by EMS from home with cough, shortness of breath. EMS found cahce to be hypoxic around 80%. Was given oxygen and seemed to improve mental status. Currently 97% on RA. Unsure how long patient has been sick. Hx of COPD and PE/DVT, not currently on blood thinners. Allergies/Adverse Reactions: Allergies Iodine Allergy (Severe, Verified 06/27/20 13:43) Other makes him feel like he is having "a heart attack" Cephalexin [From Keflex] Allergy (Verified 06/27/20 13:43) Home Medications: Ambulatory Orders Omeprazole [Prilosec] 40 mg PO ACBK 07/05/14 Donepezil HCl [Aricept] 5 mg PO BEDTIME 08/23/16 Tamsulosin [Flomax] 0.4 mg PO BEDTIME 08/23/16 Albuterol Sulfate [Ventolin Hfa] 108 mcg IN Q4H PRN 05/18/18 Doxepin HCl [Doxepin Hydrochloride] 25 mg PO DAILY 05/18/18 Meloxicam 15 mg PO DAILY 05/18/18 HYDROcodone 7.5MG/APAP 325MG [[place] 7.5/325] 1 tab PO BID 11/25/19 Amitriptyline HCl 150 mg PO BEDTIME 02/06/20 Gabapentin 600 mg PO BEDTIME 02/06/20 Tramadol HCl 50 mg PO Q6H PRN 02/06/20 Ondansetron Odt [Zofran ODT] 4 mg PO Q8HR PRN #5 tab 06/08/20 Sucralfate Tab [Carafate Tab] 1 gm PO QID #60 tab 06/08/20 Esomeprazole Magnesium 40 mg PO DAILY 06/27/20 Review of Systems - Review of Systems Unable to Obtain Due To: dementia, clinical condition Past Medical History (General) - Patient Medical History Hx Seizures: Yes Hx Stroke: Yes - and TIAs Hx Dementia: Yes Hx Asthma: No Hx of COPD: Yes Hx Cardiac Disorders: Yes Hx Congestive Heart Failure: No Hx Pacemaker: No Hx Hypertension: Yes Hx Thyroid Disease: No Hx Diabetes: No Hx Gastroesophageal Reflux: Yes Hx Renal Disease: No Hx Cancer: No Hx of HIV: No Hx Hepatitis C: No Hx MRSA: No Hx Other PMH: Yes - PE/DVT - Vaccination History Hx Tetanus, Diphtheria Vaccination: No Hx Influenza Vaccination: Yes Hx Pneumococcal Vaccination: Yes - Social History Hx Tobacco Use: Yes Hx Chewing Tobacco Use: No Hx Alcohol Use: No Hx Substance Use: No Hx Substance Use Treatment: No Hx Depression: No Hx Physical Abuse: No Hx Emotional Abuse: No Hx Suspected Abuse: No - Female History Patient : No Family Medical History - Family History Mother Family History: Unknown Living Status: Hx Cardiac Disease: Yes - mom Physical Exam - Physical Exam General Appearance: Alert, No apparent distress, Unkempt, Well Developed Eyes, Ears, Nose, Throat Exam: PERRL/EOMI, normal ENT inspection Neck: non-tender, full range of motion, supple, normal inspection, carotid bruit Respiratory: chest non-tender, no respiratory distress, no accessory muscle use, rales, rhonchi Cardiovascular/Chest: normal peripheral pulses, no edema, no gallop, no JVD, no murmur, tachycardia Peripheral Pulses: radial,right: 2+, radial,left: 2+ Gastrointestinal/Abdominal: normal bowel sounds, non tender, soft, no o rganomegaly, no pulsatile mass Rectal Exam: deferred Extremity: normal range of motion, non-tender, no pedal edema, no calf tenderness, normal capillary refill, other - atrophy Neurologic: alert, normal mood/affect, other - oriented to self Skin Exam: normal color, warm/dry Progress - Progress Progress: 06/27/20 14:19 partail ddx: pneumonia, pe, covid, chf, copd exacerbation PSI score 91. hospitalization for pneumonia recommended. hx of PE/DVT, unable to get CTA due to anaphylaxis to prior contrast. ABG shows Po2 61, will place on 1 L NC. Will need to transfer for V/Q scan. Given Levaquin. The data reviewed when caring for this patient included: nurse notes, prior records, etc. The history and assessments from nurses notes were reviewed and considered, and the patient's home medication list was also reviewed and considered. My assessment and the results of testing completed here in the ED were discussed.one mg/kg dose of lovenox given. VSS, patient transferred in stable condition. Tori Cortes DO #801 - EKG/XRAY/CT EKG: Sinus, Tachy - hr 116, lvg, , Changed from - previous 05/08/20 Comments: qrs [address] changes. Departure - Departure Clinical Impression: Elevated d-dimer, Hypoxia Pneumonia Qualifiers: Pneumonia type: due to unspecified organism Laterality: bilateral Lung location: unspecified part of lung Qualified Code(s): J18.9 - Pneumonia, unspecified organism AMS (altered mental status) Qualifiers: Altered mental status type: unspecified Qualified Code(s): R41.82 - Altered mental status, unspecified Disposition: Discharge to Home or Self Care Departure Forms: ED Discharge - Pt. Copy, Patient Portal Self Enrollment Referrals: Brcye Chauhan MD [Primary Care Provider] - 1-2 Weeks Home Medications: Ambulatory Orders Omeprazole [Prilosec] 40 mg PO ACBK 07/05/14 Donepezil HCl [Aricept] 5 mg PO BEDTIME 08/23/16 Tamsulosin [Flomax] 0.4 mg PO BEDTIME 08/23/16 Albuterol Sulfate [Ventolin Hfa] 108 mcg IN Q4H PRN 05/18/18 Doxepin HCl [Doxepin Hydrochloride] 25 mg PO DAILY 05/18/18 Meloxicam 15 mg PO DAILY 05/18/18 HYDROcodone 7.5MG/APAP 325MG [[place] 7.5/325] 1 tab PO BID 11/25/19 Amitriptyline HCl 150 mg PO BEDTIME 02/06/20 Gabapentin 600 mg PO BEDTIME 02/06/20 Tramadol HCl 50 mg PO Q6H PRN 02/06/20 Ondansetron Odt [Zofran ODT] 4 mg PO Q8HR PRN #5 tab 06/08/20 Sucralfate Tab [Carafate Tab] 1 gm PO QID #60 tab 06/08/20 Esomeprazole Magnesium 40 mg PO DAILY 06/27/20 Transfer to Outside Facility - Transfer Information Decision to Transfer Date: 06/27/20 Decision to Transfer Time: 14:00 Reason for Transfer: specialized care not available Accepting Facility: [facility]
--- NOTE | 2020-06-27 14:13 | RAD ---
EXAM DESCRIPTION: Chest,1 View CLINICAL HISTORY: 70 years Male, hypoxia COMPARISON: 06/07/2020 TECHNIQUE: Single view radiograph of the chest. IMPRESSION: Enlarged cardiac silhouette. Partially calcified aorta. Increased left greater than right interstitial opacification could represent multifocal pneumonia or viral infection. Question small left pleural effusion. No pneumothorax. Thoracic spondylosis. Electronically signed by: King Mckay MD 06/27/2020 2:12 PM PERIODICALS CLERK
--- NOTE | 2020-06-27 14:17 | CT ---
EXAM DESCRIPTION: Head CLINICAL HISTORY: 70 years Male, ams COMPARISON: None. TECHNIQUE: Axial images obtained from the skull base to the vertex without intravenous contrast with images. Coronal and sagittal reformations provided. This exam was performed according to our departmental dose-optimization program, which includes automated exposure control, adjustment of the mA and/or kV according to patient size and/or use of iterative reconstruction technique. Time Last Seen Well (If known) for Code Stroke: n/a FINDINGS: Brain Parenchyma, ventricles, meninges, and extra-axial spaces: Mild general cerebral atrophy. Chronic lacunar infarction periventricular right funez radiata. Additional subcentimeter hypodensities within the right left basal ganglia likely representing prominent perivesical spaces versus chronic lacunar infarctions as well. Millimetric hypodensity in the left thalamus, again probably representing chronic lacunar infarction. Moderate Nonspecific white matter hypodensities in the cerebral hemispheres likely related to ischemic small vessel disease. Possible difficulty differentiating a small acute infarction given these hypodensities. No acute intracranial hemorrhage. No abnormal extra-axial fluid collection. Vascular: Atherosclerosis is within the carotid siphons. Calvarium, paranasal sinuses, mastoids, and orbits: Calvarium intact. Visualized paranasal sinuses and mastoid air cells clear. Orbits unremarkable. IMPRESSION: 1. No acute intracranial abnormality. 2. Multifocal chronic lacunar infarctions as above. 3. Senescent changes. Electronically signed by: King Mckay MD 06/27/2020 2:15 PM [facility]
[2020-06-27] MEDS ORDERED: SODIUM CHLORIDE 0.9% 1000ML 1,000 ML IVS ONE (14:32)
[2020-06-27] MEDS ORDERED: levoFLOXacin 750MG IV 750 MG in PREMIX BAG 1 BAG IVPB ONE (14:38)
--- NOTE | 2020-06-27 16:08 | US ---
EXAM DESCRIPTION: Venous,Lower Extremity LT (accession [id number]), Venous,Lower Extremity RT (accession [id number]): Ultrasound. CLINICAL HISTORY: elevated d-dimer, hx DVTs COMPARISON: None Available. TECHNIQUE: Two -dimensional and doppler sonographic evaluation of the deep venous system of the bilateral lower extremities. FINDINGS: Doppler evaluation shows normal color flow and normal phasicity and augmentation of the bilateral common femoral veins, junctions with the bilateral proximal saphenous veins, femoral veins, popliteal veins, greater saphenous veins, peroneal and posterior tibial veins. These veins showed normal occlusion with transducer pressure. Two-dimensional survey showed no echogenic clot within these veins. IMPRESSION: Duplex ultrasound evaluation of the bilateral lower extremity deep venous systems showing no evidence of thrombosis. Electronically signed by: Ish Cesar MD 06/27/2020 4:07 PM BLEND TECHNICIAN
--- NOTE | 2020-06-27 16:08 | US ---
EXAM DESCRIPTION: Venous,Lower Extremity LT (accession [id number]), Venous,Lower Extremity RT (accession [id number]): Ultrasound. CLINICAL HISTORY: elevated d-dimer, hx DVTs COMPARISON: None Available. TECHNIQUE: Two -dimensional and doppler sonographic evaluation of the deep venous system of the bilateral lower extremities. FINDINGS: Doppler evaluation shows normal color flow and normal phasicity and augmentation of the bilateral common femoral veins, junctions with the bilateral proximal saphenous veins, femoral veins, popliteal veins, greater saphenous veins, peroneal and posterior tibial veins. These veins showed normal occlusion with transducer pressure. Two-dimensional survey showed no echogenic clot within these veins. IMPRESSION: Duplex ultrasound evaluation of the bilateral lower extremity deep venous systems showing no evidence of thrombosis. Electronically signed by: Ish Cesar MD 06/27/2020 4:07 PM BELTING CUTTER
[2020-06-27 16:41] VITALS: TEMP 97.8; O2SAT 99
[2020-06-27] MEDS ORDERED: ENOXAPARIN SODIUM 80 MG/0.8 ML SYG SUBCU ONE (17:40)
[2020-06-27] MEDS ORDERED: fentaNYL CITRATE INJ 50 MCG/ML 2 ML AMP IV ONE (18:31)
[2020-06-27 19:30] VITALS: BP 144/70
== END 2020-06-27 17:50 | disposition short-term general hospital (02) ==
LOC: ER 13:16
DX: J18.9 Pneumonia, unspecified organism (principal); R09.02 Hypoxemia; R79.89 Other specified abnormal findings of blood chemistry; R41.82 Altered mental status, unspecified; R00.0 Tachycardia, unspecified; R56.9 Unspecified convulsions; F03.90 Unspecified dementia, unspecified severity, without behavioral disturbance, psychotic disturbance, mood disturbance, and anxiety; J44.9 Chronic obstructive pulmonary disease, unspecified; I51.9 Heart disease, unspecified; I10 Essential (primary) hypertension; K21.9 Gastro-esophageal reflux disease without esophagitis; Z20.828 Contact with and (suspected) exposure to other viral communicable diseases; Z86.73 Personal history of transient ischemic attack (TIA), and cerebral infarction without residual deficits; Z86.711 Personal history of pulmonary embolism; Z86.718 Personal history of other venous thrombosis and embolism; Z87.891 Personal history of nicotine dependence; Z79.899 Other long term (current) drug therapy; Z91.041 Radiographic dye allergy status; Z88.1 Allergy status to other antibiotic agents
CPT/HCPCS: 36600; 70450; 71045; 80053; 82550; 82803; 82805; 83615; 83735; 83880; 84484; 85025; 85379; 85610; 85730; 86140; 87040; 87502; 87635; 93005; 93971; 94640; J1650; J1956; J3010; J7030